=== PATIENT | male | born 1960 | race Caucasian/White ===

== ENCOUNTER 2017-09-26 02:20 | Emergency (ER) | payer OTHER ==
[~2017-09-26] VITALS: Ht 180.3 cm; Wt 117.5 kg
[~2017-09-26 02:20] MED LIST: ADVIN50/60 INH; ASPI81TA28 PO; IPRA1AER2 INH; NIAC500T11 PO; OMEG10007 PO
[2017-09-26 02:25] VITALS: Ht 180.3 cm; Wt 117.5 kg
[2017-09-26 02:40] VITALS: O2SAT 94
[2017-09-26] MEDS ORDERED: FEXO5TAB2 PO (02:52)
[2017-09-26] MEDS ORDERED: SULF800T23 PO (02:52)
[2017-09-26] MEDS ORDERED: ALBUT/IPRATROP 3MG/0.5MG NEB 3 ML VIAL INH STA (03:05)
[2017-09-26] MEDS ORDERED: METHYLPREDNISOLONE 125 MG VIAL IV STA (03:07)
[2017-09-26 03:42] LABS: BASO % 0.3 %; BASO ABS # 0.02 K/uL (0-0.2); EOS % 2.1 %; EOS ABS # 0.17 K/uL (0-0.5); HEMATOCRIT 46.9 % (42-52); HEMOGLOBIN 16.5 g/dL (14.0-18.0); IG# 0.02 K/uL (0.00-0.02); LYMPH % 20.6 %; LYMPH ABS # 1.64 K/uL (1.2-3.4); MEAN CELL VOLUME 97.5 fL (80-100); MEAN CORPUSCULAR HEMOGLOBIN 34.3 pg (25-34); MEAN CORPUSCULAR HGB CONC 35.2 g/dl (32-36); MEAN PLATELET VOLUME 10.6 fL (7.4-10.4); MONO % 7.9 %; MONO ABS # 0.63 K/uL (0.11-0.59); NEUT % 68.8 %; NEUT ABS # 5.47 K/uL (1.4-6.5); PLATELET COUNT 129 K/uL (130-400); RED CELL DISTRIBUTION WIDTH CV 13.1 % (11.5-14.5); RED CELL DISTRIBUTION WIDTH SD 46.9 fL (36.4-46.3); WHITE BLOOD COUNT 7.95 K/uL (4.8-10.8)
[2017-09-26 03:58] LABS: BLOOD UREA NITROGEN 8 mg/dl (7-18); CREATININE 1.15 mg/dl (0.60-1.40); GLUCOSE 119 mg/dl (70-99); INFLUENZA B ANTIGEN Neg for Influ B (NEG)
[2017-09-26 03:59] LABS: ALBUMIN 3.5 gm/dl (3.4-5.0); ALT/SGPT 29 U/L (12-78); AST/SGOT 20 U/L (15-37); CALCIUM 8.2 mg/dl (8.5-10.1); CARBON DIOXIDE 25 mmol/L (21-32); POTASSIUM 4.2 mmol/L (3.5-5.1); SODIUM 132 mmol/L (136-145)
[2017-09-26 04:04] LABS: ALKALINE PHOSPHATASE 91 U/L (45-117); TOTAL PROTEIN 7.3 gm/dl (6.4-8.2)
[2017-09-26] MEDS ORDERED: AZITHROMYCIN 250 MG TAB PO STA (04:23)
[2017-09-26] MEDS ORDERED: AZIT500T26 PO (05:03)
[2017-09-26] MEDS ORDERED: PRED20TA2 PO (05:03)
[2017-09-26 05:22] VITALS: BP 148/75; PULSE 100; TEMP 36.7; O2SAT 90
--- NOTE | 2017-09-26 07:11 | DIAGNOSTIC IMAGING REPORT ---
TWO VIEW CHEST CLINICAL HISTORY: Dyspnea. FINDINGS: PA and lateral chest radiographs are compared to study dated 03/23/2016. The cardiomediastinal silhouette is unremarkable. The lungs appear hyperinflated and hyperlucent with flattening of the diaphragm suggesting obstructive physiology. Interstitial thickening is nonspecific. No focal airspace consolidation or pleural effusion is identified. There is no pneumothorax. The skeletal structures are osteopenic. Degenerative change is seen throughout the thoracic spine. IMPRESSION: 1. Suspect emphysema. 2. No airspace consolidation or pleural effusion is identified. Electronically signed by: Reinaldo Kebede M.D. 09/26/2017 7:10 AM Dictated Date/Time: 09/26/2017 7:09 AM
--- NOTE | 2017-09-26 07:44 | EMERGENCY ROOM VISIT NOTE ---
History Report prepared by Amelia: Carolynn Casas Under the Supervision of: Dr. Lillian Hernandez D.O. First contact with patient: 02:38 Chief Complaint: RESPIRATORY PROBLEMS Stated Complaint: BREATHING ISSUES History of Present Illness The patient is a 57 year old male who presents to the Emergency Room with complaints of worsening shortness of breath that began Last , 4 days ago. The patient states that he thought he had influenza when the symptoms initially onset, but the shortness of breath has persisted. He notes that he tried to walk up his basement steps this evening and became "extremely" short of breath. He dropped to his hands and knees at the top of the steps and needed to call his for help. He also complains of a cough that is producing a "thick mucous." He denies any chest pain. The patient added that he stopped taking his water pill last week because, "they dry me out too bad." He has a known history of COPD. Source of History: patient Onset: Last 4 days Position: chest Quality: other (SOB) Timing: worsening Modifying Factors (Worsening): exertion (walking up steps) Associated Symptoms: + cough, No chest pain Review of Systems See HPI for pertinent positives & negatives. A total of 10 systems reviewed and were otherwise negative. Past Medical & Surgical Medical Problems: (1) COPD (chronic obstructive pulmonary disease) Family History Diabetes mellitus Social History Smoking Status: Current Every Day Smoker Marital Status: single Occupation Status: retired Current/Historical Medications Scheduled Aspirin (Aspirin Ec), 81 MG PO DAILY Azithromycin (Zithromax), 500 MG PO DAILY Fish Oil (Wheeling-3), 1 CAP PO DAILY Niacin (Niacin), 1,000 MG PO DAILY Prednisone (Prednisone Tab), 3 TABS PO DAILY Sulfa/Trimethoprim (Bactrim Ds 800MG/160MG), 1 TAB PO BID Scheduled PRN Fexofenadine-Pseudoephedrine (Janice-D 12 Hour Allergy), 1 TAB PO BID PRN for CONGESTION Fluticasone Prop/Salmeterol (Advair Diskus 500/50 60 Dose), Unknown Dose INH BID PRN for SOB/Wheezing Ipratropium-Albuterol (Combivent Respimat), 1 PUFFS INH QID PRN for SOB/Wheezing Allergies Coded Allergies: No Known Allergies (Unverified , 09/26/17) Physical Exam Vital Signs Date Time Temp Pulse Resp B/P (MAP) Pulse Ox O2 Delivery O2 Flow Rate FiO2 09/26/17 05:22 36.7 100 30 148/75 90 09/26/17 04:52 90 Room Air 09/26/17 04:19 100 148/75 89 Room Air 09/26/17 04:19 93 Nasal Cannula 2.0 09/26/17 02:40 94 Nasal Cannula 4.0 09/26/17 02:36 92 Nasal Cannula 3.0 09/26/17 02:25 36.7 103 30 139/84 90 Room Air Physical Exam HEENT: Head - normocephalic and atraumatic Pupils are equal, round, and reactive to light. Extraocular eye muscles are intact, and sclera are anicteric. Nose - moist nasal mucosa without discharge. Mouth - moist buccal mucosa. Oropharynx is nonerythematous and there is no tonsillar exudate or edema noted. Neck: Supple; no JVD, nuchal rigidity, cervical lymphadenopathy. Heart: Regular rate and rhythm. There is a normal S1 and S2 with no murmurs, clicks, or gallops appreciated. Lungs: Expiratory wheezing in bilateral lung bases, with rales at the bases. Abdomen: Soft, completely nontender, nondistended, with good bowel sounds. There are no palpable pulsatile masses or hepatosplenomegaly. There is no guarding, rigidity, or rebound noted. Extremities: No evidence of cyanosis, clubbing. Trace pedal edema bilaterally. There are easily palpable peripheral pulses. Skin: warm and dry with good turgor and no rashes. Medical Decision & Procedures ER Provider Diagnostic Interpretation: Radiology results as stated below per my review: CHEST X-RAY: There is a right lower lobe pneumonia. Borderline cardiomegaly. Emphysematous changes Laboratory Results 09/26/17 03:25 Red Blood Count 4.81, Mean Corpuscular Volume 97.5, Mean Corpuscular Hemoglobin 34.3, Mean Corpuscular Hemoglobin Concent 35.2, Mean Platelet Volume 10.6, Neutrophils (%) (Auto) 68.8, Lymphocytes (%) (Auto) 20.6, Monocytes (%) (Auto) 7.9, Eosinophils (%) (Auto) 2.1, Basophils (%) (Auto) 0.3, Neutrophils # (Auto) 5.47, Lymphocytes # (Auto) 1.64, Monocytes # (Auto) 0.63, Eosinophils # (Auto) 0.17, Basophils # (Auto) 0.02 09/26/17 03:25 Test 09/26/17 03:25 White Blood Count 7.95 K/uL (4.8-10.8) Red Blood Count 4.81 M/uL (4.7-6.1) Hemoglobin 16.5 g/dL (14.0-18.0) Hematocrit 46.9 % (42-52) Mean Corpuscular Volume 97.5 fL (80-100) Mean Corpuscular Hemoglobin 34.3 pg (25-34) Mean Corpuscular Hemoglobin Concent 35.2 g/dl (32-36) Platelet Count 129 K/uL (130-400) Mean Platelet Volume 10.6 fL (7.4-10.4) Neutrophils (%) (Auto) 68.8 % Lymphocytes (%) (Auto) 20.6 % Monocytes (%) (Auto) 7.9 % Eosinophils (%) (Auto) 2.1 % Basophils (%) (Auto) 0.3 % Neutrophils # (Auto) 5.47 K/uL (1.4-6.5) Lymphocytes # (Auto) 1.64 K/uL (1.2-3.4) Monocytes # (Auto) 0.63 K/uL (0.11-0.59) Eosinophils # (Auto) 0.17 K/uL (0-0.5) Basophils # (Auto) 0.02 K/uL (0-0.2) RDW Standard Deviation 46.9 fL (36.4-46.3) RDW Coefficient of Variation 13.1 % (11.5-14.5) Immature Granulocyte % (Auto) 0.3 % Immature Granulocyte # (Auto) 0.02 K/uL (0.00-0.02) Anion Gap 4.0 mmol/L (3-11) Est Creatinine Clear Calc Drug Dose 90.2 ml/min Estimated GFR () 80.3 Estimated GFR (Non- 69.3 BUN/Creatinine Ratio 6.9 (10-20) Calcium Level 8.2 mg/dl (8.5-10.1) Total Bilirubin 0.6 mg/dl (0.2-1) Direct Bilirubin 0.2 mg/dl (0-0.2) Aspartate Amino Transf (AST/SGOT) 20 U/L (15-37) Alanine Aminotransferase (ALT/SGPT) 29 U/L (12-78) Alkaline Phosphatase 91 U/L (45-117) Troponin I < 0.015 ng/ml (0-0.045) Pro-B-Type Natriuretic Peptide 36 pg/ml (0-900) Total Protein 7.3 gm/dl (6.4-8.2) Albumin 3.5 gm/dl (3.4-5.0) Influenza Type A Antigen Neg for Influ A (NEG) Influenza Type B Antigen Neg for Influ B (NEG) Laboratory results per my review. Medications Administered Medications (Trade) Dose Ordered Sig/Bina Route Start Time Stop Time Status Last Admin Dose Admin Albuterol/ Ipratropium (Duoneb) 3 ml NOW STAT INH 09/26/17 03:05 09/26/17 03:07 DC 09/26/17 03:35 3 ML Methylprednisolone Sodium Succinate (Solu-Medrol IV) 125 mg NOW STAT IV 09/26/17 03:07 09/26/17 03:08 DC 09/26/17 03:35 125 MG Azithromycin (Zithromax Tab) 500 mg NOW STAT PO 09/26/17 04:23 09/26/17 04:24 DC 09/26/17 04:28 500 MG Procedure Medications Ordered: Duoneb, Solu-Medrol, Zithromax ECG Per My Interpretation Indication: SOB/dyspnea Rate (beats per minute): 97 Rhythm: normal sinus Findings: no acute ischemic change, no ectopy, other (No ST-segment changes) ED Course 0302: Past medical records reviewed. The patient was evaluated in room B3. A complete history and physical exam was performed. Laboratory studies were drawn as above. A 12-lead EKG was obtained. 0305: Ordered Albuterol 3 mL INH. 0307: Ordered Solu-Medrol 125 mg IV. The patient went for chest x-ray as described above. 0418:I checked on the patient at this time. He got better after breathing treatments, but got out of breath walking to the restroom. 0423: Ordered 500 mg Azithromycin PO. 0456: The patient's oxygen saturation levels remained at 90% without oxygen. 0523: Upon reevaluation, the patient is resting. I discussed findings and results with him. He verbalized agreement of the treatment plan. The patient was discharged home. Medical Decision The patient is a 57 year old male who presents to the emergency department for shortness of breath upon exertion. Differential Diagnosis includes; bronchitis, pneumonia, COPD exacerbation, CHF, and URI. Laboratory results were reviewed and show: No leukocytosis, stable hemoglobin and hematocrit, negative influenza swab, glucose of 119, BNP of 36, normal troponin, normal renal function, normal LFTs. This is a 57-year-old male patient with a history of COPD who presents to the emergency department with increasing exertional shortness of breath and productive cough. On physical exam, the patient had expiratory wheezing. He received nebulizer treatment with improvement in his symptoms. Chest x-ray was concerning for right lower lower lobe infiltrate. His symptoms seem consistent with exacerbation of COPD, bronchitis or pneumonia. He will be treated with oral antibiotics. Patient was encouraged to rest over the next couple days. He was told to follow-up with his PCP within the next 48 hours if symptoms persist. He will be placed on a 7 day course of Zithromax as well as a 4 day course of prednisone. Medication Reconcilliation Current Medication List: was personally reviewed by me Blood Pressure Screening Patient's blood pressure: Elevated blood pressure Impression Primary Impression: RLL pneumonia Additional Impression: COPD with exacerbation Scribe Attestation The scribe's documentation has been prepared under my direction and personally reviewed by me in its entirety. I confirm that the note above accurately reflects all work, treatment, procedures, and medical decision making performed by me. Departure Information Dispostion Home / Self-Care Prescriptions Prednisone (Prednisone Tab) 20 Mg Tab 3 TABS PO DAILY, #12 TAB FOR 4 DAYS Prov: Lillian Hernandez D.OAime 09/26/17 Azithromycin (Zithromax) 500 Mg Tab 500 MG PO DAILY, #6 TAB Prov: Lillian Hernandez D.O. 09/26/17 Referrals Clayton Richardson M.D. (PCP) Forms HOME CARE DOCUMENTATION FORM, IMPORTANT VISIT INFORMATION, WORK / SCHOOL INSTRUCTIONS Patient Instructions My [facility] Additional Instructions Rest. STOP SMOKING USe advair twice daily. Use combivent - 2 puffs every 4-6 hours over next 3 days Zithromax - daily for next 6 days Prednisone - 3 tabs. every morning for next 4 days Return to the ER if symptoms worsen. Follow up with PCP for a recheck by monday if symptoms persist Problem Qualifiers Primary Impression: RLL pneumonia Pneumonia type: due to unspecified organism Qualified Codes: J18.1 - Lobar pneumonia, unspecified organism
== END 2017-09-26 05:23 | disposition home or self-care (01) ==
LOC: C.EDB 02:21
DX: J18.1 Lobar pneumonia, unspecified organism (principal); J44.1 Chronic obstructive pulmonary disease with (acute) exacerbation; F17.200 Nicotine dependence, unspecified, uncomplicated; Z79.82 Long term (current) use of aspirin; Z79.899 Other long term (current) drug therapy

== ENCOUNTER 2020-02-12 16:34 | Inpatient (IN) ==
--- NOTE | 2020-02-12 17:23 | Emergency Department Note ---
Impression & Plan Pulmonary embolism, Superficial thrombophlebitis ED Provider Note NAME: DILMA MALHOTRA AGE: 59 SEX: M : 1960 ARRIVES VIA: Walk-In INFORMANT: Patient, ED PROVIDER(S): Jone Martinez DO CHIEF COMPLAINT: Shortness of breath HPI: The patient is a 59-year-old male who was recently diagnosed with very extensive superficial thrombophlebitis of the left greater saphenous vein. He was started on low-dose Lovenox. He went for a recheck with his primary care physician today in [place] and was experiencing significant shortness of breath. The patient has a history of COPD but he states that this shortness of breath feels different than his previous shortness of breath. For this reason and given that the patient had extensive superficial thrombophlebitis he was sent for CT of the chest. The CT of the chest was read in our facility as "several right-sided acute pulmonary emboli. No right heart strain. No pulmonary infarct." The patient was also experiencing hemoptysis today when he went to follow-up with his primary care physician. The patient was sent to the emergency department for further evaluation and likely admission. ROS: See above HPI for pertinent positives & negatives. A total of 10 systems reviewed and were otherwise negative. PAST MEDICAL HISTORY: See Below PAST SURGICAL HISTORY: See Below FAMILY HISTORY: See Below SOCIAL HISTORY: See Below HOME MEDICATIONS: See Below ALLERGIES: See Below VITALS: See Below PHYSICAL EXAMINATION: GENERAL: Patient is awake alert in no acute distress patient is resting comfortably and showing no signs of anxiety EYES: The conjunctivae are clear. The pupils are round and reactive. EARS, NOSE, MOUTH AND THROAT: The nose is without any evidence of any deformity. Mucous membranes are moist. Tongue is midline. NECK: The neck is nontender and supple. RESPIRATORY: Diminished breath sounds are noted throughout. There is coarse wheezing in both upper lung oliveira. There is mild conversational dyspnea. CARDIOVASCULAR: Tachycardic rate with regular rhythm was noted. There is no definite murmur. GASTROINTESTINAL: The abdomen is soft. Abdomen is nontender. MUSCULOSKELETAL/EXTREMITIES: There is no evidence of gross deformity full range of motion is noted in the hips and shoulders. SKIN: There is no obvious evidence of any rash. Trace pedal edema was noted bilaterally. There is significant induration and erythema noted on the medial left thigh. This is presumably the area of the superficial thrombophlebitis of the greater saphenous vein that was diagnosed 5 days ago. NEUROLOGIC: Patient is awake alert and oriented x 3. MEDICAL DECISION MAKING: The patient is a 59-year-old male who presented to the emergency department for an evaluation of difficulty breathing and hemoptysis. The patient was diagnosed with superficial thrombophlebitis of the greater saphenous vein 5 days ago. He was started on low-dose Lovenox at that time. He went to follow-up with his primary care physician today and was complaining of difficulty breathing and hemoptysis. For this reason he was sent to our facility for a CT of the chest. At that time the CT the chest was read as acute right-sided pulmonary embolism. He was sent to the emergency department for further evaluation. The patient was started on heparin in the emergency department. He was reevaluated multiple times. I discussed the patient's laboratory results with him. [facility] have agreed to evaluate the patient in the emergency department for further management and disposition. Triage Nursing notes reviewed. Prior medical records reviewed Vital Signs: reviewed and remarkable for elevated blood pressure. Differential diagnosis: Reactive airway disease, pneumonia, pneumothorax, COPD, CHF, infections, cardiac ischemia, pulmonary embolism, musculoskeletal, gastrointestinal, as well as other pathologies. ER treatment provided: See below Diagnostics interpreted by me: ECG: EKG was obtained in the emergency department. My interpretation is normal sinus rhythm at 60 bpm. There is no ectopy. Poor R wave progression was noted. Diffuse T wave flattening was noted. This was compared to a tracing from September 262017. The ventricular rate has slowed and the T wave flattening does appear new compared to the earlier tracing. Cardiac Monitoring: An order was placed for continuous cardiac monitoring. The monitor shows a rate of 80 bpm with sinus rhythm. Laboratory studies: As stated above and show below. Imaging studies: See below Consultation(s): I discussed this case with Jitendra Rios who [facility]. [facility] COURSE: Procedures: none PDMP:reviewed and no issues Critical Care: I have personally spent greater than 45 minutes of critical care time in the direct management of this patient. This includes bedside care, interpretation of diagnostic studies, and testing, discussion with consultants, patient, and family members, and other required patient management activities. This 45 minutes is in excess of all separately billable procedures. Past Med/Surg History Medical History COPD (chronic obstructive pulmonary disease) DVT (deep venous thrombosis) Hypertriglyceridemia Peripheral vascular disease Pulmonary embolism Spinal stenosis of lumbar region without neurogenic claudication Superficial thrombophlebitis Tobacco use Surgical History S/P cholecystectomy Family History Other Stroke Social History Smoking Status: Current every day smoker Hx Alcohol Use: No Hx Substance Use: No Beliefs That Will Affect Care: None Current Living Situation: Family Other Information That Helps Us Care for You: No Feels Safe at Home: Yes Safety Concerns: Feels Safe At This Time Allergies Allergies Allergy/AdvReac Type Severity Reaction Status Date / Time No Known Allergies Allergy Verified 02/12/20 17:53 Home Meds Home Medications Medication Instructions Recorded Confirmed albuterol sulfate 2 puff INHALATION DIRECTED PRN 02/12/20 02/12/20 albuterol sulfate 2.5 mg INHALATION DIRECTED PRN 02/12/20 02/12/20 amoxicillin-pot clavulanate 1 tab PO BID 02/12/20 02/12/20 aspirin 81 mg PO DAILY 02/12/20 02/12/20 azelastine 1 spray INTRANASAL BID PRN 02/12/20 02/12/20 enoxaparin 40 mg SUBCUT DAILY 02/12/20 02/12/20 fluticasone propion-salmeterol 1 inh INHALATION BID 02/12/20 02/12/20 [Advair Diskus] mometasone 2 spray INTRANASAL DAILY PRN 02/12/20 02/12/20 montelukast [Singulair] 10 mg PO DAILY 02/12/20 02/12/20 niacin 1,000 mg PO DAILY 02/12/20 02/12/20 omega-3 fatty acids [Fish Oil 1,000 mg PO DAILY 02/12/20 02/12/20 Concentrate] tiotropium bromide [Spiriva with 1 cap INHALATION DAILY 02/12/20 02/12/20 HandiHaler] Results & Data (ED) Vital Signs Vital Signs - 24 hr 02/12/20 17:00 02/12/20 17:08 02/12/20 17:10 Temperature 36.5 C Temperature Source Oral Pulse Rate 74 71 Pulse Rate from SpO2 Sensor 61 Respiratory Rate 20 24 Respiratory Effort / Characteristics Non-Labored Respiratory Depth Normal Blood Pressure 142/75 H 153/87 H Blood Pressure Mean 97 95 Pulse Oximetry 93 95 94 Oxygen Delivery Method Room Air Room Air Sepsis Recent Fever Within 48 Hours No Sepsis New/Unexplained Change in Mental Status No Sepsis Action Taken by Nursing No Action Required 02/12/20 17:30 02/12/20 17:40 02/12/20 17:50 Temperature Temperature Source Pulse Rate 56 L 64 60 Pulse Rate from SpO2 Sensor 57 L 64 60 Respiratory Rate 19 24 15 Respiratory Effort / Characteristics Respiratory Depth Blood Pressure Blood Pressure Mean Pulse Oximetry 95 94 93 Oxygen Delivery Method Sepsis Recent Fever Within 48 Hours Sepsis New/Unexplained Change in Mental Status Sepsis Action Taken by Long Term Medications Current Medication List: was personally reviewed by me Laboratory Data Attestation: I reviewed the patient's lab results. Result diagrams: 02/12/20 17:28 02/12/20 17:28 Lab Results 02/12/20 02/12/20 02/12/20 Range/Units 17:28 17:28 17:28 WBC 9.54 (4.8-10.8) K/uL RBC 4.95 (4.7-6.1) M/uL Hgb 16.9 (14.0-18.0) g/dL Hct 49.8 (42-52) % MCV 100.6 H (80-100) fL MCH 34.1 H (25-34) pg MCHC 33.9 (32-36) g/dL RDW Std Deviation 52.2 H (36.4-46.3) fL RDW Coeff of Lizandro 14.1 (11.5-14.5) % Plt Count 167 (130-400) K/uL MPV 10.7 H (7.4-10.4) fL Immature Gran % (Auto) 0.2 % Neut % (Auto) 57.1 % Lymph % (Auto) 32.0 % Mellette % (Auto) 5.9 % Eos % (Auto) 4.6 % Baso % (Auto) 0.2 % Neut # (Auto) 5.45 (1.4-6.5) K/uL Lymph # (Auto) 3.05 (1.2-3.4) K/uL Mellette # (Auto) 0.56 (0.11-0.59) K/uL Eos # (Auto) 0.44 (0-0.5) K/uL Baso # (Auto) 0.02 (0-0.2) K/uL Immature Gran # (Auto) 0.02 (0.00-0.02) K/uL PT 11.3 (9.0-12.0) Seconds INR 1.1 (0.9-1.1) APTT 26.2 (21.0-31.0) Seconds PTT Ratio 0.9 Sodium 139 (136-145) mmol/L Potassium 3.9 (3.5-5.1) mmol/L Chloride 107 (98-107) mmol/L Carbon Dioxide 27 (21-32) mmol/L Anion Gap 5.0 (3-11) BUN 8 (7-18) mg/dl Creatinine 1.01 (0.6-1.4) mg/dl Est Cr Clr Drug Dosing 93.4 ml/min Est GFR ( Amer) 92.6 Est GFR (Non-Af Amer) 79.9 BUN/Creatinine Ratio 7.6 L (10-20) Glucose 91 (70-99) mg/dl Calcium 8.5 (8.5-10.1) mg/dl Total Bilirubin 0.6 (0.2-1) mg/dl AST 29 (15-37) U/L ALT 31 (12-78) U/L Alkaline Phosphatase 77 (45-117) U/L Total Protein 7.6 (6.4-8.2) gm/dl Albumin 3.7 (3.4-5.0) gm/dl Globulin 3.9 (2.5-4.0) gm/dl Albumin/Globulin Ratio 0.9 (0.9-2) Specimen Hemolysis Administered Medications Amoxicillin/Clavulanate Potassium (Amoxicillin/Clavulanate 875 Mg Tab) 1 tab PO BIDM [facility] Stop: 02/19/20 20:59 Last Admin: 02/12/20 22:20 Dose: 1 tab Documented by: [id number] Heparin Sodium/Dextrose (Heparin Sodium/Dextrose) 25,000 units in 500 mls @ 31 mls/hr IV .[id number] SHARON; Protocol Stop: 03/13/20 17:29 Last Admin: 02/12/20 18:50 Dose: 1,550 units/hr, 31 mls/hr Documented by: [id number] Cosigned by: [id number] Nicotine (Nicotine 21 Mg/24 Hr Tdsy) 21 mg TD QAM [facility] Stop: 03/13/20 21:09 Last Admin: 02/12/20 22:20 Dose: 21 mg Documented by: [id number] Discontinued Medications Heparin Sodium (Porcine) (Heparin Sod (Porcine) 1000 Unit/Ml 10 Ml Vial) Confirm Administered Dose 10,000 units .ROUTE .STK-MED ONE Stop: 02/12/20 18:48 Last Admin: 02/12/20 18:49 Dose: 7,000 units Documented by: [id number] Cosigned by: [id number] Heparin Sodium/Dextrose (Heparin Iv Standard With Bolus) 1 ea IV NOW STA; Protocol Stop: 02/12/20 17:28 Last Admin: 02/12/20 18:50 Dose: Not Given Documented by: [id number] Blood Pressure Blood Pressure Findings: Elevated blood pressure Blood Pressure Disposition: further management by hospitalist Discharge Plan Visit Data Chief Complaint: Respiratory Problems Stated Complaint: pulmonary embolism ED Provider: Jone Martinez Discharge Problem: Pulmonary embolism, Superficial thrombophlebitis Patient Disposition: Admitted As Inpatient Condition: Good Discharge Instructions Interventions: ED Discharge Assessment Last Done: 02/12/20 20:16
[2020-02-12 17:48] LABS: Basophils # (auto) 0.02 K/uL (0-0.2); Basophils % (auto) 0.2 %; Eosinophils # (auto) 0.44 K/uL (0-0.5); Eosinophils % (auto) 4.6 %; Hematocrit (blood only) 49.8 % (42-52); Hemoglobin 16.9 g/dL (14.0-18.0); Immature Granulocytes # (auto) 0.02 K/uL (0.00-0.02); Immature Granulocytes % (auto) 0.2 %; Lymphocytes # (auto) 3.05 K/uL (1.2-3.4); Mean Corpuscular Hemoglobin 34.1 pg (25-34); Mean Corpuscular Hgb Conc 33.9 g/dL (32-36); Mean Corpuscular Volume 100.6 fL (80-100); Mean Platelet Volume 10.7 fL (7.4-10.4); Monocytes # (auto) 0.56 K/uL (0.11-0.59); Monocytes % (auto) 5.9 %; Neutrophils # (auto) 5.45 K/uL (1.4-6.5); Neutrophils % (auto) 57.1 %; Platelet Count 167 K/uL (130-400); RDW Coefficient of Variation 14.1 % (11.5-14.5); RDW Standard Deviation 52.2 fL (36.4-46.3); Red Blood Count 4.95 M/uL (4.7-6.1); White Blood Count 9.54 K/uL (4.8-10.8)
--- NOTE | 2020-02-12 17:55 | History & Physical Report ---
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 -Recently diagnosed with superficial thrombophlebitis, developed SOB and chest pain 5 days ago along with hemoptysis -CTA chest from today reveals several right-sided acute pulmonary emboli. No right heart strain. No pulmonary infarct -Undergoing OP hypercoag workup. No personal h/o DVT/PE and no family history of known clotting disorders -Concern for COVID with recent hypercoagulability but COVID PCR negative -Started on IV heparin due to recent hemoptysis. Monitor CBC -Routine echo to further evaluate for heart strain (2) Hemoptysis: Endorsing 5 episodes of a small amount of bright red blood in sputum this past week in setting of several PEs, retirement smoking history -Routine pulm consult for further evaluation (3) Superficial thrombophlebitis: Diagnosed on 02/06/20 and is improving. Continue course of Augmentin. Currently on IV heparin (4) COPD (chronic obstructive pulmonary disease): At baseline. Continue Spiriva, Advair, Albuterol PRN DVT Ppx: IV heparin Code status: FULL PCP: Donya Dispo: Admitted to PCU. Plan to return home once medically stable. Patient seen in collaboration with Dr. Munson. Please see addendum. 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 Was recently found to have superficial thrombophlebitis of the left greater saphenous, not involving the deep veins, on 02/07/2020. Started on Lovenox low dose 40mg/day for superficial thrombosis. Was seen again in clinic today due to development of sputum production with a pencil eraser-sized amount of bright red blood x multiple episodes, as well as dyspnea on exertion and eventual development of upper chest pain. Was sent to [facility] for CTA chest and found to have several right-sided acute pulmonary emboli without right heart strain or pulmonary infarct. OP provider also discussed with MTM, who recommended more intensive anticoagulation due to size of clot and possibly worsening clinical course. Recommend therapeutic Lovenox and transition to Coumadin. In ED, patient is afebrile and hemodynamically stable. Denies chest discomfort or SOB at rest. LLE still with erythema but much improved over the past few days, per patient. Denies chills, headache, lightheadedness, visual changes, sore throat, palpitations, abdominal pain, nausea, vomiting, dysuria, constipation or diarrhea. No sick contacts, travel or recent known COVID exposures. Allergies Allergy/AdvReac Type Severity Reaction Status Date / Time No Known Allergies Allergy Verified 02/12/20 17:53 Home Medications Home Medications Medication Instructions Recorded Confirmed Type albuterol sulfate 2 puff INHALATION DIRECTED PRN 02/12/20 02/12/20 History albuterol sulfate 2.5 mg INHALATION DIRECTED PRN 02/12/20 02/12/20 History amoxicillin-pot clavulanate 1 tab PO BID 02/12/20 02/12/20 History aspirin 81 mg PO DAILY 02/12/20 02/12/20 History azelastine 1 spray INTRANASAL BID PRN 02/12/20 02/12/20 History enoxaparin 40 mg SUBCUT DAILY 02/12/20 02/12/20 History fluticasone propion-salmeterol 1 inh INHALATION BID 02/12/20 02/12/20 History [Advair Diskus] mometasone 2 spray INTRANASAL DAILY PRN 02/12/20 02/12/20 History montelukast [Singulair] 10 mg PO DAILY 02/12/20 02/12/20 History niacin 1,000 mg PO DAILY 02/12/20 02/12/20 History omega-3 fatty acids [Fish Oil 1,000 mg PO DAILY 02/12/20 02/12/20 History Concentrate] tiotropium bromide [Spiriva with 1 cap INHALATION DAILY 02/12/20 02/12/20 History HandiHaler] Past Med/Surg History Medical History COPD (chronic obstructive pulmonary disease) DVT (deep venous thrombosis) Elevated serum homocysteine level Hypertriglyceridemia Oral candidiasis Peripheral vascular disease Pulmonary embolism Spinal stenosis of lumbar region without neurogenic claudication Superficial thrombophlebitis Tobacco use Surgical History S/P cholecystectomy Family History Other Stroke Social History Smoking Status: Current every day smoker Hx Alcohol Use: No Hx Substance Use: No Beliefs That Will Affect Care: None Current Living Situation: Family Other Information That Helps Us Care for You: No Feels Safe at Home: Yes Safety Concerns: Feels Safe At This Time Review of Systems Review of Systems: At least ten systems reviewed and negative except as noted in the HPI. Physical Exam Physical Exam: General Appearance: WD/WN, vitals as above, NAD, sitting up in bed, obese, conversing easily Head: normocephalic, atraumatic Eyes: normal inspection, PERRL, conjunctivae normal, anicteric sclerae ENT: external ear and nose normal, oropharynx normal Neck: normal visual inspection, trachea midline, no thyromegaly Respiratory: diminished lung sounds throughout with scattered wheezing. No rales or rhonchi. No accessory muscle use Cardiovascular: tachycardic rate, regular rhythm, no murmur appreciated, normal peripheral pulses, no BLE edema Chest: normal inspection of chest Abdomen/GI: normal bowel sounds, soft, nontender, no hepatosplenomegaly Extremities/Musculoskeletal: no cyanosis or clubbing, extremities motor strength 5/5 Neurologic: PERRL, EOMI, accommodation nl, no face palsy, no dysarthria, CN's II-XI intact bilaterally and moves all extremities Psychiatric: A+Ox3, + anxious affect Skin: no rashes, warm/dry. + L medial thigh with erythema and induration with some warmth to touch Results & Data Results & Data ([facility]) Vital Signs (Past 12 Hours) Vital Signs Temp Pulse Resp BP Pulse Ox 02/12/20 17:10 94 02/12/20 17:00 36.5 C 74 20 142/75 H 93 Laboratory Results Short CBC 02/12/20 02/12/20 02/12/20 Range/Units 17:28 17:28 17:28 WBC 9.54 (4.8-10.8) K/uL RBC 4.95 (4.7-6.1) M/uL Hgb 16.9 (14.0-18.0) g/dL Hct 49.8 (42-52) % MCV 100.6 H (80-100) fL MCH 34.1 H (25-34) pg MCHC 33.9 (32-36) g/dL RDW Std Deviation 52.2 H (36.4-46.3) fL RDW Coeff of Lizandro 14.1 (11.5-14.5) % Plt Count 167 (130-400) K/uL MPV 10.7 H (7.4-10.4) fL Immature Gran % (Auto) 0.2 % Neut % (Auto) 57.1 % Lymph % (Auto) 32.0 % [place] % (Auto) 5.9 % Eos % (Auto) 4.6 % Baso % (Auto) 0.2 % Neut # (Auto) 5.45 (1.4-6.5) K/uL Lymph # (Auto) 3.05 (1.2-3.4) K/uL [place] # (Auto) 0.56 (0.11-0.59) K/uL Eos # (Auto) 0.44 (0-0.5) K/uL Baso # (Auto) 0.02 (0-0.2) K/uL Immature Gran # (Auto) 0.02 (0.00-0.02) K/uL PT 11.3 (9.0-12.0) Seconds INR 1.1 (0.9-1.1) APTT 26.2 (21.0-31.0) Seconds PTT Ratio 0.9 Sodium 139 (136-145) mmol/L Potassium 3.9 (3.5-5.1) mmol/L Chloride 107 (98-107) mmol/L Carbon Dioxide 27 (21-32) mmol/L Anion Gap 5.0 (3-11) BUN 8 (7-18) mg/dl Creatinine 1.01 (0.6-1.4) mg/dl Est Cr Clr Drug Dosing 93.4 ml/min Est GFR ( Amer) 92.6 Est GFR (Non-Af Amer) 79.9 BUN/Creatinine Ratio 7.6 L (10-20) Glucose 91 (70-99) mg/dl Calcium 8.5 (8.5-10.1) mg/dl Total Bilirubin 0.6 (0.2-1) mg/dl AST 29 (15-37) U/L ALT 31 (12-78) U/L Alkaline Phosphatase 77 (45-117) U/L Total Protein 7.6 (6.4-8.2) gm/dl Albumin 3.7 (3.4-5.0) gm/dl Globulin 3.9 (2.5-4.0) gm/dl Albumin/Globulin Ratio 0.9 (0.9-2) Specimen Hemolysis COVID-19 Eval Order COVID-19 PCR (Negative) 02/12/20 02/12/20 Range/Units 18:56 18:56 WBC (4.8-10.8) K/uL RBC (4.7-6.1) M/uL Hgb (14.0-18.0) g/dL Hct (42-52) % MCV (80-100) fL MCH (25-34) pg MCHC (32-36) g/dL RDW Std Deviation (36.4-46.3) fL RDW Coeff of Lizandro (11.5-14.5) % Plt Count (130-400) K/uL MPV (7.4-10.4) fL Immature Gran % (Auto) % Neut % (Auto) % Lymph % (Auto) % [place] % (Auto) % Eos % (Auto) % Baso % (Auto) % Neut # (Auto) (1.4-6.5) K/uL Lymph # (Auto) (1.2-3.4) K/uL [place] # (Auto) (0.11-0.59) K/uL Eos # (Auto) (0-0.5) K/uL Baso # (Auto) (0-0.2) K/uL Immature Gran # (Auto) (0.00-0.02) K/uL PT (9.0-12.0) Seconds INR (0.9-1.1) APTT (21.0-31.0) Seconds PTT Ratio Sodium (136-145) mmol/L Potassium (3.5-5.1) mmol/L Chloride (98-107) mmol/L Carbon Dioxide (21-32) mmol/L Anion Gap (3-11) BUN (7-18) mg/dl Creatinine (0.6-1.4) mg/dl Est Cr Clr Drug Dosing ml/min Est GFR ( Amer) Est GFR (Non-Af Amer) BUN/Creatinine Ratio (10-20) Glucose (70-99) mg/dl Calcium (8.5-10.1) mg/dl Total Bilirubin (0.2-1) mg/dl AST (15-37) U/L ALT (12-78) U/L Alkaline Phosphatase (45-117) U/L Total Protein (6.4-8.2) gm/dl Albumin (3.4-5.0) gm/dl Globulin (2.5-4.0) gm/dl Albumin/Globulin Ratio (0.9-2) Specimen Hemolysis COVID-19 Eval Order Covid19 Done at [facility] COVID-19 PCR NEGATIVE (Negative) BMP 02/12/20 17:28 Sodium 139 Potassium 3.9 Chloride 107 Carbon Dioxide 27 BUN 8 Creatinine 1.01 Glucose 91 Calcium 8.5 Liver Function 02/12/20 Range/Units 17:28 Total Bilirubin 0.6 (0.2-1) mg/dl AST 29 (15-37) U/L ALT 31 (12-78) U/L Alkaline Phosphatase 77 (45-117) U/L Albumin 3.7 (3.4-5.0) gm/dl Diagnostic Findings CTA chest: IMPRESSION: 1. Several right-sided acute pulmonary emboli. No right heart strain. No pulmonary infarct. These findings will be called/faxed to the ordering provider at time of dictation. 2. Emphysema. Code Status & VTE Plan VTE Prophylaxis Plan VTE Prophylaxis will be ordered: Yes Supervising Physician Co-Signing Physician Notes 59yo M with a PMH of COPD, tobacco presents to the ER with dyspnea on exertion and hemoptysis. Pt was treating outpatient for a superficial thrombophlebitis of the left greater saphenous with lovenox 40mg daily. She was seen in the clinic today for worsening SOB and the hemoptysis; then he was sent to [facility] for CTA chest and found to have several right-sided acute pulmonary emboli without right heart strain or pulmonary infarct. COVID-19 test was negative. Starting on heparin drip in the ER. will consult pulmonology for eval. Will get an echo in am to assess for RV strain. Discussed with patient about Warfarin and the DOACs briefly since the hospitalist team will discuss that with him in detail once check coverage with insurance for the DOACs in am. Will monitor closely for active bleeding since pt was having hemoptysis. Will monitor closely in tele. MD Arpit (1) Superficial thrombophlebitis Laterality: left Superficial thrombophlebitis-Involved body area: lower extremity Qualified Code(s): I80.02 - Phlebitis and thrombophlebitis of superficial vessels of left lower extremity (2) Pulmonary embolism Acute cor pulmonale presence: without acute cor pulmonale Chronicity: acute Pulmonary embolism type: other Qualified Code(s): I26.99 - Other pulmonary embolism without acute cor pulmonale
[2020-02-12 18:06] LABS: Albumin Level 3.7 gm/dl (3.4-5.0); BUN Creatinine Ratio 7.6 (10-20); Calcium 8.5 mg/dl (8.5-10.1); Creatinine Clr Calc Pharmacy 93.4 ml/min; Est GFR (African American) 92.6; Est GFR (Non-African American) 79.9; Potassium 3.9 mmol/L (3.5-5.1)
[2020-02-12 18:09] LABS: INR 1.1 (0.9-1.1); Partial Thromboplastin Ratio 0.9; Partial Thromboplastin Time 26.2 Seconds (21.0-31.0); Prothrombin Time 11.3 Seconds (9.0-12.0)
[2020-02-12 18:10] LABS: Albumin Globulin Ratio 0.9 (0.9-2); Bilirubin,Total 0.6 mg/dl (0.2-1); Globulin 3.9 gm/dl (2.5-4.0); Total Protein 7.6 gm/dl (6.4-8.2)
[2020-02-12] MEDS ORDERED: ALBUTEROL 0.083% NEBU SOLN 3 ML VIAL INH PRN (18:33)
[2020-02-12] MEDS ORDERED: ALBUTEROL HFA 8 GM INHALER INH PRN (18:33)
[2020-02-12] MEDS ORDERED: HEPARIN SOD (PORCINE) 1000 UNIT/ML 10 ML VIAL ONE (18:47)
[2020-02-12] MEDS: HEPARIN SODIUM/DEXTROSE 25,000 UNITS/500 ML BAG IV SCH (18:50)
[2020-02-12] MEDS: NICOTINE 21 MG/24 HR TDSY TD SCH (22:20)
[2020-02-12] MEDS: AMOXICILLIN/CLAVULANATE 875 MG TAB PO SCH (22:20)
[2020-02-13 01:59] LABS: Partial Thromboplastin Ratio 1.8
[2020-02-13 02:07] LABS: Partial Thromboplastin Time 50.1 Seconds (21.0-31.0)
[2020-02-13 06:57] LABS: Hematocrit (blood only) 48.8 % (42-52); Hemoglobin 16.8 g/dL (14.0-18.0); Mean Corpuscular Hemoglobin 34.4 pg (25-34); Mean Corpuscular Hgb Conc 34.4 g/dL (32-36); Mean Platelet Volume 11.2 fL (7.4-10.4); Platelet Count 168 K/uL (130-400); RDW Standard Deviation 50.9 fL (36.4-46.3); Red Blood Count 4.88 M/uL (4.7-6.1); White Blood Count 8.64 K/uL (4.8-10.8)
[2020-02-13 07:45] LABS: BUN Creatinine Ratio 9.4 (10-20); Blood Urea Nitrogen 9 mg/dl (7-18); Calcium 8.4 mg/dl (8.5-10.1); Carbon Dioxide 23 mmol/L (21-32); Chloride 109 mmol/L (98-107); Creatinine Clr Calc Pharmacy 102.3 ml/min; Est GFR (African American) 105.1; Est GFR (Non-African American) 90.6; Glucose 101 mg/dl (70-99); Sodium 139 mmol/L (136-145); Troponin I < 0.015 ng/ml (0-0.045)
[2020-02-13] MEDS ORDERED: AZELASTINE~ORDER AWAITING ACTION SCH (08:00)
[2020-02-13] MEDS: AMOXICILLIN/CLAVULANATE 875 MG TAB PO SCH (08:39)
[2020-02-13] MEDS: NICOTINE 21 MG/24 HR TDSY TD SCH (08:55)
[2020-02-13] MEDS ORDERED: ASPIRIN 81 MG ECTAB PO SCH (09:00)
[2020-02-13] MEDS ORDERED: NIACIN 500 MG TAB PO SCH (09:00)
[2020-02-13] MEDS ORDERED: MONTELUKAST SODIUM 10 MG TABLET PO SCH (09:00)
[2020-02-13] MEDS ORDERED: FLUTICASONE PROPIONATE NA SPR 16 GM BTL SCH (09:00)
[2020-02-13] MEDS ORDERED: NICOTINE 21 MG/24 HR TDSY TD SCH (09:00)
[2020-02-13] MEDS ORDERED: FLUTICASONE/VILANTEROL 200/25MCG 14 PUFFS/INHALER INH SCH (09:00)
[2020-02-13] MEDS ORDERED: UMECLIDINIUM BROMIDE 62.5MCG/BLISTER 7 PUFFS/INHALER INH SCH (09:00)
[2020-02-13] MEDS ORDERED: FOLIC ACID 1 MG TAB PO SCH (09:10)
--- NOTE | 2020-02-13 09:50 | Pulmonary Consultation ---
Date of Consultation February 13, 2020 Assessment & Plan (1) Pulmonary embolism: This is a 59-year-old male with a past medical history of COPD, tobacco abuse, morbid obesity with a BMI of 39 kg/m, thrombophlebitis of superficial veins of left lower extremity, peripheral vascular disease, spinal stenosis of lumbar region, chronic sinusitis, triglyceridemia, thyromegaly. The patient was referred to the emergency department after right-sided pulmonary emboli were discovered with CTA secondary to some chest discomfort and shortness of breath. Patient was never hypoxic or febrile He did develop some hemoptysis as an outpatient with. This seems to be resolving. Patient was started on a heparin drip and is being evaluated for insurance coverage for both Lovenox as well as Xarelto. Patient had outpatient hypercoagulability work-up which was positive for lupus antibody as well as an elevated homocystine level. In patients with known hypercoagulability, DOACs have not been studied and it is advisable to be on lifelong Coumadin therapy If coverage is approved by insurance, patient can be bridged with Lovenox (enoxaparin) at 1 mg/kg twice daily until therapeutic INR is attained A lower extremity duplex scan was also ordered and is pending Patient encouraged to quit smoking Acute cor pulmonale presence: without acute cor pulmonale Chronicity: acute Pulmonary embolism type: other Qualified Code(s): I26.99 - Other pulmonary embolism without acute cor pulmonale (2) Hemoptysis: Secondary to pulmonary emboli Complete cough suppression as needed in the setting of pulmonary emboli with anticoagulation Guaifenesin with codeine has been ordered every 6 hours Tessalon Perles (benzonatate) 100 mg HS has also been ordered This should be continued on discharge (3) Elevated serum homocysteine level: This was elevated on outpatient labs In and of itself, this is probably not significant However, homocystine levels elevated in the scenario of MTHFR can suggest hypercoagulability MTHFR does not appear to be included in the hypercoagulable work-up as an outpatient We will start folic acid 1 mg p.o. daily Recommend outpatient follow-up with hematology for recommendations on continuation of treatment (4) Superficial thrombophlebitis: This was identified as an outpatient and Mr. Powell was started on enoxaparin 40 mg subcu daily Lower extremity duplex is currently pending to rule out deep vein thrombosis in lower extremities Laterality: left Superficial thrombophlebitis-Involved body area: lower extremity Qualified Code(s): I80.02 - Phlebitis and thrombophlebitis of superficial vessels of left lower extremity (5) COPD (chronic obstructive pulmonary disease): Patient was seen by [facility] pulmonology most recently on 03/12/[address] Ross Lynne at [facility] Pulmonary function testing was most recently completed 10/19/2017 and revealed obstructive ventilatory defect with no bronchodilator response. RV/TLC ratio was greater than 125% indicating air trapping. Uncorrected diffusion capacity was moderately reduced. FVC 75% of predicted FEV1 58% of predicted FEV1/FVC 59% of predicted TLC 104% of predicted RV/TLC 53% of predicted RV 175% of predicted DLCOunc 46% of predicted Alpha 1 antitrypsin level was negative Continue Spiriva, Advair, Singulair, albuterol MDI or nebs as needed. Can also continue on Mucinex if is felt to be helpful. We also recommend incentive spirometry Avoid flutter valve Recommend follow-up with [facility] pulmonology within 14 days of discharge COPD type: chronic bronchitis Chronic bronchitis type: simple Qualified Code(s): J41.0 - Simple chronic bronchitis (6) Oral candidiasis: Most likely secondary to inhaled corticosteroids with Advair Patient knows to rinse mouth after each use We will start patient on nystatin swish and swallow 4 times daily Continue support and monitor (7) Tobacco use: Patient expresses no desire for smoking cessation Continue NicoDerm patch while inpatient Encourage smoking cessation Thank you for including us in the care of this patient. Please refer to Dr. Fernando's addendum for further recommendations and corrections. Supervising Physician Co-Signing Physician Notes I looked at the images, discussed the plan with Reinaldo Townsend, and agree with findings and plan as documented in the note. I personally did not see the patient as he was off the floor initially for his Doppler. I went again later on but he was discharged by that time 59-year-old male with past medical history of COPD was admitted to the hospital because of shortness of breath and hemoptysis found to have PE as well as clot in the superior facial saphenous vein going into the common femoral. Patient is also morbidly obese with BMI of 39. He is hemodynamically stable saturating well on room air. Patient also had outpatient hypercoagulable work-up which is positive for lupus antibody as well as elevated homocystine level which puts him at hypercoagulable state. In a patient who is morbidly obese which is BMI greater than 35 as well as positive hypercoagulable work-up DOACs are not well studied. And one will have to monitor factor Xa level if those are used. I would recommend lifelong anticoagulation for the patient with warfarin and Lovenox bridging. Would like to get input from hematology to see if they have a different input when it comes to use of DOACs in such cases. Hemoptysis has resolved. Patient should take voak-ajb-tufixau antitussive medication. For COPD patient is already on Lama/LABA/ICS inhaler on a daily basis would continue with the same. History of Present Illness Attending Physician: James Leonardo MD History of Present Illness Attending: Dr. Fernando This is a 59-year-old male with a past medical history of COPD group D by Gold 2017 classification, chronic bronchitis, emphysema, ongoing tobacco abuse, left lower extremity superficial thrombophlebitis, hypertriglyceridemia, chronic sinusitis, spinal stenosis of lumbar region, peripheral vascular disease, thyromegaly, and obesity with a BMI of 39 kg/m. He presents to the emergency room for findings of positive pulmonary emboli on the right with an outpatient CTA. Chief complaint was some shortness of breath and hemoptysis. He is recently been started on Lovenox 40 mg subcutaneously daily for a superficial left thigh thrombophlebitis. Patient was afebrile and hemodynamically stable in the emergency room. He had no significant asymmetrical edema of lower extremities. He denied any nausea or vomiting. He has no sick contacts or travel or recent known COVID exposure. Patient is retired. 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 He has no other vocational exposure. He has no history of farming or exotic animals. He has no mold or water problems in the house and no standing water. Patient has a negative antitrypsin level previously performed at [facility]. Pulmonary function testing was most recently performed 10/19/2017 and is reported below in the assessment and plan. Patient is anxious for discharge as his daughter is getting this Saturday. Allergies Allergy/AdvReac Type Severity Reaction Status Date / Time No Known Allergies Allergy Verified 02/12/20 17:53 Home Medications Home Medications Medication Instructions Recorded Confirmed Type Spiriva with HandiHaler 1 cap INHALATION DAILY 02/12/20 02/12/20 History albuterol sulfate 2 puff INHALATION DIRECTED PRN 02/12/20 02/12/20 History albuterol sulfate 2.5 mg INHALATION DIRECTED PRN 02/12/20 02/12/20 History amoxicillin-pot clavulanate 1 tab PO BID 02/12/20 02/12/20 History aspirin 81 mg PO DAILY 02/12/20 02/12/20 History azelastine 1 spray INTRANASAL BID PRN 02/12/20 02/12/20 History fluticasone propion-salmeterol 1 inh INHALATION BID 02/12/20 02/12/20 History [Advair Diskus] mometasone 2 spray INTRANASAL DAILY PRN 02/12/20 02/12/20 History montelukast [Singulair] 10 mg PO DAILY 02/12/20 02/12/20 History niacin 1,000 mg PO DAILY 02/12/20 02/12/20 History omega-3 fatty acids [Fish Oil 1,000 mg PO DAILY 02/12/20 02/12/20 History Concentrate] apixaban [Eliquis] 5 mg PO UD #60 tab 02/13/20 Rx benzonatate [Tessalon Perles] 100 mg PO HS #30 cap 02/13/20 Rx codeine-guaifenesin [Guaiatussin 5 ml PO Q6H 5 Days #100 ml 02/13/20 Rx AC] folic acid 1 mg PO QAM #30 tab 02/13/20 Rx nystatin 5 ml PO QID 10 Days #200 ml 02/13/20 Rx Patient History Medical History COPD (chronic obstructive pulmonary disease) DVT (deep venous thrombosis) Elevated serum homocysteine level Hypertriglyceridemia Oral candidiasis Peripheral vascular disease Pulmonary embolism Spinal stenosis of lumbar region without neurogenic claudication Superficial thrombophlebitis Tobacco use Surgical History S/P cholecystectomy Family History Other Stroke Social History Smoking Status: Current every day smoker Hx Alcohol Use: No Hx Substance Use: No Preferred Language: Telugu Beliefs That Will Affect Care: None Current Living Situation: Family Other Information That Helps Us Care for You: No Feels Safe at Home: Yes Safety Concerns: Feels Safe At This Time Review of Systems Review of Systems: All systems reviewed & are unremarkable except as noted in HPI & below Physical Exam Physical Exam: GENERAL : No acute distress EYES: No icterus, gaze conjugate NOSE: No evidence of epistaxis MOUTH: No lesions. Positive for oral candidiasis NECK: Supple LUNGS: CTA B/L, no wheezes, rales or rhonchi HEART: Regular, rate controlled ABDOMEN: Soft, NT, ND, BS Present EXTREMITIES: No LE edema, pedal pulses intact NEURO: A&OX3 Results & Data Results & Data ([facility]) Vital Signs (Past 12 Hours) Vital Signs Temp Pulse Resp BP Pulse Ox 02/13/20 07:45 36.6 C 81 18 124/76 95 02/13/20 06:03 135/81 02/13/20 04:06 36.7 C 73 18 175/90 H 90 02/12/20 23:28 36.6 C 65 16 153/78 H 91 Laboratory Results 02/13/20 06:07 02/13/20 08:15 02/13/20 06:07 Troponin I < 0.015 INR 1.1 (0.9-1.1) 02/12/20 17:[address] ANGIOGRAPHY OF THE CHEST, PULMONARY EMBOLUS PROTOCOL CLINICAL HISTORY: Shortness of breath. Hemoptysis. Evaluate for pulmonary embolus. COMPARISON STUDY: Chest radiograph September 26, 2017. TECHNIQUE: Following IV administration of 116 mL of Optiray-320, helical axial images of the chest were obtained utilizing the pulmonary embolus protocol. Maximal intensity projections and sagittal and coronal reformats were viewed on an independent 3D workstation. IV contrast was administered without compl ication. Automated exposure control was utilized for the study. A dose lowering technique was utilized adhering to the principles of ALARA. CT DOSE: 794.28 mGy.cm FINDINGS: Note is made of several segmental right-sided pulmonary emboli located within segmental branches to the right upper, right middle and right lower lobes. Embolus within the distal right tibial artery is noted. There is no CT evidence for right heart strain. Mild cardiomegaly is noted. No pericardial effusion. Moderate emphysema is noted. No pulmonary infarct. Subpleural opacities reflect atelectasis. Central airways are patent. Bony thorax is unremarkable. Visualized portions of the upper abdomen demonstrate mild no dularity of the liver surface. IMPRESSION: 1. Several right-sided acute pulmonary emboli. No right heart strain. No pulmonary infarct. These findings will be called/faxed to the ordering provider at time of dictation. 2. Emphysema. Electronically signed by: Acosta Tineo M.D. 02/12/2020 4:15 PM Echocardiogram is Pending LE B/L Duplex is pending PG Care Time/CCT Total # of Minutes Spent Total Time Spent with Patient: Total time spent is greater than 50% in coordination of care (as documented) at patient's floor/unit and/or counseling patient: 60 minutes including outside chart review, coordination with other providers, coordination with diagnostics, patient education regarding his current disease state. Coding Level of Care Code 14194 Inpt Consult Level 5 Diagnoses Pulmonary embolism I26.99 Acute cor pulmonale presence: without acute cor pulmonale Chronicity: acute Pulmonary embolism type: other Hemoptysis R04.2 Elevated serum homocysteine level R79.89 Superficial thrombophlebitis I80.02 Laterality: left Superficial thrombophlebitis-Involved body area: lower extremity COPD (chronic obstructive pulmonary disease) J41.0 COPD type: chronic bronchitis Chronic bronchitis type: simple Oral candidiasis B37.0 Tobacco use Z72.0
[2020-02-13] MEDS ORDERED: GUAIFENESIN/CODEINE 100MG/10MG 5ML UDC PO SCH (10:00)
--- NOTE | 2020-02-13 11:00 | Ultrasound Report ---
BILATERAL LOWER EXTREMITY VENOUS DOPPLER CLINICAL HISTORY: R/O LE DVT in presence of Acute PEs COMPARISON STUDY: No previous studies for comparison. TECHNIQUE: Sonography of the deep venous system of the bilateral lower extremities was performed. Co mpression and augmentation were evaluated. FINDINGS: There is no deep venous thrombus within the right lower extremity. There is no deep venous thrombus within the left lower extremity. However, note is made of occlusive superficial thrombus wit hin the left greater saphenous vein that extends from the distal calf to nearly the junction with the common femoral vein. IMPRESSION: 1. Extensive occlusive superficial thrombus within the left greater saphenous vein that extends from the level of the distal calf to nearly the junction with the common femoral vein. 2. No evidence of deep venous thrombus within the bilateral lower extremities. ACT 112: Negative or not required by law. Electronically signed by: Acosta Tineo M.D. 02/13/2020 10:59 AM
[2020-02-13] MEDS: HEPARIN SODIUM/DEXTROSE 25,000 UNITS/500 ML BAG IV SCH (11:55)
[2020-02-13] MEDS ORDERED: APIXABAN 2.5 MG TAB PO SCH (12:00)
[2020-02-13] MEDS ORDERED: NYSTATIN SUSP 500,000 U/5 ML UDC PO SCH (13:00)
--- NOTE | 2020-02-13 13:17 | Hospitalist Progress Note ---
Date of Service February 13, 2020 Assessment & Plan (1) Pulmonary embolism: Patient is a 59 yr male with H/O COPD, penitentiary tobacco use currently smoking 1 ppd who presents with dyspnea on exertion, hemoptysis and upper chest discomfort x 4-5 days and was found to have several right-sided acute pulmonary emboli. Acute pulmonary embolism H/O Hypercoagulability--work up done as outpatient Recently diagnosed to have superficial thrombophlebitis --Chest CTA:Several right-sided acute pulmonary emboli. No right heart strain. No pulmonary infarct. These findings will be called/faxed to the ordering provider at time of dictation. Emphysema. --Venous Doppler: Extensive occlusive superficial thrombus within the left greater saphenous vein that extends from the level of the distal calf to nearly the junction with the common femoral vein. No evidence of deep venous thrombus within the bilateral lower extremities. --Counselled to quit smoking --Appreciate Pulmonology Input --Discussed with Oncology Dr. Morrissey on 02/13/20 regarding anticoagulation (Ok to be started on Apixaban) --Discussed with patient regarding therapeutic Lovenox Vs Apixaban for anticoagulation--explained the risks/benefits in detail --Patient proffered to be started on Apixaban --IV heparin transition to apixaban Advised patient to follow-up with hematology as outpatient --Saturating well on room air --No recurrence of hemoptysis (2) Hemoptysis: Resolved Appreciate Pulm Input Continue antitussives (3) Superficial thrombophlebitis: Diagnosed on 02/06/20 and is improving. Continue course of Augmentin, Apixaban (4) COPD (chronic obstructive pulmonary disease): Chronic cough--Unchanged Ongoing tobacco use disorder Advised to quit smoking Continue Spiriva, Advair, Albuterol PRN DVT Px: Apixaban Code status: FULL PCP: Donya Dispo: Plan to discharge home today Admission and Anticipated Discharge Date Admission Date: February 12, 2020 Subjective Patient is seen and examined at bedside No recurrence of hemoptysis States feeling much better today Denies chest pain, shortness of breath, cough Discussed with oncology and pulmonary today Explained patient and his daughter in detail at bedside Offers no other complaints Review of Systems Review of Systems: All systems reviewed & are unremarkable except as noted in HPI & below Physical Exam Physical Exam: Physical Exam: Vitals signs as noted above General Appearance:Moderately built and nourished, no apparent distress Head: normocephalic, Atraumatic Eyes: normal inspection, EOMI Neck: supple, Trachea midline Respiratory/Chest: Decreased breath sounds, CTA, No accessory muscle use Cardiovascular: S1, S2, No murmur Abdomen/GI:Soft, Non tender, Bowel sounds present Extremities/Musculoskelatal:normal inspection, LLE erythema, swelling Neurologic/Psych:AAOX3, grossly no focal neurological deficits Skin: normal color, warm Results & Data Results & Data ([facility]) Vital Signs (Past 12 Hours) Vital Signs Temp Pulse Resp BP Pulse Ox 02/13/20 11:40 36.3 C L 60 20 151/93 H 99 02/13/20 07:45 36.6 C 81 18 124/76 95 02/13/20 06:03 135/81 02/13/20 04:06 36.7 C 73 18 175/90 H 90 Laboratory Results Short CBC 02/12/20 02/13/20 Range/Units 17:28 06:07 WBC 9.54 8.64 (4.8-10.8) K/uL Hgb 16.9 16.8 (14.0-18.0) g/dL Hct 49.8 48.8 (42-52) % Plt Count 167 168 (130-400) K/uL BMP 02/12/20 02/13/20 02/13/20 17:28 06:07 08:15 Sodium 139 139 Potassium 3.9 4.1 Chloride 107 109 H Carbon Dioxide 27 23 BUN 8 9 Creatinine 1.01 0.91 Glucose 91 101 H Calcium 8.5 8.4 L Cardiac Enzymes 02/13/20 Range/Units 06:07 Troponin I < 0.015 (0-0.045) ng/ml Liver Function 02/12/20 Range/Units 17:28 Total Bilirubin 0.6 (0.2-1) mg/dl AST 29 (15-37) U/L ALT 31 (12-78) U/L Alkaline Phosphatase 77 (45-117) U/L Albumin 3.7 (3.4-5.0) gm/dl (1) Pulmonary embolism Acute cor pulmonale presence: without acute cor pulmonale Chronicity: acute Pulmonary embolism type: other Qualified Code(s): I26.99 - Other pulmonary embolism without acute cor pulmonale (2) Superficial thrombophlebitis Laterality: left Superficial thrombophlebitis-Involved body area: lower extremity Qualified Code(s): I80.02 - Phlebitis and thrombophlebitis of superficial vessels of left lower extremity (3) COPD (chronic obstructive pulmonary disease) COPD type: chronic bronchitis Chronic bronchitis type: simple Qualified Code(s): J41.0 - Simple chronic bronchitis
--- NOTE | 2020-02-13 13:43 | Discharge Summary ---
Date of Service February 13, 2020 Admission HPI Per Admitting Provider This is a 59yo M with a PMH of COPD, assisted tobacco use currently smoking 1 ppd who presents with dyspnea on exertion, hemoptysis and upper chest discomfort x 4-5 days. Was recently found to have superficial thrombophlebitis of the left greater saphenous, not involving the deep veins, on 02/07/2020. Started on Lovenox low dose 40mg/day for superficial thrombosis. Was seen again in clinic today due to development of sputum production with a pencil eraser-sized amount of bright red blood x multiple episodes, as well as dyspnea on exertion and eventual development of upper chest pain. Was sent to [facility] for CTA chest and found to have several right-sided acute pulmonary emboli without right heart strain or pulmonary infarct. OP provider also discussed with MTM, who recommended more intensive anticoagulation due to size of clot and possibly worsening clinical course. Recommend therapeutic Lovenox and transition to Coumadin. In ED, patient is afebrile and hemodynamically stable. Denies chest discomfort o r SOB at rest. LLE still with erythema but much improved over the past few days, per patient. Denies chills, headache, lightheadedness, visual changes, sore throat, palpitations, abdominal pain, nausea, vomiting, dysuria, constipation or diarrhea. No sick contacts, travel or recent known COVID exposures. Admission Exam Per Admitting Provider Physical Exam Physical Exam: General Appearance: WD/WN, vitals as above, NAD, sitting up in bed, obese, conversing easily Head: normocephalic, atraumatic Eyes: normal inspection, PERRL, conjunctivae normal, anicteric sclerae ENT: external ear and nose normal, oropharynx normal Neck: normal visual inspection, trachea midline, no thyromegaly Respiratory: diminished lung sounds throughout with scattered wheezing. No rales or rhonchi. No accessory muscle use Cardiovascular: tachycardic rate, regular rhythm, no murmur appreciated, normal peripheral pulses, no BLE edema Chest: normal inspection of chest Abdomen/GI: normal bowel sounds, soft, nontender, no hepatosplenomegaly Extremities/Musculoskeletal: no cyanosis or clubbing, extremities motor strength 5/5 Neurologic: PERRL, EOMI, accommodation nl, no face palsy, no dysarthria, CN's II-XI intact bilaterally and moves all extremities Psychiatric: A+Ox3, + anxious affect Skin: no rashes, warm/dry. + L medial thigh with erythema and induration with some warmth to touch Principal Diagnosis Acute pulmonary embolism Hemoptysis Discharge Data Allergies Allergy/AdvReac Type Severity Reaction Status Date / Time No Known Allergies Allergy Verified 02/12/20 17:53 Consultations 02/12/20 17:27 ED Decision to Admit Stat 02/13/20 08:00 Consult Pulmonology Routine Procedures Performed --Chest CTA:Several right-sided acute pulmonary emboli. No right heart strain. No pulmonary infarct. These findings will be called/faxed to the ordering provider at time of dictation. Emphysema. --Venous Doppler: Extensive occlusive superficial thrombus within the left greater saphenous vein that extends from the level of the distal calf to nearly the junction with the common femoral vein. No evidence of deep venous thrombus within the bilateral lower extremities. Ordered Studies 02/13/20 10:00 US venous doppler [facility] Urgent Hospital Course (1) Pulmonary embolism: Patient is a 59 yr male with H/O COPD, assisted tobacco use currently smoking 1 ppd who presents with dyspnea on exertion, hemoptysis and upper chest discomfort x 4-5 days and was found to have several right-sided acute pulmonary emboli. Acute pulmonary embolism H/O Hypercoagulability--work up done as outpatient Recently diagnosed to have superficial thrombophlebitis --Chest CTA:Several right-sided acute pulmonary emboli. No right heart strain. No pulmonary infarct. These findings will be called/faxed to the ordering provider at time of dictation. Emphysema. --Venous Doppler: Extensive occlusive superficial thrombus within the left greater saphenous vein that extends from the level of the distal calf to nearly the junction with the common femoral vein. No evidence of deep venous thrombus within the bilateral lower extremities. --Counselled to quit smoking --Appreciate Pulmonology Input --Discussed with Oncology Dr. Morrissey on 02/13/20 regarding anticoagulation (Ok to be started on Apixaban) --Discussed with patient regarding therapeutic Lovenox Vs Apixaban for anticoagulation--explained the risks/benefits in detail --Patient proffered to be started on Apixaban --IV heparin transition to apixaban Advised patient to follow-up with hematology as outpatient --Saturating well on room air --No recurrence of hemoptysis (2) Hemoptysis: Resolved Appreciate Pulm Input Continue antitussives (3) Superficial thrombophlebitis: Diagnosed on 02/06/20 and is improving. Continue course of Augmentin, Apixaban (4) COPD (chronic obstructive pulmonary disease): Chronic cough--Unchanged Ongoing tobacco use disorder Advised to quit smoking Continue Spiriva, Advair, Albuterol PRN DVT Px: Apixaban Code status: FULL PCP: Donya Dispo: Plan to discharge home today Total Time Total Time Spent Total Time Spent (In Minutes): 40 minutes Total Time Includes: Examination of the Patient, Discharge Planning, Medication Reconciliation, Communication With Other Providers and Other Discharge Plan Discharge Items Patient Disposition: Home - Self-Care Reason For Visit: PE Discharge Diagnosis: Acute pulmonary embolism Hemoptysis Condition on Discharge: Good Activity: Per Instructions section Exercise/Sports: Wait until after follow-up appointment Non-emergency contact: Primary Care Provider and Oncologist Call non-emergency contact if: you have any medication questions, your symptoms worsen, your pain is not controlled, your pain is worsening, your pain is unusual for you, your pain is concerning for you and you have a fever Follow-up/Referrals: Ernestina Baker MD [Primary Care Provider] - 02/18/20 3:05 pm Diet: Heart Healthy Addtl Attending Provider Instructions: Follow-up with your primary care physician Dr. Devaughn Mayorga on February 18, 2020 at 3:05 PM Follow-up with your oncologist Dr. Morrissey in 1-2 weeks as advised Stop smoking tobacco as advised Seek immediate medical attention if your symptoms reoccur or worsen Apixaban Dosing: Start taking apixaban 10 mg twice a day for 7 days and then take 5 mg twice a day. Discussed with your manager brand for further recommendation on anticoagulation as advised. Pending Studies at Discharge: No Stand-Alone Forms: My [employer], Smoking Cessation Medications and DC Order Prescriptions: New nystatin 100,000 unit/mL Suspension 5 ml PO QID 10 Days Qty: 200 RF: 0 Eliquis 5 mg Tablet 5 mg PO UD Qty: 60 RF: 0 benzonatate [Tessalon Perles] 100 mg Capsule 100 mg PO HS Qty: 30 RF: 0 folic acid 1 mg Tablet 1 mg PO QAM Qty: 30 RF: 1 codeine-guaifenesin [Guaiatussin AC] 10-100 mg/5 mL Liquid 5 ml PO Q6H 5 Days Qty: 100 RF: 0 Continued albuterol sulfate 2.5 mg /3 mL (0.083 %) Solution For Nebulization 2.5 mg INHALATION DIRECTED PRN (Reason: Shortness Of Breath Or Wheezing) RF: 0 omega-3 fatty acids [Fish Oil Concentrate] 1,000 mg Capsule 1,000 mg PO DAILY RF: 0 fluticasone propion-salmeterol [Advair Diskus] 500-50 mcg/dose Blister With Device 1 inh INHALATION BID RF: 0 aspirin 81 mg Tablet,Chewable 81 mg PO DAILY RF: 0 montelukast [Singulair] 10 mg Tablet 10 mg PO DAILY RF: 0 azelastine 137 mcg (0.1 %) Aerosol,[place] 1 spray INTRANASAL BID PRN (Reason: Nasal Congestion) RF: 0 albuterol sulfate 90 mcg/actuation Hfa Aerosol Inhaler 2 puff INHALATION DIRECTED PRN (Reason: Shortness Of Breath Or Wheezing) RF: 0 amoxicillin-pot clavulanate 875-125 mg tablet 1 tab PO BID RF: 0 Spiriva with HandiHaler 18 mcg Capsule, W/Inhalation Device 1 cap INHALATION DAILY RF: 0 niacin 1,000 mg Tablet Extended Release 1,000 mg PO DAILY RF: 0 mometasone 50 mcg/actuation [place],Non-Aerosol 2 spray INTRANASAL DAILY PRN (Reason: Nasal Congestion) RF: 0 Discontinued enoxaparin 40 mg/0.4 mL syringe 40 mg subcut DAILY RF: 0 Discharge Orders: Discharge Order (Routine); Ordered 02/13/20 Ordered By: James Mendoza/Other Patient Handouts: Pulmonary Embolism, Quitting Smoking During , Folic Acid (Folate) Supplements, Planning to Quit Smoking, Coping with Smoking Withdrawal, Staying Smoke-Free, Embolism Pulmonary Dc, ED Thr ombophlebitis, Superficial, Apixaban oral tablets, Homocysteine Admission Data Admit Date/Time: 02/12/20 17:53 Attending Provider: James Leonardo Admit Provider: Refugio Munson Primary Care Provider: Ernestina Baker Other Providers: Refugio Munson ; Jone Moctezuma ; Naresh Blanton ; Debbie Payne ; Reinaldo Townsend ; Ezequiel Mcdowell ; Jose Guadalupe Laws ; Estrada Nelson ; Alfonso Fernando Other Interventions: Discharge Summary Assessment (RN) Last Done: 02/13/20 13:51
--- NOTE | 2020-02-13 18:55 | Electrocardiogram Report ---
Test Reason : Blood Pressure : / mmHG Vent. Rate : 060 BPM Atrial Rate : 060 BPM P-R Int : 184 ms QRS Dur : 108 ms QT Int : 412 ms P-R-T Axes : 071 -89 058 degrees QTc Int : 412 ms Normal sinus rhythm Left anterior fascicular block Nonspecific T wave abnormality Poor R wave progression, consider anterior [place] vs. lead placement vs. LVH Abnormal ECG When compared with ECG of 26-SEP-2017 02:33, Vent. rate has decreased BY 37 BPM Nonspecific T wave abnormality now evident in Anterolateral leads Confirmed by Henry Pacheco ([id number]) on 02/13/2020 6:55:16 PM Referred By: Ernestina Mayorga Confirmed By:Linus Pacheco
--- NOTE | 2020-02-13 18:58 | Electrocardiogram Report ---
Test Reason : Blood Pressure : / mmHG Vent. Rate : 058 BPM Atrial Rate : 058 BPM P-R Int : 168 ms QRS Dur : 110 ms QT Int : 426 ms P-R-T Axes : 069 -86 051 degrees QTc Int : 418 ms Sinus bradycardia Left axis deviation Nonspecific T wave abnormality Poor R wave progression, consider anterior [place] vs. lead placement vs. LVH Abnormal ECG When compared with ECG of 12-FEB-2020 17:28, (unconfirmed) No significant change was found Confirmed by Henry Pacheco ([id number]) on 02/13/2020 6:58:24 PM Referred By: Ernestina Mayorga Confirmed By:Linus Pacheco
[2020-02-13] MEDS ORDERED: BENZONATATE 100 MG CAPSULE PO SCH (21:00)
[2020-02-20] MEDS ORDERED: APIXABAN 5 MG TABLET PO SCH (09:00)
== END 2020-02-13 14:38 | disposition home or self-care (01) | DRG 176 ==
LOC: ED 16:34 → SUATTDRO 17:53 → 2S 17:53

== ENCOUNTER 2023-05-08 12:20 | Inpatient (IN) ==
[2023-05-08 14:12] LABS: Alanine Aminotransferase 100 U/L (7-52); Albumin Globulin Ratio 0.5 (0.9-2); Albumin Level 2.5 gm/dl (3.4-5.0); Alkaline Phosphatase 392 U/L (34-104); Anion Gap 2 (3-11); Aspartate Aminotransferase 117 U/L (13-39); Basophils # (auto) 0.02 K/uL (0.00-0.20); Basophils % (auto) 0.2 %; Bilirubin,Total 4.8 mg/dl (0.2-1.0); Blood Urea Nitrogen 10 mg/dl (6-23); Calcium 8.3 mg/dl (8.6-10.3); Carbon Dioxide 28 mmol/L (21-32); Chloride 97 mmol/L (98-107); Eosinophils # (auto) 0.02 K/uL (0.00-0.50); Eosinophils % (auto) 0.2 %; Est GFR (African American) 107.8 ml/min; Globulin 5.3 gm/dl (2.5-4.0); Glucose 100 mg/dl (70-99(Fasting)); Hemoglobin 9.4 g/dl (14.0-18.0); Immature Granulocytes # (auto) 0.05 K/uL (0.01-0.20); Immature Granulocytes % (auto) 0.6 %; Lymphocytes # (auto) 0.33 K/uL (1.20-3.40); Lymphocytes % (auto) 4.1 %; Magnesium 1.4 mg/dl (1.7-2.4); Mean Corpuscular Hemoglobin 33.2 pg (25.0-34.0); Mean Corpuscular Hgb Conc 36.2 g/dL (32.0-36.0); Mean Corpuscular Volume 91.9 fL (80.0-100.0); Mean Platelet Volume 10.4 fL (9.4-12.4); Monocytes # (auto) 0.76 K/uL (0.11-0.59); Monocytes % (auto) 9.3 %; Neutrophils # (auto) 6.96 K/uL (1.40-6.50); Neutrophils % (auto) 85.6 %; Platelet Count 176 K/uL (130-400); RDW Coefficient of Variation 16.5 % (11.5-14.5); RDW Standard Deviation 50.6 fL (36.4-46.3); Red Blood Count 2.83 M/uL (4.70-6.10); Sodium 127 mmol/L (136-145); Total Protein 7.8 gm/dl (6.0-8.3); White Blood Count 8.14 K/ul (4.8-10.8)
[2023-05-08 14:15] LABS: Troponin I High Sensitivity 16.1 pg/ml (0-20)
[2023-05-08 14:29] LABS: INR 1.4 (0.9-1.1); Partial Thromboplastin Ratio 1.3; Partial Thromboplastin Time 35.5 Seconds (21.0-31.0); Prothrombin Time 14.6 Seconds (9.0-12.0)
--- NOTE | 2023-05-08 14:39 | XRay Report ---
XR chest 1V not portable HISTORY: Shortness of breath. Sepsis COMPARISON: Chest 05/02/2023. FINDINGS: No pneumothorax. No pleural effusions. The cardiac silhouette is normal in size. Left subcl rufino Port-A-Cath terminates at the distal SVC. No new focal lung consolidations to suggest a pneumon ia. No evidence for pulmonary edema. No acute fractures identified. Mild interstitial thickening whic h is likely chronic. Small left upper lobe nodules are again noted. IMPRESSION: 1. No significant change compared to the prior study. No acute process within the chest. 2. Small left upper lobe pulmonary nodules again noted. ACT 112: Negative or not required by law. Electronically signed by: Conrad Schofield M.D. 05/08/2023 2:36 PM
[2023-05-08] MEDS ORDERED: OPTIRAY 320 500ml IV ONE (14:47)
--- NOTE | 2023-05-08 15:15 | CT Scan Report ---
CT abd pelvis IV con only CLINICAL HISTORY: RUQ pain, elevated bilirubin TECHNIQUE: Helical axial images of the abdomen and pelvis were obtained and displayed. Automated dose lowering techniques and/or adjustment according to patient size were utilized for this exam. This e xam was performed with intravenous contrast. CT DOSE: 1202.03 mGy.cm COMPARISON: Comparison is made to CT abdomen pelvis 01/18/2023 FINDINGS: Lower chest: Bronchial wall thickening and emphysema are seen. Periesophageal lymph nodes measure up to 14 mm in diameter. Liver: Nodular contour of the liver is seen compatible with cirrhosis. Gallbladder and biliary tree: Patient is status post cholecystectomy. Physiologic prominence of the b iliary ducts is noted. Pancreas: Unremarkable, no focal lesions. Spleen: Unremarkable. Adrenals: Unremarkable. Kidneys and ureters: Subcentimeter hypodensities are too small to characterize. Bladder: Unremarkable. Reproductive organs: Unremarkable. Bowel: A hiatal hernia is seen. The appendix is normal. Lymph nodes Retroperitoneal: Numerous retroperitoneal and perihilar lymph nodes measure up to 34 mm in diameter. These are significantly enlarged from prior exam. Pelvic: Subcentimeter lymph nodes are noted. Mesenteric: Unremarkable. Peritoneum: Normal. Vessels: Unremarkable. Abdominal wall: A fat-containing umbilical hernia is seen. Bones: Degenerative changes in the visualized spine. IMPRESSION: 1. Bulky lymphadenopathy in the perihilar, retroperitoneal, and paraesophageal stations, is signific antly increased from prior exam. Findings are concerning for malignancy, less likely reactive. 2. Cirrhosis. ACT 112: Negative or not required by law. Electronically signed by: Nazario Hodges M.D. 05/08/2023 3:14 PM
--- NOTE | 2023-05-08 15:41 | Electrocardiogram Report ---
Test Reason : Blood Pressure : / mmHG Vent. Rate : 109 BPM Atrial Rate : 109 BPM P-R Int : 146 ms QRS Dur : 102 ms QT Int : 348 ms P-R-T Axes : 059 -48 080 degrees QTc Int : 468 ms Sinus tachycardia Left anterior fascicular block Abnormal ECG When compared with ECG of 19-MAR-2023 01:57, Vent. rate has increased BY 37 BPM Confirmed by Jone Meng ([id number]) on 05/08/2023 3:40:52 PM Referred By: Confirmed By:Jone Meng
[2023-05-08 17:28] LABS: Lipase 35 U/L (11-82)
--- NOTE | 2023-05-08 18:21 | Emergency Department Note ---
Impression & Plan Biliary stricture, Tobacco use, Metastatic lung cancer (metastasis from lung to other site), Elevated bilirubin ED Provider Note NAME: DILMA MALHOTRA AGE: 62 SEX: M : 1960 ARRIVES VIA: Walk-In INFORMANT: Patient, ED PROVIDER(S): Thaddeus Wasserman MD CHIEF COMPLAINT: Hyperbilirubinemia, outpatient referral MEDICAL DECISION MAKING: Patient presents via cancer center due to concern for abnormal blood work which showed the patient's bilirubin was elevated. The patient does have a known history of prior primary lung cancer for which she is receiving chemotherapy and is followed with Dr. Mayo. Patient's blood work does show normal white count with anemia hemoglobin 9.4 with a normal platelet count. The patient's kidney function is unremarkable. Patient does have an elevated bilirubin 4.8 AST and ALT 117 and 100 respectively. Troponin is not elevated. Procalcitonin 0.6. Patient does have chronic cough but this is relatively unchanged. No abdominal pain on exam. CT abdomen pelvis does show lymphadenopathy. Chest x-ray shows no significant changes. Given the patient's transaminitis elevated bilirubin I did speak with on-call GI Dr. Churchill who stated that if the patient did require an ERCP that Dr. Amna Garza would be available for EUS and possible ERCP tomorrow. Given these concerns I did convey the recommendations to the patient who is comfortable plan of care. Patient was admitted to the [facility] medicine service. Discussion w/ other healthcare providers: Dr. Churchill gastroenterology Prior /Outside records reviewed: I reviewed a palliative care note from Eliza Reed the patient was seen for nausea and given recommendations. Differential diagnosis: Biliary obstruction, biliary stricture, abdominal mass, cancer, cholangitis among others were considered Diagnostics, as interpreted by me: ECG: Sinus tachycardia, rate of 109, normal intervals, normal axis no ST elevations. Cardiac monitoring: An order was placed for continuous cardiac monitoring. The monitor shows a rate of 95 with sinus rhythm. Patient was placed on pulse oximetry Medical decision rules: None Imaging studies: I informally interpreted the patient's CT abdomen pelvis which does not show obvious pneumoperitoneum with formal report to follow. HPI: Patient presents due to concern for abnormal bilirubin. Patient states that he was seen at the cancer center had blood work completed which showed that he had elevated bilirubin and was referred here for further evaluation treatment. The patient does receive chemotherapy and does follow with Dr. Mayo for known history of primary lung cancer. Patient denies any chest pains does have some chronic shortness of breath. The patient still smokes. Patient denies any falls or trauma. The patient denies any prior history of significant alcohol use or Tylenol use. Patient denies any prior history of cirrhosis. Patient states he has not noticed any specific jaundice or icterus. PAST MEDICAL HISTORY: See Below PAST SURGICAL HISTORY: See Below SOCIAL HISTORY: See Below HOME MEDICATIONS: See Below ALLERGIES: See Below VITALS: See Below PHYSICAL EXAMINATION: GENERAL: NAD, non-toxic. EYE EXAM: Scleral icterus noted. PERRL, no anisocoria and EOM's grossly intact w/o pain. OROPHARYNX: Moist mucus membranes, grossly normal dentition. NECK: Supple, no nuchal rigidity, no adenopathy, non-tender. No signs of meningismus. FROM of the neck with good chin to chest and neck extension. No stridor. LUNGS: Clear to auscultation. Normal chest wall mechanics. HEART: NSR, no MRG. ABDOMEN: Abdomen soft, non-tender, no masses, no rebound or guarding. BACK: No CVA TTP. SKIN: No rashes and no bruising. Mild jaundice noted. UPPER EXTREMITIES: Upper extremities are grossly normal. LOWER EXTREMITIES: Grossly normal, no edema. NEURO EXAM: A&O x3, cranial nerves II-XII grossly intact, normal speech, moves all 4 extremities. Past Med/Surg History Medical History Encounter for pre-operative examination Tobacco use disorder Chronic respiratory failure Hyponatremia Chronic diastolic heart failure History of pulmonary embolism Macular degeneration Metastatic lung cancer (metastasis from lung to other site) Biopsy on 02/09/23 Thyromegaly Deviated nasal septum Chronic rhinitis Depression Elevated serum homocysteine level Peripheral vascular disease Spinal stenosis of lumbar region without neurogenic claudication Hypertriglyceridemia hx Pulmonary embolism Right lung x3, currently on eliquis DVT (deep venous thrombosis) LLE x1 (entire length of leg), no known etiology COPD (chronic obstructive pulmonary disease) Surgical History Port-A-Cath in place (03/16/23) Left Subclavian Access Port Placement, Biopsy of Left Supraclavicular Node(Left) - Sanjay May MD, FACS Adverse reaction to anesthetic agent "Hard time to get air in or out" History of tonsillectomy and adenoidectomy Hx laparoscopic cholecystectomy Family History Mother , 74yo Stroke Heart disease "Had a bad heart" Father , 89yo Cancer "Bone cancer" COPD (chronic obstructive pulmonary disease) Stroke Hypertension Brother Brain tumor Pt uncertain if it was cancer; Diabetes Brother Cancer Son Medical history unknown Son Medical history unknown Daughter No problems noted. 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 How many Children do You have: 4 Feels Safe at Home: Yes Safety Concerns: Feels Safe At This Time Diet: regular caffeine: No during the past year weight has: decreased > 10 lbs Assistive Devices: Oxygen - at Night Allergies Allergies Allergy/AdvReac Type Severity Reaction Status Date / Time levofloxacin Allergy Intermediate Nausea Verified 05/01/23 10:16 Home Meds Home Medications Medication Instructions Recorded Confirmed azelastine 137 mcg (0.1 %) nasal 1 spray intranasal BID PRN Nasal 02/12/20 05/08/23 spray aerosol Congestion fluticasone 500 mcg-salmeterol 50 1 inh inhalation BID 02/12/20 05/08/23 mcg/dose blistr powdr for inhalation (Advair Diskus) montelukast 10 mg tablet 10 mg PO QAM 02/12/20 05/08/23 (Singulair) omega-3 fatty acids 1,000 mg 1,000 mg PO DAILY 02/12/20 05/08/23 capsule (Fish Oil Concentrate) tiotropium bromide 18 mcg capsule 1 cap inhalation QAM 02/12/20 05/08/23 with inhalation device (Spiriva with HandiHaler) acetaminophen 325 mg capsule 650 mg PO Q4H PRN Pain 03/10/23 05/08/23 (Tylenol) albuterol sulfate 2.5 mg/3 mL 2.5 mg inhalation Q4H PRN 03/10/23 05/08/23 (0.083 %) solution for nebulization Shortness Of Breath Or Wheezing albuterol sulfate 90 mcg/actuation 2 puff inhalation Q4H PRN 03/10/23 05/08/23 aerosol inhaler Shortness Of Breath Or Wheezing cholecalciferol (vitamin D3) 25 50 mcg PO DAILY 03/10/23 05/08/23 mcg (1,000 unit) capsule furosemide 40 mg tablet (Lasix) 40 mg PO DAILY PRN swelling 03/10/23 05/08/23 mecobalamin (vitamin B12) 500 mcg 500 mcg PO DAILY 03/10/23 05/08/23 chewable tablet mometasone 50 mcg/actuation nasal 2 spray intranasal BID PRN Nasal 03/10/23 05/08/23 spray Congestion omeprazole 40 mg capsule,delayed 40 mg PO DAILY PRN gerd 03/10/23 05/08/23 release vitamins A,C,F-titu-fdznzc 4,296 1 cap PO DAILY 03/10/23 05/08/23 mcg-226 mg-90 mg capsule (PreserVision AREDS) apixaban 5 mg tablet (Eliquis) 5 mg PO BID 03/15/23 05/08/23 ondansetron HCl 4 mg tablet 8 mg PO Q8H PRN Nausea 04/13/23 05/08/23 cephalexin 500 mg capsule 500 mg PO QID 05/08/23 05/08/23 Previous Rx's Medication Instructions Recorded folic acid 1 mg tablet 1 mg PO QAM #30 tabs 02/13/20 Results & Data (ED) Vital Signs Vital Signs - 24 hr 05/08/23 12:40 Temperature 36.7 C Temperature Source Temporal Artery Scan Pulse Rate 111 H Respiratory Rate 18 Respiratory Effort / Characteristics Non-Labored Spontaneous Respiratory Depth Normal Blood Pressure 97/65 L Blood Pressure Mean 75 Blood Pressure Position Sitting Pulse Oximetry 95 Oxygen Delivery Method Room Air Sepsis Recent Fever Within 48 Hours No Sepsis New/Unexplained Change in Mental Status No Sepsis Action Taken by Nursing No Action Required Home Medications Current Medication List: was personally reviewed by me Laboratory Data Attestation: I reviewed the patient's lab results. 05/10/23 03:44 05/10/23 03:44 Lab Results 05/08/23 Range/Units 13:31 WBC 8.14 (4.8-10.8) K/ul RBC 2.83 L (4.70-6.10) M/uL Hgb 9.4 L (14.0-18.0) g/dl Hct 26.0 L (42.0-52.0) % MCV 91.9 (80.0-100.0) fL MCH 33.2 (25.0-34.0) pg MCHC 36.2 H (32.0-36.0) g/dL RDW Std Deviation 50.6 H (36.4-46.3) fL RDW Coeff of Lizandro 16.5 H (11.5-14.5) % Plt Count 176 (130-400) K/uL MPV 10.4 (9.4-12.4) fL Immature Gran % (Auto) 0.6 % Neut % (Auto) 85.6 % Lymph % (Auto) 4.1 % [place]air % (Auto) 9.3 % Eos % (Auto) 0.2 % Baso % (Auto) 0.2 % Neut # (Auto) 6.96 H (1.40-6.50) K/uL Lymph # (Auto) 0.33 L (1.20-3.40) K/uL [place]air # (Auto) 0.76 H (0.11-0.59) K/uL Eos # (Auto) 0.02 (0.00-0.50) K/uL Baso # (Auto) 0.02 (0.00-0.20) K/uL Immature Gran # (Auto) 0.05 (0.01-0.20) K/uL PT 14.6 H (9.0-12.0) Seconds INR 1.4 H (0.9-1.1) APTT 35.5 H (21.0-31.0) Seconds PTT Ratio 1.3 Sodium 127 L (136-145) mmol/L Potassium 4.0 (3.5-5.1) mmol/L Chloride 97 L (98-107) mmol/L Carbon Dioxide 28 (21-32) mmol/L Anion Gap 2 L (3-11) BUN 10 (6-23) mg/dl Creatinine 0.83 (0.6-1.4) mg/dl Est Cr Clr Drug Dosing Not Reportable Est GFR ( Amer) 107.8 ml/min Est GFR (Non-Af Amer) 93.0 ml/min BUN/Creatinine Ratio 12.0 (10-20) Glucose 100 H (70-99(Fasting)) mg/dl Lactate 1.4 (0.4-2.0) mmol/L Calcium 8.3 L (8.6-10.3) mg/dl Magnesium 1.4 L (1.7-2.4) mg/dl Total Bilirubin 4.8 H (0.2-1.0) mg/dl AST 117 H (13-39) U/L ALT 100 H (7-52) U/L Alkaline Phosphatase 392 H (34-104) U/L Troponin I High Sens 16.1 (0-20) pg/ml Total Protein 7.8 (6.0-8.3) gm/dl Albumin 2.5 L (3.4-5.0) gm/dl Globulin 5.3 H (2.5-4.0) gm/dl Albumin/Globulin Ratio 0.5 L (0.9-2) Lipase 35 (11-82) U/L Procalcitonin 0.66 H (0-0.5) ng/ml Administered Medications Acetaminophen (Acetaminophen 500 Mg Tab) 500 mg PO Q6H PRN PRN Reason: fever/pain Stop: 06/08/23 22:19 Last Admin: 05/09/23 22:40 Dose: 500 mg Documented By: LA Cyanocobalamin (Cyanocobalamin (B-12) 500 Mcg Tablet) 500 mcg PO DAILY SHARON Stop: 06/09/23 08:59 Last Admin: 05/10/23 08:14 Dose: 500 mcg Documented By: CHARU Fluticasone/Vilanterol (Fluticasone/Vilanterol 100/25mcg 14 Puffs/Inhaler) 1 puffs INH DAILY SHARON Stop: 06/08/23 08:59 Last Admin: 05/10/23 08:15 Dose: 1 puffs Documented By: Admin: 05/09/23 09:20 Dose: 1 puffs Documented By: ALIYAH Folic Acid (Folic Acid 1 Mg Tab) [facility] Stop: 06/09/23 08:59 Last Admin: 05/10/23 08:14 Dose: 1 mg Documented By: CHARU Ampicillin Sodium/Sulbactam Sodium 3,000 mg/ Sodium Chloride 100 mls @ 100 mls/hr IV Q6H [facility] Stop: 05/19/23 10:59 Last Infusion: 05/11/23 00:45 Dose: Infused Documented By: Admin: 05/10/23 23:44 Dose: 100 mls/hr Documented By: Infusion: 05/10/23 18:15 Dose: Infused Documented By: Admin: 05/10/23 17:12 Dose: 100 mls/hr Documented By: Infusion: 05/10/23 13:11 Dose: Infused Documented By: Admin: 05/10/23 12:11 Dose: 100 mls/hr Documented By: Infusion: 05/10/23 04:26 Dose: Infused Documented By: Admin: 05/10/23 03:19 Dose: 100 mls/hr Documented By: Infusion: 05/09/23 23:40 Dose: Infused Documented By: Admin: 05/09/23 22:42 Dose: 100 mls/hr Documented By: Infusion: 05/09/23 21:16 Dose: Infused Documented By: Admin: 05/09/23 20:05 Dose: 100 mls/hr Documented By: Infusion: 05/09/23 13:26 Dose: Infused Documented By: Admin: 05/09/23 12:17 Dose: 100 mls/hr Documented By: JAIME Lactobacillus Acidophilus (Advanced Probiotic 1250 Mg Capsule) 2 cap PO DAILY [facility] Stop: 06/09/23 08:59 Last Admin: 05/10/23 08:14 Dose: 2 cap Documented By: CHARU Miscellaneous (Remove Nicoderm Patch) 1 each N/A DAILY@0859 [facility] Stop: 06/08/23 08:58 Last Admin: 05/10/23 08:14 Dose: 1 each Documented By: Admin: 05/09/23 12:50 Dose: Not Given Documented By: KTS Montelukast Sodium (Montelukast Sodium 10 Mg Tablet) 10 mg PO [facility] Stop: 06/09/23 08:59 Last Admin: 05/10/23 08:14 Dose: 10 mg Documented By: CHARU Multivitamins/Minerals (Cerovite Adv Formula Tab) 1 tab PO DAILY [facility] Stop: 06/08/23 08:59 Last Admin: 05/10/23 08:14 Dose: 1 tab Documented By: Admin: 05/09/23 09:20 Dose: 1 tab Documented By: AM Nicotine (Nicotine 14 Mg/24 Hr Patch) 14 mg TD HS [facility] Stop: 06/08/23 20:59 Last Admin: 05/10/23 20:23 Dose: 14 mg Documented By: Admin: 05/09/23 20:07 Dose: 14 mg Documented By: LA Ondansetron HCl (Ondansetron Inj 2 Mg/Ml 2 Ml Vial) 4 mg IV Q6H PRN PRN Reason: Nausea Stop: 06/07/23 20:00 Last Admin: 05/08/23 20:59 Dose: 4 mg Documented By: Umeclidinium Cope (Umeclidinium Cope 62.5mcg/Blister 7 Puffs/Inhaler) 1 puffs INH [facility] Stop: 06/08/23 08:59 Last Admin: 05/10/23 08:14 Dose: 1 puffs Documented By: Admin: 05/09/23 09:20 Dose: 1 puffs Documented By: AM Vitamin D (Cholecalciferol 1,000 Units 25 Mcg Tab) 2,000 units PO DAILY [facility] Stop: 06/09/23 08:59 Last Admin: 05/10/23 08:14 Dose: 2,000 units Documented By: CHARU Discontinued Medications Albuterol (Albut/Ipratrop 3mg/0.5mg Neb 3 Ml Vial) Confirm Administered Dose 3 ml .ROUTE .STK-MED ONE Stop: 05/09/23 16:57 Last Admin: 05/09/23 17:00 Dose: Not Given Documented By: YESIKA Albuterol (Albut/Ipratrop 3mg/0.5mg Neb 3 Ml Vial) 3 ml NEB NOW STA; Protocol Stop: 05/09/23 17:00 Last Admin: 05/09/23 17:00 Dose: 3 ml Documented By: YESIKA Cephalexin HCl (Cephalexin 500 Mg Cap) 500 mg PO QID [facility]; Protocol Stop: 05/11/23 20:59 Last Admin: 05/09/23 09:19 Dose: 500 mg Documented By: Admin: 05/08/23 20:46 Dose: 500 mg Documented By: Heparin Sodium/Dextrose (Heparin Iv Adult Wt-Based Standard *No* Initial Bolus Protocol) 1 each IV ONE STA; Protocol Stop: 05/08/23 19:52 Last Admin: 05/08/23 20:56 Dose: Not Given Documented By: AB Magnesium Sulfate/Dextrose (Magnesium Sulfate / D5w) 1 gm in 100 mls @ 50 mls/hr IV Q2H [facility] Stop: 05/08/23 23:29 Last Infusion: 05/09/23 00:15 Dose: Infused Documented By: Admin: 05/08/23 22:08 Dose: 50 mls/hr Documented By: Infusion: 05/08/23 22:08 Dose: Infused Documented By: Admin: 05/08/23 20:16 Dose: 50 mls/hr Documented By: Heparin Sodium/Dextrose (Heparin Sodium/Dextrose) 25,000 units in 500 mls @ 27 mls/hr IV .[id number] SHARON; Protocol Stop: 06/07/23 19:44 Last Titration: 05/09/23 18:51 Dose: Infused Documented By: CHARU Co-signed By: LA Titration: 05/09/23 06:14 Dose: 1,350 units/hr, 27 mls/hr Documented By: GRACE Co-signed By: SYLVIA Admin: 05/08/23 20:49 Dose: 1,450 units/hr, 29 mls/hr Documented By: Co-signed By: KERA Sodium Chloride (Nss) 500 mls @ 50 mls/hr IV .Q10H STA Stop: 05/09/23 05:49 Last Infusion: 05/09/23 09:31 Dose: Infused Documented By: Admin: 05/08/23 21:00 Dose: 50 mls/hr Documented By: Albumin Human (Albumin 25%) 25 gm in 100 mls @ 50 mls/hr IV ONE STA Stop: 05/08/23 21:49 Last Infusion: 05/08/23 22:17 Dose: Infused Documented By: Admin: 05/08/23 20:10 Dose: 50 mls/hr Documented By: Lactated Ringer's (Lr) 1,000 mls @ 15 mls/hr IV .Q24H SHARON Stop: 06/08/23 15:29 Last Infusion: 05/09/23 16:02 Dose: Infused Documented By: SYLVIA(2) Admin: 05/09/23 15:21 Dose: 15 mls/hr Documented By: MARIO Magnesium Sulfate/Dextrose (Magnesium Sulfate / D5w) 1 gm in 100 mls @ 50 mls/hr IV Q2H SH[facility]ON Stop: 05/10/23 12:29 Last Infusion: 05/10/23 12:47 Dose: Infused Documented By: Admin: 05/10/23 10:21 Dose: 50 mls/hr Documented By: Infusion: 05/10/23 10:21 Dose: Infused Documented By: Admin: 05/10/23 08:34 Dose: 50 mls/hr Documented By: CHARU Ioversol (Optiray 320 500ml) 90 ml IV ONCE ONE Stop: 05/08/23 14:48 Last Admin: 05/08/23 14:48 Dose: 90 ml Documented By: FABIENNE Ioversol (Optiray 320 500ml) 83 ml IV ONCE ONE Stop: 05/10/23 21:17 Last Admin: 05/10/23 21:16 Dose: 83 ml Documented By: SAÚL Nicotine (Nicotine 14 Mg/24 Hr Patch) 14 mg TD QAM [facility] Stop: 06/08/23 08:59 Last Admin: 05/09/23 10:13 Dose: Not Given Documented By: AM Nicotine (Nicotine 14 Mg/24 Hr Patch) 14 mg TD ONE STA Stop: 05/08/23 19:41 Last Admin: 05/08/23 20:09 Dose: 14 mg Documented By: AB Imaging Data Radiologist's Impression: Chest X-Ray 05/08/23 12:44 XR chest 1V not portable HISTORY: Shortness of breath. Sepsis COMPARISON: Chest 05/02/2023. FINDINGS: No pneumothorax. No pleural effusions. The cardiac silhouette is normal in size. Left subclavian Port-A-Cath terminates at the distal SVC. No new focal lung consolidations to suggest a pneumonia. No evidence for pulmonary edema. No acute fractures identified. Mild interstitial thickening which is likely chronic. Small left upper lobe nodules are again noted. IMPRESSION: 1. No significant change compared to the prior study. No acute process within the chest. 2. Small left upper lobe pulmonary nodules again noted. ACT 112: Negative or not required by law. Electronically signed by: Conrad Schofield M.D. 05/08/2023 2:36 PM Abdomen/Pelvis CT 05/08/23 13:21 CT abd pelvis IV con only CLINICAL HISTORY: RUQ pain, elevated bilirubin TECHNIQUE: Helical axial images of the abdomen and pelvis were obtained and displayed. Automated dose lowering techniques and/or adjustment according to patient size were utilized for this exam. This exam was performed with intravenous contrast. CT DOSE: 1202.03 mGy.cm COMPARISON: Comparison is made to CT abdomen pelvis 01/18/2023 FINDINGS: Lower chest: Bronchial wall thickening and emphysema are seen. Periesophageal lymph nodes measure up to 14 mm in diameter. Liver: Nodular contour of the liver is seen compatible with cirrhosis. Gallbladder and biliary tree: Patient is status post cholecystectomy. Physiologic prominence of the biliary ducts is noted. Pancreas: Unremarkable, no focal lesions. Spleen: Unremarkable. Adrenals: Unremarkable. Kidneys and ureters: Subcentimeter hypodensities are too small to characterize. Bladder: Unremarkable. Reproductive organs: Unremarkable. Bowel: A hiatal hernia is seen. The appendix is normal. Lymph nodes Retroperitoneal: Numerous retroperitoneal and perihilar lymph nodes measure up to 34 mm in diameter. These are significantly enlarged from prior exam. Pelvic: Subcentimeter lymph nodes are noted. Mesenteric: Unremarkable. Peritoneum: Normal. Vessels: Unremarkable. Abdominal wall: A fat-containing umbilical hernia is seen. Bones: Degenerative changes in the visualized spine. IMPRESSION: 1. Bulky lymphadenopathy in the perihilar, retroperitoneal, and paraesophageal stations, is significantly increased from prior exam. Findings are concerning for malignancy, less likely reactive. 2. Cirrhosis. ACT 112: Negative or not required by law. Electronically signed by: Nazario Hodges M.D. 05/08/2023 3:14 PM Discharge Plan Visit Data Chief Complaint: Abnormal Labs/Diagnostic Testing Stated Complaint: ABNORMAL LABS ED Provider: Thaddeus Wasserman Discharge Problem: Biliary stricture, Tobacco use, Metastatic lung cancer (metastasis from lung to other site), Elevated bilirubin Patient Disposition: Admitted As Inpatient Discharge Instructions Interventions: ED Discharge Assessment Last Done: 05/08/23 20:02 Discharge Problem: Metastatic lung cancer (metastasis from lung to other site) Qualifiers: Laterality: unspecified laterality Qualified Code(s): C34.90 - Malignant neoplasm of unspecified part of unspecified bronchus or lung
--- NOTE | 2023-05-08 18:48 | History & Physical Report ---
Date of Service May 08, 2023 Assessment & Plan (1) Transaminitis: Plan: This is a 62-year-old with PMH of small cell lung cancer diagnosed in Feb of this year with ongoing chemo and radiation therapy, COPD, chronic respiratory failure on 2L NC HS, chronic diastolic heart failure, peripheral vascular disease, hepatic steatosis, tobacco use disorder and other medical problems listed below who presents with abnormal lab work from [facility]. On chemo regimen with concurrent radiation since Mar, last received 04/13 Pre chemo labwork today showing transaminitis and sent to ED for further evaluation Tbili 4.8, AST 117, ALT 100, alk phos 392, INR 1.4 CT abd/pelvis showing bulky lymphadenopathy in the perihilar, retroperitoneal, and paraesophageal stations, is significantly increased from prior exam. Findings are concerning for malignancy, less likely reactive. 2. Cirrhosis ED physician discussed with Dr. De Guzman, who will perform EUS and ERCP as needed, will evaluate tomorrow Clears for now, NPO at midnight in anticipation of procedure tomorrow, repeat CMP in AM, antiemetics as needed, avoid Tylenol as he has been taking 4-6 tabs daily for pain in RLE (2) Metastatic lung cancer (metastasis from lung to other site): Plan: Feb 2023 lymph node biopsy revealing metastatic carcinoma most consistent with metastatic small cell carcinoma Last had chemo on 04/13 (presumed to be etoposide cisplatin atezolizumab based on Mar heme/onc note) Following with Dr. Arzate for med onc, Dr. Britt for rad onc (3) COPD (chronic obstructive pulmonary disease): (4) Chronic respiratory failure: Plan: At respiratory baseline, requires 2L NC O2 HS Continue home duonebs PRN, Spiriva, Singulair (5) Hyponatremia: Plan: Na today 127 (baseline ~131). 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 Gentle fluids given in ED due to poor PO intake. Fluid restriction at 1.5 L Monitor Na with daily BMP (6) History of pulmonary embolism: Plan: On mcc anticoagulation, took Eliquis in AM today - will hold Bridging with IV heparin given clot history, will need to be held prior to any GI procedure (7) Chronic diastolic heart failure: Plan: Holding lasix in AM given clinically dry appearance, monitor volume status closely (8) Tobacco use disorder: Plan: Reduced use but still smoking 1 pack every 3 days. Ordered nicotine patch (9) Hypomagnesemia: Plan: Initial Mg 1.4. Replaced, monitor on AM labs (10) Cellulitis of right leg: Plan: RLE cellulitis dx at [facility] last week and was started on Augmentin but did not tolerate (GI sx) so transitioned to Keflex on 05/05 Due to complete abx course on 05/11, continue DVT Ppx: IV heparin Code status: FULL PCP: Constanza Dispo: Admitted to PCU Patient seen in collaboration with Dr. Leonardo. Please see addendum. 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 Last had chemo on 04/13 (presumed to be etoposide cisplatin atezolizumab based on Mar heme/onc note) and was due for another treatment today but labs showed high liver enzymes and was directed to ED for further evaluation. Endorsing a slight pain on R side near ribs that he has had intermittently for years; no worsening or change. Still smoking but decreased to 1 pack every 3 days. Last took Eliquis this AM. Had some SOB earlier today but has it No F/C, lightheadedness, CP, SOB, abdominal pain, dysuria, diarrhea or constipation. Chronic intermittent cough with productive phlegm but this is not new. Having nausea and some dry heaving since starting chemo in March. Has been taking Tylenol for leg pain - extra strength 500mg tabs, up to 6 per day. Was started on antibiotics for cellulitis of RLE last week and had 3 doses of Augmentin last week and it caused significant stomach upset. Was transitioned to Keflex by oncologist and has been on that since Monday. Allergies Allergy/AdvReac Type Severity Reaction Status Date / Time levofloxacin Allergy Intermediate Nausea Verified 05/01/23 10:16 Home Medications Medication Instructions Recorded Confirmed Type azelastine 137 mcg (0.1 %) nasal 1 spray intranasal BID PRN Nasal 02/12/20 05/08/23 History spray aerosol Congestion fluticasone 500 mcg-salmeterol 50 1 inh inhalation BID 02/12/20 05/08/23 History mcg/dose blistr powdr for inhalation (Advair Diskus) montelukast 10 mg tablet 10 mg PO QAM 02/12/20 05/08/23 History (Singulair) omega-3 fatty acids 1,000 mg 1,000 mg PO DAILY 02/12/20 05/08/23 History capsule (Fish Oil Concentrate) tiotropium bromide 18 mcg capsule 1 cap inhalation QAM 02/12/20 05/08/23 History with inhalation device (Spiriva with HandiHaler) folic acid 1 mg tablet 1 mg PO QAM #30 tabs 02/13/20 05/08/23 Rx acetaminophen 325 mg capsule 650 mg PO Q4H PRN Pain 03/10/23 05/08/23 History (Tylenol) albuterol sulfate 2.5 mg/3 mL 2.5 mg inhalation Q4H PRN 03/10/23 05/08/23 History (0.083 %) solution for nebulization Shortness Of Breath Or Wheezing albuterol sulfate 90 mcg/actuation 2 puff inhalation Q4H PRN 03/10/23 05/08/23 History aerosol inhaler Shortness Of Breath Or Wheezing cholecalciferol (vitamin D3) 25 50 mcg PO DAILY 03/10/23 05/08/23 History mcg (1,000 unit) capsule furosemide 40 mg tablet (Lasix) 40 mg PO DAILY PRN swelling 03/10/23 05/08/23 History mecobalamin (vitamin B12) 500 mcg 500 mcg PO DAILY 03/10/23 05/08/23 History chewable tablet mometasone 50 mcg/actuation nasal 2 spray intranasal BID PRN Nasal 03/10/23 05/08/23 History spray Congestion omeprazole 40 mg capsule,delayed 40 mg PO DAILY PRN gerd 03/10/23 05/08/23 Hist ory release vitamins A,C,W-wjyc-yqjxwi 4,296 1 cap PO DAILY 03/10/23 05/08/23 History mcg-226 mg-90 mg capsule (PreserVision AREDS) apixaban 5 mg tablet (Eliquis) 5 mg PO BID 03/15/23 05/08/23 History ondansetron HCl 4 mg tablet 8 mg PO Q8H PRN Nausea 04/13/23 05/08/23 History cephalexin 500 mg capsule 500 mg PO QID 05/08/23 05/08/23 History Past Med/Surg History Medical History Tobacco use disorder Chronic respiratory failure Hyponatremia Chronic diastolic heart failure History of pulmonary embolism Macular degeneration Metastatic lung cancer (metastasis from lung to other site) Biopsy on 02/09/23 Thyromegaly Deviated nasal septum Chronic rhinitis Depression Elevated serum homocysteine level Peripheral vascular disease Spinal stenosis of lumbar region without neurogenic claudication Hypertriglyceridemia hx Pulmonary embolism Right lung x3, currently on eliquis DVT (deep venous thrombosis) LLE x1 (entire length of leg), no known etiology COPD (chronic obstructive pulmonary disease) Surgical History Port-A-Cath in place (03/16/23) Left Subclavian Access Port Placement, Biopsy of Left Supraclavicular Node(Left) - Sanjay May MD, FACS Adverse reaction to anesthetic agent "Hard time to get air in or out" History of tonsillectomy and adenoidectomy Hx laparoscopic cholecystectomy Family History Mother , 74yo Stroke Heart disease "Had a bad heart" Father , 89yo Cancer "Bone cancer" COPD (chronic obstructive pulmonary disease) Stroke Hypertension Brother Brain tumor Pt uncertain if it was cancer; Diabetes Brother Cancer Son Medical history unknown Son Medical history unknown Daughter No problems noted. 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 Physical Exam Physical Exam: Please see Dr. Leonardo's addendum for physical exam. Results & Data Results & Data Vital Signs (Past 12 Hours) Vital Signs Temp Pulse Resp BP Pulse Ox O2 Del Method 05/08/23 12:40 36.7 C 111 H 18 97/65 L 95 Room Air Laboratory Results Short CBC 05/08/23 Range/Units 13:31 WBC 8.14 (4.8-10.8) K/ul Hgb 9.4 L (14.0-18.0) g/dl Hct 26.0 L (42.0-52.0) % Plt Count 176 (130-400) K/uL BMP 05/08/23 13:31 Sodium 127 L Potassium 4.0 Chloride 97 L Carbon Dioxide 28 BUN 10 Creatinine 0.83 Glucose 100 H Calcium 8.3 L Liver Function 05/08/23 Range/Units 13:31 Total Bilirubin 4.8 H (0.2-1.0) mg/dl AST 117 H (13-39) U/L ALT 100 H (7-52) U/L Alkaline Phosphatase 392 H (34-104) U/L Albumin 2.5 L (3.4-5.0) gm/dl Diagnostic Findings Chest X-Ray 05/08/23 12:44 XR chest 1V not portable HISTORY: Shortness of breath. Sepsis COMPARISON: Chest 05/02/2023. FINDINGS: No pneumothorax. No pleural effusions. The cardiac silhouette is nor mal in size. Left subclavian Port-A-Cath terminates at the distal SVC. No new focal lung consolidations to suggest a pneumonia. No evidence for pulmonary edema. No acute fractures identified. Mild interstitial thickening which is likely chronic. Small left upper lobe nodules are again noted. IMPRESSION: 1. No significant change compared to the prior study. No acute process within the chest. 2. Small left upper lobe pulmonary nodules again noted. ACT 112: Negative or not required by law. Electronically signed by: Conrad Schofield M.D. 05/08/2023 2:36 PM Abdomen/Pelvis CT 05/08/23 13:21 CT abd pelvis IV con only CLINICAL HISTORY: RUQ pain, elevated bilirubin TECHNIQUE: Helical axial images of the abdomen and pelvis were obtained and displayed. Automated dose lowering techniques and/or adjustment according to patient size were utilized for this exam. This exam was performed with intravenous contrast. CT DOSE: 1202.03 mGy.cm COMPARISON: Comparison is made to CT abdomen pelvis 01/18/2023 FINDINGS: Lower chest: Bronchial wall thickening and emphysema are seen. Periesophageal lymph nodes measure up to 14 mm in diameter. Liver: Nodular contour of the liver is seen compatible with cirrhosis. Gallbladder and biliary tree: Patient is status post cholecystectomy. Physiologic prominence of the biliary ducts is noted. Pancreas: Unremarkable, no focal lesions. Spleen: Unremarkable. Adrenals: Unremarkable. Kidneys and ureters: Subcentimeter hypodensities are too small to characterize. Bladder: Unremarkable. Reproductive organs: Unremarkable. Bowel: A hiatal hernia is seen. The appendix is normal. Lymph nodes Retroperitoneal: Numerous retroperitoneal and perihilar lymph nodes measure up to 34 mm in diameter. These are significantly enlarged from prior exam. Pelvic: Subcentimeter lymph nodes are noted. Mesenteric: Unremarkable. Peritoneum: Normal. Vessels: Unremarkable. Abdominal wall: A fat-containing umbilical hernia is seen. Bones: Degenerative changes in the visualized spine. IMPRESSION: 1. Bulky lymphadenopathy in the perihilar, retroperitoneal, and paraesophageal stations, is significantly increased from prior exam. Findings are concerning for malignancy, less likely reactive. 2. Cirrhosis. ACT 112: Negative or not required by law. Electronically signed by: Nazario Hodges M.D. 05/08/2023 3:14 PM ECG Additional Comments: EKG reviewed: Sinus tachycardia, Left anterior fascicular block Supervising Physician Co-Signing Physician Notes Patient is a 62-year-old male with history of metastatic small cell lung cancer currently undergoing chemo and radiation therapy, COPD, ongoing tobacco use disorder, peripheral vascular disease, history of PE on chronic anticoagulation with Eliquis and other medical problems presents for evaluation of elevated liver enzymes. Patient is scheduled for chemotherapy today and blood work prior to chemotherapy showed elevated liver enzymes and so was sent to ED for further evaluation. Patient admits to have chronic intermittent cough, ongoing right- sided abdominal discomfort for many days, nausea associated with dry heaves. Denies any chest pain, dyspnea at rest. Reports chronic dyspnea on exertion. He was recently started on Keflex for right lower extremity cellulitis. He admits to use Tylenol to control his pain on most days. Please review HPI for complete details of presentation. Blood work suggestive of anemia of chronic disease hemoglobin 9.4, elevated INR 1.4, chronic hyponatremia sodium 127, chloride 97, magnesium 1.4, total bilirubin 4.8, AST 117, ALT 100, alkaline phosphatase 392, albumin 2.5, procalcitonin 0.66. Chest x-ray showed no acute findings from prior study. Showed small left upper lobe pulmonary nodules. CT abdomen suggestive of bulky lymphadenopathy in the perihilar, retroperitoneal and paraesophageal regions. Findings concerning for malignancy, reactive cirrhosis. EKG showed sinus tachycardia, left anterior fascicular block, QTc 468. Physical Exam: Vitals signs as noted above General Appearance: Moderate built, chronic ill appearing, no apparent distress Head: normocephalic, Atraumatic Eyes: normal inspection, EOMI, +Icteric Neck: supple, Trachea midline Respiratory/Chest: Decreased breath sounds, CTA, No accessory muscle use, +Port Cardiovascular: S1, S2, No murmur Abdomen/GI:Soft, Non tender, mild distended, Bowel sounds present Extremities/Musculoskelatal:normal inspection, RLE mild erythema, B/L LE Edema 2+ erythema, swelling Neurologic/Psych:AAOX3, grossly no focal neurological deficits, +Decreased hearing Skin: normal color, warm, + Jaundice Obstructive jaundice Transaminitis Likely secondary to malignancy/lymphadenopathy Avoid hepatotoxic agents N.p.o. after midnight for endoscopic ultrasound and possible ERCP/stent placement GI consulted Monitor LFTs Hyponatremia Likely SIADH secondary to small cell lung cancer and poor oral intake Diuretics contributing as well Fluid restriction Monitor sodium levels Hypomagnesemia Replete electrolytes as needed Metastatic lung cancer Ongoing chemo, radiation therapy I personally reviewed the record. Patient is interviewed and examined at bedside. Patient's care is coordinated with Cassi Rios PA-C. Please refer to the documentation above for details of patient's presentation and for discussion of other issues. (3) COPD (chronic obstructive pulmonary disease) COPD type: chronic bronchitis Chronic bronchitis type: simple Qualified Code(s): J41.0 - Simple chronic bronchitis
[2023-05-08] MEDS ORDERED: NICOTINE 14 MG/24 HR PATCH TD SCH (19:30)
[2023-05-08] MEDS ORDERED: Heparin IV Adult Wt-Based Standard *NO* INITIAL Bolus Protocol IV SCH (19:30)
[2023-05-08] MEDS ORDERED: NICOTINE 14 MG/24 HR PATCH TD STA (19:40)
[2023-05-08] MEDS ORDERED: Patient's HEIGHT &/or WEIGHT Needed SCH (19:45)
[2023-05-08] MEDS ORDERED: HEPARIN SODIUM/DEXTROSE 25,000 UNITS/500 ML BAG IV SCH (19:45)
[2023-05-08] MEDS ORDERED: SODIUM CHLORIDE 0.9% 250 ML IV PRN (19:46)
[2023-05-08] MEDS ORDERED: SODIUM CHLORIDE 0.9% 500 ML IV STA (19:50)
[2023-05-08] MEDS ORDERED: ALBUMIN 25% 25 GM/100 ML VIAL IV STA (19:50)
[2023-05-08] MEDS ORDERED: Heparin IV Adult Wt-Based Standard *NO* INITIAL Bolus Protocol IV STA (19:51)
[2023-05-08] MEDS ORDERED: Patient's HEIGHT &/or WEIGHT Needed STA (19:51)
[2023-05-08] MEDS ORDERED: ALBUTEROL HFA 8 GM INHALER INH PRN (20:01)
[2023-05-08] MEDS ORDERED: ONDANSETRON INJ 2 MG/ML 2 ML VIAL IV PRN (20:01)
[2023-05-08] MEDS ORDERED: POLYETHYLENE (MIRALAX) 17 GM PACK PO PRN (20:01)
[2023-05-08] MEDS ORDERED: ALBUTEROL 0.083% NEBU SOLN 3 ML VIAL INH PRN (20:01)
[2023-05-08] MEDS: MAGNESIUM SULFATE / D5W 1 GM/100 ML BAG IV SCH ×2 (20:16→22:08)
[2023-05-08] MEDS ORDERED: PANTOprazole 40 MG TAB PO PRN (20:38)
[2023-05-08] MEDS ORDERED: FLUTICASONE PROPIONATE NA SPR 16 GM BTL PRN (20:40)
[2023-05-08] MEDS: cephALEXin 500 MG CAP PO SCH (20:46)
[2023-05-08] MEDS ORDERED: cephALEXin 500 MG CAP PO SCH (21:00)
[2023-05-08] MEDS ORDERED: HEPARIN 100 UNIT/ML 5ML FLUSH FLUSH PRN (23:53)
[2023-05-09 04:38] LABS: Hematocrit (blood only) 23.1 % (42.0-52.0); Hemoglobin 8.3 g/dl (14.0-18.0); Mean Corpuscular Hemoglobin 32.7 pg (25.0-34.0); Mean Corpuscular Hgb Conc 35.9 g/dL (32.0-36.0); Mean Corpuscular Volume 90.9 fL (80.0-100.0); Mean Platelet Volume 10.7 fL (9.4-12.4); Platelet Count 147 K/uL (130-400); RDW Coefficient of Variation 17.1 % (11.5-14.5); RDW Standard Deviation 52.8 fL (36.4-46.3); Red Blood Count 2.54 M/uL (4.70-6.10); White Blood Count 6.54 K/ul (4.8-10.8)
[2023-05-09 05:00] LABS: Albumin Globulin Ratio 0.5 (0.9-2); Albumin Level 2.6 gm/dl (3.4-5.0); Bilirubin,Total 5.4 mg/dl (0.2-1.0); Calcium 8.1 mg/dl (8.6-10.3); Creatinine Clr Calc Pharmacy 108.9 ml/min; Est GFR (African American) 113.6 ml/min; Globulin 4.8 gm/dl (2.5-4.0); Potassium 3.8 mmol/L (3.5-5.1); Total Protein 7.4 gm/dl (6.0-8.3)
[2023-05-09 05:27] LABS: Partial Thromboplastin Ratio 2.7
[2023-05-09 05:39] LABS: Partial Thromboplastin Time 77.5 Seconds (21.0-31.0)
[2023-05-09] MEDS ORDERED: NICOTINE 14 MG/24 HR PATCH TD SCH (09:00)
[2023-05-09] MEDS: cephALEXin 500 MG CAP PO SCH (09:19)
[2023-05-09] MEDS: UMECLIDINIUM BROMIDE 62.5MCG/BLISTER 7 PUFFS/INHALER INH SCH (09:20)
[2023-05-09] MEDS: FLUTICASONE/VILANTEROL 100/25MCG 14 PUFFS/INHALER INH SCH (09:20)
[2023-05-09] MEDS: CEROVITE ADV FORMULA TAB PO SCH (09:20)
--- NOTE | 2023-05-09 10:31 | Gastrointestinal Consultation ---
Date of Consultation May 09, 2023 Assessment & Plan (1) Transaminitis: (2) Elevated bilirubin: (3) Metastatic lung cancer (metastasis from lung to other site): Plan 62 y/o male with h/o metastatic lung CA, admitted w/ elevated LFTs in an obstructive pattern, with jaundice, and CT showing increased bulky abd lymphadenopathy. As he is showing signs of biliary obstruction he should undergo ERCP for decompression. Abd soft, mild diffuse tenderness. He's afebrile. Discussed with GI attending and advanced endoscopist as well as hospital attending. - Keep NPO - Hold AC - Can start Cipro IV - Analgesia PRN - Antiemetics PRN - IVF - ERCP today for biliary decompression Prior to endoscopic evaluation, we appreciate assistance in the management and correction of greco laboratory elements including the following: Please optimize pt's hemoglobin >7, INR <2, platelets >50,000, potassium levels >3.5 but <5.3. Thank you for allowing us to participate in the care of this patient. Please call with any acute changes, questions or concerns. Please see addendum below with additional recommendation from my supervising physician. Supervising Physician Co-Signing Physician Notes Benign abdominal exam though jaundiced, agree with further pe as documented GI consulted for cholestatic lft's and concern for bile duct compression from lymph nodes related to metastatic lung cancer diagnosis. Main complaint from patient and his significant other in the er was about his appetite or lack there of - if no improvement in that regards post biliary stenting, consider oncology input about marinol though we did discuss appetite changes do occur as a results of his underlying cancer diagnosis and also chemotherapy. Agree with further plan of care as documented. History of Present Illness Reason for Consultation: transaminitis, small cell lung ca Requesting Physician: Cassi Rios PA-C Attending Physician: Padmaja Esteban MD History of Present Illness This is a 62-year-old male with PMHX of metastatic small cell lung cancer currently undergoing chemo and radiation therapy, COPD, ongoing tobacco use disorder, peripheral vascular disease, history of PE on chronic anticoagulation with Eliquis and other medical problems presents for evaluation of elevated liver enzymes. He was found to have elevated LFTs on recent lab work. Tbili 4.8->5.4 currently, AST 117, ALT 100, ALP 392, procal 0.66. INR 1.4, chronic hypoNA 176, HGB 9.4, WBC 6.43, PL 147. He has been having ongoing issues w/ n/v, poor appetite, and abd discomfort. CTAP suggestive of bulky lymphadenopathy in the perihilar, retroperitoneal and paraesophageal regions. Findings concerning for malignancy, reactive cirrhosis. CXR nonacute. He has chronic OSBORN. Denies CP, hematemesis, melena, hematochezia, fever, chills. He has noted to be jaundiced recently. No NSAIDs. Allergies Allergy/AdvReac Type Severity Reaction Status Date / Time levofloxacin Allergy Intermediate Nausea Verified 05/01/23 10:16 Home Medications Medication Instructions Recorded Confirmed Type azelastine 137 mcg (0.1 %) nasal 1 spray intranasal BID PRN Nasal 02/12/20 05/08/23 History spray aerosol Congestion fluticasone 500 mcg-salmeterol 50 1 inh inhalation BID 02/12/20 05/08/23 History mcg/dose blistr powdr for inhalation (Advair Diskus) montelukast 10 mg tablet 10 mg PO QAM 02/12/20 05/08/23 History (Singulair) omega-3 fatty acids 1,000 mg 1,000 mg PO DAILY 02/12/20 05/08/23 History capsule (Fish Oil Concentrate) tiotropium bromide 18 mcg capsule 1 cap inhalation QAM 02/12/20 05/08/23 History with inhalation device (Spiriva with HandiHaler) folic acid 1 mg tablet 1 mg PO QAM #30 tabs 02/13/20 05/08/23 Rx acetaminophen 325 mg capsule 650 mg PO Q4H PRN Pain 03/10/23 05/08/23 History (Tylenol) albuterol sulfate 2.5 mg/3 mL 2.5 mg inhalation Q4H PRN 03/10/23 05/08/23 History (0.083 %) solution for nebulization Shortness Of Breath Or Wheezing albuterol sulfate 90 mcg/actuation 2 puff inhalation Q4H PRN 03/10/23 05/08/23 History aerosol inhaler Shortness Of Breath Or Wheezing cholecalciferol (vitamin D3) 25 50 mcg PO DAILY 03/10/23 05/08/23 History mcg (1,000 unit) capsule furosemide 40 mg tablet (Lasix) 40 mg PO DAILY PRN swelling 03/10/23 05/08/23 History mecobalamin (vitamin B12) 500 mcg 500 mcg PO DAILY 03/10/23 05/08/23 History chewable tablet mometasone 50 mcg/actuation nasal 2 spray intranasal BID PRN Nasal 03/10/23 05/08/23 History spray Congestion omeprazole 40 mg capsule,delayed 40 mg PO DAILY PRN gerd 03/10/23 05/08/23 History release vitamins A,C,V-kauk-uhplmd 4,296 1 cap PO DAILY 03/10/23 05/08/23 History mcg-226 mg-90 mg capsule (PreserVision AREDS) apixaban 5 mg tablet (Eliquis) 5 mg PO BID 03/15/23 05/08/23 History ondansetron HCl 4 mg tablet 8 mg PO Q8H PRN Nausea 04/13/23 05/08/23 History cephalexin 500 mg capsule 500 mg PO QID 05/08/23 05/08/23 History Patient History Medical History (Updated 05/09/23 @ 10:53 by Gabino Crawford MD) Encounter for pre-operative examination Tobacco use disorder Chronic respiratory failure Hyponatremia Chronic diastolic heart failure History of pulmonary embolism Macular degeneration Metastatic lung cancer (metastasis from lung to other site) Biopsy on 02/09/23 Thyromegaly Deviated nasal septum Chronic rhinitis Depression Elevated serum homocysteine level Peripheral vascular disease Spinal stenosis of lumbar region without neurogenic claudication Hypertriglyceridemia hx Pulmonary embolism Right lung x3, currently on eliquis DVT (deep venous thrombosis) LLE x1 (entire length of leg), no known etiology COPD (chronic obstructive pulmonary disease) Surgical History Port-A-Cath in place (03/16/23) Left Subclavian Access Port Placement, Biopsy of Left Supraclavicular Node(Left) - Sanjay May MD, FACS Adverse reaction to anesthetic agent "Hard time to get air in or out" History of tonsillectomy and adenoidectomy Hx laparoscopic cholecystectomy Family History Mother , 74yo Stroke Heart disease "Had a bad heart" Father , 89yo Cancer "Bone cancer" COPD (chronic obstructive pulmonary disease) Stroke Hypertension Brother Brain tumor Pt uncertain if it was cancer; Diabetes Brother Cancer Son Medical history unknown Son Medical history unknown Daughter No problems noted. 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 [employer] How many Children do You have: 4 Feels Safe at Home: Yes Diet: regular caffeine: No during the past year weight has: decreased > 10 lbs Assistive Devices: Glasses and Nebulizer Review of Systems Review of Systems: All systems reviewed & are unremarkable except as noted in HPI & below Physical Exam Constitutional: well developed, well nourished and comfortable; no acute distress Eyes: Scleral icterus, no conjunctival injection ENMT: moist mucous membranes, no pallor Neck: trachea midline supple Respiratory: normal resp effort on RA Cardiovascular: RRR, 2+ bilateral edema in the legs Gastrointestinal (Abdomen): Inspection/Auscultation: abdomen normal to inspection; abdomen not distended mild generalized tenderness, no rebound, guarding, normal bowel sounds Skin: no rashes, warm and dry (+ jaundice ) Neurologic: alert and oriented x 3, no obvious focal neuro deficit Psychiatric: normal mood and affect Results & Data Vital Signs (Past 12 Hours) Vital Signs Pulse Pulse Resp BP BP Pulse Ox Pulse Ox 05/09/23 09:10 71 29 H 118/72 96 05/09/23 09:00 82 30 H 96 05/09/23 08:50 68 26 H 95 05/09/23 08:40 70 23 93 05/09/23 08:30 78 22 87 L 05/09/23 08:23 80 31 H 93 05/09/23 07:30 91 H 27 H 97 05/09/23 07:20 95 H 38 H 97 05/09/23 07:19 83 05/09/23 07:10 90 26 H 97 05/09/23 07:00 115/73 05/09/23 07:00 90 26 H 95 05/09/23 05:30 98 H 16 96 05/09/23 05:20 96 H 23 97 05/09/23 05:15 90 18 108/69 95 05/09/23 05:14 108/69 05/09/23 05:14 91 H 20 98 05/09/23 05:10 74 21 97 05/09/23 05:00 99 H 20 98 05/09/23 04:50 71 18 99 05/09/23 04:40 89 22 100 05/09/23 04:30 81 20 99 05/09/23 04:20 84 18 99 05/09/23 04:10 84 23 100 05/09/23 04:00 76 24 100 05/09/23 03:50 80 21 100 05/09/23 03:40 77 21 99 05/09/23 03:30 90 24 98 05/09/23 03:20 92 H 21 98 05/09/23 03:14 17 05/09/23 03:00 102/65 05/09/23 03:00 19 91 05/09/23 02:50 38 H 91 05/09/23 02:40 96 H 28 H 91 05/09/23 02:30 15 91 05/09/23 02:20 97 H 28 H 94 05/09/23 02:10 96 H 34 H 93 05/09/23 02:00 101 H 27 H 92 05/09/23 02:00 111/71 05/09/23 01:50 96 H 26 H 95 05/09/23 01:40 104 H 26 H 95 05/09/23 01:30 94 H 26 H 93 05/09/23 01:20 93 H 19 94 05/09/23 01:10 97 H 29 H 91 05/09/23 01:00 112/73 05/09/23 01:00 95 H 25 H 93 05/09/23 00:50 93 H 23 92 05/09/23 00:40 90 26 H 91 05/09/23 00:32 94 05/09/23 00:30 96 H 25 H 93 05/09/23 00:24 105 H 31 H 94 05/09/23 00:23 129/87 05/09/23 00:23 95 H 18 129/87 94 05/09/23 00:23 94 05/09/23 00:19 98 H 26 H 05/09/23 00:10 89 24 92 05/09/23 00:00 95 H 22 88 L 05/08/23 23:50 103 H 23 94 05/08/23 23:40 99 H 24 92 05/08/23 23:30 97 H 25 H 94 05/08/23 23:24 102 H 25 H 94 05/08/23 23:23 106/67 05/08/23 23:00 99 H 18 106/67 94 O2 Del Method O2 Del Method O2 Flow Rate 05/09/23 09:10 05/09/23 09:00 05/09/23 08:50 05/09/23 08:40 05/09/23 08:30 05/09/23 08:23 05/09/23 07:30 05/09/23 07:20 05/09/23 07:19 05/09/23 07:10 05/09/23 07:00 05/09/23 07:00 05/09/23 05:30 05/09/23 05:20 05/09/23 05:15 Room Air 05/09/23 05:14 05/09/23 05:14 05/09/23 05:10 05/09/23 05:00 05/09/23 04:50 05/09/23 04:40 05/09/23 04:30 05/09/23 04:20 05/09/23 04:10 05/09/23 04:00 05/09/23 03:50 05/09/23 03:40 05/09/23 03:30 05/09/23 03:20 05/09/23 03:14 05/09/23 03:00 05/09/23 03:00 05/09/23 02:50 05/09/23 02:40 05/09/23 02:30 05/09/23 02:20 05/09/23 02:10 05/09/23 02:00 05/09/23 02:00 05/09/23 01:50 05/09/23 01:40 05/09/23 01:30 05/09/23 01:20 05/09/23 01:10 05/09/23 01:00 05/09/23 01:00 05/09/23 00:50 05/09/23 00:40 05/09/23 00:32 Room Air 0 05/09/23 00:30 05/09/23 00:24 05/09/23 00:23 05/09/23 00:23 Room Air 05/09/23 00:23 Room Air 0 05/09/23 00:19 05/09/23 00:10 05/09/23 00:00 05/08/23 23:50 05/08/23 23:40 05/08/23 23:30 05/08/23 23:24 05/08/23 23:23 05/08/23 23:00 Room Air Laboratory Results 05/09/23 05/09/23 05/08/23 Range/Units 05: 03:26 13:31 WBC 6.54 8.14 (4.8-10.8) K/ul RBC 2.54 L 2.83 L (4.70-6.10) M/uL Hgb 8.3 L 9.4 L (14.0-18.0) g/dl Hct 23.1 L 26.0 L (42.0-52.0) % MCV 90.9 91.9 (80.0-100.0) fL MCH 32.7 33.2 (25.0-34.0) pg MCHC 35.9 36.2 H (32.0-36.0) g/dL RDW Std Deviation 52.8 H 50.6 H (36.4-46.3) fL RDW Coeff of Lizandro 17.1 H 16.5 H (11.5-14.5) % Plt Count 147 176 (130-400) K/uL MPV 10.7 10.4 (9.4-12.4) fL Immature Gran % (Auto) 0.6 % Neut % (Auto) 85.6 % Lymph % (Auto) 4.1 % Day % (Auto) 9.3 % Eos % (Auto) 0.2 % Baso % (Auto) 0.2 % Neut # (Auto) 6.96 H (1.40-6.50) K/uL Lymph # (Auto) 0.33 L (1.20-3.40) K/uL Day # (Auto) 0.76 H (0.11-0.59) K/uL Eos # (Auto) 0.02 (0.00-0.50) K/uL Baso # (Auto) 0.02 (0.00-0.20) K/uL Immature Gran # (Auto) 0.05 (0.01-0.20) K/uL PT 14.6 H (9.0-12.0) Seconds INR 1.4 H (0.9-1.1) APTT 77.5 H* 35.5 H (21.0-31.0) Seconds PTT Ratio 2.7 1.3 Sodium 126 L 127 L (136-145) mmol/L Potassium 3.8 4.0 (3.5-5.1) mmol/L Chloride 97 L 97 L (98-107) mmol/L Carbon Dioxide 26 28 (21-32) mmol/L Anion Gap 3 2 L (3-11) BUN 8 10 (6-23) mg/dl Creatinine 0.73 0.83 (0.6-1.4) mg/dl Est Cr Clr Drug Dosing 108.9 Not Reportable Est GFR ( Amer) 113.6 107.8 ml/min Est GFR (Non-Af Amer) 98.0 93.0 ml/min BUN/Creatinine Ratio 11.0 12.0 (10-20) Glucose 93 100 H (70-99(Fasting)) mg/dl Lactate 1.4 (0.4-2.0) mmol/L Calcium 8.1 L 8.3 L (8.6-10.3) mg/dl Magnesium 1.4 L (1.7-2.4) mg/dl Total Bilirubin 5.4 H 4.8 H (0.2-1.0) mg/dl AST 107 H 117 H (13-39) U/L ALT 89 H 100 H (7-52) U/L Alkaline Phosphatase 374 H 392 H (34-104) U/L Troponin I High Sens 16.1 (0-20) pg/ml Total Protein 7.4 7.8 (6.0-8.3) gm/dl Albumin 2.6 L 2.5 L (3.4-5.0) gm/dl Globulin 4.8 H 5.3 H (2.5-4.0) gm/dl Albumin/Globulin Ratio 0.5 L 0.5 L (0.9-2) Lipase 35 (11-82) U/L Procalcitonin 0.66 H (0-0.5) ng/ml Blood Type A Positive Blood Type Recheck A Positive Antibody Screen NEGATIVE Crossmatch See Detail Diagnostic Findings CTAP INDINGS: Lower chest: Bronchial wall thickening and emphysema are seen. Periesophageal lymph nodes measure up to 14 mm in diameter. Liver: Nodular contour of the liver is seen compatible with cirrhosis. Gallbladder and biliary tree: Patient is status post cholecystectomy. Physiologic prominence of the biliary ducts is noted. Pancreas: Unremarkable, no focal lesions. Spleen: Unremarkable. Adrenals: Unremarkable. Kidneys and ureters: Subcentimeter hypodensities are too small to characterize. Bladder: Unremarkable. Reproductive organs: Unremarkable. Bowel: A hiatal hernia is seen. The appendix is normal. Lymph nodes Retroperitoneal: Numerous retroperitoneal and perihilar lymph nodes measure up to 34 mm in diameter. These are significantly enlarged from prior exam. Pelvic: Subcentimeter lymph nodes are noted. Mesenteric: Unremarkable. Peritoneum: Normal. Vessels: Unremarkable. Abdominal wall: A fat-containing umbilical hernia is seen. Bones: Degenerative changes in the visualized spine. IMPRESSION: 1. Bulky lymphadenopathy in the perihilar, retroperitoneal, and paraesophageal stations, is significantly increased from prior exam. Findings are concerning for malignancy, less likely reactive. 2. Cirrhosis.
--- NOTE | 2023-05-09 10:53 | Anesthesiology Consultation ---
Date of Service May 09, 2023 Assessment & Plan (1) Encounter for pre-operative examination: Chart Review Chart Review: Acceptable Risk for Surgery and Patient NOT seen in Pre Admission Testing Consults Requested none History Surgery Operation Date: 05/09/23 09:10 Proposed Procedures p Endoscopic Retrograde Cholangiopancreato - Dayne De Guzman MD Height/Weight Height: 5 ft 11 in Weight: 87.7 kg Allergies Allergy/AdvReac Type Severity Reaction Status Date / Time levofloxacin Allergy Intermediate Nausea Verified 05/01/23 10:16 Medications Home Medications Medication Instructions Recorded Confirmed Last Taken azelastine 137 mcg (0.1 %) nasal 1 spray intranasal BID PRN Nasal 02/12/20 05/08/23 Unknown spray aerosol Congestion fluticasone 500 mcg-salmeterol 50 1 inh inhalation BID 02/12/20 05/08/23 03/16/23 07:30 mcg/dose blistr powdr for inhalation (Advair Diskus) montelukast 10 mg tablet 10 mg PO QAM 02/12/20 05/08/23 03/15/23 08:00 (Singulair) omega-3 fatty acids 1,000 mg 1,000 mg PO DAILY 02/12/20 05/08/23 03/13/23 capsule (Fish Oil Concentrate) tiotropium bromide 18 mcg capsule 1 cap inhalation QAM 02/12/20 05/08/23 03/16/23 07:30 with inhalation device (Spiriva with HandiHaler) folic acid 1 mg tablet 1 mg PO QAM #30 tabs 02/13/20 05/08/23 03/15/23 08:00 acetaminophen 325 mg capsule 650 mg PO Q4H PRN Pain 03/10/23 05/08/23 03/15/23 21:00 (Tylenol) albuterol sulfate 2.5 mg/3 mL 2.5 mg inhalation Q4H PRN 03/10/23 05/08/23 03/15/23 23:55 (0.083 %) solution for nebulization Shortness Of Breath Or Wheezing albuterol sulfate 90 mcg/actuation 2 puff inhalation Q4H PRN 03/10/23 05/08/23 03/15/23 21:00 aerosol inhaler Shortness Of Breath Or Wheezing cholecalciferol (vitamin D3) 25 50 mcg PO DAILY 03/10/23 05/08/23 03/15/23 08:00 mcg (1,000 unit) capsule furosemide 40 mg tablet (Lasix) 40 mg PO DAILY PRN swelling 03/10/23 05/08/23 Unknown mecobalamin (vitamin B12) 500 mcg 500 mcg PO DAILY 03/10/23 05/08/23 03/15/23 08:00 chewable tablet mometasone 50 mcg/actuation nasal 2 spray intranasal BID PRN Nasal 03/10/23 05/08/23 Unknown spray Congestion omeprazole 40 mg capsule,delayed 40 mg PO DAILY PRN gerd 03/10/23 05/08/23 Unknown release vitamins A,C,E-imrq-julfyh 4,296 1 cap PO DAILY 03/10/23 05/08/23 03/15/23 08:00 mcg-226 mg-90 mg capsule (PreserVision AREDS) apixaban 5 mg tablet (Eliquis) 5 mg PO BID 03/15/23 05/08/23 03/14/23 08:00 ondansetron HCl 4 mg tablet 8 mg PO Q8H PRN Nausea 04/13/23 05/08/23 Unknown cephalexin 500 mg capsule 500 mg PO QID 05/08/23 05/08/23 Unknown Active Medications Generic Name Dose Route Start Last Admin Trade Name Freq PRN Reason Stop Dose Admin Fluticasone/Vilanterol 1 puffs 05/09/23 09:00 05/09/23 09:20 Fluticasone/Vilanterol 100/25mcg 14 Puffs/Inhaler INH 06/08/23 08:59 1 puffs DAILY SHARON Administration Heparin Sodium/Dextrose 25,000 units in 500 mls @ 27 mls/hr 05/08/23 19:45 05/09/23 06:14 Heparin Sodium/Dextrose IV 06/07/23 19:44 1,350 units/hr .[id number] SHARON 27 mls/hr Titration Protocol 1,350 UNITS/HR Multivitamins/Minerals 1 tab 05/09/23 09:00 05/09/23 09:20 Cerovite Adv Formula Tab PO 06/08/23 08:59 1 tab DAILY SHARON Administration Ondansetron HCl 4 mg 05/08/23 20:01 05/08/23 20:59 Ondansetron Inj 2 Mg/Ml 2 Ml Vial IV 06/07/23 20:00 4 mg Q6H PRN Administration Nausea Umeclidinium [place] 1 puffs 05/09/23 09:00 05/09/23 09:20 Umeclidinium [place] 62.5mcg/Blister 7 Puffs/Inhaler INH 06/08/23 08:59 1 puffs QAM SHARON Administration Past Medical History Medical History (Updated 05/09/23 @ 10:53 by Gabino Crawford MD) Encounter for pre-operative examination Tobacco use disorder Chronic respiratory failure Hyponatremia Chronic diastolic heart failure History of pulmonary embolism Macular degeneration Metastatic lung cancer (metastasis from lung to other site) Biopsy on 02/09/23 Thyromegaly Deviated nasal septum Chronic rhinitis Depression Elevated serum homocysteine level Peripheral vascular disease Spinal stenosis of lumbar region without neurogenic claudication Hypertriglyceridemia hx Pulmonary embolism Right lung x3, currently on eliquis DVT (deep venous thrombosis) LLE x1 (entire length of leg), no known etiology COPD (chronic obstructive pulmonary disease) CT abd/pelvis showing bulky lymphadenopathy in the perihilar, retroperitoneal, and paraesophageal stations, is significantly increased from prior exam. Findings are concerning for malignancy, less likely reactive. 2. Cirrhosis ED physician discussed with Dr. De Guzman, who will perform EUS and ERCP as needed, will evaluate tomorrow Clears for now, NPO at midnight in anticipation of procedure tomorrow, repeat CMP in AM, antiemetics as needed, avoid Tylenol as he has been taking 4-6 tabs daily for pain in RLE (2) Metastatic lung cancer (metastasis from lung to other site): Plan: Feb 2023 lymph node biopsy revealing metastatic carcinoma most consistent with metastatic small cell carcinoma Last had chemo on 04/13 (presumed to be etoposide cisplatin atezolizumab based on Oct heme/onc note) Following with Dr. Arzate for med onc, Dr. Britt for rad onc (5) Hyponatremia: Plan: Na today 127 (baseline ~131). 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 Gentle fluids given in ED due to poor PO intake. Fluid restriction at 1.5 L Monitor Na with daily BMP (6) History of pulmonary embolism: Plan: On jail anticoagulation, took Eliquis in AM today - will hold Bridging with IV heparin given clot history, will need to be held prior to any GI procedure Past Family History Family History Mother , 74yo Stroke Heart disease "Had a bad heart" Father , 89yo Cancer "Bone cancer" COPD (chronic obstructive pulmonary disease) Stroke Hypertension Brother Brain tumor Pt uncertain if it was cancer; Diabetes Brother Cancer Son Medical history unknown Son Medical history unknown Daughter No problems noted. Daughter Medical history unknown Past Surgical History Surgical History Port-A-Cath in place (03/16/23) Left Subclavian Access Port Placement, Biopsy of Left Supraclavicular Node(Left) - Sanjay May MD, FACS Adverse reaction to anesthetic agent "Hard time to get air in or out" History of tonsillectomy and adenoidectomy Hx laparoscopic cholecystectomy 03/16/23: Port placement. MAC. No reported issues. Social History Smoking Status: Current every day smoker Smoking cigarettes per day: 10 every 2 days Do You Dip or Chew Tobacco: No Hx Alcohol Use: No Hx Substance Use: No substance use type: does not use Physical Exam Vital Signs Last Vital Signs Temp 36.7 C 05/08/23 12:40 Pulse 71 05/09/23 09:10 Resp 29 H 05/09/23 09:10 BP 118/72 05/09/23 09:10 Pulse Ox 96 05/09/23 09:10 O2 Del Method Room Air 05/09/23 05:15 O2 Flow Rate 0 05/09/23 00:32 Testing Laboratory Results 05/09/23 03:26 05/09/23 03:26 PT 14.6 Seconds (9.0-12.0) H 05/08/23 13:31 INR 1.4 (0.9-1.1) H 05/08/23 13:31 APTT 77.5 Seconds (21.0-31.0) H* 05/09/23 03:26 Blood Type A Positive 05/09/23 03:26 Antibody Screen NEGATIVE 05/09/23 03:26 Electrocardiogram Date: 05/08/23 DICTATED BY: Jone Meng MD Test Reason : Blood Pressure : / mmHG Vent. Rate : 109 BPM Atrial Rate : 109 BPM P-R Int : 146 ms QRS Dur : 102 ms QT Int : 348 ms P-R-T Axes : 059 -48 080 degrees QTc Int : 468 ms Sinus tachycardia Left anterior fascicular block Abnormal ECG When compared with ECG of 19-MAR-2023 01:57, Vent. rate has increased BY 37 BPM Confirmed by Jone Meng ([id number]) on 05/08/2023 3:40:52 PM Chest X-Ray Date: 05/08/23 XR chest 1V not portable HISTORY: Shortness of breath. Sepsis COMPARISON: Chest 05/02/2023. FINDINGS: No pneumothorax. No pleural effusions. The cardiac silhouette is normal in size. Left subclavian Port-A-Cath terminates at the distal SVC. No new focal lung consolidations to suggest a pneumonia. No evidence for pulmonary edema. No acute fractures identified. Mild interstitial thickening which is likely chronic. Small left upper lobe nodules are again noted. IMPRESSION: 1. No significant change compared to the prior study. No acute process within the chest. 2. Small left upper lobe pulmonary nodules again noted. Echocardiogram Dobutamine stress echo 01/13/23: Stress echo is negative for inducible ischemia No significant valvular disease is present EF 55-59% Other Testing Chest CT 03/27: IMPRESSION: 1. No pulmonary embolus or aortic dissection. 2. Extensive mediastinal and hilar lymphadenopathy, left more than right. Left supraclavicular and left lower leg lymphadenopathy. Likely lymphadenopathy in the upper abdomen. These findings suggest metastatic disease or lymphoma, clinical correlation recommended. 3. Multiple left upper lung nodules concerning for metastatic disease, clinical correlation recommended. 4. Underlying emphysema with left lower lobe atelectasis and possible superimposed pneumonitis.
[2023-05-09 11:52] LABS: Appearance Urine Clear (Clear); Blood Urine Negative (Negative); Color Urine Dark Yellow; Glucose Urine UA Negative (Negative); Ketones Urine Negative (Negative); Leukocyte Esterase Urine Negative (Negative); Nitrite Urine Negative (Negative); Protein Urine Negative (Negative); Specific Gravity Urine 1.015 (1.000-1.030); Urobilinogen Urine Negative (Negative)
[2023-05-09 12:10] LABS: Bilirubin Urine 2+ (Negative)
[2023-05-09] MEDS: AMPICILLIN/SULBACTAM SOD 3,000 MG in SODIUM CHLOR 0.9% MINI-B 100 ML IV SCH ×3 (12:17→22:42)
--- NOTE | 2023-05-09 13:57 | Hospitalist Progress Note ---
Date of Service May 09, 2023 Assessment & Plan (1) Transaminitis: Plan: 62-year-old with PMH of small cell lung cancer diagnosed in Feb of this year with ongoing chemo (s/p 2 cycles per pt) and radiation therapy, COPD, chronic respiratory failure on 2L NC HS, chronic diastolic heart failure, peripheral vascular disease, hepatic steatosis, tobacco use disorder and other medical problems listed below who presents [facility] He is being managed for the following: On chemo regimen with concurrent radiation since Mar, last chemo cycle received 04/11-04/13 Pre chemo labwork on the day of arrival - showing transaminitis and sent to ED for further evaluation At presentation - Tbili 4.8, AST 117, ALT 100, alk phos 392, INR 1.[address] abd/pelvis showing bulky lymphadenopathy in the perihilar, retroperitoneal, and paraesophageal stations, is significantly increased from prior exam. Findings are concerning for malignancy, less likely reactive. 2. Cirrhosis GI on board, plan for ERCP and decompression today. Started unasyn 05/09. Repeat CMP in AM, antiemetics as needed, avoid Tylenol as he has been taking 4-6 tabs daily for pain in RLE Diet after ERCP w/ clearance from GI Anticoagulation (hep drip) resume w/ clearance from GI after ERCP. Current NPO and anticoag on hold for ERCP later in the day. Will follow recs. (2) Metastatic lung cancer (metastasis from lung to other site): Plan: Feb 2023 lymph node biopsy revealing metastatic carcinoma most consistent with metastatic small cell carcinoma Last had chemo on 04/13 (presumed to be etoposide cisplatin atezolizumab based on Mar heme/onc note) Following with Dr. Arzate for med onc, Dr. Britt for rad onc (3) COPD (chronic obstructive pulmonary disease): (4) Chronic respiratory failure: Plan: At respiratory baseline, requires 2L NC O2 HS Continue home duonebs PRN, Spiriva, Singulair (5) Hyponatremia: Plan: Na today 126 (baseline ~131). 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 Gentle fluids given in ED due to poor PO intake. Fluid restriction at 1.5 L Monitor Na with daily BMP. Increase protein intake in diet when diet resumed. follow labs in AM. (6) History of pulmonary embolism: Plan: On jail anticoagulation, took Eliquis in AM of 05/08/23- currently on hold Was on hep drip, currently on hold due ERCP today; resume w/ clearance from GI after the procedure when bleeding risk deemed minimal. (7) Chronic diastolic heart failure: Plan: Holding lasix given clinically dry appearance, monitor volume status closely (8) Tobacco use disorder: Plan: Reduced use but still smoking 1 pack every 3 days. c/w nicotine patch (9) Hypomagnesemia: Plan: Monitor and replete. (10) Cellulitis of right leg: Plan: RLE cellulitis dx at [facility] last week and was started on Augmentin but did not tolerate (GI sx) so transitioned to Keflex on 05/05 Due to complete abx course on 05/11, on iv unasyn for biliary coverage. iv will have less gi effect. Will change to cipro and flagyl on DC for biliary coverage. c/w probiotic. DVT Ppx: IV heparin Code status: FULL PCP: Constanza Dispo: Admitted to PCU Admission and Anticipated Discharge Date Admission Date: May 08, 2023 Subjective Patient was seen and examined at bedside. Patient was lying in bed, on room air, NAD, patient's at bedside. Patient denies any headache or dizziness or chest pain or abdominal pain, reports cough at his baseline. Patient is n.p.o. for ERCP later today. Patient denies any new acute event overnight. Physical Exam Physical Exam: General Appearance: Moderate built, chronic ill appearing, no apparent distress Head: normocephalic, Atraumatic Eyes: normal inspection, EOMI, +Icteric Neck: supple, Trachea midline Respiratory/Chest: Decreased breath sounds, CTA, No accessory muscle use, +Port/no signs of infection Cardiovascular: S1, S2, No murmur Abdomen/GI:Soft, Non tender, mild distended, Bowel sounds present Extremities/Musculoskelatal:normal inspection, RLE mild erythema, B/L LE Edema 1+ edema, swelling Neurologic/Psych:AAOX3, grossly no focal neurological deficits, +Decreased hearing Skin: normal color, warm, + Jaundice Results & Data Results & Data Vital Signs (Past 12 Hours) Vital Signs Pulse Pulse Resp BP BP Pulse Ox O2 Del Method 05/09/23 10:00 119/75 05/09/23 10:00 90 27 H 93 05/09/23 09:10 71 29 H 118/72 96 05/09/23 09:00 82 30 H 96 05/09/23 08:50 68 26 H 95 05/09/23 08:40 70 23 93 05/09/23 08:30 78 22 87 L 05/09/23 08:23 80 31 H 93 05/09/23 07:30 91 H 27 H 97 05/09/23 07:20 95 H 38 H 97 05/09/23 07:19 83 05/09/23 07:10 90 26 H 97 05/09/23 07:00 115/73 05/09/23 07:00 90 26 H 95 05/09/23 05:30 98 H 16 96 05/09/23 05:20 96 H 23 97 05/09/23 05:15 90 18 108/69 95 Room Air 05/09/23 05:14 108/69 05/09/23 05:14 91 H 20 98 05/09/23 05:10 74 21 97 05/09/23 05:00 99 H 20 98 05/09/23 04:50 71 18 99 05/09/23 04:40 89 22 100 05/09/23 04:30 81 20 99 05/09/23 04:20 84 18 99 05/09/23 04:10 84 23 100 05/09/23 04:00 76 24 100 05/09/23 03:50 80 21 100 05/09/23 03:40 77 21 99 05/09/23 03:30 90 24 98 05/09/23 03:20 92 H 21 98 05/09/23 03:14 17 05/09/23 03:00 102/65 05/09/23 03:00 19 91 05/09/23 02:50 38 H 91 05/09/23 02:40 96 H 28 H 91 05/09/23 02:30 15 91 05/09/23 02:20 97 H 28 H 94 05/09/23 02:10 96 H 34 H 93 05/09/23 02:00 101 H 27 H 92 05/09/23 02:00 111/71 05/09/23 01:50 96 H 26 H 95 (3) COPD (chronic obstructive pulmonary disease) COPD type: chronic bronchitis Chronic bronchitis type: simple Qualified Code(s): J41.0 - Simple chronic bronchitis
[2023-05-09] MEDS ORDERED: fentaNYL citrate PF 100 MCG/2 ML VIAL ONE (14:42)
[2023-05-09] MEDS ORDERED: DEXAMETHASONE SOD INJ 4 MG/ML VIAL ONE (14:42)
[2023-05-09] MEDS ORDERED: LIDOCAINE 2% 2 ML VIAL/AMP(20MG/ML) INFIL ONE (14:42)
[2023-05-09] MEDS ORDERED: ONDANSETRON INJ 2 MG/ML 2 ML VIAL ONE (14:42)
[2023-05-09] MEDS ORDERED: MIDAZOLAM HCL 1 MG/ML 2ML VIAL ONE (14:42)
[2023-05-09] MEDS ORDERED: PROPOFOL IV EMULSION 10 MG/ML 20 ML VIAL IV ONE (14:42)
[2023-05-09] MEDS ORDERED: LACTATED RINGER'S 1,000 ML IV SCH (15:30)
--- NOTE | 2023-05-09 15:30 | History & Physical Bridge Note ---
Date of Service May 09, 2023 History & Physical Bridge Note I have examined the patient, reviewed the History & Physical and in the interval since the performance of the History & Physical I have noted the following changes of clinical significance: no changes noted ERCP Patient was explained in detail regarding risks, benefits, limitations and alternatives of the above endoscopic procedure. Risks of intravenous sedation used for procedure were also explained. Risks include, but not limited to perforation, bleeding, infection, respiratory distress, cardiac arrest and . Patient is also aware about the possibility of missed lesion. Patient's questions were answered. The patient verbalized understanding the information and agreed to undergo the procedure.
[2023-05-09] MEDS ORDERED: fentaNYL citrate PF 100 MCG/2 ML VIAL IV PRN (15:40)
[2023-05-09] MEDS ORDERED: ATROPINE SULFATE 0.1 MG/ML 10ML SYR IV PRN (15:40)
[2023-05-09] MEDS ORDERED: PROMETHAZINE HCL 12.5 MG in SODIUM CHLORIDE 0.9% 50 ML IV PRN (15:40)
[2023-05-09] MEDS ORDERED: ePHEDrine sulfate 50 MG/ML AMP IV PRN (15:40)
[2023-05-09] MEDS ORDERED: HYDROmorphone INJ 2 MG/ML SYR/VIAL IV PRN (15:40)
[2023-05-09] MEDS ORDERED: ONDANSETRON INJ 2 MG/ML 2 ML VIAL IV PRN (15:40)
--- NOTE | 2023-05-09 15:40 | Anesthesiology Consultation ---
Date of Service May 09, 2023 Assessment & Plan Chart Review Chart Review: Acceptable Risk for Surgery Consults Requested none History Surgery Operation Date: 05/09/23 09:10 Proposed Procedures p Endoscopic Retrograde Cholangiopancreato - Dayne De Guzman MD Height/Weight Height: 5 ft 11 in Weight: 87.7 kg Allergies Allergy/AdvReac Type Severity Reaction Status Date / Time levofloxacin Allergy Intermediate Nausea Verified 05/01/23 10:16 Medications Home Medications Medication Instructions Recorded Confirmed Last Taken azelastine 137 mcg (0.1 %) nasal 1 spray intranasal BID PRN Nasal 02/12/20 05/08/23 Unknown spray aerosol Congestion fluticasone 500 mcg-salmeterol 50 1 inh inhalation BID 02/12/20 05/08/23 03/16/23 07:30 mcg/dose blistr powdr for inhalation (Advair Diskus) montelukast 10 mg tablet 10 mg PO QAM 02/12/20 05/08/23 03/15/23 08:00 (Singulair) omega-3 fatty acids 1,000 mg 1,000 mg PO DAILY 02/12/20 05/08/23 03/13/23 capsule (Fish Oil Concentrate) tiotropium bromide 18 mcg capsule 1 cap inhalation QAM 02/12/20 05/08/23 03/16/23 07:30 with inhalation device (Spiriva with HandiHaler) folic acid 1 mg tablet 1 mg PO QAM #30 tabs 02/13/20 05/08/23 03/15/23 08:00 acetaminophen 325 mg capsule 650 mg PO Q4H PRN Pain 03/10/23 05/08/23 03/15/23 21:00 (Tylenol) albuterol sulfate 2.5 mg/3 mL 2.5 mg inhalation Q4H PRN 03/10/23 05/08/23 03/15/23 23:55 (0.083 %) solution for nebulization Shortness Of Breath Or Wheezing albuterol sulfate 90 mcg/actuation 2 puff inhalation Q4H PRN 03/10/23 05/08/23 03/15/23 21:00 aerosol inhaler Shortness Of Breath Or Wheezing cholecalciferol (vitamin D3) 25 50 mcg PO DAILY 03/10/23 05/08/23 03/15/23 08:00 mcg (1,000 unit) capsule furosemide 40 mg tablet (Lasix) 40 mg PO DAILY PRN swelling 03/10/23 05/08/23 Unknown mecobalamin (vitamin B12) 500 mcg 500 mcg PO DAILY 03/10/23 05/08/23 03/15/23 08:00 chewable tablet mometasone 50 mcg/actuation nasal 2 spray intranasal BID PRN Nasal 03/10/23 05/08/23 Unknown spray Congestion omeprazole 40 mg capsule,delayed 40 mg PO DAILY PRN gerd 03/10/23 05/08/23 Unknown release vitamins A,C,U-nptz-xngafv 4,296 1 cap PO DAILY 03/10/23 05/08/23 03/15/23 08:00 mcg-226 mg-90 mg capsule (PreserVision AREDS) apixaban 5 mg tablet (Eliquis) 5 mg PO BID 03/15/23 05/08/23 03/14/23 08:00 ondansetron HCl 4 mg tablet 8 mg PO Q8H PRN Nausea 04/13/23 05/08/23 Unknown cephalexin 500 mg capsule 500 mg PO QID 05/08/23 05/08/23 Unknown Active Medications Generic Name Dose Route Start Last Admin Trade Name Freq PRN Reason Stop Dose Admin Fluticasone/Vilanterol 1 puffs 05/09/23 09:00 05/09/23 09:20 Fluticasone/Vilanterol 100/25mcg 14 Puffs/Inhaler INH 06/08/23 08:59 1 puffs DAILY SHARON Administration Ampicillin Sodium/Sulbactam 100 mls @ 100 mls/hr 05/09/23 11:00 05/09/23 13:26 Sodium 3,000 mg/ Sodium IV 05/19/23 10:59 Infused Chloride Q6H SHARON Infusion Lactated Ringer's 1,000 mls @ 15 mls/hr 05/09/23 15:30 05/09/23 15:21 Lr IV 06/08/23 15:29 15 mls/hr .Q24H SHARON Administration Miscellaneous 1 each 05/09/23 08:59 05/09/23 12:50 Remove Nicoderm Patch N/A 06/08/23 08:58 Not Given DAILY@0859 [facility] Multivitamins/Minerals 1 tab 05/09/23 09:00 05/09/23 09:20 Cerovite Adv Formula Tab PO 06/08/23 08:59 1 tab DAILY SHARON Administration Ondansetron HCl 4 mg 05/08/23 20:01 05/08/23 20:59 Ondansetron Inj 2 Mg/Ml 2 Ml Vial IV 06/07/23 20:00 4 mg Q6H PRN Administration Nausea Umeclidinium [facility] 1 puffs 05/09/23 09:00 05/09/23 09:20 Umeclidinium [facility] 62.5mcg/Blister 7 Puffs/Inhaler INH 06/08/23 08:59 1 puffs QAM SHARON Administration NPO Date Last Intake of Fluids: 05/08/23 Time Last Intake of Fluids: 23:30 Last Intake of Fluids Comment: sip w/meds Date Last Intake of Solids: 05/08/23 Time Last Intake of Solids: 20:30 Past Medical History Medical History (Updated 05/09/23 @ 10:53 by Gabino Crawford MD) Encounter for pre-operative examination Tobacco use disorder Chronic respiratory failure Hyponatremia Chronic diastolic heart failure History of pulmonary embolism Macular degeneration Metastatic lung cancer (metastasis from lung to other site) Biopsy on 02/09/23 Thyromegaly Deviated nasal septum Chronic rhinitis Depression Elevated serum homocysteine level Peripheral vascular disease Spinal stenosis of lumbar region without neurogenic claudication Hypertriglyceridemia hx Pulmonary embolism Right lung x3, currently on eliquis DVT (deep venous thrombosis) LLE x1 (entire length of leg), no known etiology COPD (chronic obstructive pulmonary disease) Past Family History Family History Mother , 74yo Stroke Heart disease "Had a bad heart" Father , 89yo Cancer "Bone cancer" COPD (chronic obstructive pulmonary disease) Stroke Hypertension Brother Brain tumor Pt uncertain if it was cancer; Diabetes Brother Cancer Son Medical history unknown Son Medical history unknown Daughter No problems noted. Daughter Medical history unknown Past Surgical History Surgical History Port-A-Cath in place (03/16/23) Left Subclavian Access Port Placement, Biopsy of Left Supraclavicular Node(Left) - Sanjay May MD, FACS Adverse reaction to anesthetic agent "Hard time to get air in or out" History of tonsillectomy and adenoidectomy Hx laparoscopic cholecystectomy Social History Smoking Status: Current every day smoker Smoking cigarettes per day: 10 every 2 days Do You Dip or Chew Tobacco: No Hx Alcohol Use: No Hx Substance Use: No substance use type: does not use Physical Exam Vital Signs Last Vital Signs Temp 37.5 C 05/09/23 15:08 Pulse 102 H 05/09/23 15:08 Resp 26 H 05/09/23 15:08 BP 123/76 05/09/23 15:08 Pulse Ox 91 05/09/23 15:08 O2 Del Method Room Air 05/09/23 15:08 O2 Flow Rate 0 05/09/23 00:32 Testing Laboratory Results 05/09/23 03:26 05/09/23 03:26 PT 14.6 Seconds (9.0-12.0) H 05/08/23 13:31 INR 1.4 (0.9-1.1) H 05/08/23 13:31 APTT 77.5 Seconds (21.0-31.0) H* 05/09/23 03:26 Urine Color Dark Yellow 05/09/23 Unknown Urine Appearance Clear (Clear) 05/09/23 Unknown Urine pH 7.0 (4.5-7.5) 05/09/23 Unknown Ur Specific Upper Tract 1.015 (1.000-1.030) 05/09/23 Unknown Urine Protein Negative (Negative) 05/09/23 Unknown Urine Glucose (UA) Negative (Negative) 05/09/23 Unknown Urine Ketones Negative (Negative) 05/09/23 Unknown Urine Nitrite Negative (Negative) 05/09/23 Unknown Ur Leukocyte Esterase Negative (Negative) 05/09/23 Unknown Blood Type A Positive 05/09/23 03:26 Antibody Screen NEGATIVE 05/09/23 03:26 05/08/23 13:31 Aerobic Blood Culture - Preliminary Blood No growth in Aerobic bottle after 24 hours. Anaerobic Blood Culture - Preliminary No growth in Anaerobic bottle after 24 hours. 05/08/23 13:31 Aerobic Blood Culture - Preliminary Blood No growth in Aerobic bottle after 24 hours. Anaerobic Blood Culture - Preliminary No growth in Anaerobic bottle after 24 hours.
[2023-05-09] MEDS ORDERED: SUCCINYLCHOLINE CHLORIDE 20 MG/ML 10 ML VIAL IV ONE (16:31)
--- NOTE | 2023-05-09 16:31 | Operative Report ---
Post Operative Report Pre & Post Diagnosis Operation Date: 05/09/23 09:10 Pre-Op Diagnosis: TRANSAMINITIS, SMALL CELL LUNG CA Post-Op Diagnosis: TRANSAMINITIS, SMALL CELL LUNG CA I identified the patient and participated in the time-out.: Yes Procedure Operation Date: 05/09/23 09:10 <No data on this case meets the specified criteria> Surgeon Dayne De Guzman MD After [employer] Tutor None Estimated Blood Loss 0 Findings See Below (Distal biliary stricture, stent placed) Specimens None Description of Procedure ERCP I attest to the content of the Intraoperative Record and any orders documented therein. Any exceptions are noted below.
--- NOTE | 2023-05-09 16:42 | GI REPORT ---
Patient Name: Benjie Powell Procedure Date: 05/09/2023 3:57 PM Date of : 1960 Admit Type: Inpatient Age: 62 Gender: Male Attending MD: Dayne De Guzman MD, Procedure: ERCP Providers: Dayne De Guzman MD Referring MD: Padmaja Esteban Md Indications: Biliary dilation on Computed Tomogram Scan, Jaundice, Elevated liver enzymes Medicines: General Anesthesia Complications: No immediate complications. Estimated Blood Loss: Estimated blood loss: none. Procedure: Pre-Anesthesia Assessment: - Prior to the procedure, a History and Physical was performed, and patient medications, allergies and sensitivities were reviewed. The patient's tolerance of previous anesthesia was reviewed. - The risks and benefits of the procedure and the sedation options and risks were discussed with the patient. All questions were answered and informed consent was obtained. - Patient identification and proposed procedure were verified prior to the procedure by the physician and the nurse. The procedure was verified in the procedure room. - Pre-procedure physical examination revealed no contraindications to sedation. After obtaining informed consent, the scope was passed under direct vision. Throughout the procedure, the patient's blood pressure, pulse, and oxygen saturations were monitored continuously. The Duodenoscope was introduced through the mouth, and advanced to the duodenum and used to inject contrast into the bile duct. The ERCP was accomplished without difficulty. The patient tolerated the procedure well. Findings: A customs import specialist film of the abdomen was obtained. Surgical clips, consistent with a previous cholecystectomy, were seen in the area of the right upper quadrant of the abdomen. The esophagus was successfully intubated under direct vision. The scope was advanced to a normal major papilla in the descending duodenum without detailed examination of the pharynx, larynx and associated structures, and upper GI tract. The upper GI tract was grossly normal. A 0.025 inch x 270 cm angled Visiglide wire was passed into the biliary tree. The short-nosed traction sphincterotome was passed over the guidewire and the bile duct was then deeply cannulated. Contrast was injected. I personally interpreted the bile duct images. Ductal flow of contrast was adequate. Image quality was adequate. Contrast extended to the main bile duct. Opacification of the entire biliary tree except for the gallbladder was successful. The maximum diameter of the ducts was 16 mm. The lower third of the main bile duct contained a single severe stenosis. Biliary sphincterotomy was made with a monofilament traction (standard) sphincterotome using ERBE electrocautery. There was no post-sphincterotomy bleeding. One 10 mm by 8 cm covered metal biliary stent was placed into the common bile duct. Bile flowed through the stent. The stent was in good position. Impression: - A single severe biliary stricture was found in the lower third of the main bile duct likely due to external compression by the large periportal Lymph nodes. - A biliary sphincterotomy was performed. - One covered metal biliary stent was placed into the common bile duct. Recommendation: - [facility]. - Repeat ERCP in one year to exchange the stent or earlier if any signs of stent occlusion. Dayne De Guzman MD 05/09/2023 4:41:59 PM This report has been signed electronically. Note Initiated On: 05/09/2023 3:57 PM Number of Addenda: 0 I attest to the content of the Intraoperative Record and orders documented therein, exceptions below {[id number]}
[2023-05-09] MEDS ORDERED: ALBUT/IPRATROP 3MG/0.5MG NEB 3 ML VIAL ONE (16:56)
[2023-05-09] MEDS ORDERED: ALBUT/IPRATROP 3MG/0.5MG NEB 3 ML VIAL NEB STA (16:59)
--- NOTE | 2023-05-09 18:24 | Anesthesiology Progress Note ---
Date of Service May 09, 2023 Anesthesia Post Procedure Vital Signs Vital Signs: Temp Pulse Pulse Resp BP BP Pulse Ox 05/09/23 18:20 105 H 31 H 118/78 96 05/09/23 18:05 106 H 24 108/69 96 05/09/23 17:50 107 H 21 104/73 96 05/09/23 17:35 36.5 C 109 H 29 H 114/78 94 05/09/23 17:25 114 H 27 H 114/67 94 05/09/23 17:15 120 H 28 H 118/77 94 05/09/23 17:05 120 H 28 H 133/74 98 05/09/23 16:55 124 H 26 H 124/71 95 05/09/23 16:45 36.6 C 112 H 22 136/72 96 05/09/23 15:08 37.5 C 102 H 26 H 123/76 91 05/09/23 14:26 37.2 C 101 H 26 H 128/78 89 L 05/09/23 10:00 119/75 05/09/23 10:00 90 27 H 93 05/09/23 09:10 71 29 H 118/72 96 05/09/23 09:00 82 30 H 96 05/09/23 08:50 68 26 H 95 05/09/23 08:40 70 23 93 05/09/23 08:30 78 22 87 L 05/09/23 08:23 80 31 H 93 05/09/23 07:30 91 H 27 H 97 05/09/23 07:20 95 H 38 H 97 05/09/23 07:19 83 05/09/23 07:10 90 26 H 97 05/09/23 07:00 115/73 05/09/23 07:00 90 26 H 95 05/09/23 05:30 98 H 16 96 05/09/23 05:20 96 H 23 97 05/09/23 05:15 90 18 108/69 95 05/09/23 05:14 108/69 05/09/23 05:14 91 H 20 98 05/09/23 05:10 74 21 97 05/09/23 05:00 99 H 20 98 05/09/23 04:50 71 18 99 05/09/23 04:40 89 22 100 05/09/23 04:30 81 20 99 05/09/23 04:20 84 18 99 05/09/23 04:10 84 23 100 05/09/23 04:00 76 24 100 05/09/23 03:50 80 21 100 05/09/23 03:40 77 21 99 05/09/23 03:30 90 24 98 05/09/23 03:20 92 H 21 98 05/09/23 03:14 17 05/09/23 03:00 102/65 05/09/23 03:00 19 91 05/09/23 02:50 38 H 91 05/09/23 02:40 96 H 28 H 91 05/09/23 02:30 15 91 05/09/23 02:20 97 H 28 H 94 05/09/23 02:10 96 H 34 H 93 05/09/23 02:00 101 H 27 H 92 05/09/23 02:00 111/71 05/09/23 01:50 96 H 26 H 95 05/09/23 01:40 104 H 26 H 95 05/09/23 01:30 94 H 26 H 93 05/09/23 01:20 93 H 19 94 05/09/23 01:10 97 H 29 H 91 05/09/23 01:00 112/73 05/09/23 01:00 95 H 25 H 93 05/09/23 00:50 93 H 23 92 05/09/23 00:40 90 26 H 91 05/09/23 00:32 05/09/23 00:30 96 H 25 H 93 05/09/23 00:24 105 H 31 H 94 05/09/23 00:23 129/87 05/09/23 00:23 95 H 18 129/87 94 05/09/23 00:23 05/09/23 00:19 98 H 26 H 05/09/23 00:10 89 24 92 05/09/23 00:00 95 H 22 88 L 05/08/23 23:50 103 H 23 94 05/08/23 23:40 99 H 24 92 05/08/23 23:30 97 H 25 H 94 05/08/23 23:24 102 H 25 H 94 05/08/23 23:23 106/67 05/08/23 23:00 99 H 18 106/67 94 05/08/23 19:49 101 H 23 05/08/23 19:40 103 H 21 93 05/08/23 19:30 102 H 23 92 05/08/23 19:20 102 H 21 93 05/08/23 19:17 97 H 05/08/23 19:10 90 29 H 94 05/08/23 19:00 99 H 20 94 05/08/23 18:50 99 H 34 H 94 05/08/23 18:49 96 H 26 H 93 05/08/23 18:48 100 H 18 109/71 93 Pulse Ox O2 Del Method O2 Del Method O2 Flow Rate O2 Flow Rate 05/09/23 18:20 Nasal Cannula 5 05/09/23 18:05 Nasal Cannula 5 05/09/23 17:50 Nasal Cannula 3 05/09/23 17:35 Nasal Cannula 3 05/09/23 17:25 Nasal Cannula 3 05/09/23 17:15 Nasal Cannula 3 05/09/23 17:05 Nebulizer 05/09/23 16:55 Oxymask 4 05/09/23 16:45 Oxymask 6 05/09/23 15:08 Room Air 05/09/23 14:26 Room Air 05/09/23 10:00 05/09/23 10:00 05/09/23 09:10 05/09/23 09:00 05/09/23 08:50 05/09/23 08:40 05/09/23 08:30 05/09/23 08:23 05/09/23 07:30 05/09/23 07:20 05/09/23 07:19 05/09/23 07:10 05/09/23 07:00 05/09/23 07:00 05/09/23 05:30 05/09/23 05:20 05/09/23 05:15 Room Air 05/09/23 05:14 05/09/23 05:14 05/09/23 05:10 05/09/23 05:00 05/09/23 04:50 05/09/23 04:40 05/09/23 04:30 05/09/23 04:20 05/09/23 04:10 05/09/23 04:00 05/09/23 03:50 05/09/23 03:40 05/09/23 03:30 05/09/23 03:20 05/09/23 03:14 05/09/23 03:00 05/09/23 03:00 05/09/23 02:50 05/09/23 02:40 05/09/23 02:30 05/09/23 02:20 05/09/23 02:10 05/09/23 02:00 05/09/23 02:00 05/09/23 01:50 05/09/23 01:40 05/09/23 01:30 05/09/23 01:20 05/09/23 01:10 05/09/23 01:00 05/09/23 01:00 05/09/23 00:50 05/09/23 00:40 05/09/23 00:32 94 Room Air 0 05/09/23 00:30 05/09/23 00:24 05/09/23 00:23 05/09/23 00:23 Room Air 05/09/23 00:23 94 Room Air 0 05/09/23 00:19 05/09/23 00:10 05/09/23 00:00 05/08/23 23:50 05/08/23 23:40 05/08/23 23:30 05/08/23 23:24 05/08/23 23:23 05/08/23 23:00 Room Air 05/08/23 19:49 05/08/23 19:40 05/08/23 19:30 05/08/23 19:20 05/08/23 19:17 05/08/23 19:10 05/08/23 19:00 05/08/23 18:50 05/08/23 18:49 05/08/23 18:48 Room Air Transfer of Care Handoff Completed per policy Notes Mental Status: alert / awake / arousable and participated in evaluation Patient Amnestic to Procedure: Yes Nausea / Vomiting: adequately controlled Pain: adequately controlled Airway Patency, RR, SpO2: stable & adequate BP & HR: stable & adequate Hydration State: stable & adequate Anesthetic Complications: no major complications apparent
--- NOTE | 2023-05-09 18:36 | Fluoroscopy Report ---
[place] ERCP biliary ductal CLINICAL HISTORY: ERCP IN OR TECHNIQUE: 10 views were obtained with the C-arm in the OR with the above procedure. Total fluoroscop y time was 1 minute 47 seconds. Radiation dose was 9.7 mGy. Comparison: Comparison is made to CT abdomen pelvis 05/08/2023 FINDINGS/IMPRESSION: Intraoperative images were obtained of ERCP. Dilation of the common bile duct an d cystic duct remnant noted. Please correlate with intraoperative fluoroscopy and operative report. ACT 112: Negative or not required by law. Electronically signed by: Nazario Hodges M.D. 05/09/2023 6:35 PM
[2023-05-09] MEDS: NICOTINE 14 MG/24 HR PATCH TD SCH (20:07)
[2023-05-09] MEDS ORDERED: oxyCODONE HCL IR 5 MG TAB (IMMEDIATE RELEASE) PO PRN (22:20)
[2023-05-09] MEDS ORDERED: ACETAMINOPHEN 500 MG TAB PO PRN (22:20)
[2023-05-10] MEDS: AMPICILLIN/SULBACTAM SOD 3,000 MG in SODIUM CHLOR 0.9% MINI-B 100 ML IV SCH ×4 (03:19→23:44)
[2023-05-10 04:45] LABS: Hematocrit (blood only) 23.6 % (42.0-52.0); Hemoglobin 8.6 g/dl (14.0-18.0); Mean Corpuscular Hemoglobin 33.1 pg (25.0-34.0); Mean Corpuscular Hgb Conc 36.4 g/dL (32.0-36.0); Mean Corpuscular Volume 90.8 fL (80.0-100.0); Platelet Count 145 K/uL (130-400); RDW Coefficient of Variation 17.8 % (11.5-14.5); RDW Standard Deviation 55.8 fL (36.4-46.3); White Blood Count 6.83 K/ul (4.8-10.8)
[2023-05-10 05:05] LABS: Albumin Globulin Ratio 0.5 (0.9-2); Albumin Level 2.4 gm/dl (3.4-5.0); BUN Creatinine Ratio 14.3 (10-20); Bilirubin Direct 1.8 mg/dl (0-0.2); Bilirubin,Total 2.9 mg/dl (0.2-1.0); Creatinine Clr Calc Pharmacy 113.5 ml/min; Est GFR (African American) 115.6 ml/min; Est GFR (Non-African American) 99.7 ml/min; Globulin 5.1 gm/dl (2.5-4.0); Magnesium 1.5 mg/dl (1.7-2.4); Potassium 4.4 mmol/L (3.5-5.1); Total Protein 7.5 gm/dl (6.0-8.3)
[2023-05-10] MEDS: CYANOCOBALAMIN (B-12) 500 MCG TABLET PO SCH (08:14)
[2023-05-10] MEDS: CHOLECALCIFEROL 1,000 UNITS 25 MCG TAB PO SCH (08:14)
[2023-05-10] MEDS: FOLIC ACID 1 MG TAB PO SCH (08:14)
[2023-05-10] MEDS: CEROVITE ADV FORMULA TAB PO SCH (08:14)
[2023-05-10] MEDS: ADVANCED PROBIOTIC 1250 MG CAPSULE PO SCH (08:14)
[2023-05-10] MEDS: MONTELUKAST SODIUM 10 MG TABLET PO SCH (08:14)
[2023-05-10] MEDS: UMECLIDINIUM BROMIDE 62.5MCG/BLISTER 7 PUFFS/INHALER INH SCH (08:14)
[2023-05-10] MEDS: FLUTICASONE/VILANTEROL 100/25MCG 14 PUFFS/INHALER INH SCH (08:15)
[2023-05-10] MEDS: MAGNESIUM SULFATE / D5W 1 GM/100 ML BAG IV SCH ×2 (08:34→10:21)
--- NOTE | 2023-05-10 11:16 | Gastroenterology Progress Note ---
Date of Service May 10, 2023 Assessment & Plan (1) Transaminitis: (2) Elevated bilirubin: (3) Metastatic lung cancer (metastasis from lung to other site): (4) Biliary stricture: (5) History of biliary stent insertion: Plan 62 y/o male with h/o metastatic lung CA, admitted w/ elevated LFTs in an obstructive pattern, with jaundice, and CT showing increased bulky abd lymphadenopathy. ERCP yesterday showed a single severe biliary stricture was found in the lower third of the main bile duct likely due to external compression by the large periportal lymph nodes. Biliary sphincterotomy was performed. 1 covered balloon metal biliary stent was placed in the common bile duct Pt improved today. LFTs trending down. WBC WNL. Afebrile. Abd soft, mildly distended and tender diffusely, unchanged. - Diet as tolerated - Will d/w attending about AC resumption - Continue ABX - Supportive care with IVF - F/u with heme/onc for his cancer treatment - Repeat ERCP 1 year to exchange the stent or earlier if signs of stent occlusion Thank you for allowing us to participate in the care of this patient. Please call with any acute changes, questions or concerns. Please see addendum below with additional recommendation from my supervising physician. Admission and Anticipated Discharge Date Admission Date: May 08, 2023 Supervising Physician Co-Signing Physician Notes Agree with pe as documented Bili downtrending. Agree with further plan of care as documented. Subjective Patient seen and examined, chart reviewed. No acute events overnight. Pt had liquids last night. Hungry for some more foods today. Feels improved since admission. No nausea, vomiting, gagging. Having similar vague abd discomfort. Passed BMs; no melena, hematochezia. + flatus. No fever, chills. Review of Systems Review of Systems: All systems reviewed & are unremarkable except as noted in HPI & below Physical Exam Constitutional: well developed, well nourished and comfortable; no acute distress Neck: trachea midline Respiratory: normal respiratory effort Cardiovascular: Slightly tachycardic Gastrointestinal (Abdomen): Inspection/Auscultation: abdomen normal to inspection soft, mild distention and generalized TTP, no rebound, guarding, BS x 4 quads Skin: no rashes, warm and dry (+ jaundice ) Psychiatric: A+Ox3, euthymic affect Results & Data Vital Signs (Past 12 Hours) Vital Signs Temp Pulse Pulse Resp BP BP Pulse Ox 05/10/23 08:16 36.8 C 77 18 119/70 92 05/10/23 07:20 05/10/23 07:18 78 05/10/23 04:40 94 H 22 05/10/23 04:30 69 24 05/10/23 04:20 94 H 23 05/10/23 04:10 71 25 H 05/10/23 04:00 69 29 H 05/10/23 02:49 128/67 05/10/23 02:49 103 H 29 H 97 05/10/23 02:00 84 28 H 96 05/10/23 00:28 36.8 C 05/10/23 00:00 101/60 05/10/23 00:00 92 H 28 H 96 O2 Del Method O2 Flow Rate 05/10/23 08:16 Room Air 05/10/23 07:20 Nasal Cannula 3 05/10/23 07:18 05/10/23 04:40 05/10/23 04:30 05/10/23 04:20 05/10/23 04:10 05/10/23 04:00 05/10/23 02:49 05/10/23 02:49 05/10/23 02:00 05/10/23 00:28 05/10/23 00:00 05/10/23 00:00 Laboratory Results 05/10/23 05/09/23 Range/Units 03:44 Unknown WBC 6.83 (4.8-10.8) K/ul RBC 2.60 L (4.70-6.10) M/uL Hgb 8.6 L (14.0-18.0) g/dl Hct 23.6 L (42.0-52.0) % MCV 90.8 (80.0-100.0) fL MCH 33.1 (25.0-34.0) pg MCHC 36.4 H (32.0-36.0) g/dL RDW Std Deviation 55.8 H (36.4-46.3) fL RDW Coeff of Lizandro 17.8 H (11.5-14.5) % Plt Count 145 (130-400) K/uL MPV 11.0 (9.4-12.4) fL Sodium 127 L (136-145) mmol/L Potassium 4.4 (3.5-5.1) mmol/L Chloride 97 L (98-107) mmol/L Carbon Dioxide 27 (21-32) mmol/L Anion Gap 3 (3-11) BUN 10 (6-23) mg/dl Creatinine 0.70 (0.6-1.4) mg/dl Est Cr Clr Drug Dosing 113.5 ml/min Est GFR ( Amer) 115.6 ml/min Est GFR (Non-Af Amer) 99.7 ml/min BUN/Creatinine Ratio 14.3 (10-20) Glucose 105 H (70-99(Fasting)) mg/dl Calcium 8.0 L (8.6-10.3) mg/dl Phosphorus 4.0 (2.5-4.9) mg/dl Magnesium 1.5 L (1.7-2.4) mg/dl Total Bilirubin 2.9 H (0.2-1.0) mg/dl Direct Bilirubin 1.8 H (0-0.2) mg/dl AST 80 H (13-39) U/L ALT 73 H (7-52) U/L Alkaline Phosphatase 370 H (34-104) U/L Total Protein 7.5 (6.0-8.3) gm/dl Albumin 2.4 L (3.4-5.0) gm/dl Globulin 5.1 H (2.5-4.0) gm/dl Albumin/Globulin Ratio 0.5 L (0.9-2) Urine Color Dark Yellow Urine Appearance Clear (Clear) Urine pH 7.0 (4.5-7.5) Ur Specific [place] 1.015 (1.000-1.030) Urine Protein Negative (Negative) Urine Glucose (UA) Negative (Negative) Urine Ketones Negative (Negative) Urine Blood Negative (Negative) Urine Nitrite Negative (Negative) Urine Bilirubin 2+ H (Negative) Urine Urobilinogen Negative (Negative) Ur Leukocyte Esterase Negative (Negative) Diagnostic Findings ERCP 05/09/23: - A single severe biliary stricture was found in the lower third of the main bile duct likely due to external compression by the large periportal lymph nodes. Biliary sphincterotomy was performed. 1 covered balloon metal biliary stent was placed in the common bile duct - Repeat ERCP 1 year to exchange the stent or earlier if signs of stent occlusion
--- NOTE | 2023-05-10 13:45 | Hospitalist Progress Note ---
Date of Service May 10, 2023 Assessment & Plan (1) Transaminitis: Plan: Patient is a 62 yr male with H/O Small cell lung cancer diagnosed in Feb of this year with ongoing chemo (s/p 2 cycles per pt) and radiation therapy, COPD, chronic respiratory failure on 2L NC HS, chronic diastolic heart failure, peripheral vascular disease, hepatic steatosis, tobacco use disorder and other medical problems listed below who presents with abnormal lab work from [facility]. He is being managed for the following: On chemo regimen with concurrent radiation since Mar, last chemo cycle received 04/11-04/13 Pre chemo labwork on the day of arrival - showing transaminitis and sent to ED for further evaluation At presentation - Tbili 4.8, AST 117, ALT 100, alk phos 392, INR 1.4 Obstructive jaundice Transaminitis Secondary to severe biliary stricture and compression from periportal Lymph nodes --CT ABD:Bulky lymphadenopathy in the perihilar, retroperitoneal, and paraesophageal stations, is significantly increased from prior exam. Findings are concerning for malignancy, less likely reactive. Cirrhosis. --S/P ERCP:A single severe biliary stricture was found in the lower third of the main bile duct likely due to external compression by the large periportal Lymph nodes. A biliary sphincterotomy was performed. One covered metal biliary stent was placed into the common bile duct. --Avoid hepatotoxic agents -- Appreciate GI input Advance diet as tolerated Empirically on Unasyn--transition to p.o. antibiotics upon discharge Discussed with GI Dr. De Guzman on 05/10/2023: Okay to advance diet, advised to avoid anticoagulation for 3 days. Will need repeat ERCP in 1 year for stent exchange or earlier if stent occlusion Needs follow-up with GI upon discharge (2) Metastatic lung cancer (metastasis from lung to other site): Plan: Feb 2023 lymph node biopsy revealing metastatic carcinoma most consistent with metastatic small cell carcinoma Last had chemo on 04/13 (presumed to be etoposide cisplatin atezolizumab based on Mar heme/onc note) Following with Dr. Arzate for med onc, Dr. Britt for rad onc Will obtain CT chest, neck as recommended by oncology on 05/10/2023 (Dr. Clayton Arzate) Needs follow-up with oncology upon discharge (3) COPD (chronic obstructive pulmonary disease): (4) Chronic respiratory failure: Plan: At respiratory baseline, requires 2L NC O2 HS Continue home duonebs PRN, Spiriva, Singulair No signs of exacerbation currently (5) Hyponatremia: Plan: Na today 126 (baseline ~131). 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 c/w nicotine patch Counseled to quit (9) Hypomagnesemia: Plan: Monitor and replete. (10) Cellulitis of right leg: Plan: RLE cellulitis Dx at [facility] last week and was started on Augmentin but did not tolerate (GI sx) so transitioned to Keflex on 05/05 Due to complete abx course on 05/11, on iv unasyn for biliary coverage. iv will have less gi effect. Will change to cipro and flagyl on DC for biliary coverage. c/w probiotic. Clinically improved DVT Px: IV heparin--held SCDs for now Encouraged to ambulate Code status: FULL CODE Admission and Anticipated Discharge Date Admission Date: May 08, 2023 Subjective Patient is seen and examined at bedside States feeling a lot better today Eager to get discharged States having minimal abdominal discomfort Tolerating current diet Denies any nausea, vomiting, chest pain, dyspnea, dizziness Discussed with patient's family at bedside Also discussed with GI using Yancey text Review of Systems Review of Systems: All systems reviewed & are unremarkable except as noted in Subjective Physical Exam Physical Exam: Physical Exam: Vitals signs as noted above General Appearance: Moderate built, chronic ill appearing, no apparent distress Head: normocephalic, Atraumatic Eyes: normal inspection, EOMI, +Mildly Icteric Neck: supple, Trachea midline Respiratory/Chest: Decreased breath sounds, CTA, No accessory muscle use, +Port Cardiovascular: S1, S2, No murmur Abdomen/GI:Soft, Non tender, mild distended, Bowel sounds present Extremities/Musculoskeletal:normal inspection, RLE mild erythema, B/L LE Edema 2+ erythema, swelling Neurologic/Psych:AAOX3, grossly no focal neurological deficits, +Decreased hearing Skin: normal color, warm, + Jaundice Results & Data Results & Data Vital Signs (Past 12 Hours) Vital Signs Temp Pulse Pulse Resp BP BP Pulse Ox 05/10/23 12:00 36.5 C 90 20 127/73 94 05/10/23 08:16 36.8 C 77 18 119/70 92 05/10/23 07:20 05/10/23 07:18 78 05/10/23 04:40 94 H 22 05/10/23 04:30 69 24 05/10/23 04:20 94 H 23 05/10/23 04:10 71 25 H 05/10/23 04:00 69 29 H 05/10/23 02:49 128/67 05/10/23 02:49 103 H 29 H 97 05/10/23 02:00 84 28 H 96 O2 Del Method O2 Flow Rate 05/10/23 12:00 Room Air 05/10/23 08:16 Room Air 05/10/23 07:20 Nasal Cannula 3 05/10/23 07:18 05/10/23 04:40 05/10/23 04:30 05/10/23 04:20 05/10/23 04:10 05/10/23 04:00 05/10/23 02:49 05/10/23 02:49 05/10/23 02:00 Laboratory Results Short CBC 05/10/23 Range/Units 03:44 WBC 6.83 (4.8-10.8) K/ul Hgb 8.6 L (14.0-18.0) g/dl Hct 23.6 L (42.0-52.0) % Plt Count 145 (130-400) K/uL BMP 05/10/23 03:44 Sodium 127 L Potassium 4.4 Chloride 97 L Carbon Dioxide 27 BUN 10 Creatinine 0.70 Glucose 105 H Calcium 8.0 L Liver Function 05/10/23 Range/Units 03:44 Total Bilirubin 2.9 H (0.2-1.0) mg/dl Direct Bilirubin 1.8 H (0-0.2) mg/dl AST 80 H (13-39) U/L ALT 73 H (7-52) U/L Alkaline Phosphatase 370 H (34-104) U/L Albumin 2.4 L (3.4-5.0) gm/dl (3) COPD (chronic obstructive pulmonary disease) COPD type: chronic bronchitis Chronic bronchitis type: simple Qualified Code(s): J41.0 - Simple chronic bronchitis
[2023-05-10] MEDS: NICOTINE 14 MG/24 HR PATCH TD SCH (20:23)
[2023-05-10] MEDS ORDERED: OPTIRAY 320 500ml IV ONE (21:16)
--- NOTE | 2023-05-10 23:09 | CT Scan Report ---
Exam(s): CT NECK With Contrast IV Amt: 83ML OPTIRAY 320 EXAM: CT Neck With Intravenous Contrast CLINICAL HISTORY: Reason for exam: Lung Cancer. TECHNIQUE: Axial computed tomography images of the neck with intravenous contrast. CTDI is 31 mGy and DLP is 1140.69 mGy-cm. Automated exposure control was utilized for the study. A dose lowering technique was utilized adhering to the principles of ALARA. CONTRAST: Patient received 83ML OPTIRAY 320 of IV contrast COMPARISON: No relevant prior studies available. FINDINGS: Oropharynx: Unremarkable. No significant tonsillar enlargement. No peritonsillar abscess. Hypopharynx: Unremarkable. Larynx: Unremarkable. Normal epiglottis. Trachea: Unremarkable. Retropharyngeal space: Unremarkable. Submandibular/parotid glands: Unremarkable. Glands are normal in size. Thyroid: Unremarkable. No enlarged or calcified nodules. Bones/joints: Moderate disc degeneration at C4-5, C5-6, C6-7, C7-T1 and T1-T2. Severe spinal canal stenosis at C5-6. No acute fracture. Soft tissues: There is thickening and edema of the esophageal wall. Vasculature: No acute findings. Lymph nodes: Prominent mediastinal lymph nodes. Prominent cervical lymph nodes. No lymphadenopathy. Lung apices: Moderate centrilobular emphysematous changes with bronchitis, which may be of infectious or inflammatory etiologies. IMPRESSION: No evidence of acute cervical soft tissue pathology. Moderate centrilobular emphysematous changes with bronchitis, which revealed infectious or inflammatory etiologies.. Mediastinal lymphadenopathy. Prominent cervical lymph nodes. Findings concerning for esophagitis. Electronically signed by: Reina Larios MD 05/10/23 23:07 PM
--- NOTE | 2023-05-10 23:49 | CT Scan Report ---
Exam(s): CT CHEST With Contrast IV Amt: 83ML OPTIRAY 320 EXAM: CT Chest With Intravenous Contrast CLINICAL HISTORY: Reason for exam: Lung Cancer. TECHNIQUE: Axial computed tomography images of the chest with intravenous contrast. CTDI is 31 mGy and DLP is 1140.69 mGy-cm. Automated exposure control was utilized for the study. A dose lowering technique was utilized adhering to the principles of ALARA. CONTRAST: Patient received 83ML OPTIRAY 320 of IV contrast COMPARISON: 03/19/2023. FINDINGS: Lungs: There is fluid/mucus along the proximal left bronchus and within the distal right bronchus extending into the right lower lobe bronchus. Due to apparent narrowing of the right lower lobe bronchus which may be due to mucus versus mural lesion, cannot exclude an endobronchial lesion. There is mucus along the mid distal branches of the right posterior mid distal bronchi. Mild diffuse emphysematous changes, more severe through the lung bases. There is a very small intraparenchymal lung nodule within the left upper lobe, image 80, series 7 measuring 7.5 mm, markedly improved from previous dye dimension of 18 mm. Additional tiny left upper lobe pulmonary nodules, markedly decreased in size in the interval with largest residual nodule averaging approximately 4 mm and 6 mm. Bilateral lower lobe atelectasis, remainder of the lung parenchyma is clear. Pleural space: Unremarkable. No pneumothorax. No significant effusion. Heart: Unremarkable. No cardiomegaly. No significant pericardial effusion. Normal cardiac size with coronary artery calcifications. Bones/joints: Unremarkable. No acute fracture. No dislocation. Soft tissues: Nodule within the right vaginal gland measuring 2.0 x 1. 5 cm. Vasculature: See above. Lymph nodes: Multiple lymph nodes within the mediastinum and scattered within the peritracheal region and aortopulmonary space, largest seen below the le measuring 2.6 x 1.7 cm. Multiple confluent rounded masses within the hepatic hilum and above the celiac axis, largest measuring 5.4 x 3.1 cm most compatible with lymphadenopathy and with no significant change in the interval. Small lymph nodes along the left hilum, nonspecific. Gallbladder and bile ducts: Abdominal structures revealed status post cholecystectomy with pneumobilia. Pancreas: The pancreas is not included in the [id number] with evidence of atrophy in the visualized portion. Kidneys and ureters: Bilateral perinephric stranding. Small hypoattenuated structure within the right kidney measuring 6 mm, too small to characterize and incompletely included in the [id number]. Tubes, lines and devices: There is a left-sided chest port in place. IMPRESSION: 1. Mediastinal lymphadenopathy with largest lymph nodes in the subcarinal and peritracheal region. Small lymph nodes along the left hilum, nonspecific. Overall these findings are markedly improved in the interval of therapeutic response. 2. Marked interval improvement of previously seen pulmonary nodules as described above. 3. Endobronchial lesion versus mucus along the right lower lobe bronchus, clinical correlation recommended. 4. Bilateral lower lobe atelectasis with mild right lower lobe bronchiectasis. Difficult to exclude a right lower lobe endobronchial lesion. 5. Upper abdominal lymphadenopathy with no significant change in the interval although comparison difficult due to incomplete inclusion of this area in the [id number] on both examinations. Electronically signed by: Karolina Vieyra MD 05/10/23 23:47 PM
[2023-05-11] MEDS: AMPICILLIN/SULBACTAM SOD 3,000 MG in SODIUM CHLOR 0.9% MINI-B 100 ML IV SCH ×2 (05:05→12:37)
[2023-05-11] MEDS: UMECLIDINIUM BROMIDE 62.5MCG/BLISTER 7 PUFFS/INHALER INH SCH (07:29)
[2023-05-11] MEDS: FLUTICASONE/VILANTEROL 100/25MCG 14 PUFFS/INHALER INH SCH (07:29)
[2023-05-11] MEDS: CYANOCOBALAMIN (B-12) 500 MCG TABLET PO SCH (07:29)
[2023-05-11] MEDS: CHOLECALCIFEROL 1,000 UNITS 25 MCG TAB PO SCH (07:30)
[2023-05-11] MEDS: MONTELUKAST SODIUM 10 MG TABLET PO SCH (07:30)
[2023-05-11] MEDS: FOLIC ACID 1 MG TAB PO SCH (07:30)
[2023-05-11] MEDS: CEROVITE ADV FORMULA TAB PO SCH (07:30)
[2023-05-11] MEDS: ADVANCED PROBIOTIC 1250 MG CAPSULE PO SCH (07:30)
[2023-05-11 08:19] LABS: Albumin Globulin Ratio 0.5 (0.9-2); Albumin Level 2.5 gm/dl (3.4-5.0); BUN Creatinine Ratio 16.9 (10-20); Bilirubin,Total 2.4 mg/dl (0.2-1.0); Calcium 8.1 mg/dl (8.6-10.3); Creatinine Clr Calc Pharmacy 134.7 ml/min; Globulin 5.4 gm/dl (2.5-4.0); Magnesium 1.6 mg/dl (1.7-2.4); Potassium 3.8 mmol/L (3.5-5.1); Total Protein 7.9 gm/dl (6.0-8.3)
[2023-05-11 08:21] LABS: Hematocrit (blood only) 24.9 % (42.0-52.0); Hemoglobin 8.9 g/dl (14.0-18.0); Mean Corpuscular Hemoglobin 32.6 pg (25.0-34.0); Mean Corpuscular Hgb Conc 35.7 g/dL (32.0-36.0); Mean Corpuscular Volume 91.2 fL (80.0-100.0); Mean Platelet Volume 10.9 fL (9.4-12.4); Platelet Count 153 K/uL (130-400); RDW Coefficient of Variation 18.6 % (11.5-14.5); RDW Standard Deviation 58.7 fL (36.4-46.3); Red Blood Count 2.73 M/uL (4.70-6.10); White Blood Count 8.33 K/ul (4.8-10.8)
[2023-05-11] MEDS ORDERED: MAGNESIUM OXIDE 400 MG TAB PO SCH (09:00)
[2023-05-11] MEDS: MAGNESIUM SULFATE / D5W 1 GM/100 ML BAG IV SCH ×2 (09:02→10:37)
[2023-05-11] MEDS ORDERED: DOCUSATE SODIUM 100 MG CAP PO SCH (10:00)
--- NOTE | 2023-05-11 11:08 | Nephrology Consultation ---
Date of Consultation May 11, 2023 Assessment & Plan (1) Hyponatremia: Given the presence of advanced metastatic lung cancer we will have to assume he has underlying SIADH as the cause of hyponatremia. Sodium did not improve with the use of normal saline and holding the diuretic. Check urine osmolarity and urine sodium for further categorization and management If the urine osmolarity is inappropriately extremely high then we do have to use Lasix to lower the urine osmolarity and concomitantly give some normal saline for solute/volume load. Will decide about this after the results come back. However it is very unlikely to really make meaningful difference with the serum sodium. As long as sodium is more than 125 we may have to accept this as excepted. Patient wants to go home today. I dont have objection from nephro standpoint. For discharge keep him 1200 ml FFR and Encourage High protein intake. Urea tastes too bad and hard to use it outpt. Also given ongoing chemo/Poor appetite recommend to hold Diuretics for now. (2) Metastatic lung cancer (metastasis from lung to other site): (3) Biliary stricture: Reviewed advanced metastatic lung cancer now admitting with obstructive jaundice status post biliary stent for biliary stricture. Plan Case complexity high. Discussed with . time spent 55 mins History of Present Illness Reason for Consultation: Hyponatremia in a patient with metastatic small cell cancer of the lung Attending Physician: James Leonardo MD History of Present Illness 62-year-old male with advanced metastatic small cell lung cancer to lung with widespread metastasis. He has been having hyponatremia for a while with the sodium mostly in the low 130s. On admission 3 days ago sodium was 127 and it has remained pretty much at the same level. His diuretics has been on hold and he briefly did get some IV fluid but sodium has not changed. Was told to go to the hospital 3 days ago because of outpatient abnormal LFTs noted on the pre-chemo lab by the cancer center. Since being admitted he has had ERCP obstructive jaundice and it showed biliary stricture and he had biliary stent placed. Patient is very weak and poor appetite Vital signs appears stable. ROS---+ve for Nausea, Jaundice. weakness. Otherwise 12 systems reviewed and negative Allergies Allergy/AdvReac Type Severity Reaction Status Date / Time levofloxacin Allergy Intermediate Nausea Verified 05/01/23 10:16 Home Medications Medication Instructions Recorded Confirmed Type azelastine 137 mcg (0.1 %) nasal 1 spray intranasal BID PRN Nasal 02/12/20 05/08/23 History spray aerosol Congestion fluticasone 500 mcg-salmeterol 50 1 inh inhalation BID 02/12/20 05/08/23 History mcg/dose blistr powdr for inhalation (Advair Diskus) montelukast 10 mg tablet 10 mg PO QAM 02/12/20 05/08/23 History (Singulair) omega-3 fatty acids 1,000 mg 1,000 mg PO DAILY 02/12/20 05/08/23 History capsule (Fish Oil Concentrate) tiotropium bromide 18 mcg capsule 1 cap inhalation QAM 02/12/20 05/08/23 History with inhalation device (Spiriva with HandiHaler) folic acid 1 mg tablet 1 mg PO QAM #30 tabs 02/13/20 05/08/23 Rx acetaminophen 325 mg capsule 650 mg PO Q4H PRN Pain 03/10/23 05/08/23 History (Tylenol) albuterol sulfate 2.5 mg/3 mL 2.5 mg inhalation Q4H PRN 03/10/23 05/08/23 History (0.083 %) solution for nebulization Shortness Of Breath Or Wheezing albuterol sulfate 90 mcg/actuation 2 puff inhalation Q4H PRN 03/10/23 05/08/23 History aerosol inhaler Shortness Of Breath Or Wheezing cholecalciferol (vitamin D3) 25 50 mcg PO DAILY 03/10/23 05/08/23 History mcg (1,000 unit) capsule furosemide 40 mg tablet (Lasix) 40 mg PO DAILY PRN swelling 03/10/23 05/08/23 History mecobalamin (vitamin B12) 500 mcg 500 mcg PO DAILY 03/10/23 05/08/23 History chewable tablet mometasone 50 mcg/actuation nasal 2 spray intranasal BID PRN Nasal 03/10/23 05/08/23 History spray Congestion omeprazole 40 mg capsule,delayed 40 mg PO DAILY PRN gerd 03/10/23 05/08/23 History release vitamins A,C,E-sjvr-eothcd 4,296 1 cap PO DAILY 03/10/23 05/08/23 History mcg-226 mg-90 mg capsule (PreserVision AREDS) apixaban 5 mg tablet (Eliquis) 5 mg PO BID 03/15/23 05/08/23 History ondansetron HCl 4 mg tablet 8 mg PO Q8H PRN Nausea 04/13/23 05/08/23 History cephalexin 500 mg capsule 500 mg PO QID 05/08/23 05/08/23 History Patient History Medical History Encounter for pre-operative examination Tobacco use disorder Chronic respiratory failure Hyponatremia Chronic diastolic heart failure History of pulmonary embolism Macular degeneration Metastatic lung cancer (metastasis from lung to other site) Biopsy on 02/09/23 Thyromegaly Deviated nasal septum Chronic rhinitis Depression Elevated serum homocysteine level Peripheral vascular disease Spinal stenosis of lumbar region without neurogenic claudication Hypertriglyceridemia hx Pulmonary embolism Right lung x3, currently on eliquis DVT (deep venous thrombosis) LLE x1 (entire length of leg), no known etiology COPD (chronic obstructive pulmonary disease) Surgical History Port-A-Cath in place (03/16/23) Left Subclavian Access Port Placement, Biopsy of Left Supraclavicular Node(Left) - Sanjay May MD, FACS Adverse reaction to anesthetic agent "Hard time to get air in or out" History of tonsillectomy and adenoidectomy Hx laparoscopic cholecystectomy Family History Mother , 74yo Stroke Heart disease "Had a bad heart" Father , 89yo Cancer "Bone cancer" COPD (chronic obstructive pulmonary disease) Stroke Hypertension Brother Brain tumor Pt uncertain if it was cancer; Diabetes Brother Cancer Son Medical history unknown Son Medical history unknown Daughter No problems noted. 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 no resp Distress. Normal slow Speech. MM moist. No JVD Respiratory: b/l wheezing and crackles Cardiovascular: S1 and s2 regular. Gastrointestinal (Abdomen): Soft diffuse tenderness Skin: Skin changes of PVD Results & Data Vital Signs (Past 12 Hours) Vital Signs Temp Pulse Pulse Resp BP Pulse Ox O2 Del Method 05/11/23 08:00 Room Air 05/11/23 07:17 36.6 C 85 18 127/76 93 Room Air 05/11/23 06:59 94 H 05/11/23 03:42 36.7 C 92 H 16 132/79 97 Nasal Cannula O2 Flow Rate 05/11/23 08:00 05/11/23 07:17 05/11/23 06:59 05/11/23 03:42 2 Laboratory Results Reviewed and dated (2) Metastatic lung cancer (metastasis from lung to other site) Laterality: unspecified laterality Qualified Code(s): C34.90 - Malignant neoplasm of unspecified part of unspecified bronchus or lung
[2023-05-11] MEDS ORDERED: DICLOFENAC SOD 1% GEL 100 GM TUBE EXT SCH (11:45)
--- NOTE | 2023-05-11 12:30 | Hospitalist Progress Note ---
Date of Service May 11, 2023 Assessment & Plan (1) Transaminitis: Plan: Patient is a 62 yr male with H/O Small cell lung cancer diagnosed in Feb of this year with ongoing chemo (s/p 2 cycles per pt) and radiation therapy, COPD, chronic respiratory failure on 2L NC HS, chronic diastolic heart failure, peripheral vascular disease, hepatic steatosis, tobacco use disorder and other medical problems listed below who presents with abnormal lab work from [facility]. He is being managed for the following: On chemo regimen with concurrent radiation since Mar, last chemo cycle received 04/11-04/13 Pre chemo labwork on the day of arrival - showing transaminitis and sent to ED for further evaluation At presentation - Tbili 4.8, AST 117, ALT 100, alk phos 392, INR 1.4 Obstructive jaundice Transaminitis Secondary to severe biliary stricture and compression from periportal Lymph nodes --CT ABD:Bulky lymphadenopathy in the perihilar, retroperitoneal, and paraesophageal stations, is significantly increased from prior exam. Findings are concerning for malignancy, less likely reactive. Cirrhosis. --S/P ERCP:A single severe biliary stricture was found in the lower third of the main bile duct likely due to external compression by the large periportal Lymph nodes. A biliary sphincterotomy was performed. One covered metal biliary stent was placed into the common bile duct. --Avoid hepatotoxic agents -- Appreciate GI input Tolerated regular diet Empirically on Unasyn--transition to Augmentin upon discharge Discussed with GI Dr. De Guzman on 05/10/2023: Okay to advance diet, advised to avoid anticoagulation for 3 days. Will need repeat ERCP in 1 year for stent exchange or earlier if stent occlusion Had minimal rectal bleed when wiped post stent. Hb stable. Discussed with GI:Expected, no further recs unless no resolution of bleed Needs follow-up with GI upon discharge (2) Metastatic lung cancer (metastasis from lung to other site): Plan: Feb 2023 lymph node biopsy revealing metastatic carcinoma most consistent with metastatic small cell carcinoma Last had chemo on 04/13 (presumed to be etoposide cisplatin atezolizumab based on Mar heme/onc note) Following with Dr. Arzate for med onc, Dr. Britt for rad onc Will obtain CT chest, neck as recommended by oncology on 05/10/2023 (Dr. Clayton Arzate) Needs follow-up with oncology upon discharge (3) COPD (chronic obstructive pulmonary disease): (4) Chronic respiratory failure: Plan: At respiratory baseline, requires 2L NC O2 HS Continue home duonebs PRN, Spiriva, Singulair No signs of exacerbation currently (5) Hyponatremia: Plan: Na today 126 (baseline ~131). 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 Nephrology okay for discharge Needs follow up with Nephrology upon discharge (6) History of pulmonary embolism: Plan: On halfway anticoagulation, took Eliquis in AM of 05/08/23- currently on hold IV heparin held for ERCP Plan to resume Eliquis on 05/13/2023 as recommended by GI (7) Chronic diastolic heart failure: Plan: Holding Lasix given clinically dry appearance, monitor volume status closely Resume Lasix as able (8) Tobacco use disorder: Plan: Reduced use but still smoking 1 pack every 3 days. c/w nicotine patch Counseled to quit (9) Hypomagnesemia: Plan: Monitor and replete. (10) Cellulitis of right leg: Plan: RLE cellulitis Dx at heme onc clinic last week and was started on Augmentin but did not tolerate (GI sx) so transitioned to Keflex on 05/05 Due to complete abx course on 05/11, on iv unasyn for biliary coverage. iv will have less gi effect. Will change to cipro and flagyl on DC for biliary coverage. c/w probiotic. Clinically improved DVT Px: IV heparin--held SCDs for now Encouraged to ambulate Code status: FULL CODE Disposition Home Admission and Anticipated Discharge Date Admission Date: May 08, 2023 Subjective Patient is seen and examined at bedside Patient reports noticing some blood after he wiped today Admits to have some hard stools Discussed with GI today Also discussed with patient's family at bedside Reports some back pain but other eager to get discharged Denies any nausea, vomiting, chest pain, dyspnea, dizziness Review of Systems Review of Systems: All systems reviewed & are unremarkable except as noted in Subjective Physical Exam Physical Exam: Physical Exam: Vitals signs as noted above General Appearance: Moderate built, chronic ill appearing, no apparent distress Head: normocephalic, Atraumatic Eyes: normal inspection, EOMI, +Mildly Icteric Neck: supple, Trachea midline Respiratory/Chest: Decreased breath sounds, CTA, No accessory muscle use, +Port Cardiovascular: S1, S2, No murmur Abdomen/GI:Soft, Non tender, mild distended, Bowel sounds present Extremities/Musculoskeletal:normal inspection, RLE mild erythema, B/L LE Edema 2+ erythema, swelling Neurologic/Psych:AAOX3, grossly no focal neurological deficits, +Decreased hearing Skin: normal color, warm, + Jaundice Results & Data Results & Data Vital Signs (Past 12 Hours) Vital Signs Temp Pulse Pulse Resp BP Pulse Ox O2 Del Method 05/11/23 11:13 36.8 C 75 18 115/74 94 Room Air 05/11/23 08:00 Room Air 05/11/23 07:17 36.6 C 85 18 127/76 93 Room Air 05/11/23 06:59 94 H 05/11/23 03:42 36.7 C 92 H 16 132/79 97 Nasal Cannula O2 Flow Rate 05/11/23 11:13 05/11/23 08:00 05/11/23 07:17 05/11/23 06:59 05/11/23 03:42 2 Laboratory Results Short CBC 05/11/23 Range/Units 07:43 WBC 8.33 (4.8-10.8) K/ul Hgb 8.9 L (14.0-18.0) g/dl Hct 24.9 L (42.0-52.0) % Plt Count 153 (130-400) K/uL BMP 05/11/23 07:43 Sodium 126 L Potassium 3.8 Chloride 95 L Carbon Dioxide 29 BUN 10 Creatinine 0.59 L Glucose 109 H Calcium 8.1 L Liver Function 05/11/23 Range/Units 07:43 Total Bilirubin 2.4 H (0.2-1.0) mg/dl AST 57 H (13-39) U/L ALT 57 H (7-52) U/L Alkaline Phosphatase 283 H (34-104) U/L Albumin 2.5 L (3.4-5.0) gm/dl (2) Metastatic lung cancer (metastasis from lung to other site) Laterality: unspecified laterality Qualified Code(s): C34.90 - Malignant neoplasm of unspecified part of unspecified bronchus or lung (3) COPD (chronic obstructive pulmonary disease) COPD type: chronic bronchitis Chronic bronchitis type: simple Qualified Code(s): J41.0 - Simple chronic bronchitis
--- NOTE | 2023-05-11 13:30 | Discharge Summary ---
Date of Service May 11, 2023 Admission HPI Per Admitting Provider This is a 62-year-old with PMH of small cell lung cancer diagnosed in Feb of this year with ongoing chemo and radiation therapy, COPD, chronic respiratory failure on 2L NC HS, chronic diastolic heart failure, peripheral vascular disease, hepatic steatosis, tobacco use disorder and other medical problems listed below who presents with abnormal lab work from [facility]. Last had chemo on 04/13 (presumed to be etoposide cisplatin atezolizumab based on Oct heme/onc note) and was due for another treatment today but labs showed high liver enzymes and was directed to ED for further evaluation. Endorsing a slight pain on R side near ribs that he has had intermittently for years; no worsening or change. Still smoking but decreased to 1 pack every 3 days. Last took Eliquis this AM. Had some SOB earlier today but has it No F/C, lightheadedness, CP, SOB, abdominal pain, dysuria, diarrhea or constipation. Chronic intermittent cough with productive phlegm but this is not new. Having nausea and some dry heaving since starting chemo in March. Has been taking Tylenol for leg pain - extra strength 500mg tabs, up to 6 per day. Was started on antibiotics for cellulitis of RLE last week and had 3 doses of Augmentin last week and it caused significant stomach upset. Was transitioned to Keflex by oncologist and has been on that since Monday. Admission Exam Per Admitting Provider Physical Exam: Vitals signs as noted above General Appearance: Moderate built, chronic ill appearing, no apparent distress Head: normocephalic, Atraumatic Eyes: normal inspection, EOMI, +Icteric Neck: supple, Trachea midline Respiratory/Chest: Decreased breath sounds, CTA, No accessory muscle use, +Port Cardiovascular: S1, S2, No murmur Abdomen/GI:Soft, Non tender, mild distended, Bowel sounds present Extremities/Musculoskelatal:normal inspection, RLE mild erythema, B/L LE Edema 2+ erythema, swelling Neurologic/Psych:AAOX3, grossly no focal neurological deficits, +Decreased hearing Skin: normal color, warm, + Jaundice Principal Diagnosis Obstructive jaundice Transaminitis Hyponatremia Likely SIADH Hypomagnesemia Discharge Data Allergies Allergy/AdvReac Type Severity Reaction Status Date / Time levofloxacin Allergy Intermediate Nausea Verified 05/01/23 10:16 Consultations 05/08/23 18:36 ED Decision to Admit Stat 05/08/23 20:01 Consult Gastroenterology Routine 05/11/23 08:37 Consult Nephrology Routine Procedures Performed Operation Date: 05/09/23 09:10 Actual Procedures p Endoscopic Retrograde Cholangiopancreato(Not Applicable) - Dayne De Guzman MD Laboratory Results WBC 8.33 K/ul (4.8-10.8) 05/11/23 07:43 RBC 2.73 M/uL (4.70-6.10) L 05/11/23 07:43 Hgb 8.9 g/dl (14.0-18.0) L 05/11/23 07:43 Hct 24.9 % (42.0-52.0) L 05/11/23 07:43 MCV 91.2 fL (80.0-100.0) 05/11/23 07:43 MCH 32.6 pg (25.0-34.0) 05/11/23 07:43 MCHC 35.7 g/dL (32.0-36.0) 05/11/23 07:43 RDW Std Deviation 58.7 fL (36.4-46.3) H 05/11/23 07:43 RDW Coeff of Lizandro 18.6 % (11.5-14.5) H 05/11/23 07:43 Plt Count 153 K/uL (130-400) 05/11/23 07:43 MPV 10.9 fL (9.4-12.4) 05/11/23 07:43 Immature Gran % (Auto) 0.6 % 05/08/23 13:31 Neut % (Auto) 85.6 % 05/08/23 13:31 Lymph % (Auto) 4.1 % 05/08/23 13:31 Starke % (Auto) 9.3 % 05/08/23 13:31 Eos % (Auto) 0.2 % 05/08/23 13:31 Baso % (Auto) 0.2 % 05/08/23 13:31 Neut # (Auto) 6.96 K/uL (1.40-6.50) H 05/08/23 13:31 Lymph # (Auto) 0.33 K/uL (1.20-3.40) L 05/08/23 13:31 Starke # (Auto) 0.76 K/uL (0.11-0.59) H 05/08/23 13:31 Eos # (Auto) 0.02 K/uL (0.00-0.50) 05/08/23 13:31 Baso # (Auto) 0.02 K/uL (0.00-0.20) 05/08/23 13:31 Immature Gran # (Auto) 0.05 K/uL (0.01-0.20) 05/08/23 13:31 PT 14.6 Seconds (9.0-12.0) H 05/08/23 13:31 INR 1.4 (0.9-1.1) H 05/08/23 13:31 APTT 77.5 Seconds (21.0-31.0) H* 05/09/23 03:26 PTT Ratio 2.7 05/09/23 03:26 Sodium 126 mmol/L (136-145) L 05/11/23 07:43 Potassium 3.8 mmol/L (3.5-5.1) 05/11/23 07:43 Chloride 95 mmol/L (98-107) L 05/11/23 07:43 Carbon Dioxide 29 mmol/L (21-32) 05/11/23 07:43 Anion Gap 2 (3-11) L 05/11/23 07:43 BUN 10 mg/dl (6-23) 05/11/23 07:43 Creatinine 0.59 mg/dl (0.6-1.4) L 05/11/23 07:43 Est Cr Clr Drug Dosing 134.7 ml/min 05/11/23 07:43 Est GFR ( Amer) 124.0 ml/min 05/11/23 07:43 Est GFR (Non-Af Amer) 107.0 ml/min 05/11/23 07:43 BUN/Creatinine Ratio 16.9 (10-20) 05/11/23 07:43 Glucose 109 mg/dl (70-99(Fasting)) H 05/11/23 07:43 Lactate 1.4 mmol/L (0.4-2.0) 05/08/23 13:31 Calcium 8.1 mg/dl (8.6-10.3) L 05/11/23 07:43 Phosphorus 4.0 mg/dl (2.5-4.9) 05/10/23 03:44 Magnesium 1.6 mg/dl (1.7-2.4) L 05/11/23 07:43 Total Bilirubin 2.4 mg/dl (0.2-1.0) H 05/11/23 07:43 Direct Bilirubin 1.8 mg/dl (0-0.2) H 05/10/23 03:44 AST 57 U/L (13-39) H 05/11/23 07:43 ALT 57 U/L (7-52) H 05/11/23 07:43 Alkaline Phosphatase 283 U/L (34-104) H 05/11/23 07:43 Troponin I High Sens 16.1 pg/ml (0-20) 05/08/23 13:31 Total Protein 7.9 gm/dl (6.0-8.3) 05/11/23 07:43 Albumin 2.5 gm/dl (3.4-5.0) L 05/11/23 07:43 Globulin 5.4 gm/dl (2.5-4.0) H 05/11/23 07:43 Albumin/Globulin Ratio 0.5 (0.9-2) L 05/11/23 07:43 Lipase 35 U/L (11-82) 05/08/23 13:31 Procalcitonin 0.66 ng/ml (0-0.5) H 05/08/23 13:31 Urine Color Dark Yellow 05/09/23 Unknown Urine Appearance Clear (Clear) 05/09/23 Unknown Urine pH 7.0 (4.5-7.5) 05/09/23 Unknown Ur Specific [place] 1.015 (1.000-1.030) 05/09/23 Unknown Urine Protein Negative (Negative) 05/09/23 Unknown Urine Glucose (UA) Negative (Negative) 05/09/23 Unknown Urine Ketones Negative (Negative) 05/09/23 Unknown Urine Blood Negative (Negative) 05/09/23 Unknown Urine Nitrite Negative (Negative) 05/09/23 Unknown Urine Bilirubin 2+ (Negative) H 05/09/23 Unknown Urine Urobilinogen Negative (Negative) 05/09/23 Unknown Ur Leukocyte Esterase Negative (Negative) 05/09/23 Unknown Urine Osmolality 494 mOsm/kg (500-800) L 05/11/23 11:30 Ur Random Sodium 137 mmol/L 05/11/23 11:30 Blood Type A Positive 05/09/23 03:26 Blood Type Recheck A Positive 05/09/23 05:23 Antibody Screen NEGATIVE 05/09/23 03:26 Crossmatch See Detail 05/09/23 03:26 Impressions Chest X-Ray 05/08/23 12:44 XR chest 1V not portable HISTORY: Shortness of breath. Sepsis COMPARISON: Chest 05/02/2023. FINDINGS: No pneumothorax. No pleural effusions. The cardiac silhouette is normal in size. Left subclavian Port-A-Cath terminates at the distal SVC. No new focal lung consolidations to suggest a pneumonia. No evidence for pulmonary edema. No acute fractures identified. Mild interstitial thickening which is likely chronic. Small left upper lobe nodules are again noted. IMPRESSION: 1. No significant change compared to the prior study. No acute process within the chest. 2. Small left upper lobe pulmonary nodules again noted. ACT 112: Negative or not required by law. Electronically signed by: Conrad Schofield M.D. 05/08/2023 2:36 PM Abdomen/Pelvis CT 05/08/23 13:21 CT abd pelvis IV con only CLINICAL HISTORY: RUQ pain, elevated bilirubin TECHNIQUE: Helical axial images of the abdomen and pelvis were obtained and displayed. Automated dose lowering techniques and/or adjustment according to patient size were utilized for this exam. This exam was performed with intravenous contrast. CT DOSE: 1202.03 mGy.cm COMPARISON: Comparison is made to CT abdomen pelvis 01/18/2023 FINDINGS: Lower chest: Bronchial wall thickening and emphysema are seen. Periesophageal lymph nodes measure up to 14 mm in diameter. Liver: Nodular contour of the liver is seen compatible with cirrhosis. Gallbladder and biliary tree: Patient is status post cholecystectomy. Physiologic prominence of the biliary ducts is noted. Pancreas: Unremarkable, no focal lesions. Spleen: Unremarkable. Adrenals: Unremarkable. Kidneys and ureters: Subcentimeter hypodensities are too small to characterize. Bladder: Unremarkable. Reproductive organs: Unremarkable. Bowel: A hiatal hernia is seen. The appendix is normal. Lymph nodes Retroperitoneal: Numerous retroperitoneal and perihilar lymph nodes measure up to 34 mm in diameter. These are significantly enlarged from prior exam. Pelvic: Subcentimeter lymph nodes are noted. Mesenteric: Unremarkable. Peritoneum: Normal. Vessels: Unremarkable. Abdominal wall: A fat-containing umbilical hernia is seen. Bones: Degenerative changes in the visualized spine. IMPRESSION: 1. Bulky lymphadenopathy in the perihilar, retroperitoneal, and paraesophageal stations, is significantly increased from prior exam. Findings are concerning for malignancy, less likely reactive. 2. Cirrhosis. ACT 112: Negative or not required by law. Electronically signed by: Nazario Hodges M.D. 05/08/2023 3:[address] 05/10/23 14:00 Exam(s): CT CHEST With Contrast IV Amt: 83ML OPTIRAY 320 EXAM: CT Chest With Intravenous Contrast CLINICAL HISTORY: Reason for exam: Lung Cancer. TECHNIQUE: Axial computed tomography images of the chest with intravenous contrast. CTDI is 31 mGy and DLP is 1140.69 mGy-cm. Automated exposure control was utilized for the study. A dose lowering technique was utilized adhering to the principles of ALARA. CONTRAST: Patient received 83ML OPTIRAY 320 of IV contrast COMPARISON: 03/19/2023. FINDINGS: Lungs: There is fluid/mucus along the proximal left bronchus and within the distal right bronchus extending into the right lower lobe bronchus. Due to apparent narrowing of the right lower lobe bronchus which may be due to mucus versus mural lesion, cannot exclude an endobronchial lesion. There is mucus along the mid distal branches of the right posterior mid distal bronchi. Mild diffuse emphysematous changes, more severe through the lung bases. There is a very small intraparenchymal lung nodule within the left upper lobe, image 80, series 7 measuring 7.5 mm, markedly improved from previous dye dimension of 18 mm. Additional tiny left upper lobe pulmonary nodules, markedly decreased in size in the interval with largest residual nodule averaging approximately 4 mm and 6 mm. Bilateral lower lobe atelectasis, remainder of the lung parenchyma is clear. Pleural space: Unremarkable. No pneumothorax. No significant effusion. Heart: Unremarkable. No cardiomegaly. No significant pericardial effusion. Normal cardiac size with coronary artery calcifications. Bones/joints: Unremarkable. No acute fracture. No dislocation. Soft tissues: Nodule within the right vaginal gland measuring 2.0 x 1. 5 cm. Vasculature: See above. Lymph nodes: Multiple lymph nodes within the mediastinum and scattered within the peritracheal region and aortopulmonary space, largest seen below the le measuring 2.6 x 1.7 cm. Multiple confluent rounded masses within the hepatic hilum and above the celiac axis, largest measuring 5.4 x 3.1 cm most compatible with lymphadenopathy and with no significant change in the interval. Small lymph nodes along the left hilum, nonspecific. Gallbladder and bile ducts: Abdominal structures revealed status post cholecystectomy with pneumobilia. Pancreas: The pancreas is not included in the [id number]-he-[id number] with evidence of atrophy in the visualized portion. Kidneys and ureters: Bilateral perinephric stranding. Small hypoattenuated structure within the right kidney measuring 6 mm, too small to characterize and incompletely included in the [id number]. Tubes, lines and devices: There is a left-sided chest port in place. IMPRESSION: 1. Mediastinal lymphadenopathy with largest lymph nodes in the subcarinal and peritracheal region. Small lymph nodes along the left hilum, nonspecific. Overall these findings are markedly improved in the interval of therapeutic response. 2. Marked interval improvement of previously seen pulmonary nodules as described above. 3. Endobronchial lesion versus mucus along the right lower lobe bronchus, clinical correlation recommended. 4. Bilateral lower lobe atelectasis with mild right lower lobe bronchiectasis. Difficult to exclude a right lower lobe endobronchial lesion. 5. Upper abdominal lymphadenopathy with no significant change in the interval although comparison difficult due to incomplete inclusion of this area in the [id number] on both examinations. Electronically signed by: Karolina Vieyra MD 05/10/23 23:[address] 05/10/23 14:00 Exam(s): CT NECK With Contrast IV Amt: 83ML OPTIRAY 320 EXAM: CT Neck With Intravenous Contrast CLINICAL HISTORY: Reason for exam: Lung Cancer. TECHNIQUE: Axial computed tomography images of the neck with intravenous contrast. CTDI is 31 mGy and DLP is 1140.69 mGy-cm. Automated exposure control was utilized for the study. A dose lowering technique was utilized adhering to the principles of ALARA. CONTRAST: Patient received 83ML OPTIRAY 320 of IV contrast COMPARISON: No relevant prior studies available. FINDINGS: Oropharynx: Unremarkable. No significant tonsillar enlargement. No peritonsillar abscess. Hypopharynx: Unremarkable. Larynx: Unremarkable. Normal epiglottis. Trachea: Unremarkable. Retropharyngeal space: Unremarkable. Submandibular/parotid glands: Unremarkable. Glands are normal in size. Thyroid: Unremarkable. No enlarged or calcified nodules. Bones/joints: Moderate disc degeneration at C4-5, C5-6, C6-7, C7-T1 and T1-T2. Severe spinal canal stenosis at C5-6. No acute fracture. Soft tissues: There is thickening and edema of the esophageal wall. Vasculature: No acute findings. Lymph nodes: Prominent mediastinal lymph nodes. Prominent cervical lymph nodes. No lymphadenopathy. Lung apices: Moderate centrilobular emphysematous changes with bronchitis, which may be of infectious or inflammatory etiologies. IMPRESSION: No evidence of acute cervical soft tissue pathology. Moderate centrilobular emphysematous changes with bronchitis, which revealed infectious or inflammatory etiologies.. Mediastinal lymphadenopathy. Prominent cervical lymph nodes. Findings concerning for esophagitis. Electronically signed by: Reina Larios MD 05/10/23 23:07 PM Ordered Studies 05/08/23 13:21 CT abd pelvis IV con only Stat 05/09/23 [place] ERCP biliary ductal Routine 05/10/23 14:00 CT chest diagnostic w con Routine CT soft tissue neck w con Routine Hospital Course (1) Transaminitis: Patient is a 62 yr male with H/O Small cell lung cancer diagnosed in Feb of s year with ongoing chemo (s/p 2 cycles per pt) and radiation therapy, COPD, chronic respiratory failure on 2L NC HS, chronic diastolic heart failure, peripheral vascular disease, hepatic steatosis, tobacco use disorder and other medical problems listed below who presents with abnormal lab work from [facility]. He is being managed for the following: On chemo regimen with concurrent radiation since Mar, last chemo cycle received 04/11-04/13 Pre chemo labwork on the day of arrival - showing transaminitis and sent to ED for further evaluation At presentation - Tbili 4.8, AST 117, ALT 100, alk phos 392, INR 1.4 Obstructive jaundice Transaminitis Secondary to severe biliary stricture and compression from periportal Lymph nodes --CT ABD:Bulky lymphadenopathy in the perihilar, retroperitoneal, and paraesophageal stations, is significantly increased from prior exam. Findings are concerning for malignancy, less likely reactive. Cirrhosis. --S/P ERCP:A single severe biliary stricture was found in the lower third of the main bile duct likely due to external compression by the large periportal Lymph nodes. A biliary sphincterotomy was performed. One covered metal biliary stent was placed into the common bile duct. --Avoid hepatotoxic agents -- Appreciate GI input Tolerated regular diet Empirically on Unasyn--transition to Augmentin upon discharge Discussed with GI Dr. De Guzman on 05/10/2023: Okay to advance diet, advised to avoid anticoagulation for 3 days. Will need repeat ERCP in 1 year for stent exchange or earlier if stent occlusion Had minimal rectal bleed when wiped post stent. Hb stable. Discussed with GI:Expected, no further recs unless no resolution of bleed Needs follow-up with GI upon discharge (2) Metastatic lung cancer (metastasis from lung to other site): Feb 2023 lymph node biopsy revealing metastatic carcinoma most consistent with metastatic small cell carcinoma Last had chemo on 04/13 (presumed to be etoposide cisplatin atezolizumab based on Mar heme/onc note) Following with Dr. Arzate for med onc, Dr. Britt for rad onc Will obtain CT chest, neck as recommended by oncology on 05/10/2023 (Dr. Clayton Arzate) Needs follow-up with oncology upon discharge (3) COPD (chronic obstructive pulmonary disease): (4) Chronic respiratory failure: At respiratory baseline, requires 2L NC O2 HS Continue home duonebs PRN, Spiriva, Singulair No signs of exacerbation currently (5) Hyponatremia: Na today 126 (baseline ~131). 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 Nephrology okay for discharge Needs follow up with Nephrology upon discharge (6) History of pulmonary embolism: On senior living anticoagulation, took Eliquis in AM of 05/08/23- currently on hold IV heparin held for ERCP Plan to resume Eliquis on 05/13/2023 as recommended by GI (7) Chronic diastolic heart failure: Holding Lasix given clinically dry appearance, monitor volume status closely Resume Lasix as able (8) Tobacco use disorder: Reduced use but still smoking 1 pack every 3 days. c/w nicotine patch Counseled to quit (9) Hypomagnesemia: Monitor and replete. (10) Cellulitis of right leg: RLE cellulitis Dx at heme onc clinic last week and was started on Augmentin but did not tolerate (GI sx) so transitioned to Keflex on 05/05 Due to complete abx course on 05/11, on iv unasyn for biliary coverage. iv will have less gi effect. Will change to cipro and flagyl on DC for biliary coverage. c/w probiotic. Clinically improved DVT Px: IV heparin--held SCDs for now Encouraged to ambulate Code status: FULL CODE Disposition Home Total Time Total Time Spent Total Time Spent (In Minutes): 65 minutes Discharge Plan Discharge Items Patient Disposition: Home - Self-Care Reason For Visit: TRANSAMINITIS, SMALL CELL LUNG CA Discharge Diagnosis: Obstructive jaundice Transaminitis Hyponatremia Likely SIADH Hypomagnesemia Activity: Per Instructions section Exercise/Sports: Wait until after follow-up appointment Non-emergency contact: Primary Care Provider, Knockout Worker and Finished Metal Repairer Call non-emergency contact if: you have any medication questions, your symptoms worsen, your pain is concerning for you and you have a fever Follow-up/Referrals: Hali Apodaca DO [Primary Care Provider] - (Date & Time 05/19/2023 11:50 AM Provider Hali Apodaca DO Department Family Medicine [facility] ) Lynn Pizarro MD [Hospitalist] - (The GI office will contact you for an appointment.) Diet: Heart Healthy Fluids: 1200ml (5 cups) Addtl Attending Provider Instructions: Follow-up with your primary care physician Panda on 05/19/2023 11:50 AM Follow-up with your montessori preschool teacher Dr. Hunt in 1-2 weeks with repeat blood work Follow-up with your senior architectural designer / as advised Follow-up with her oncologist Dr. Arzate as scheduled -- Continue fluid restriction 1200 mL/day as advised by montessori preschool teacher --Your senior architectural designer recommends repeat ERCP in 1 year for stent exchange or earlier if stent occlusion -- Get blood test (basic metabolic panel) in 1 week and follow-up with your primary care physician and montessori preschool teacher for further recommendations. -- Complete antibiotic course Augmentin as prescribed -- Quit smoking tobacco as advised. Seek immediate medical attention if your symptoms reoccur or worsen Please take all medications as instructed on discharge list below. Please call if you have any questions or problems. You can reach a [facility] hospitalist on duty at [facility] 24 hours a day by calling [phone] Pending Studies at Discharge: No Stand-Alone Forms: My [facility], Smoking Cessation Medications and DC Order Prescriptions: New docusate sodium 100 mg Capsule 100 mg PO BID PRN (Reason: Constipation ) Qty: 60 0RF Advanced Probiotic 625 mg (10 billion cell) Capsule 2 cap PO DAILY Qty: 30 0RF magnesium oxide 400 mg (241.3 mg magnesium) Tablet 400 mg PO QAM Qty: 30 0RF amoxicillin-pot clavulanate 875-125 mg tablet 1 tab PO BID Qty: 9 0RF Continued acetaminophen [Tylenol] 325 mg capsule 650 mg PO Q4H PRN (Reason: Pain) mecobalamin (vitamin B12) 500 mcg tablet,chewable 500 mcg PO DAILY furosemide [Lasix] 40 mg tablet 40 mg PO DAILY PRN (Reason: swelling) omeprazole 40 mg capsule,delayed release(DR/EC) 40 mg PO DAILY PRN (Reason: gerd) cholecalciferol (vitamin D3) 25 mcg (1,000 unit) capsule 50 mcg PO DAILY PreserVision AREDS 4,296 mcg-226 mg-90 mg capsule 1 cap PO DAILY ondansetron HCl 4 mg tablet 8 mg PO Q8H PRN (Reason: Nausea) omega-3 fatty acids [Fish Oil Concentrate] 1,000 mg Capsule 1,000 mg PO DAILY fluticasone propion-salmeterol [Advair Diskus] 500-50 mcg/dose Blister With Device 1 inh INHALATION BID montelukast [Singulair] 10 mg Tablet 10 mg PO QAM azelastine 137 mcg (0.1 %) Aerosol,[place] 1 spray INTRANASAL BID PRN (Reason: Nasal Congestion) tiotropium bromide [Spiriva with HandiHaler] 18 mcg Capsule, W/Inhalation Device 1 cap INHALATION QAM folic acid 1 mg Tablet 1 mg PO QAM Qty: 30 1RF albuterol sulfate 2.5 mg /3 mL (0.083 %) solution for nebulization 2.5 mg INHALATION Q4H PRN (Reason: Shortness Of Breath Or Wheezing) albuterol sulfate 90 mcg/actuation HFA aerosol inhaler 2 puff INHALATION Q4H PRN (Reason: Shortness Of Breath Or Wheezing) mometasone 50 mcg/actuation spray,non-aerosol 2 spray INTRANASAL BID PRN (Reason: Nasal Congestion) Held Eliquis 5 mg tablet 5 mg PO BID Hold Instructions: Resume on 03/18/23. Rx Instructions: Start taking 10 mg twice a day for 7 days and then 5 mg twice a day. Discontinued cephalexin 500 mg capsule 500 mg PO QID Discharge Orders: Discharge Order (Routine); Ordered 05/11/23 Ordered By: James Leonardo Admission Data Admit Date/Time: 05/08/23 19:12 Attending Provider: James Leonardo Admit Provider: James Leonardo Primary Care Provider: Hali Apodaca Other Providers: James Leonardo; Dayne De Guzman; Johnson Hunt
--- NOTE | 2023-05-11 18:00 | Communication Note ---
Date of Service: May 11, 2023 Called Patient/family after the discharge and informed to hold taking lasix until further instructions from PCP/Nephrology as recommended by Nephrology. Understands and agrees to follow.
== END 2023-05-11 15:12 | disposition home or self-care (01) | DRG 445 ==
LOC: ED 12:20 → SUATTDRO 19:12 → EDINP 19:12 → 1E 05-09 18:35 → 2S 05-10 15:21

== ENCOUNTER 2023-07-08 20:02 | Inpatient (IN) ==
--- OUTSIDE RECORDS SUMMARY | 2023-07-08 20:07 | External Medical Summary | Summary of Care ---
Author Name Unknown Organization [facility] Address [address] [place] [address] Phone [phone] Care Team Providers Care Relief Master Name Role Phone Hali Apodaca DO Primary Care Provider + [phone] Reason for Visit * Reason Comments Re-Check Pt c/o nausea, loss of appetite, weight is down 13 lb since last appt about 6 weeks ago. Encounter Details Date Type Department Care Team (Late st Contact Info) Description 07/05/2023 9:30 AM EST Office Visit Family Medicine [address] [phone] Hali Apodaca [address] [place] [id number] Small cell lung cancer (HCC)*; Malignant neoplasm metastatic to lung, unspecified laterality (HCC); Coronary artery calcification; High triglycerides; Chronic obstructive pulmonary disease, unspecified COPD type (HCC); Gastroesophageal reflux disease without esophagitis; Weight loss; Nausea and vomiting, unspecified vomiting type Allergies Active Allergy Reactions Criticality Noted Date Comments Diclofenac 08/08/2002 upset stomach Levofloxacin 04/14/2017 Diarrhea, bleeding documented as of this encounter (statuses as of 07/05/2023) Medications Medication Sig Dispensed Refills Start Date End Date Status OMEGA-3 FISH OIL 1000 MG PO CAPS Take one capsule by mouth once a day 0 0 9 Active Acetaminophen 325 MG Oral Tablet Take 2 Tablets by mouth every 4 hours as needed for Pain, Moderate. 0 Active Folic Acid 1 MG Oral TabletIndications: Elevated homocysteine Take 1 Tab by mouth daily. 90 Tab 1 0 Active B-12 500 MCG Oral Tablet Take by mouth . 0 2 Active oxygen IN GASIndications:Noc turnal hypoxemia due to emphysema ([facility]),Abnormal CBC,Chronic obstructive pulmonary disease, unspecified COPD type ([facility]),Palpitations ,History of pulmonary embolism,Lung nodule Administer 2 L/min(Oxygen) into nostril at bedtime. 1 Each 0 3 Active Fluticasone-Salmet jasen 500-50 MCG/ACT Inhalation Aerosol Powder Breath Activated (Advair Diskus)Indications :COPD, severity to be determined ([facility]) INHALE ONE PUFF BY MOUTH TWICE A DAY 180 Each 3 3 024 Active Apixaban 5 MG Oral Tablet (Eliquis)Indicatio ns:Pulmonary embolism and infarction ([facility]) TAKE ONE TABLET BY MOUTH TWICE A DAY 200 Tablet 3 3 024 Active Albuterol Sulfate (2.5 MG/3ML) 0.083% Inhalation Nebulization Solution (Proventil)Indicat ions:COPD, group C, by GOLD 2017 classification ([facility]) Use 1 vial every 4-6 hours as needed for shortness of breath or wheezing. 1080 mL 1 3 Active Ondansetron HCl 4 MG Oral Tablet (Zofran)Indication s:Nausea without vomiting Take 1 Tablet by mouth every 8 hours as needed for Nausea. 60 Tablet 0 3 Active Montelukast Sodium 10 MG Oral Tablet (Singulair)Indicat ions:COPD, moderate ([facility]),Chronic sinusitis, unspecified location,Chronic rhinitis TAKE ONE TABLET BY MOUTH EVERY MORNING 90 Tablet 2 3 024 Active Additional Information Patient taking differently: 10 mg Oral DAILY PRN, Informant: Spouse, Reported on 05/15/2023 Albuterol Sulfate HFA 108 (90 Base) MCG/ACT Inhalation Aerosol Solution INHALE TWO PUFFS BY MOUTH EVERY 4 HOURS NEEDED FOR SHORTNESS OF BREATH FOR WHEEZING OR COUGH 54 g 3 3 024 Active Docusate Sodium 100 MG Oral Capsule (Colace) Take 1 Capsule by mouth 2 times a day as needed for Constipation. 0 3 Active Advanced Probiotic Oral Capsule Take 1 Capsule by mouth in the morning and 1 Capsule in the evening. 625 mg (10 billion cell). 0 3 Active Magnesium Oxide 400 MG Oral Tablet Take 1 Tablet by mouth in the morning. 0 3 Active Vitamin D (Cholecalciferol) 25 MCG (1000 UT) Oral Capsule Take 2 Capsules by mouth in the morning. 0 Active PreserVision AREDS 2+Multi Vit Oral Capsule Take by mouth. 0 Active Prochlorperazine Maleate 10 MG Oral Tablet (Compazine) Take 1 Tablet by mouth every 6 hours as needed for Nausea. 0 Active Sodium Chloride 1 GM Oral Tablet Take 1 Tablet by mouth in the morning and 1 Tablet at noon and 1 Tablet in the evening. 0 3 Active Tiotropium [place] Monohydrate 18 MCG Inhalation Capsule (Spiriva HandiHaler)Indicat ions:COPD, group C, by GOLD 2017 classification ([facility]),SOB (shortness of breath),OSBORN (dyspnea on exertion) INHALE THE CONTENTS OF ONE CAPSULE VIA - HANDIHALER ONCE A DAY . DO NOT SWaLLOW CAPSULE 90 Capsule 1 4 025 Active Omeprazole 40 MG Oral Capsule Delayed Release (PriLOSEC)Indicati ons:Gastroesophage al reflux disease without esophagitis Take 1 Capsule by mouth in the morning. 1 hour before the first meal of the day. 90 Capsule 1 4 Active Furosemide 40 MG Oral Tablet (Lasix)Indications :Generalized edema Take 1 Tablet by mouth in the morning. 90 Tablet 1 2 024 Discontinued Omeprazole 40 MG Oral Capsule Delayed Release (PriLOSEC)Indicati ons:Gastroesophage al reflux disease without esophagitis Take 1 Capsule by mouth in the morning. 1 hour before the first meal of the day. 90 Capsule 1 3 024 Discontinued(Re fill) Hospital, Clinic, or Other Facility Administered Medication Ordered Dose Route Frequency Start Date End Date Status albuterol sulfate (PROVENTIL) (2.5 MG/3ML) 0.083% inhalation solution 2.5 mgIndications:COPD, group D, by GOLD 2017 classification ([facility]),SOB (shortness of breath),OSBORN (dyspnea on exertion) 2.5 mg NEBULIZER Q4H PRN 05/20/2019 Act joel documented as of this encounter (statuses as of 07/05/2023) Active Problems Problem Noted Date Diagnosed Date Malignant neoplasm metastatic to lung 07/05/2023 Chronic obstructive pulmonary disease 07/05/2023 Small cell lung cancer 03/15/2023 Gastroesophageal reflux disease without esophagi tis 11/17/2022 Coronary artery calcification 04/18/2022 Overview: CT Chest Abdominal wall pain 04/18/2022 Hepatic steatosis 02/17/2022 Class 2 obesity with body ma ss index (BMI) of 35 to 39.9 without comorbidity 12/07/2021 Mediastinal adenopathy 10/02/2020 Homocystinuria 09/16/2020 History of pulmonary embolism 09/03/2020 Elevated homocysteine 02/19/2020 Thrombophlebitis of superfic ial veins of left lower extremity 02/06/2020 COPD, group D, by GOLD 2017 classification 03/18 Overview: Per COPD GOLD Classification Hypertrophy of both inferior nasal turbinates Peripheral vascular disease 01/30/2017 Overview: ICD-10 update of inactive term Spinal stenosis of lumbar re gion without neurogenic claudication 06/03/2012 Deviated nasal septum 07/22/2008 Chronic sinusitis 07/21/2008 Tobacco use disorder 06/24/2008 NONALLERGIC RHINITIS 06/24/2008 High triglycerides 08/30/2007 documented as of this encounter (statuses as of 07/05/2023) Resolved Problems Problem Noted Date Diagnosed Date Resolved Date Chronic diastolic congestive heart failure 12/07/2021 07/05/2023 Mass of upper lobe of left lung 10/02/2020 05/19/2023 Thyromegaly 02/19/2020 02/19/2020 Elevated hemoglobin 02/19/2020 09/17/19 Pulmonary embolism and infarction 02/13/2020 09/03/2020 COPD, group C, by GOLD 2017 classification 11/12/2018 03/20/2019 Overview: Per COPD GOLD Classification Sensation of fullness in left ear 01/23/2018 10/02/2018 Throat discomfort 01/23/2018 10/02/2018 BMI 36.0-36.9,adult 03/31/2016 10/03/19 19 Overview: 256 Adjustment disorder with depressed mood 06/03/2012 10/02/2018 COPD, moderate 01/03/2012 11/14/2018 Overview: Per COPD GOLD Classification NONALLERGIC RHINITIS 09/30/2010 016 Metabolic syndrome 11/05/2009 9 Overview: insulin 20.9 Edema 02/28/2008 03/31/2016 ADVANCE DIRECTIVE INFORMATION 12/07/2005 06/24/2008 Overview: No, Advance Directive brochure given to patient. Obesity, BMI not known 03/31 documented as of this encounter (statuses as of 07/05/2023) Immunizations Name Administration Dates Next Due Pneumococcal Polysaccharide PPV23 (Pneumovax) 03/27/2009 Seasonal Influenza, PF, 6 M & above, IM , (FluLaval or Fluzone) 03/06/2020,03/19/2019 Seasonal Influenza, Quadriva lent, No Preserve, IM 04/24/2015 Seasonal Influenza, Split, I IV3, With Preserve, Inj 03/20/2014,02/15/2013,03/24/2012,02/28,04/08/2010 TDAP (age 11 and older)(Adacel) 02/28/2008 documented as of this encounter Social History Tobacco Use Types Packs/Day Years Used Date Smoking Tobacco: Every Day Cigarettes 1 36 Cigars Smokeless Tobacco: Never Comments:between 1/2 to 1 pa ck of little cigars as of 09/15/21 Alcohol Use Standard Drinks/Week Comments No 0 (1 standard drink = 0.6 oz pur e alcohol) PHQ-2 Answer Date Recorded PHQ Adult Total Score 2 05/15/2023 Hunger Vital Sign Answer Date Recorded Within the past 12 months, y ou worried that your food would run out before you got the money to buy more. Never true 05/15/20 23 Within the past 12 months, t he food you bought just didn't last and you didn't have money to get more. Never true 05/15/2023 Sex and Gender Information Value Date Recorded Sex Assigned at Not on file Gender Identity Not on file Sexual Orientation Not on file Job Start Date Occupation Industry Not on file Not on file Not on file documented as of this encounter Last Filed Vital Signs Vital Sign Reading Time Taken Comments Blood Pressure 106/58 07/05/2023 9:32 AM EST Pulse 110 07/05/2023 9:32 AM EST Temperature 36.8 C (98.3 F) 07/05/2023 9:32 AM ES T Respiratory Rate - - Oxygen Saturation 94% 07/05/2023 9:32 AM EST Inhaled Oxygen Concentration - - Weight 81.6 kg (180 lb) 07/05/2023 9:32 AM EST Height - - Body Mass Index 25.83 02/13/2023 1:11 PM EDT documented in this encounter Progress Notes * Hali Apodaca, DO - 07/05/2023 9:43 AM EST Subjective: Benjie Powell is a 63 year old male. Chief Complaint Patient presents with Re-Check Pt c/o nausea, loss of appetite, weight is down 13 lb since last appt about 6 weeks ago. HPI: Benjie Powell presents today for routine follow up. He continues to have problems with eating. Does not tolerate any meats. He was advised to not use milk/Boost due having a lot of phlegm. He is using carnation instant breakfast with [place] milk. He has completed 4 cycles of chemotherapy and is now on immunotherapy. His oncologist is measuring his sodium level. He was unable to make his appointment with nephrologyas it had to be in person for the initial visit and he did not want to go due to profound neutropenia WBC 0.9. I reviewed his labs from [facility] on 06/26/23 and his WBC is now 3.7. He was given blood for a hemoglobin of 7.3. He has a lot of dry heaves and often vomits if he tries to eat. He does have Zofran and compazine but his symptoms persist despite his use of these medicine. He was taking omeprazole for heartburn over the summer but stopped it after his symptoms resolved. He is starting to develop decubitus ulcers on his buttocks from sitting. Skin breakdown on the leftbuttock. PMH: Patient Active Problem List Diagnosis Code High triglycerides E78.1 Tobacco use disorder F17.200 NONALLERGIC RHINITIS J31.0 Chronic sinusitis J32.9 Deviated nasal septum J34.2 Spinal stenosis of lumbar region without neurogenic claudication M48.061 Peripheral vascular disease (HCC) I73.9 Hypertrophy of both inferior nasal turbinates J34.3 COPD, group D, by GOLD 2017 classification ([facility]) J44.9 Thrombophlebitis of superficial veins of left lower extremity I80.02 Elevated homocysteine R79.89 History of pulmonary embolism Z86.711 Homocystinuria ([facility]) E72.11 Mediastinal adenopathy R59.0 Class 2 obesity with body mass index (BMI) of 35 to 39.9 without comorbidity E66.9 Chronic diastolic congestive heart failure ([facility]) I50.32 Hepatic steatosis K76.0 Coronary artery calcification I25.10, I25.84 Abdominal wall pain R10.9 Gastroesophageal reflux disease without esophagitis K21.9 Small cell lung cancer ([facility]) C34.90 Current Outpatient Medications Medication Sig Dispense Refill OMEGA-3 FISH OIL 1000 MG PO CAPS Take one capsule by mouth once a day 0 0 Acetaminophen 325 MG Oral Tablet Take 2 Tablets by mouth every 4 hours as needed for Pain, Moderate. Folic Acid 1 MG Oral Tablet Take 1 Tab by mouth daily. 90 Tab 1 B-12 500 MCG Oral Tablet Take by mouth . oxygen IN GAS Administer 2 L/min(Oxygen) into nostril at bedtime. 1 Each 0 Fluticasone-Salmeterol 500-50 MCG/ACT Inhalation Aerosol Powder Breath Activated (Advair Diskus) INHALE ONE PUFF BY MOUTH TWICE A DAY 180 Each 3 Apixaban 5 MG Oral Tablet (Eliquis) TAKE ONE TABLET BY MOUTH TWICE A DAY 200 Tablet 3 Albuterol Sulfate (2.5 MG/3ML) 0.083% Inhalation Nebulization Solution (Proventil) Use 1 vial every4-6 hours as needed for shortness of breath or wheezing. 1080 mL 1 Ondansetron HCl 4 MG Oral Tablet (Zofran) Take 1 Tablet by mouth every 8 hours as needed for Nausea. 60 Tablet 0 Montelukast Sodium 10 MG Oral Tablet (Singulair) TAKE ONE TABLET BY MOUTH EVERY MORNING (Patient taking differently: Take 1 Tablet by mouth daily as needed.) 90 Tablet 2 Albuterol Sulfate HFA 108 (90 Base) MCG/ACT Inhalation Aerosol Solution INHALE TWO PUFFS BY MOUTH EVERY 4 HOURS NEEDED FOR SHORTNESS OF BREATH FOR WHEEZING OR COUGH 54 g 3 Docusate Sodium 100 MG Oral Capsule (Colace) Take 1 Capsule by mouth 2 times a day as needed for Constipation. Advanced Probiotic Oral Capsule Take 1 Capsule by mouth in the morning and 1 Capsule in the evening. 625 mg (10 billion cell). Magnesium Oxide 400 MG Oral Tablet Take 1 Tablet by mouth in the morning. Vitamin D (Cholecalciferol) 25 MCG (1000 UT) Oral Capsule Take 2 Capsules by mouth in the morning. PreserVision AREDS 2+Multi Vit Oral Capsule Take by mouth. Prochlorperazine Maleate 10 MG Oral Tablet (Compazine) Take 1 Tablet by mouth every 6 hours as needed for Nausea. Sodium Chloride 1 GM Oral Tablet Take 1 Tablet by mouth in the morning and 1 Tablet at noon and 1 Tablet in the evening. Tiotropium [place] Monohydrate 18 MCG Inhalation Capsule (Spiriva HandiHaler) INHALE THE CONTENTS OF ONE CAPSULE VIA - HANDIHALER ONCE A DAY . DO NOT SWaLLOW CAPSULE 90 Capsule 1 Furosemide 40 MG Oral Tablet (Lasix) Take 1 Tablet by mouth in the morning. (Patient not taking: Reported on 07/05/2023) 90 Tablet 1 Omeprazole 40 MG Oral Capsule Delayed Release (PriLOSEC) Take 1 Capsule by mouth in the morning. 1 hour before the first meal of the day. (Patient not taking: Reported on 07/05/2023) 90 Capsule 1 Current Facility-Administered Medications Medication Dose Route Frequency Provider Last Rate Last Admin albuterol sulfate (PROVENTIL) (2.5 MG/3ML) 0.083% inhalation solution 2.5 mg 2.5 mg Nebulizer Q4H PRN Ross Lynne, DO Review of patient's allergies indicates: Allergen Reactions Diclofenac upset stomach Levofloxacin Diarrhea, bleeding Objective: BP 106/58 | Pulse 110 | Temp 36.8 C (98.3 F) | Wt 81.6 kg (180 lb) | SpO2 94% | BMI 25.83 kg/m | BSA 2.01 m General: alert, healthy, no distress, well nourished, and well developed Neck: supple, no adenopathy, thyroid normal size, non-tender, without nodularity Heart: regular rate & rhythm and no murmur Lungs: chest symmetric with normal AP diameter, no chest deformities noted, normal respiratory rateand rhythm, lungs clear to auscultation Abdomen: abdomen soft and non-tender Extremities: no joint deformities, effusion, or inflammation, (+) edema Neuro Exam: alert & oriented x 3 with fluent speech, no focal motor/sensory deficits, gait normal Skin: skin color, texture, turgor are normal, no rashes or significant lesions ASSESSMENT/PLAN: Small cell lung cancer (HCC) (Primary) - follows with [facility] oncology. Currently on immunotherapy. His oncologist is currently managing his sodium tablets, but will get him in to see nephrology. Malignant neoplasm metastatic to lung, unspecified laterality (HCC) Coronary artery calcification High triglycerides Chronic obstructive pulmonary disease, unspecified COPD type (HCC) Gastroesophageal reflux disease without esophagitis - Omeprazole 40 MG Oral Capsule Delayed Release (PriLOSEC); Take 1 Capsule by mouth in the morning.1 hour before the first meal of the day. Weight loss - advised to consider marinol or remeron (if okay with his oncologist) Nausea and vomiting, unspecified vomiting type - restart omeprazole. Follow-up: Return in about 3 months (around 10/03/2023). | Check-out note: Needs rescheduled with nephrology [facility] for his hyponatremia. Missed previous appt due to illness. Follow up with me in 3 months or first available after 3 months. Hali Apodaca DO I spent a total of 40-54 minutes (exact time 41 mins) on the date of service in preparation, delivery, and documentation of the care provided to Benjie Powell excluding any time spent in the performance of separately billed services. documented in this encounter Plan of Treatment Upcoming Encounters Date Type Department Care Team (Late st Contact Info) Description 02/07/2024 9:30 AM EDT Office Visit Family Medicine [address] [place] [phone] Hali Apodaca DO [address] [place] [address] [place] [phone] Scheduled Procedures Name Priority Associated Diagnoses Date/Ti me ENDOSCOPIC RETROGRADE CHOLANGIOPANCREATOGRAPHY (ERCP) W/STENT REMOVAL AND EXCHANGE; INC DILATION, GUIDE WIRE AND SPHINCTEROTOMY Recall Biliary stricture BRONCHOSCOPY, RIGID/FLEXIBLE , INCLUDE FLUORO GUIDANCE, WHEN PERFORMED; W/ EBUS GUIDED TRANSTRACH AND/OR TRANSBRONCH SAMPLING, 1 OR 2 MEDIASTINAL AND/OR HILAR LYMPH NODE STATIONS/STRUCTURES Lung nodule Health Maintenance Due Date Last Done Comments COVID-19 Vaccine (#1) 1958 Cologuard 2003 Colonoscopy 2003 Colorectal Cancer Screening 2003 Fecal Occult Blood Test 2003 Sigmoidoscopy 2003 Zoster Vaccines (1 of 2) 2008 Pneumococcal Vaccine: 65+ Years (2 - PCV) 03/27/2010 03/27/2009 DTaP,Tdap,and Td Vaccines (2 - Td or Tdap) 02/27/2018 02/28/2008 *ADVANCE DIRECTIVE NOT ON FILE 11/17/2018 DISCUSS TOBACCO CESSATION (REFER TO SMARTSET #[id number]) 10/02/2021 10/02/2020 Influenza Vaccine (FLU shot) (#1) 2023 03/06/2020, 03/19/2019, 04/24/2015, Additional history exists AAA Screening 2023 Depression Screening 05/15/2024 05/15/2023 O2 ASSESSMENT COMPLETED IN PAST YEAR FOR COPD 05/19/2024 05/19/2023 Diabetes Screening 04/10/2026 04/10/2023, 1 , 03/29/2023, Additional history exists Alpha-1 Antitrypsin Completed 03/19/2019 GARDASIL-HPV IMMUNIZATION SERIES Aged Out No longer eligible based on patient's age to complete this topic Hepatitis B Aged Out No longer eligi ble based on patient's age to complete this topic MENINGOCOCCAL (MENACTRA/MENVEO) Aged Out No longer eligible based on patient's age to complete this topic documented as of this encounter Medical Devices Not on filedocumented as of this encounter Visit Diagnoses Diagnosis Small cell lung cancer (HCC)- Primary Malignant neoplasm of bronchus and lung, unspecified site Malignant neoplasm metastatic to lung, unspecified laterality (HCC) Coronary artery calcification Coronary atherosclerosis of unspecified type of vessel, galena or graft High triglycerides Pure hyperglyceridemia Chronic obstructive pulmonary disease, unspecified COPD type (HCC) Gastroesophageal reflux disease without esophagitis Esophageal reflux Weight loss Loss of weight Nausea and vomiting, unspecified vomiting type documented in this encounter Advance Directives Healthcare Agents on File Name Relationship Healthcare Agent Relationship Communication Adeola Morataya Other - (no specific identity) Health Care Certified Optician (appointed verbally by patient or by statute hierarchy) Care Teams Relief Master Relationship Specialty Start Date End Date Hali Apodaca DO [address] [place] [address] [place] [id number] PCP - General Internal Medicine 05/15/23 documented as of this encounter"
--- NOTE | 2023-07-08 20:28 | Emergency Department Note ---
Impression & Plan Multifocal pneumonia, Acute hypotension ED Provider Note Name: DILMA MALHOTRA Age: 63 Sex: Male Arrives Via: Walk-In Informant: Patient, family ED Provider: Alex Urbano MD Chief Complaint: Shortness of breath Impression: As per impressions above Medical Decision Makin-year-old gentleman arrives for evaluation of worsening shortness of breath. Patient with a history of lung cancer amongst other medical issues including previous history of PE and CHF and COPD. Patient is anticoagulated. He arrives with significant hypotension tachycardia and moderate dyspnea tachypnea wheezing and diffuse crackles. Septic workup initiated he was given initial liter 1 L normal saline bolus with vast improvement of his blood pressure. He was not given 30/kg IV fluid given his history of CHF and the fact that he responded to the initial 1 L and my concerns that we would put him into fluid overload. Following chest x-ray revealing bilateral airspace opacities patient was ordered Zosyn and vancomycin. His procalcitonin is mildly elevated consistent with infectious process. His viral respiratory panel is negative for viral process. He does not have a significantly elevated BNP at this point. I think it is unlikely that his chest x-ray is pulmonary edema but more likely multifocal pneumonia. With his history and findings clearly hospitalization is indicated and hospitalist consulted for further management. As he is already anticoagulated would hold off on CT angiography of the chest. There are several electrolyte imbalances however these are relatively stable from previous Repeat sepsis volume status examination. Completed at 11:00 PM on 07/08/2023. Patient is breathing comfortably his heart rate is trended to the low 100s blood pressure is 109/67 and he is in no distress. Will hold off on further fluid hydration at this time and patient does not require pressors. Triage/Nursing Notes reviewed by Me Differential:Reactive airway disease, pneumonia, pneumothorax, COPD, CHF, infections, cardiac ischemia, pulmonary embolism, musculoskeletal, gastrointestinal, as well as other pathologies. Vital Signs: reviewed and remarkable for hypotension, tachy Interventions: Normal Saline bolus 1 L IV, Decadron 10 mg IV, Zosyn 4.5 g IV, vancomycin IV, DuoNeb Labs:ED labs Reviewed by me and remarkable for elevated procalcitonin, low magnesium, low sodium Imagin view chest x-ray as per my interpretation reveals bilateral infiltrates concerning for multifocal pneumonia versus pulmonary edema EKG:As per my interpretation. Indication shortness of breath. Sinus tachycardia 109 bpm with a QTc of 468. There is no ectopy nor ischemia. When compared to EKG of March 19, 2023 there is no significant change other than heart rate is increased Cardiac/Tele Monitoring: Cardiac Monitoring: An Order was placed for continuous cardiac monitoring. The monitor shows a rate of 110 with a sinus tach rhythm. Consults:Dr Eva Ho hospitalist Plan: Disposition:Hospitalization. Condition: Fair History of Present Illness: 63-year-old gentleman with known lung cancer arrives for evaluation of worsening shortness of breath. Patient states shortness of breath rapidly worsening for the last 2 days. He is unable to ambulate due to difficulty breathing. Associated with wheezing and fatigue. Denies any fevers, chills, syncope, palpitations, back pain abdominal pain, urinary/bowel symptoms, leg swelling or other concerning signs or symptoms. He does note that he has been eating or drinking anything for the last few days due to feeling fatigued. No known sick contacts. Patient received chemo a little over a month ago and radiation at that time. Plan is to switch to immunotherapy in the near future. No recent antibiotics or steroids. Patient admits he continues to smoke periodically. Past Medical History:Lung cancer, pulmonary embolism, COPD, diastolic heart failure, hyponatremia amongst others Home Medications:See Below Allergies:Levaquin Vitals:Blood Pressure: 69/45, Pulse 125, RR 24, T 37.2C, O2 99% on RA Physical Exam: GENERAL: Patient is unwell & ill appearing and in mild distress. Dry mucous membranes. RESPIRATORY: Mild dyspnea/tachypnea with some expiratory wheezing noted and crackles throughout the left lung oliveira. CARDIOVASCULAR: Tachycardic.No murmur appreciated. GASTROINTESTINAL: Abdomen soft, non-tender, no peritonitis. EXTREMITIES: Normal motion all extremities, no cyanosis, no edema. NEUROLOGIC: Alert and oriented. No focal neurologic deficits appreciated SKIN: No rash, no jaundice, no diaphoresis. PSYCH: Appropriate GCS: 15 ED Course: Times/Reassessments: Heart rate has come down nicely and he is no longer hypotensive. He is breathing comfortably and is well-hydrated Critical Care: I have personally spent 40 minutes of critical care time in the direct management of this patient. Multifocal Pneumonia with severe sepsis and hypotension. This was a life/limb threatening event. This 40 minutes is in excess of all separately billable procedures. Alex Urbano MD Past Med/Surg History Medical History (Updated 07/09/23 @ 00:25 by Alex Urbano MD) Encounter for pre-operative examination Tobacco use disorder Chronic respiratory failure Hyponatremia Chronic diastolic heart failure History of pulmonary embolism Palliative care by specialist Macular degeneration Metastatic lung cancer (metastasis from lung to other site) Biopsy on 02/09/23 Deviated nasal septum Chronic rhinitis Depression Elevated serum homocysteine level Peripheral vascular disease Spinal stenosis of lumbar region without neurogenic claudication Hypertriglyceridemia hx Pulmonary embolism Right lung x3, currently on eliquis DVT (deep venous thrombosis) LLE x1 (entire length of leg), no known etiology COPD (chronic obstructive pulmonary disease) Surgical History Port-A-Cath in place (03/16/23) Left Subclavian Access Port Placement, Biopsy of Left Supraclavicular Node(Left) - Sanjay May MD, FACS Adverse reaction to anesthetic agent "Hard time to get air in or out" History of tonsillectomy and adenoidectomy Hx laparoscopic cholecystectomy Family History Mother , 74yo Stroke Heart disease "Had a bad heart" Father , 89yo Cancer "Bone cancer" COPD (chronic obstructive pulmonary disease) Stroke Hypertension Brother Brain tumor Pt uncertain if it was cancer; Diabetes Brother Cancer Son Medical history unknown Son Medical history unknown Daughter No problems noted. 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 How many Children do You have: 4 Feels Safe at Home: Yes Diet: regular caffeine: No during the past year weight has: decreased > 10 lbs Assistive Devices: Oxygen - at Night Allergies Allergies Allergy/AdvReac Type Severity Reaction Status Date / Time levofloxacin Allergy Intermediate Nausea Verified 07/08/23 22:10 Home Meds Home Medications Medication Instructions Recorded Confirmed azelastine 137 mcg (0.1 %) nasal 1 spray intranasal BID PRN Nasal 02/12/20 07/08/23 spray aerosol Congestion fluticasone 500 mcg-salmeterol 50 1 inh inhalation BID 02/12/20 07/08/23 mcg/dose blistr powdr for inhalation (Advair Diskus) montelukast 10 mg tablet 10 mg PO QAM PRN Allergy Symptoms 02/12/20 07/08/23 (Singulair) tiotropium bromide 18 mcg capsule 1 cap inhalation QAM 02/12/20 07/08/23 with inhalation device (Spiriva with HandiHaler) acetaminophen 325 mg capsule 650 mg PO Q4H PRN Pain 03/10/23 07/08/23 (Tylenol) albuterol sulfate 2.5 mg/3 mL 2.5 mg inhalation Q4H PRN 03/10/23 07/08/23 (0.083 %) solution for nebulization Shortness Of Breath Or Wheezing albuterol sulfate 90 mcg/actuation 2 puff inhalation Q4H PRN 03/10/23 07/08/23 aerosol inhaler Shortness Of Breath Or Wheezing cholecalciferol (vitamin D3) 25 50 mcg PO DAILY 03/10/23 07/08/23 mcg (1,000 unit) capsule furosemide 40 mg tablet (Lasix) 40 mg PO DAILY PRN swelling 03/10/23 07/08/23 mecobalamin (vitamin B12) 500 mcg 500 mcg PO DAILY 03/10/23 07/08/23 chewable tablet mometasone 50 mcg/actuation nasal 2 spray intranasal BID PRN Nasal 03/10/23 07/08/23 spray (Nasonex 24hr Allergy) Congestion omeprazole 40 mg capsule,delayed 40 mg PO DAILY PRN gerd 03/10/23 07/08/23 release vitamins A,C,Z-axvh-njhejc 4,296 1 cap PO DAILY 03/10/23 07/08/23 mcg-226 mg-90 mg capsule (PreserVision AREDS) apixaban 5 mg tablet (Eliquis) 5 mg PO BID 03/15/23 07/08/23 omega-3s 350 fe-ech-kmx-other 1 cap PO DAILY 07/08/23 07/08/23 dozhu6v-edel oil 600 mg capsule (Fish Oil) sodium chloride 1,000 mg soluble 1,000 mg PO QID 07/08/23 07/08/23 tablet Previous Rx's Medication Instructions Recorded folic acid 1 mg tablet 1 mg PO QAM #30 tabs 02/13/20 L.acidop,casei,lactis,rham-B.lact,marielle 2 cap PO DAILY #30 caps 05/11/23 625 mg (10 billion cell) capsule (Advanced Probiotic) docusate sodium 100 mg capsule 100 mg PO BID PRN Constipation 05/11/23 #60 caps magnesium oxide 400 mg (241.3 mg 400 mg PO QAM #30 tabs 05/11/23 magnesium) tablet ondansetron HCl 4 mg tablet 8 mg (2 x 4 mg) PO Q8H PRN Nausea 06/30/23 1 month #90 tabs prochlorperazine maleate 10 mg 10 mg PO Q8H PRN nausea and 06/30/23 tablet (Compazine) vomiting 1 month #90 tabs Results & Data (ED) Vital Signs Vital Signs - 24 hr 07/08/23 20:08 07/08/23 20:25 07/08/23 20:51 Temperature 37.2 C Temperature Source Temporal Artery Scan Pulse Rate 91 H 126 H Pulse Rate [Apical] Pulse Rhythm Pulse Strength [Apical] Respiratory Rate 24 Respiratory Effort / Characteristics SOB on Exertion Respiratory Depth Respiratory Pattern Blood Pressure 69/45 L Blood Pressure [Right Arm] Blood Pressure Mean 53 Blood Pressure Mean [Right Arm] Blood Pressure Position Sitting Pulse Oximetry 99 Oxygen Delivery Method Room Air Nasal Cannula Oxygen Flow Rate 2 Fraction of Inspired Oxygen Sepsis Recent Fever Within 48 Hours No Sepsis New/Unexplained Change in Mental Status No Sepsis Action Taken by Nursing No Action Required Oxygen Flow Rate - Titration Pulse Oximetry Post Tiitration 07/08/23 20:51 07/08/23 20:54 07/08/23 21:46 Temperature Temperature Source Pulse Rate 123 H Pulse Rate [Apical] 115 H Pulse Rhythm Irregular Pulse Strength [Apical] Normal Respiratory Rate 25 H 25 H Respiratory Effort / Characteristics SOB on Exertion Respiratory Depth Respiratory Pattern Regular Blood Pressure Blood Pressure [Right Arm] 123/91 Blood Pressure Mean Blood Pressure Mean [Right Arm] 101 Blood Pressure Position Pulse Oximetry 96 95 Oxygen Delivery Method Room Air Nasal Cannula Nasal Cannula Oxygen Flow Rate 2 Fraction of Inspired Oxygen 85 Sepsis Recent Fever Within 48 Hours Sepsis New/Unexplained Change in Mental Status Sepsis Action Taken by Nursing Oxygen Flow Rate - Titration 2 Pulse Oximetry Post Tiitration 96 07/08/23 23:00 07/09/23 00:08 Temperature Temperature Source Pulse Rate 110 H Pulse Rate [Apical] 114 H Pulse Rhythm Pulse Strength [Apical] Respiratory Rate 20 Respiratory Effort / Characteristics Non-Labored Spontaneous Respiratory Depth Normal Respiratory Pattern Regular Blood Pressure Blood Pressure [Right Arm] 109/67 Blood Pressure Mean Blood Pressure Mean [Right Arm] 81 Blood Pressure Position Pulse Oximetry 93 Oxygen Delivery Method Nasal Cannula Oxygen Flow Rate 2 Fraction of Inspired Oxygen Sepsis Recent Fever Within 48 Hours Sepsis New/Unexplained Change in Mental Status Sepsis Action Taken by Nursing Oxygen Flow Rate - Titration Pulse Oximetry Post Tiitration Laboratory Data 07/08/23 20:45 07/08/23 20:45 Lab Results 07/08/23 07/08/23 Range/Units 20:45 20:53 WBC 12.61 H (4.8-10.8) K/ul RBC 2.87 L (4.70-6.10) M/uL Hgb 9.5 L (14.0-18.0) g/dl Hct 28.7 L (42.0-52.0) % MCV 100.0 (80.0-100.0) fL MCH 33.1 (25.0-34.0) pg MCHC 33.1 (32.0-36.0) g/dL RDW Std Deviation 71.9 H (36.4-46.3) fL RDW Coeff of Lizandro 19.9 H (11.5-14.5) % Plt Count 206 (130-400) K/uL MPV 10.3 (9.4-12.4) fL Immature Gran % (Auto) 0.9 % Neut % (Auto) 84.6 % Lymph % (Auto) 4.0 % Person % (Auto) 10.2 % Eos % (Auto) 0.1 % Baso % (Auto) 0.2 % Neut # (Auto) 10.69 H (1.40-6.50) K/uL Lymph # (Auto) 0.50 L (1.20-3.40) K/uL Person # (Auto) 1.28 H (0.11-0.59) K/uL Eos # (Auto) 0.01 (0.00-0.50) K/uL Baso # (Auto) 0.02 (0.00-0.20) K/uL Immature Gran # (Auto) 0.11 (0.01-0.20) K/uL Sodium 126 L (136-145) mmol/L Potassium 3.6 (3.5-5.1) mmol/L Chloride 97 L (98-107) mmol/L Carbon Dioxide 25 (21-32) mmol/L Anion Gap 4 (3-11) BUN 15 (6-23) mg/dl Creatinine 0.80 (0.6-1.4) mg/dl Est Cr Clr Drug Dosing 98.0 ml/min Est GFR ( Amer) 108.7 ml/min Est GFR (Non-Af Amer) 93.7 ml/min BUN/Creatinine Ratio 18.8 (10-20) Glucose 102 H (70-99(Fasting)) mg/dl Lactate 1.1 (0.4-2.0) mmol/L Calcium 8.2 L (8.6-10.3) mg/dl Magnesium 1.4 L (1.7-2.4) mg/dl Total Bilirubin 0.5 (0.2-1.0) mg/dl Direct Bilirubin 0.2 (0-0.2) mg/dl AST 51 H (13-39) U/L ALT 12 (7-52) U/L Alkaline Phosphatase 95 (34-104) U/L Troponin I High Sens 13.5 (0-20) pg/ml B-Natriuretic Peptide 49 (0-100) pg/ml Total Protein 6.0 (6.0-8.3) gm/dl Albumin 2.5 L (3.4-5.0) gm/dl Procalcitonin 0.55 H (0-0.5) ng/ml Adenovirus (PCR) Not Detected (NotDetected) B. pertussis DNA (PCR) Not Detected (NotDetected) B.parapertussis DNA PCR Not Detected (NotDetected) C. pneumoniae DNA (PCR) Not Detected (NotDetected) Coronavirus OC43 (PCR) Not Detected (NotDetected) Coronavirus HKU1 (PCR) Not Detected (NotDetected) Coronavirus 229E (PCR) Not Detected (NotDetected) SARS-CoV-2 (PCR) Not Detected (NotDetected) Coronavirus NL63 (PCR) Not Detected (NotDetected) Human Metapneumovir PCR Not Detected (NotDetected) Influenza Type A (PCR) Not Detected (NotDetected) Influenza Type B (PCR) Not Detected (NotDetected) M. pneumoniae (PCR) Not Detected (NotDetected) Parainfluenza 1 (PCR) Not Detected (NotDetected) Parainfluenza 2 (PCR) Not Detected (NotDetected) Parainfluenza 3 (PCR) Not Detected (NotDetected) Parainfluenza 4 (PCR) Not Detected (NotDetected) RSV (PCR) Not Detected (NotDetected) Entero/Rhino (PCR) Not Detected (NotDetected) Administered Medications Vancomycin HCl 1,750 mg/ (Sodium Chloride) 535 mls @ 200 mls/hr IV NOW ONE Stop: 07/09/23 00:27 Last Admin: 07/08/23 22:56 Dose: 200 mls/hr Documented By: YENNI Magnesium Sulfate/Dextrose (Magnesium Sulfate / D5w) 1 gm in 100 mls @ 50 mls/hr IV Q2H SHARON Stop: 07/09/23 02:14 Last Admin: 07/08/23 22:21 Dose: 50 mls/hr Documented By: YENNI Discontinued Medications Albuterol (Albut/Ipratrop 3mg/0.5mg Neb 3 Ml Vial) 3 ml NEB NOW STA; Protocol Stop: 07/08/23 20:26 Last Admin: 07/08/23 20:35 Dose: 3 ml Documented By: MARQUES Apixaban (Apixaban 5 Mg Tablet) 5 mg PO NOW STA Stop: 07/08/23 22:43 Last Admin: 07/08/23 23:25 Dose: 5 mg Documented By: YENNI Dexamethasone Sodium Phosphate (DexamethasonePf 10 Mg/Ml Vial) 10 mg IV NOW ONE Stop: 07/08/23 20:26 Last Admin: 07/08/23 20:36 Dose: 10 mg Documented By: MARQUES Sodium Chloride (Nss) 1,000 mls @ 999 mls/hr IV .Q1H1M SHARON Stop: 07/08/23 21:30 Last Infusion: 07/08/23 21:44 Dose: Infused Documented By: Admin: 07/08/23 20:36 Dose: 999 mls/hr Documented By: MARQUES Piperacillin Sod/Tazobactam Sod (Zosyn) 4.5 gm in 100 mls @ 200 mls/hr IV NOW ONE Stop: 07/08/23 22:16 Last Infusion: 07/08/23 22:57 Dose: Infused Documented By: Admin: 07/08/23 22:21 Dose: 200 mls/hr Documented By: YENNI Discharge Plan Visit Data Chief Complaint: Shortness of Breath/Dyspnea Stated Complaint: SOB ED Provider: Alex Urbano Discharge Problem: Multifocal pneumonia, Acute hypotension Forms Stand Alone Forms: [facility] Prescriptions Prescriptions: No Action acetaminophen [Tylenol] 325 mg capsule 650 mg PO Q4H PRN (Reason: Pain) mecobalamin (vitamin B12) 500 mcg tablet,chewable 500 mcg PO DAILY furosemide [Lasix] 40 mg tablet 40 mg PO DAILY PRN (Reason: swelling) omeprazole 40 mg capsule,delayed release(DR/EC) 40 mg PO DAILY PRN (Reason: gerd) cholecalciferol (vitamin D3) 25 mcg (1,000 unit) capsule 50 mcg PO DAILY PreserVision AREDS 4,296 mcg-226 mg-90 mg capsule 1 cap PO DAILY prochlorperazine maleate [Compazine] 10 mg tablet 10 mg PO Q8H PRN (Reason: nausea and vomiting) 30 Days Qty: 90 3RF ondansetron HCl 4 mg tablet 8 mg PO Q8H PRN (Reason: Nausea) 30 Days Qty: 90 3RF fluticasone propion-salmeterol [Advair Diskus] 500-50 mcg/dose Blister With Device 1 inh INHALATION BID montelukast [Singulair] 10 mg Tablet 10 mg PO QAM PRN (Reason: Allergy Symptoms) azelastine 137 mcg (0.1 %) Aerosol,[place] 1 spray INTRANASAL BID PRN (Reason: Nasal Congestion) tiotropium bromide [Spiriva with HandiHaler] 18 mcg Capsule, W/Inhalation Device 1 cap INHALATION QAM folic acid 1 mg Tablet 1 mg PO QAM Qty: 30 1RF albuterol sulfate 2.5 mg /3 mL (0.083 %) solution for nebulization 2.5 mg INHALATION Q4H PRN (Reason: Shortness Of Breath Or Wheezing) albuterol sulfate 90 mcg/actuation HFA aerosol inhaler 2 puff INHALATION Q4H PRN (Reason: Shortness Of Breath Or Wheezing) mometasone [Nasonex 24hr Allergy] 50 mcg/actuation spray,non-aerosol 2 spray INTRANASAL BID PRN (Reason: Nasal Congestion) Eliquis 5 mg tablet 5 mg PO BID Hold Instructions: Resume on 05/13/23. docusate sodium 100 mg Capsule 100 mg PO BID PRN (Reason: Constipation ) Qty: 60 0RF Advanced Probiotic 625 mg (10 billion cell) Capsule 2 cap PO DAILY Qty: 30 0RF magnesium oxide 400 mg (241.3 mg magnesium) Tablet 400 mg PO QAM Qty: 30 0RF sodium chloride 1,000 mg Tablet,Soluble 1,000 mg PO QID Fish Oil 350-600 mg Capsule 1 cap PO DAILY Referrals Referrals: Hali Apodaca DO [Primary Care Provider] -
[2023-07-08] MEDS: ALBUT/IPRATROP 3MG/0.5MG NEB 3 ML VIAL NEB STA (20:35)
[2023-07-08] MEDS: dexAMETHasone**PF** 10 MG/ML VIAL IV ONE (20:36)
[2023-07-08] MEDS: SODIUM CHLORIDE 0.9% 1,000 ML IV SCH (20:36)
[2023-07-08 21:05] LABS: Basophils # (auto) 0.02 K/uL (0.00-0.20); Basophils % (auto) 0.2 %; Eosinophils # (auto) 0.01 K/uL (0.00-0.50); Eosinophils % (auto) 0.1 %; Hematocrit (blood only) 28.7 % (42.0-52.0); Hemoglobin 9.5 g/dl (14.0-18.0); Immature Granulocytes # (auto) 0.11 K/uL (0.01-0.20); Immature Granulocytes % (auto) 0.9 %; Mean Corpuscular Hemoglobin 33.1 pg (25.0-34.0); Mean Corpuscular Hgb Conc 33.1 g/dL (32.0-36.0); Mean Platelet Volume 10.3 fL (9.4-12.4); Monocytes # (auto) 1.28 K/uL (0.11-0.59); Monocytes % (auto) 10.2 %; Neutrophils # (auto) 10.69 K/uL (1.40-6.50); Neutrophils % (auto) 84.6 %; Platelet Count 206 K/uL (130-400); RDW Coefficient of Variation 19.9 % (11.5-14.5); RDW Standard Deviation 71.9 fL (36.4-46.3); Red Blood Count 2.87 M/uL (4.70-6.10); White Blood Count 12.61 K/ul (4.8-10.8)
[2023-07-08 21:22] LABS: Albumin Level 2.5 gm/dl (3.4-5.0); BUN Creatinine Ratio 18.8 (10-20); Bilirubin Direct 0.2 mg/dl (0-0.2); Bilirubin,Total 0.5 mg/dl (0.2-1.0); Calcium 8.2 mg/dl (8.6-10.3); Est GFR (African American) 108.7 ml/min; Est GFR (Non-African American) 93.7 ml/min; Magnesium 1.4 mg/dl (1.7-2.4); Potassium 3.6 mmol/L (3.5-5.1)
[2023-07-08 21:28] LABS: Troponin I High Sensitivity 13.5 pg/ml (0-20)
[2023-07-08] MEDS ORDERED: VANCOMYCIN CONSULT ACTIVE PRN (21:47)
[2023-07-08 21:51] LABS: Adenovirus PCR Not Detected (NotDetected); Bordetella parapertussis PCR Not Detected (NotDetected); Bordetella pertussis PCR Not Detected (NotDetected); Chlamydia pneumoniae PCR Not Detected (NotDetected); Coronavirus 229E PCR Not Detected (NotDetected); Coronavirus CoV-2 (COVID19)PCR Not Detected (NotDetected); Coronavirus HKU1 PCR Not Detected (NotDetected); Coronavirus NL63 PCR Not Detected (NotDetected); Coronavirus OC43PCR Not Detected (NotDetected); Human Metapneumovirus PCR Not Detected (NotDetected); Influenza A PCR Not Detected (NotDetected); Influenza B PCR Not Detected (NotDetected); Mycoplasma pneumoniae PCR Not Detected (NotDetected); Parainfluenza Virus 1 PCR Not Detected (NotDetected); Parainfluenza Virus 2 PCR Not Detected (NotDetected); Parainfluenza Virus 3 PCR Not Detected (NotDetected); Parainfluenza Virus 4 PCR Not Detected (NotDetected); Respiratory Syncytial VirusPCR Not Detected (NotDetected); Rhinovirus/Enterovirus PCR Not Detected (NotDetected)
[2023-07-08] MEDS: MAGNESIUM SULFATE / D5W 1 GM/100 ML BAG IV SCH (22:21)
[2023-07-08] MEDS: PIPERACILLIN/TAZOBACTAM 4.5 GM/100 ML BAG IV ONE (22:21)
[2023-07-08] MEDS: VANCOMYCIN HCL 1,750 MG in SODIUM CHLORIDE 0.9% 500 ML IV ONE (22:56)
[2023-07-08] MEDS: APIXABAN 5 MG TABLET PO STA (23:25)
--- NOTE | 2023-07-08 23:29 | History & Physical Report ---
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 Patient has chronic cough no change in this. Still smoking 1 pack of cigarettes every 3 days. Denies any fevers. No headache. No neck pain. Vision is okay. No runny nose or sore throat. No earaches. No chest pain. Feeling nauseous. No vomiting. Poor oral intake. No abdominal pain. No diarrhea or constipation. Micturating okay. Ambulating okay. No rash. When he came to the ER he was tachycardic and hypotensive. After 1 L fluid bolus blood pressure and tachycardia improved. Currently resting comfortably. Multifocal pneumonia Shortness of breath Tachycardia and hypotension presentation improved with 1 L of fluids Sepsis Lactic acid is okay Patient has crackles on exam though no lower extremity edema and history of diastolic CHF so we will hold for any further fluids for now and close monitor ER gave IV Vanco and Zosyn which we will be continued. Will also add p.o. doxycycline. If MRSA screen negative will stop vancomycin Close monitor History of COPD Chronic respiratory failure with 2 L oxygen in the nighttime No obvious wheezing We will continue home inhalers Will place on nebs Close monitor Hyponatremia Seems chronic Possible SIADH Sodium 126 On salt tablets 1 g 4 times daily but sometimes he takes only 3 times. Follows with oncology. Will hold salt tablets for now and consult nephrology for further recommendations Close monitor of labs. 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 Can try to do while patient in the hospital when he is more stable. DVT prophylaxis Eliquis Disposition Telemetry. 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 Patient has chronic cough no change in this. Still smoking 1 pack of cigarettes every 3 days. Denies any fevers. No headache. No neck pain. Vision is okay. No runny nose or sore throat. No earaches. No chest pain. Feeling nauseous. No vomiting. Poor oral intake. No abdominal pain. No diarrhea or constipation. Micturating okay. Ambulating okay. No rash. When he came to the ER he was tachycardic and hypotensive. After 1 L fluid bolus blood pressure and tachycardia improved. Currently resting comfortably. Past medical history. As mentioned above Past surgical history. Status post ERCP. Laparoscopic cholecystectomy. Tonsillectomy adenoidectomy. Excision of cyst on left scalp. Social history. Smoked 1 pack a day for 36 years. Currently smoking 1 pack every 3 days. No alcohol use. No drug use. Family history. Father had allergies. Bone cancer. Gallstones. Stroke. Mother had a heart disorder. Stroke. Daughter has allergies. Allergies Allergy/AdvReac Type Severity Reaction Status Date / Time levofloxacin Allergy Intermediate Nausea Verified 07/08/23 22:10 Home Medications Medication Instructions Recorded Confirmed Type azelastine 137 mcg (0.1 %) nasal 1 spray intranasal BID PRN Nasal 02/12/20 07/08/23 History spray aerosol Congestion fluticasone 500 mcg-salmeterol 50 1 inh inhalation BID 02/12/20 07/08/23 History mcg/dose blistr powdr for inhalation (Advair Diskus) montelukast 10 mg tablet 10 mg PO QAM PRN Allergy Symptoms 02/12/20 07/08/23 History (Singulair) tiotropium bromide 18 mcg capsule 1 cap inhalation QAM 02/12/20 07/08/23 History with inhalation device (Spiriva with HandiHaler) folic acid 1 mg tablet 1 mg PO QAM #30 tabs 02/13/20 07/08/23 Rx acetaminophen 325 mg capsule 650 mg PO Q4H PRN Pain 03/10/23 07/08/23 History (Tylenol) albuterol sulfate 2.5 mg/3 mL 2.5 mg inhalation Q4H PRN 03/10/23 07/08/23 History (0.083 %) solution for nebulization Shortness Of Breath Or Wheezing albuterol sulfate 90 mcg/actuation 2 puff inhalation Q4H PRN 03/10/23 07/08/23 History aerosol inhaler Shortness Of Breath Or Wheezing cholecalciferol (vitamin D3) 25 50 mcg PO DAILY 03/10/23 07/08/23 History mcg (1,000 unit) capsule furosemide 40 mg tablet (Lasix) 40 mg PO DAILY PRN swelling 03/10/23 07/08/23 History mecobalamin (vitamin B12) 500 mcg 500 mcg PO DAILY 03/10/23 07/08/23 History chewable tablet mometasone 50 mcg/actuation nasal 2 spray intranasal BID PRN Nasal 03/10/23 07/08/23 History spray (Nasonex 24hr Allergy) Congestion omeprazole 40 mg capsule,delayed 40 mg PO DAILY PRN gerd 03/10/23 07/08/23 History release vitamins A,C,Q-ruqu-omhejk 4,296 1 cap PO DAILY 03/10/23 07/08/23 History mcg-226 mg-90 mg capsule (PreserVision AREDS) apixaban 5 mg tablet (Eliquis) 5 mg PO BID 03/15/23 07/09/23 History L.acidop,casei,lactis,rham-B.lact,marielle 2 cap PO DAILY #30 caps 05/11/23 07/08/23 Rx 625 mg (10 billion cell) capsule (Advanced Probiotic) docusate sodium 100 mg capsule 100 mg PO BID PRN Constipation 05/11/23 07/08/23 Rx #60 caps magnesium oxide 400 mg (241.3 mg 400 mg PO QAM #30 tabs 05/11/23 07/08/23 Rx magnesium) tablet ondansetron HCl 4 mg tablet 8 mg (2 x 4 mg) PO Q8H PRN Nausea 06/30/23 07/08/23 Rx 1 month #90 tabs prochlorperazine maleate 10 mg 10 mg PO Q8H PRN nausea and 06/30/23 07/08/23 Rx tablet (Compazine) vomiting 1 month #90 tabs omega-3s 350 ox-igh-ypg-other 1 cap PO DAILY 07/08/23 07/08/23 History lhabe4k-zrlg oil 600 mg capsule (Fish Oil) sodium chloride 1,000 mg soluble 1,000 mg PO QID 07/08/23 07/08/23 History tablet Past Med/Surg History Medical History (Updated 07/09/23 @ 00:25 by Alex Urbano MD) Encounter for pre-operative examination Tobacco use disorder Chronic respiratory failure Hyponatremia Chronic diastolic heart failure History of pulmonary embolism Palliative care by specialist Macular degeneration Metastatic lung cancer (metastasis from lung to other site) Biopsy on 02/09/23 Deviated nasal septum Chronic rhinitis Depression Elevated serum homocysteine level Peripheral vascular disease Spinal stenosis of lumbar region without neurogenic claudication Hypertriglyceridemia hx Pulmonary embolism Right lung x3, currently on eliquis DVT (deep venous thrombosis) LLE x1 (entire length of leg), no known etiology COPD (chronic obstructive pulmonary disease) Surgical History Port-A-Cath in place (03/16/23) Left Subclavian Access Port Placement, Biopsy of Left Supraclavicular Node(Left) - Sanjay May MD, FACS Adverse reaction to anesthetic agent "Hard time to get air in or out" History of tonsillectomy and adenoidectomy Hx laparoscopic cholecystectomy Family History Mother , 74yo Stroke Heart disease "Had a bad heart" Father , 89yo Cancer "Bone cancer" COPD (chronic obstructive pulmonary disease) Stroke Hypertension Brother Brain tumor Pt uncertain if it was cancer; Diabetes Brother Cancer Son Medical history unknown Son Medical history unknown Daughter No problems noted. Daughter Medical history unknown Social History Smoking Status: Current every day smoker Tobacco Type: Cigarettes Cigarettes Per Day: 7; Second Hand Exposure: Yes (hx growing up); Do You Dip or Chew Tobacco: No; Tobacco Cessation Education Requested by Patient: No (wants nicotine patch) Hx Alcohol Use: No Hx Substance Use: No Preferred Language: Greenlandic Communication Ability: Effective Visual Impairment: No Limitations Hearing Ability: Normal Sustainability Officer Required: No Beliefs That Will Affect Care: None marital status: Current Living Situation: Spouse Current Living Situation Comment: with , Adeola current occupational status: retired 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 ENT- oropharynx clear Neck- supple, no JVD. Lungs- clear to auscultation mild b/l crackles and rhonchi, no wheezing Heart- regular rhythm; no murmur, no gallop. Abdomen- normal bowel sounds, soft, nontender, no distension. Extremities- no pretibial edema, no erythema seen Neuro- alert, oriented x 3; PERRL, no facial palsy; no dysarthria; moves extremities. Skin- warm & dry Results & Data Results & Data Vital Signs (Past 12 Hours) Vital Signs Temp Pulse Pulse Resp BP BP Pulse Ox 07/08/23 21:46 115 H 25 H 123/91 95 07/08/23 20:54 123 H 25 H 96 07/08/23 20:51 07/08/23 20:51 07/08/23 20:25 126 H 07/08/23 20:08 37.2 C 91 H 24 69/45 L 99 O2 Del Method O2 Flow Rate FiO2 07/08/23 21:46 Nasal Cannula 07/08/23 20:54 Nasal Cannula 2 07/08/23 20:51 Room Air 85 07/08/23 20:51 Nasal Cannula 2 07/08/23 20:25 07/08/23 20:08 Room Air Diagnostic Findings Laboratory Results WBC 12.61 K/ul (4.8-10.8) H 07/08/23 20:45 RBC 2.87 M/uL (4.70-6.10) L 07/08/23 20:45 Hgb 9.5 g/dl (14.0-18.0) L 07/08/23 20:45 Hct 28.7 % (42.0-52.0) L 07/08/23 20:45 MCV 100.0 fL (80.0-100.0) 07/08/23 20:45 MCH 33.1 pg (25.0-34.0) 07/08/23 20:45 MCHC 33.1 g/dL (32.0-36.0) 07/08/23 20:45 RDW Std Deviation 71.9 fL (36.4-46.3) H 07/08/23 20:45 RDW Coeff of Lizandro 19.9 % (11.5-14.5) H 07/08/23 20:45 Plt Count 206 K/uL (130-400) 07/08/23 20:45 MPV 10.3 fL (9.4-12.4) 07/08/23 20:45 Immature Gran % (Auto) 0.9 % 07/08/23 20:45 Neut % (Auto) 84.6 % 07/08/23 20:45 Lymph % (Auto) 4.0 % 07/08/23 20:45 [place] % (Auto) 10.2 % 07/08/23 20:45 Eos % (Auto) 0.1 % 07/08/23 20:45 Baso % (Auto) 0.2 % 07/08/23 20:45 Neut # (Auto) 10.69 K/uL (1.40-6.50) H 07/08/23 20:45 Lymph # (Auto) 0.50 K/uL (1.20-3.40) L 07/08/23 20:45 [place] # (Auto) 1.28 K/uL (0.11-0.59) H 07/08/23 20:45 Eos # (Auto) 0.01 K/uL (0.00-0.50) 07/08/23 20:45 Baso # (Auto) 0.02 K/uL (0.00-0.20) 07/08/23 20:45 Immature Gran # (Auto) 0.11 K/uL (0.01-0.20) 07/08/23 20:45 Sodium 126 mmol/L (136-145) L 07/08/23 20:45 Potassium 3.6 mmol/L (3.5-5.1) 07/08/23 20:45 Chloride 97 mmol/L (98-107) L 07/08/23 20:45 Carbon Dioxide 25 mmol/L (21-32) 07/08/23 20:45 Anion Gap 4 (3-11) 07/08/23 20:45 BUN 15 mg/dl (6-23) 07/08/23 20:45 Creatinine 0.80 mg/dl (0.6-1.4) 07/08/23 20:45 Est Cr Clr Drug Dosing 98.0 ml/min 07/08/23 20:45 Est GFR ( Amer) 108.7 ml/min 07/08/23 20:45 Est GFR (Non-Af Amer) 93.7 ml/min 07/08/23 20:45 BUN/Creatinine Ratio 18.8 (10-20) 07/08/23 20:45 Glucose 102 mg/dl (70-99(Fasting)) H 07/08/23 20:45 Lactate 1.1 mmol/L (0.4-2.0) 07/08/23 20:45 Calcium 8.2 mg/dl (8.6-10.3) L 07/08/23 20:45 Magnesium 1.4 mg/dl (1.7-2.4) L 07/08/23 20:45 Total Bilirubin 0.5 mg/dl (0.2-1.0) 07/08/23 20:45 Direct Bilirubin 0.2 mg/dl (0-0.2) 07/08/23 20:45 AST 51 U/L (13-39) H 07/08/23 20:45 ALT 12 U/L (7-52) 07/08/23 20:45 Alkaline Phosphatase 95 U/L (34-104) 07/08/23 20:45 Troponin I High Sens 13.5 pg/ml (0-20) 07/08/23 20:45 B-Natriuretic Peptide 49 pg/ml (0-100) 07/08/23 20:45 Total Protein 6.0 gm/dl (6.0-8.3) 07/08/23 20:45 Albumin 2.5 gm/dl (3.4-5.0) L 07/08/23 20:45 Procalcitonin 0.55 ng/ml (0-0.5) H 07/08/23 20:45 Adenovirus (PCR) Not Detected (NotDetected) 07/08/23 20:53 B. pertussis DNA (PCR) Not Detected (NotDetected) 07/08/23 20:53 B.parapertussis DNA PCR Not Detected (NotDetected) 07/08/23 20:53 C. pneumoniae DNA (PCR) Not Detected (NotDetected) 07/08/23 20:53 Coronavirus OC43 (PCR) Not Detected (NotDetected) 07/08/23 20:53 Coronavirus HKU1 (PCR) Not Detected (NotDetected) 07/08/23 20:53 Coronavirus 229E (PCR) Not Detected (NotDetected) 07/08/23 20:53 SARS-CoV-2 (PCR) Not Detected (NotDetected) 07/08/23 20:53 Coronavirus NL63 (PCR) Not Detected (NotDetected) 07/08/23 20:53 Human Metapneumovir PCR Not Detected (NotDetected) 07/08/23 20:53 Influenza Type A (PCR) Not Detected (NotDetected) 07/08/23 20:53 Influenza Type B (PCR) Not Detected (NotDetected) 07/08/23 20:53 M. pneumoniae (PCR) Not Detected (NotDetected) 07/08/23 20:53 Parainfluenza 1 (PCR) Not Detected (NotDetected) 07/08/23 20:53 Parainfluenza 2 (PCR) Not Detected (NotDetected) 07/08/23 20:53 Parainfluenza 3 (PCR) Not Detected (NotDetected) 07/08/23 20:53 Parainfluenza 4 (PCR) Not Detected (NotDetected) 07/08/23 20:53 RSV (PCR) Not Detected (NotDetected) 07/08/23 20:53 Entero/Rhino (PCR) Not Detected (NotDetected) 07/08/23 20:53 Code Status & VTE Plan VTE Prophylaxis Plan VTE Prophylaxis will be ordered: Yes
[2023-07-09] MEDS ORDERED: NITROGLYCERIN SL 0.4 MG/TAB TAB SL PRN (00:48)
[2023-07-09] MEDS ORDERED: ALBUTEROL HFA 8 GM INHALER INH PRN (00:48)
[2023-07-09] MEDS ORDERED: POLYETHYLENE (MIRALAX) 17 GM PACK PO PRN (00:48)
[2023-07-09] MEDS ORDERED: ALBUTEROL 0.083% NEBU SOLN 3 ML VIAL INH PRN (00:48)
[2023-07-09] MEDS ORDERED: AZELASTINE HCL 0.1% NASAL 200 SPRAYS/27,400 MCG BTL PRN (00:48)
[2023-07-09] MEDS ORDERED: DOCUSATE SODIUM 100 MG CAP PO PRN (00:48)
[2023-07-09] MEDS ORDERED: FLUTICASONE PROPIONATE NA SPR 16 GM BTL PRN (01:06)
[2023-07-09] MEDS: DOXYCYCLINE HYCLATE 100 MG CAP PO SCH (01:20)
[2023-07-09 04:00] LABS: Appearance Urine Clear (Clear); Bilirubin Urine Negative (Negative); Blood Urine Negative (Negative); Color Urine Yellow; Glucose Urine UA Negative (Negative); Ketones Urine Negative (Negative); Leukocyte Esterase Urine Negative (Negative); Nitrite Urine Negative (Negative); Protein Urine Negative (Negative); Specific Gravity Urine 1.015 (1.000-1.030); Urobilinogen Urine Negative (Negative); pH Urine 6.5 (4.5-7.5)
[2023-07-09] MEDS: PIPERACILLIN/TAZOBACTAM 4.5 GM in DEXTROSE 5% MINI-B 100 ML IV SCH (04:19)
[2023-07-09 05:35] LABS: Hematocrit (blood only) 27.3 % (42.0-52.0); Hemoglobin 9.1 g/dl (14.0-18.0); Mean Corpuscular Hemoglobin 33.5 pg (25.0-34.0); Mean Corpuscular Hgb Conc 33.3 g/dL (32.0-36.0); Mean Corpuscular Volume 100.4 fL (80.0-100.0); Mean Platelet Volume 10.3 fL (9.4-12.4); Platelet Count 170 K/uL (130-400); RDW Coefficient of Variation 19.7 % (11.5-14.5); RDW Standard Deviation 71.5 fL (36.4-46.3); Red Blood Count 2.72 M/uL (4.70-6.10); White Blood Count 13.36 K/ul (4.8-10.8)
[2023-07-09 05:48] LABS: BUN Creatinine Ratio 17.7 (10-20); Calcium 7.8 mg/dl (8.6-10.3); Creatinine Clr Calc Pharmacy 99.3 ml/min; Est GFR (African American) 109.2 ml/min; Est GFR (Non-African American) 94.2 ml/min; Magnesium 1.8 mg/dl (1.7-2.4)
[2023-07-09 06:13] LABS: Basophils # (auto) 0.02 K/uL (0.00-0.20); Basophils % (auto) 0.1 %; Immature Granulocytes # (auto) 0.07 K/uL (0.01-0.20); Immature Granulocytes % (auto) 0.5 %; Lymphocytes # (auto) 0.25 K/uL (1.20-3.40); Lymphocytes % (auto) 1.9 %; Monocytes # (auto) 0.32 K/uL (0.11-0.59); Monocytes % (auto) 2.4 %; Neutrophils % (auto) 95.1 %; Polychromasia 1+
[2023-07-09] MEDS: ALBUT/IPRATROP 3MG/0.5MG NEB 3 ML VIAL NEB SCH (07:06)
--- NOTE | 2023-07-09 07:25 | XRay Report ---
XR chest 1V portable HISTORY: 63 years-old Male Sepsis acute sepsis COMPARISON: Chest CT 05/10/2023 TECHNIQUE: AP view of the chest FINDINGS: Cardiac silhouette is enlarged. Emphysema with chronic interstitial coarsening. Small pleural effusio ns with bilateral airspace opacities, most pronounced in the lung bases and left upper lung. Degenera tive changes of the shoulders and spine. Left subclavian Eqnrbm-m-Idry catheter. IMPRESSION: 1. Small pleural effusions with bilateral airspace opacities, most pronounced within the lung bases a nd left upper lung suspicious for multifocal pneumonia. 2. Emphysema. ACT 112: Negative or not required by law. The above report was generated using voice recognition software. It may contain grammatical, syntax o r spelling errors. Electronically signed by: Napoleon Garcia M.D. 07/09/2023 7:23 AM
[2023-07-09] MEDS: UMECLIDINIUM BROMIDE 62.5MCG/BLISTER 7 PUFFS/INHALER INH SCH (08:02)
[2023-07-09] MEDS: APIXABAN 5 MG TABLET PO SCH (08:02)
[2023-07-09] MEDS: CHOLECALCIFEROL 25 MCG (1000 UNITS) TAB PO SCH (08:02)
[2023-07-09] MEDS: MONTELUKAST SODIUM 10 MG TABLET PO PRN (08:02)
[2023-07-09] MEDS: MAGNESIUM OXIDE 400 MG TAB PO SCH (08:02)
[2023-07-09] MEDS: FOLIC ACID 1 MG TAB PO SCH (08:02)
[2023-07-09] MEDS: PANTOprazole 40 MG TAB PO PRN (08:02)
[2023-07-09] MEDS: FLUTICASONE/VILANTEROL 200/25MCG 14 PUFFS/INHALER INH SCH (08:02)
[2023-07-09] MEDS: CYANOCOBALAMIN (B-12) 500 MCG TABLET PO SCH (08:02)
[2023-07-09] MEDS: ADVANCED PROBIOTIC 1250 MG CAPSULE PO SCH (08:02)
[2023-07-09] MEDS: CEROVITE ADV FORMULA TAB PO SCH (08:02)
[2023-07-09] MEDS: VANCOMYCIN HCL 1,250 MG in SODIUM CHLORIDE 0.9% 250 ML IV SCH (08:06)
--- NOTE | 2023-07-09 08:41 | Electrocardiogram Report ---
Test Reason : Blood Pressure : / mmHG Vent. Rate : 125 BPM Atrial Rate : 125 BPM P-R Int : 168 ms QRS Dur : 088 ms QT Int : 292 ms P-R-T Axes : 065 -20 085 degrees QTc Int : 421 ms Poor data quality, interpretation may be adversely affected Sinus tachycardia Left anterior fascicular block Low voltage QRS Abnormal ECG When compared with ECG of 08-MAY-2023 13:35, No significant change was found Confirmed by Roddy Ayala ([id number]) on 07/09/2023 8:41:24 AM Referred By: REFERRED SELF Confirmed By:Roddy Ayala
[2023-07-09 09:25] LABS: BUN Creatinine Ratio 19.5 (10-20); Calcium 7.8 mg/dl (8.6-10.3); Creatinine Clr Calc Pharmacy 101.9 ml/min; Est GFR (African American) 110.4 ml/min; Est GFR (Non-African American) 95.2 ml/min
--- NOTE | 2023-07-09 10:33 | Pharmacy Report ---
Pharmacy PK ABX Note - Date of Service July 09, 2023 - Assessment and Plan Assessment * 63 year old M receiving Zosyn, doxycycline, and vancomycin for treatment of HAP. * PMH: COPD on home O2, SCC stage IIIb vs. IV currently receiving immunotherapy * Pertinent microbiologic data includes: negative MRSA Nasal Swab * Note - SCC increases risk of false negative MRSA nasal swab. Discussed with Dr. Hawley - patient doesn't look bad clinically. Plans to continue vancomycin for now, but likely to consider stopping at 48 hours if patient continues to look good * SCr stable Plan Vancomycin * Loading dose: 1750 mg IV x 1 * Maintenance dose: 1250 mg IV every 12 hours * Regimen is predicted to achieve target AUC/JOSE of 400-600 mg/L.hr * Random level ordered for 2/5 w AM labs Pharmacy will continue to follow and will adjust dose/frequency as necessary. Thank you. Pharmacy has transitioned to AUC monitoring for vancomycin. AUC/JOSE is the preferred PK/PD target and is associated with decreased risk of nephrotoxicity compared to traditional trough targets.
[2023-07-09] MEDS: NICOTINE 14 MG/24 HR PATCH TD SCH (11:57)
--- NOTE | 2023-07-09 12:39 | Hospitalist Progress Note ---
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 Patient has chronic cough no change in this. Still smoking 1 pack of cigarettes every 3 days. Denies any fevers. No headache. No neck pain. Vision is okay. No runny nose or sore throat. No earaches. No chest pain. Feeling nauseous. No vomiting. Poor oral intake. No abdominal pain. No diarrhea or constipation. Micturating okay. Ambulating okay. No rash. When he came to the ER he was tachycardic and hypotensive. After 1 L fluid bolus blood pressure and tachycardia improved. Currently resting comfortably. Multifocal pneumonia Presenting with shortness of breath on minimal exertion and cough Tachycardia and hypotension presentation improved with 1 L of fluids Likely sepsis POA secondary to pneumonia Lactic acid is okay Chest x-ray showed small pleural effusion with bibasilar airspace opacities most pronounced within the lung bases and left upper lung suspicious for multifocal pneumonia CT of the chest on 05/08/2023 showed bilateral lower lobe atelectasis with mild right lower lobe bronchiectasis ER gave IV Vanco and Zosyn which we will be continued. Will also add p.o. doxycycline. MRSA is negative but will continue IV vancomycin for 48 hours given immunocompromise moist condition Await blood cultures and sputum cultures Clinically better today History of COPD Chronic respiratory failure with 2 L oxygen in the nighttime No obvious wheezing We will continue home inhalers Will place on nebs Hyponatremia Seems chronic Possible SIADH Sodium 126 On salt tablets 1 g 4 times daily but sometimes he takes only 3 times. Follows with oncology. Will hold salt tablets for now and consult nephrology for further re commendations Close monitor of labs. 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 Can try to do while patient in the hospital when he is more stable. Continues to smoke Will get nicotine patch DVT prophylaxis Eliquis Disposition Telemetry. Full code if chance of recovery as per my discussion with the patient Discussed with the family member Admission and Anticipated Discharge Date Admission Date: July 08, 2023 Subjective 07/09/2023 The patient was seen and examined in telemetry unit in presence of the daughter He was admitted with increasing shortness of breath with minimal exertion and cough No fever and no chills, no abdominal pain nausea and or vomiting Slightly better as of this morning Review of Systems Review of Systems: All systems reviewed and are unremarkable except as noted Respiratory: Minimal respiratory distress at rest and cough Physical Exam Physical Exam: Lying in bed with minimal shortness of breath Constitutional: + ill appearing and average body habitus Eyes: PERRL, conjunctivae normal, anicteric sclerae ENMT: external ear and nose normal, oropharynx normal Neck: trachea midline, no thyromegaly Respiratory: + respiratory distress (Minimal distress at rest) Auscultation: + diminished lung sounds and + crackles (Bibasilar crackles) Has a port in the left upper anterior chest wall Cardiovascular: Rate/Rhythm: regular rate, regular rhythm and + tachycardic Heart Sounds: normal S1 and normal S2; no murmur Extremities: no edema Gastrointestinal (Abdomen): Inspection/Auscultation: normal bowel sounds; abdomen not distended Percussion/Palpation: abdomen soft; abdomen nontender Musculoskeletal: No acute arthritis involving any of the joint Neurologic: normal touch/pain/proprioception and moves all extremities; no focal motor deficits Lymphatic: no cervical or axillary lymphadenopathy Results & Data Results & Data Vital Signs (Past 12 Hours) Vital Signs Temp Pulse Pulse Pulse Resp BP BP 07/09/23 11:19 103 H 133/81 07/09/23 11:16 110 H 20 07/09/23 08:00 07/09/23 08:00 98 H 07/09/23 07:19 36.8 C 105 H 143/83 H 07/09/23 07:08 105 H 20 07/09/23 03:15 36.7 C 107 H 25 H 143/83 H 07/09/23 01:26 07/09/23 00:48 36.2 C L 115 H 24 134/87 07/09/23 00:48 07/09/23 00:40 36.2 C L 115 H 24 134/87 Pulse Ox Pulse Ox O2 Del Method O2 Del Method O2 Flow Rate O2 Flow Rate 07/09/23 11:19 96 Nasal Cannula 2 07/09/23 11:16 96 Nasal Cannula 2 07/09/23 08:00 Nasal Cannula 2 07/09/23 08:00 07/09/23 07:19 92 Nasal Cannula 2 07/09/23 07:08 96 Nasal Cannula 4 07/09/23 03:15 96 Nasal Cannula 3.5 07/09/23 01:26 Nasal Cannula 3 07/09/23 00:48 93 Nasal Cannula 3 07/09/23 00:48 92 Nasal Cannula 3 07/09/23 00:40 93 Nasal Cannula 2 Laboratory Results Short CBC 07/08/23 07/09/23 Range/Units 20:45 05:15 WBC 12.61 H 13.36 H (4.8-10.8) K/ul Hgb 9.5 L 9.1 L (14.0-18.0) g/dl Hct 28.7 L 27.3 L (42.0-52.0) % Plt Count 206 170 (130-400) K/uL BMP 07/08/23 07/09/23 07/09/23 20:45 05:15 08:53 Sodium 126 L 127 L 127 L Potassium 3.6 4.0 4.0 Chloride 97 L 98 98 Carbon Dioxide 25 24 26 BUN 15 14 15 Creatinine 0.80 0.79 0.77 Glucose 102 H 167 H 157 H Calcium 8.2 L 7.8 L 7.8 L Liver Function 07/08/23 Range/Units 20:45 Total Bilirubin 0.5 (0.2-1.0) mg/dl Direct Bilirubin 0.2 (0-0.2) mg/dl AST 51 H (13-39) U/L ALT 12 (7-52) U/L Alkaline Phosphatase 95 (34-104) U/L Albumin 2.5 L (3.4-5.0) gm/dl Urine 07/09/23 Range/Units 03:24 Urine Color Yellow Urine Appearance Clear (Clear) Urine pH 6.5 (4.5-7.5) Ur Specific [place] 1.015 (1.000-1.030) Urine Protein Negative (Negative) Urine Glucose (UA) Negative (Negative) Medications Administered Current Inpatient Medications Acetaminophen (Acetaminophen 325 Mg Tab) 650 mg PO Q4H PRN PRN Reason: Pain or Fever Stop: 08/08/23 00:47 Albuterol (Albuterol 0.083% Nebu Soln 3 Ml Vial) 2.5 mg INH Q4H PRN; Protocol PRN Reason: Shortness Of Breath Or Wheezin Stop: 08/08/23 00:47 Albuterol (Albuterol Hfa 8 Gm Inhaler) 2 puffs INH Q4H PRN PRN Reason: Shortness Of Breath Or Wheezin Stop: 08/08/23 00:47 Albuterol (Albut/Ipratrop 3mg/0.5mg Neb 3 Ml Vial) 3 ml NEB QIDR SHARON; Protocol Stop: 08/08/23 06:59 Last Admin: 07/09/23 11:15 Dose: 3 ml Apixaban (Apixaban 5 Mg Tablet) 5 mg PO BID [facility] Stop: 08/08/23 08:59 Last Admin: 07/09/23 08:02 Dose: 5 mg Azelastine HCl (Azelastine Hcl 0.1% Nasal 200 Sprays/27,400 Mcg Btl) 1 sprays NA BID PRN PRN Reason: Nasal Congestion Stop: 08/08/23 00:47 Cyanocobalamin (Cyanocobalamin (B-12) 500 Mcg Tablet) 500 mcg PO DAILY [facility] Stop: 08/08/23 08:59 Last Admin: 07/09/23 08:02 Dose: 500 mcg Docusate Sodium (Docusate Sodium 100 Mg Cap) 100 mg PO BID PRN PRN Reason: Constipation Stop: 08/08/23 00:47 Doxycycline Hyclate (Doxycycline Hyclate 100 Mg Cap) 100 mg PO BID [facility] Stop: 07/16/23 00:47 Last Admin: 07/09/23 08:02 Dose: 100 mg Fluticasone Propionate (Fluticasone Propionate Na Spr 16 Gm Btl) 2 sprays NA DAILY PRN PRN Reason: Nasal Congestion Stop: 08/08/23 01:05 Fluticasone/Vilanterol (Fluticasone/Vilanterol 200/25mcg 14 Puffs/Inhaler) 1 puffs INH DAILY [facility] Stop: 08/08/23 08:59 Last Admin: 07/09/23 08:02 Dose: 1 puffs Folic Acid (Folic Acid 1 Mg Tab) 1 mg PO QAM [facility] Stop: 08/08/23 08:59 Last Admin: 07/09/23 08:02 Dose: 1 mg Piperacillin Sod/Tazobactam (Sod 4.5 gm/ Dextrose) 100 mls @ 25 mls/hr IV Q8H [facility]; Protocol Stop: 07/16/23 03:59 Last Admin: 07/09/23 11:59 Dose: 25 mls/hr Vancomycin HCl 1,250 mg/ (Sodium Chloride) 275 mls @ 200 mls/hr IV Q12H [facility] Stop: 07/16/23 07:59 Last Infusion: 07/09/23 09:37 Dose: Infused Lactobacillus Acidophilus (Advanced Probiotic 1250 Mg Capsule) 2 cap PO DAILY [facility] Stop: 08/08/23 08:59 Last Admin: 07/09/23 08:02 Dose: 2 cap Magnesium Oxide (Magnesium Oxide 400 Mg Tab) 400 mg PO QAM [facility] Stop: 08/08/23 08:59 Last Admin: 07/09/23 08:02 Dose: 400 mg Miscellaneous (Remove Nicoderm Patch) 1 each N/A DAILY@0859 [facility] Stop: 08/09/23 08:58 Miscellaneous Information (Vancomycin Consult Active) 1 each N/A UD PRN PRN Reason: Consult Stop: 08/07/23 21:46 Montelukast Sodium (Montelukast Sodium 10 Mg Tablet) 10 mg PO QAM PRN PRN Reason: Allergy Symptoms Stop: 08/08/23 00:47 Last Admin: 07/09/23 08:02 Dose: 10 mg Multivitamins/Minerals (Cerovite Adv Formula Tab) 1 tab PO DAILY [facility] Stop: 08/08/23 08:59 Last Admin: 07/09/23 08:02 Dose: 1 tab Nicotine (Nicotine 14 Mg/24 Hr Patch) 14 mg TD QAM SHARON Stop: 08/08/23 11:14 Last Admin: 07/09/23 11:57 Dose: 14 mg Nitroglycerin (Nitroglycerin Sl 0.4 Mg/Tab Tab) 0.4 mg SL Q5M PRN PRN Reason: Chest Pain Stop: 08/08/23 00:47 Pantoprazole Sodium (Pantoprazole 40 Mg Tab) 40 mg PO DAILY PRN PRN Reason: gerd Stop: 08/08/23 01:02 Last Admin: 07/09/23 08:02 Dose: 40 mg Polyethylene Glycol (Polyethylene (Miralax) 17 Gm Pack) 17 gm PO DAILY PRN PRN Reason: Constipation Stop: 08/08/23 00:47 Umeclidinium [place] (Umeclidinium [place] 62.5mcg/Blister 7 Puffs/Inhaler) 1 puffs INH QAM [facility] Stop: 08/08/23 08:59 Last Admin: 07/09/23 08:02 Dose: 1 puffs Vitamin D (Cholecalciferol 25 Mcg (1000 Units) Tab) 50 mcg PO DAILY [facility] Stop: 08/08/23 08:59 Last Admin: 07/09/23 08:02 Dose: 50 mcg
[2023-07-09 13:18] LABS: BUN Creatinine Ratio 20.8 (10-20); Calcium 7.8 mg/dl (8.6-10.3); Creatinine Clr Calc Pharmacy 101.9 ml/min; Est GFR (African American) 110.4 ml/min; Est GFR (Non-African American) 95.2 ml/min; Potassium 3.9 mmol/L (3.5-5.1)
--- NOTE | 2023-07-09 13:28 | Nephrology Consultation ---
Date of Consultation July 09, 2023 Assessment & Plan (1) Hyponatremia: small cell lung CA can certainly cause SIADH, as can pneumonia in a patient who already has structural lung disease. With his low albumin and clinical history of weight loss and poor po intake, his nutritional status is compromised as well and likely contributes. euvolemic hyponatremia multifactorial from several etiologies as above. -started 1.5L fluid limit, toward which protein shakes don't count -improved slightly with supportive care for PNA -would plan on starting lasix in AM low dose -for today would give salt tab 1 gm bid, much lower dose than he was taking at home; believe this will be better tolerated than urea -daily bmp >goal sNa for AM is no more than 133, though likely an sNa in low 130s will be accceptable for this pt w/ his comorbidities Appreciate consult; will follow with you History of Present Illness Reason for Consultation: Hyponatremia Requesting Physician: Dr. Velasquez Attending Physician: Corby Hawley MD History of Present Illness 63-year-old male whom I am asked to evaluate for hyponatremia was admitted last evening with sepsis from multifocal pneumonia. Complex medical history includes chronic hyponatremia, peripheral vascular disease, history of pulmonary embolus with homocystinuria, chronic heart failure with preserved ejection fraction, COPD on home oxygen 2 L at bedtime, ongoing tobacco abuse. 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 Also found to have obstructive jaundice in May 2023 s/p ERCP showing severe single biliary stricture lower third of the main bile duct due to compression by large periportal lymph nodes s/p recent sphincterectomy and 1 metallic biliary stent with plan for stent exchange in 1 year or earlier if stent occlusion. He gets XRT here at [facility]. he has non [facility] pulmonology and oncology care, the later here at [facility]. He takes salt tablets 4 times a day 1 g prescribed by oncology for chronic hyponatremia. His sodium as an outpatient has tended to run in the mid to high 120s. Does not follow with nephrology as an outpatient, though this was recommended at May discharge. Patient has not returned calls to schedule this follow-up d/t concerns about doing in person visit while neutropenic. He did see PCP on 07/05 and noted at that visit to have 13 lb wt loss in 6 wks, ongoing poor appetite and minimal po. Significant challenges w/ dry heaves and vomiting if pushes PO intake. His baseline weight is about 245 pounds. In February he weighed 230 pounds. In mid May at clinic he weighed 194 pounds. In late June he weighed 80 pounds, all at clinic visits. Also developing lower body decubiti PCP thought from sitting. His presenting sodium was 126 last evening at 2100. Sodium this afternoon at 1300 is 127. Potassium maintained at about 4. Creatinine 0.8. He is overall 1.8 L positive so far during this stay. salt tablets were not continued at admission. Has not received any diuretics ( takes prn lasix 40 mg daily as OP). He was tachycardic and hypotensive in the ER and received 1 L of fluid; started on vancomycin, Zosyn, oral doxycycline. He has ongoing minimal po intake; no N, emesis. no fever or chills, no sob. no edema. no uncontrolled musculoskeletal pain. no new/worrisome voiding sx or rash. no chest pain or palpitations. his daughter is at bedside today for interview. Allergies Allergy/AdvReac Type Severity Reaction Status Date / Time levofloxacin Allergy Intermediate Nausea Verified 07/08/23 22:10 Home Medications Medication Instructions Recorded Confirmed Type azelastine 137 mcg (0.1 %) nasal 1 spray intranasal BID PRN Nasal 02/12/20 07/08/23 History spray aerosol Congestion fluticasone 500 mcg-salmeterol 50 1 inh inhalation BID 02/12/20 07/08/23 History mcg/dose blistr powdr for inhalation (Advair Diskus) montelukast 10 mg tablet 10 mg PO QAM PRN Allergy Symptoms 02/12/20 07/08/23 History (Singulair) tiotropium bromide 18 mcg capsule 1 cap inhalation QAM 02/12/20 07/08/23 History with inhalation device (Spiriva with HandiHaler) folic acid 1 mg tablet 1 mg PO QAM #30 tabs 02/13/20 07/08/23 Rx acetaminophen 325 mg capsule 650 mg PO Q4H PRN Pain 03/10/23 07/08/23 History (Tylenol) albuterol sulfate 2.5 mg/3 mL 2.5 mg inhalation Q4H PRN 03/10/23 07/08/23 History (0.083 %) solution for nebulization Shortness Of Breath Or Wheezing albuterol sulfate 90 mcg/actuation 2 puff inhalation Q4H PRN 03/10/23 07/08/23 History aerosol inhaler Shortness Of Breath Or Wheezing cholecalciferol (vitamin D3) 25 50 mcg PO DAILY 03/10/23 07/08/23 History mcg (1,000 unit) capsule furosemide 40 mg tablet (Lasix) 40 mg PO DAILY PRN swelling 03/10/23 07/08/23 History mecobalamin (vitamin B12) 500 mcg 500 mcg PO DAILY 03/10/23 07/08/23 History chewable tablet mometasone 50 mcg/actuation nasal 2 spray intranasal BID PRN Nasal 03/10/23 07/08/23 History spray (Nasonex 24hr Allergy) Congestion omeprazole 40 mg capsule,delayed 40 mg PO DAILY PRN gerd 03/10/23 07/08/23 History release vitamins A,C,I-sxfb-pmstng 4,296 1 cap PO DAILY 03/10/23 07/08/23 History mcg-226 mg-90 mg capsule (PreserVision AREDS) apixaban 5 mg tablet (Eliquis) 5 mg PO BID 03/15/23 07/09/23 History L.acidop,casei,lactis,rham-B.lact,marielle 2 cap PO DAILY #30 caps 05/11/23 07/08/23 Rx 625 mg (10 billion cell) capsule (Advanced Probiotic) docusate sodium 100 mg capsule 100 mg PO BID PRN Constipation 05/11/23 07/08/23 Rx #60 caps magnesium oxide 400 mg (241.3 mg 400 mg PO QAM #30 tabs 05/11/23 07/08/23 Rx magnesium) tablet ondansetron HCl 4 mg tablet 8 mg (2 x 4 mg) PO Q8H PRN Nausea 06/30/23 07/08/23 Rx 1 month #90 tabs prochlorperazine maleate 10 mg 10 mg PO Q8H PRN nausea and 06/30/23 07/08/23 Rx tablet (Compazine) vomiting 1 month #90 tabs omega-3s 350 lb-hqd-sng-other 1 cap PO DAILY 07/08/23 07/08/23 History [id number] oil 600 mg capsule (Fish Oil) sodium chloride 1,000 mg soluble 1,000 mg PO QID 07/08/23 07/08/23 History tablet Patient History Medical History Encounter for pre-operative examination Tobacco use disorder Chronic respiratory failure Hyponatremia Chronic diastolic heart failure History of pulmonary embolism Palliative care by specialist Macular degeneration Metastatic lung cancer (metastasis from lung to other site) Biopsy on 02/09/23 Deviated nasal septum Chronic rhinitis Depression Elevated serum homocysteine level Peripheral vascular disease Spinal stenosis of lumbar region without neurogenic claudication Hypertriglyceridemia hx Pulmonary embolism Right lung x3, currently on eliquis DVT (deep venous thrombosis) LLE x1 (entire length of leg), no known etiology COPD (chronic obstructive pulmonary disease) Surgical History Port-A-Cath in place (03/16/23) Left Subclavian Access Port Placement, Biopsy of Left Supraclavicular Node(Left) - Sanjay May MD, FACS Adverse reaction to anesthetic agent "Hard time to get air in or out" History of tonsillectomy and adenoidectomy Hx laparoscopic cholecystectomy Family History Mother , 74yo Stroke Heart disease "Had a bad heart" Father , 89yo Cancer "Bone cancer" COPD (chronic obstructive pulmonary disease) Stroke Hypertension Brother Brain tumor Pt uncertain if it was cancer; Diabetes Brother Cancer Son Medical history unknown Son Medical history unknown Daughter No problems noted. Daughter Medical history unknown Social History Smoking Status: Current every day smoker Tobacco Type: Cigarettes Cigarettes Per Day: 7; Second Hand Exposure: Yes (hx growing up); Do You Dip or Chew Tobacco: No; Tobacco Cessation Education Requested by Patient: No (wants nicotine patch) Hx Alcohol Use: No Hx Substance Use: No Preferred Language: Hebrew Communication Ability: Effective Visual Impairment: No Limitations Hearing Ability: Normal Creative Lead Required: No Beliefs That Will Affect Care: None marital status: Current Living Situation: Spouse Current Living Situation Comment: with Adeola current occupational status: retired 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 How many Children do You have: 4 Feels Safe at Home: Yes Safety Concerns: Feels Safe At This Time Diet: regular caffeine: No during the past year weight has: decreased > 10 lbs Assistive Devices: Denture - Upper, Denture - Lower and Glasses Review of Systems 2 Review of Systems: All systems reviewed & are unremarkable except as noted in HPI & below Physical Exam 2 Constitutional: well developed, + thin, + frail appearing and cooperative; no acute distress Eyes: EOM intact bilaterally ENMT: Ears: no external ear abnormality Nose: no external nose abnormality Mouth: + dry oral mucous membranes Neck: no nuchal rigidity Respiratory: normal respiratory effort Auscultation: + diminished lung sounds (markedly ) Cardiovascular: Rate/Rhythm: regular rate and regular rhythm Extremities: n o edema Gastrointestinal (Abdomen): Inspection/Auscultation: normal bowel sounds P ercussion/Palpation: abdomen soft; abdomen nontender Musculoskeletal: Extremities: strength 5/5 throughout Skin: no rashes, warm and dry Neurologic: boinlla, fluent speech, no tremor; generalized weakness/fatigue Psychiatric: Orientation: alert and oriented x 3 Results & Data Vital Signs (Past 12 Hours) Vital Signs Temp Pulse Pulse Pulse Resp BP BP 07/09/23 11:19 103 H 133/81 07/09/23 11:16 110 H 20 07/09/23 08:00 07/09/23 08:00 98 H 07/09/23 07:19 36.8 C 105 H 143/83 H 07/09/23 07:08 105 H 20 07/09/23 03:15 36.7 C 107 H 25 H 143/83 H 07/09/23 01:26 Pulse Ox O2 Del Method O2 Flow Rate 07/09/23 11:19 96 Nasal Cannula 2 07/09/23 11:16 96 Nasal Cannula 2 07/09/23 08:00 Nasal Cannula 2 07/09/23 08:00 07/09/23 07:19 92 Nasal Cannula 2 07/09/23 07:08 96 Nasal Cannula 4 07/09/23 03:15 96 Nasal Cannula 3.5 07/09/23 01:26 Nasal Cannula 3 Laboratory Results 07/09/23 05:15 07/09/23 12:51 Serum osmolality 277 Albumin 2.5 Urine osmolality 363; random urine sodium 60 Urinalysis 1015 with a pH of 6.5 and all other indices negative clear yellow urine Diagnostic Findings Chest x-ray 1. Small pleural effusions with bilateral airspace opacities, most pronounced within the lung bases and left upper lung suspicious for multifocal pneumonia. 2. Emphysema.
[2023-07-09 17:47] LABS: BUN Creatinine Ratio 19.3 (10-20); Calcium 7.6 mg/dl (8.6-10.3); Creatinine Clr Calc Pharmacy 94.5 ml/min; Est GFR (Non-African American) 92.3 ml/min; Potassium 3.6 mmol/L (3.5-5.1)
[2023-07-09] MEDS: SODIUM CHLORIDE 1 GM TABLET PO SCH (21:11)
[2023-07-09] MEDS: ACETAMINOPHEN 325 MG TAB PO PRN (21:14)
[2023-07-09 22:23] LABS: BUN Creatinine Ratio 17.4 (10-20); Calcium 7.6 mg/dl (8.6-10.3); Creatinine Clr Calc Pharmacy 91.2 ml/min; Est GFR (African American) 105.5 ml/min; Potassium 3.5 mmol/L (3.5-5.1)
[2023-07-09] MEDS: TROLAMINE SALICYLATE 10% CRM 255 APPLN/85 GM TUBE EXT PRN (23:47)
[2023-07-10 05:40] LABS: Basophils # (auto) 0.02 K/uL (0.00-0.20); Basophils % (auto) 0.2 %; Eosinophils # (auto) 0.02 K/uL (0.00-0.50); Eosinophils % (auto) 0.2 %; Hematocrit (blood only) 24.6 % (42.0-52.0); Hemoglobin 8.1 g/dl (14.0-18.0); Immature Granulocytes # (auto) 0.07 K/uL (0.01-0.20); Immature Granulocytes % (auto) 0.7 %; Lymphocytes # (auto) 0.44 K/uL (1.20-3.40); Lymphocytes % (auto) 4.2 %; Mean Corpuscular Hemoglobin 33.3 pg (25.0-34.0); Mean Corpuscular Hgb Conc 32.9 g/dL (32.0-36.0); Mean Corpuscular Volume 101.2 fL (80.0-100.0); Mean Platelet Volume 10.2 fL (9.4-12.4); Monocytes # (auto) 1.16 K/uL (0.11-0.59); Neutrophils # (auto) 8.86 K/uL (1.40-6.50); Neutrophils % (auto) 83.7 %; Platelet Count 165 K/uL (130-400); RDW Coefficient of Variation 19.7 % (11.5-14.5); RDW Standard Deviation 71.4 fL (36.4-46.3); Red Blood Count 2.43 M/uL (4.70-6.10); White Blood Count 10.57 K/ul (4.8-10.8)
[2023-07-10 05:53] LABS: Creatinine Clr Calc Pharmacy 85.3 ml/min; Est GFR (African American) 100.8 ml/min
[2023-07-10] MEDS: VANCOMYCIN HCL 1,000 MG in SODIUM CHLORIDE 0.9% 250 ML IV SCH (10:36)
--- NOTE | 2023-07-10 10:52 | Nephrology Progress Note ---
Date of Service July 10, 2023 Assessment & Plan Admission and Anticipated Discharge Date Admission Date: July 08, 2023 Subjective Assessment & Plan (1) Hyponatremia: with small cell lung CA Causing SIADH, Also tea and toast syndrome with Low Protein intake /rapid wt loss. Also pneumonia in a patient who already has structural lung disease can ccause low Na+. euvolemic hyponatremia multifactorial from several etiologies as above. started 1.5L fluid limit, toward which protein shakes don't count Continue salt tab 1 gm bid, much lower dose than he was taking at home. As long as Serum Na > 125 and holding , we are good. Not really possible to get the Na normal all the way up. Ideally would like to use some lasix also but with his rapid wt loss , ? po intake Hesitant to try that. daily bmp S---feels about same. No new issues. Vital signs stable. Physical Exam Constitutional: well developed, + thin, + frail appearing and cooperative; no acute distress HEENT : + dry oral mucous membranes Respiratory: normal respiratory effort Auscultation: + diminished lung sounds Cardiovascular: Rate/Rhythm: regular rate and regular rhythm Extremities: no edema Gastrointestinal (Abdomen): Inspection/Auscultation: normal bowel sounds Percussion/Palpation: abdomen soft; abdomen nontender Skin: no rashes, warm and dry Neurologic: fluent speech, no tremor; generalized weakness/fatigue Psychiatric: Orientation: alert and oriented x 3 Results & Data Vital Signs (Past 12 Hours) Vital Signs Temp Pulse Resp BP BP Pulse Ox O2 Del Method 07/10/23 09:43 Nasal Cannula 07/10/23 07:12 36.4 C L 100 H 18 128/80 97 Nasal Cannula 07/10/23 07:05 98 H 16 97 Nasal Cannula 07/10/23 03:01 96 Nasal Cannula 07/10/23 03:00 36.6 C 113 H 18 135/85 2 L Nasal Cannula 07/09/23 22:56 36.5 C 104 H 20 132/80 96 Nasal Cannula O2 Flow Rate 07/10/23 09:43 2 07/10/23 07:12 4.0 07/10/23 07:05 4 07/10/23 03:01 3 07/10/23 03:00 2 07/09/23 22:56 2
--- NOTE | 2023-07-10 11:49 | Pharmacy Report ---
Pharmacy PK ABX Note - Date of Service July 10, 2023 - Assessment and Plan Assessment 07/10: Reviewed vancomycin level, predicting supratherapeutic AUC/JOSE, will decrease dose slightly 07/09: * 63 year old M receiving Zosyn, doxycycline, and vancomycin for treatment of HAP. * PMH: COPD on home O2, SCC stage IIIb vs. IV currently receiving immunotherapy * Pertinent microbiologic data includes: negative MRSA Nasal Swab * Note - SCC increases risk of false negative MRSA nasal swab. Discussed with Dr. Hawley - patient doesn't look bad clinically. Plans to continue vancomycin for now, but likely to consider stopping at 48 hours if patient continues to look good * SCr stable Plan Vancomycin * Current dose: vancomycin 1250 mg IV every 12 hours * Decrease dose to vancomycin 1000mg Q12H * Regimen is predicted to achieve target AUC/JOSE of 400-600 mg/L.hr * Random level ordered for 2/6 w AM labs Pharmacy will continue to follow and will adjust dose/frequency as necessary. Thank you. Pharmacy has transitioned to AUC monitoring for vancomycin. AUC/JOSE is the preferred PK/PD target and is associated with decreased risk of nephrotoxicity compared to traditional trough targets.
[2023-07-10] MEDS: CEFDINIR 300 MG CAP PO SCH (20:13)
[2023-07-11 06:01] LABS: Creatinine Clr Calc Pharmacy 88.1 ml/min; Est GFR (Non-African American) 89.7 ml/min
[2023-07-11 08:58] LABS: BUN Creatinine Ratio 14.6 (10-20); Potassium 3.5 mmol/L (3.5-5.1)
--- NOTE | 2023-07-11 10:07 | Nephrology Progress Note ---
Date of Service July 11, 2023 Assessment & Plan Admission and Anticipated Discharge Date Admission Date: July 08, 2023 Subjective Subjective Assessment & Plan (1) Hyponatremia: with small cell lung CA Causing SIADH, Also tea and toast syndrome with Low Protein intake /rapid wt loss. Also pneumonia in a patient who already has structural lung disease can ccause low Na+. euvolemic hyponatremia multifactorial from several etiologies as above. started 1.5L fluid limit, toward which protein shakes don't count Continue salt tab 1 gm bid, much lower dose than he was taking at home. As long as Serum Na > 125 and holding , we are good. Not really possible to get the Na normal all the way up. na now 129 so we are good from renal Standpoint. Ideally would like to use some lasix for free water diuresis but with his rapid wt loss , ? po intake Hesitant to try that--may cause Dehydration/Low BP/TITI. Daily bmp S---feels about same. No new issues. Vital signs stable. Physical Exam Constitutional: well developed, + thin, + frail appearing and cooperative; no acute distress HEENT Mm moist Respiratory: normal respiratory effort Auscultation: + diminished lung sounds Cardiovascular: Rate/Rhythm: regular rate and regular rhythm Extremities: no edema Gastrointestinal (Abdomen): Inspection/Auscultation: normal bowel sounds Percussion/Palpation: abdomen soft; abdomen nontender Skin: no rashes, warm and dry Neurologic: fluent speech, no tremor; generalized weakness/fatigue Psychiatric: Orientation: alert and oriented x 3 Results & Data Vital Signs (Past 12 Hours) Vital Signs Temp Pulse Resp BP BP Pulse Ox O2 Del Method 07/11/23 07:44 36.6 C 100 H 18 123/80 95 Nasal Cannula 07/11/23 07:09 95 H 17 94 Nasal Cannula 07/11/23 03:52 36.7 C 101 H 20 137/87 95 Nasal Cannula 07/10/23 23:29 36.5 C 102 H 20 127/79 98 Nasal Cannula O2 Flow Rate 07/11/23 07:44 1 07/11/23 07:09 2 07/11/23 03:52 2 07/10/23 23:29 2
--- NOTE | 2023-07-11 11:33 | Hospitalist Progress Note ---
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 Patient has chronic cough no change in this. Still smoking 1 pack of cigarettes every 3 days. Denies any fevers. No headache. No neck pain. Vision is okay. No runny nose or sore throat. No earaches. No chest pain. Feeling nauseous. No vomiting. Poor oral intake. No abdominal pain. No diarrhea or constipation. Micturating okay. Ambulating okay. No rash. When he came to the ER he was tachycardic and hypotensive. After 1 L fluid bolus blood pressure and tachycardia improved. Currently resting comfortably. Multifocal pneumonia Presenting with shortness of breath on minimal exertion and cough Tachycardia and hypotension presentation improved with 1 L of fluids Likely sepsis POA secondary to pneumonia Lactic acid is okay Chest x-ray showed small pleural effusion with bibasilar airspace opacities most pronounced within the lung bases and left upper lung suspicious for multifocal pneumonia CT of the chest on 05/08/2023 showed bilateral lower lobe atelectasis with mild right lower lobe bronchiectasis ER gave IV Vanco and Zosyn which we will be continued. Will also add p.o. doxycycline. MRSA is negative but will continue IV vancomycin for 48 hours given immunocompromise moist condition Await blood cultures -negative Has had PT evaluation and recommended home Clinically much better and will change antibiotic orally and stop vancomycin History of COPD Chronic respiratory failure with 2 L oxygen in the nighttime No obvious wheezing We will continue home inhalers Will place on nebs Hyponatremia Seems chronic Possible SIADH Sodium 126 On salt tablets 1 g 4 times daily but sometimes he takes only 3 times. Follows with oncology. Will hold salt tablets for now and consult nephrology for further recommendations Close monitor of labs. 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 Can try to do while patient in the hospital when he is more stable. Continues to smoke Will get nicotine patch DVT prophylaxis Eliquis Disposition Telemetry. Full code if chance of recovery as per my discussion with the patient Discussed with the family member Admission and Anticipated Discharge Date Admission Date: July 08, 2023 Subjective 07/09/2023 The patient was seen and examined in telemetry unit in presence of the daughter He was admitted with increasing shortness of breath with minimal exertion and cough No fever and no chills, no abdominal pain nausea and or vomiting Slightly better as of this morning 07/10/2023 He has been feeling much better Shortness of breath is improved He has had physical therapy and recommended home His antibiotic will be changed to oral likely discharge tomorrow Review of Systems Review of Systems: All systems reviewed and are unremarkable except as noted below Physical Exam Physical Exam: Lying in bed with minimal shortness of breath Constitutional: + ill appearing and average body habitus Eyes: PERRL, conjunctivae normal, anicteric sclerae ENMT: external ear and nose normal, oropharynx normal Neck: trachea midline, no thyromegaly Respiratory: + respiratory distress (Minimal distress at rest) Auscultation: + diminished lung sounds and + crackles (Bibasilar crackles) Cardiovascular: Rate/Rhythm: regular rate, regular rhythm and + tachycardic Heart Sounds: normal S1 and normal S2; no murmur Extremities: no edema Gastrointestinal (Abdomen): Inspection/Auscultation: normal bowel sounds; abdomen not distended Percussion/Palpation: abdomen soft; abdomen nontender Musculoskeletal: No acute arthritis involving any of the joint Neurologic: normal touch/pain/proprioception and moves all extremities; no focal motor deficits Lymphatic: no cervical or axillary lymphadenopathy Results & Data Results & Data Vital Signs (Past 12 Hours) Vital Signs Temp Pulse Pulse Resp BP BP Pulse Ox 07/11/23 11:10 36.5 C 102 H 18 133/79 96 07/11/23 10:31 116 H 17 94 07/11/23 10:03 07/11/23 10:03 102 H 07/11/23 07:44 36.6 C 100 H 18 123/80 95 07/11/23 07:09 95 H 17 94 07/11/23 03:52 36.7 C 101 H 20 137/87 95 O2 Del Method O2 Flow Rate 07/11/23 11:10 Nasal Cannula 1 07/11/23 10:31 Nasal Cannula 2 07/11/23 10:03 2 07/11/23 10:03 07/11/23 07:44 Nasal Cannula 1 07/11/23 07:09 Nasal Cannula 2 07/11/23 03:52 Nasal Cannula 2
--- NOTE | 2023-07-11 11:35 | Hospitalist Progress Note ---
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 Patient has chronic cough no change in this. Still smoking 1 pack of cigarettes every 3 days. Denies any fevers. No headache. No neck pain. Vision is okay. No runny nose or sore throat. No earaches. No chest pain. Feeling nauseous. No vomiting. Poor oral intake. No abdominal pain. No diarrhea or constipation. Micturating okay. Ambulating okay. No rash. When he came to the ER he was tachycardic and hypotensive. After 1 L fluid bolus blood pressure and tachycardia improved. Currently resting comfortably. Multifocal pneumonia Presenting with shortness of breath on minimal exertion and cough Tachycardia and hypotension presentation improved with 1 L of fluids Likely sepsis POA secondary to pneumonia Lactic acid is okay Chest x-ray showed small pleural effusion with bibasilar airspace opacities most pronounced within the lung bases and left upper lung suspicious for multifocal pneumonia CT of the chest on 05/08/2023 showed bilateral lower lobe atelectasis with mild right lower lobe bronchiectasis ER gave IV Vanco and Zosyn which we will be continued. Will also add p.o. doxycycline. MRSA is negative but will continue IV vancomycin for 48 hours given immunocompromise moist condition Await blood cultures -negative Has had PT evaluation and recommended home Clinically much better and will change antibiotic orally and stop vancomycin Has been tolerating oral antibiotics which will be continued for a total of 10 days History of COPD Chronic respiratory failure with 2 L oxygen in the nighttime No obvious wheezing We will continue home inhalers Will place on nebs No acute exacerbation Hyponatremia Seems chronic Possible SIADH Sodium 126 On salt tablets 1 g 4 times daily but sometimes he takes only 3 times. Follows with oncology. Will hold salt tablets for now and consult nephrology for further recommenda tions Close monitor of labs. 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 Can try to do while patient in the hospital when he is more stable. Continues to smoke Will get nicotine patch Strongly advised to keep in touch with his oncologist as an outpatient DVT prophylaxis Eliquis Disposition Telemetry. Full code if chance of recovery as per my discussion with the patient Discussed with the family member Will be discharged home this afternoon Admission and Anticipated Discharge Date Admission Date: July 08, 2023 Subjective 07/09/2023 The patient was seen and examined in telemetry unit in presence of the daughter He was admitted with increasing shortness of breath with minimal exertion and cough No fever and no chills, no abdominal pain nausea and or vomiting Slightly better as of this morning 07/10/2023 He has been feeling much better Shortness of breath is improved He has had physical therapy and recommended home His antibiotic will be changed to oral likely discharge tomorrow 07/11/2023 The patient was seen and examined in telemetry unit He has been feeling much better does not have any symptoms at rest He has had physical therapy and recommended home He wants to go home today He has been tolerating oral antibiotics Review of Systems Review of Systems: All systems reviewed and are unremarkable except as noted below Respiratory: Minimal respiratory distress at rest and cough Physical Exam Physical Exam: Lying in bed with minimal shortness of breath Constitutional: + ill appearing and average body habitus Eyes: PERRL, conjunctivae normal, anicteric sclerae ENMT: external ear and nose normal, oropharynx normal Neck: trachea midline, no thyromegaly Respiratory: + respiratory distress (Minimal distress at rest) Auscultat ion: + diminished lung sounds and + crackles (Bibasilar crackles) Cardiovascular: Rate/Rhythm: regular rate, regular rhythm and + tachycardic Heart Sounds: normal S1 and normal S2; no murmur Extremities: no edema Gastrointestinal (Abdomen): Inspection/Auscultation: normal bowel sounds; abdomen not distended Percussion/Palpation: abdomen soft; abdomen nontender Neurologic: normal touch/pain/proprioception and moves all extremities; no focal motor deficits Lymphatic: no cervical or axillary lymphadenopathy Results & Data Results & Data Vital Signs (Past 12 Hours) Vital Signs Temp Pulse Pulse Resp BP BP Pulse Ox 07/11/23 11:10 36.5 C 102 H 18 133/79 96 07/11/23 10:31 116 H 17 94 07/11/23 10:03 07/11/23 10:03 102 H 07/11/23 07:44 36.6 C 100 H 18 123/80 95 07/11/23 07:09 95 H 17 94 07/11/23 03:52 36.7 C 101 H 20 137/87 95 O2 Del Method O2 Flow Rate 07/11/23 11:10 Nasal Cannula 1 07/11/23 10:31 Nasal Cannula 2 07/11/23 10:03 2 07/11/23 10:03 07/11/23 07:44 Nasal Cannula 1 07/11/23 07:09 Nasal Cannula 2 07/11/23 03:52 Nasal Cannula 2 Laboratory Results [facility] 07/11/23 05:24 Sodium 129 L Potassium 3.5 Chloride 99 Carbon Dioxide 26 BUN 13 Creatinine 0.89 Glucose 97 Calcium 8.0 L Medications Administered Current Inpatient Medications Acetaminophen (Acetaminophen 325 Mg Tab) 650 mg PO Q4H PRN PRN Reason: Pain or Fever Stop: 08/08/23 00:47 Last Admin: 07/11/23 01:32 Dose: 650 mg Albuterol (Albuterol 0.083% Nebu Soln 3 Ml Vial) 2.5 mg INH Q4H PRN; Protocol PRN Reason: Shortness Of Breath Or Wheezin Stop: 08/08/23 00:47 Albuterol (Albuterol Hfa 8 Gm Inhaler) 2 puffs INH Q4H PRN PRN Reason: Shortness Of Breath Or Wheezin Stop: 08/08/23 00:47 Albuterol (Albut/Ipratrop 3mg/0.5mg Neb 3 Ml Vial) 3 ml NEB QIDR [facility]; Protocol Stop: 08/08/23 06:59 Last Admin: 07/11/23 10:31 Dose: 3 ml Apixaban (Apixaban 5 Mg Tablet) 5 mg PO BID [facility] Stop: 08/08/23 08:59 Last Admin: 07/11/23 09:13 Dose: 5 mg Azelastine HCl (Azelastine Hcl 0.1% Nasal 200 Sprays/27,400 Mcg Btl) 1 sprays NA BID PRN PRN Reason: Nasal Congestion Stop: 08/08/23 00:47 Cefdinir (Cefdinir 300 Mg Cap) 300 mg PO BID [facility]; Protocol Stop: 07/17/23 20:59 Last Admin: 07/11/23 09:12 Dose: 300 mg Cyanocobalamin (Cyanocobalamin (B-12) 500 Mcg Tablet) 500 mcg PO DAILY [facility] Stop: 08/08/23 08:59 Last Admin: 07/11/23 09:12 Dose: 500 mcg Docusate Sodium (Docusate Sodium 100 Mg Cap) 100 mg PO BID PRN PRN Reason: Constipation Stop: 08/08/23 00:47 Doxycycline Hyclate (Doxycycline Hyclate 100 Mg Cap) 100 mg PO BID [facility] Stop: 07/16/23 00:47 Last Admin: 07/11/23 09:12 Dose: 100 mg Fluticasone Propionate (Fluticasone Propionate Na Spr 16 Gm Btl) 2 sprays NA DAILY PRN PRN Reason: Nasal Congestion Stop: 08/08/23 01:05 Fluticasone/Vilanterol (Fluticasone/Vilanterol 200/25mcg 14 Puffs/Inhaler) 1 puffs INH DAILY [facility] Stop: 08/08/23 08:59 Last Admin: 07/11/23 09:11 Dose: 1 puffs Folic Acid (Folic Acid 1 Mg Tab) 1 mg PO QAM [facility] Stop: 08/08/23 08:59 Last Admin: 07/11/23 08:14 Dose: 1 mg Lactobacillus Acidophilus (Advanced Probiotic 1250 Mg Capsule) 2 cap PO DAILY [facility] Stop: 08/08/23 08:59 Last Admin: 07/11/23 09:13 Dose: 2 cap Magnesium Oxide (Magnesium Oxide 400 Mg Tab) 400 mg PO QAM [facility] Stop: 08/08/23 08:59 Last Admin: 07/11/23 09:12 Dose: 400 mg Miscellaneous (Remove Nicoderm Patch) 1 each N/A DAILY@0859 [facility] Stop: 08/09/23 08:58 Last Admin: 07/11/23 10:54 Dose: 1 each Montelukast Sodium (Montelukast Sodium 10 Mg Tablet) 10 mg PO QAM PRN PRN Reason: Allergy Symptoms Stop: 08/08/23 00:47 Last Admin: 07/09/23 08:02 Dose: 10 mg Multivitamins/Minerals (Cerovite Adv Formula Tab) 1 tab PO DAILY [facility] Stop: 08/08/23 08:59 Last Admin: 07/11/23 08:14 Dose: 1 tab Nicotine (Nicotine 14 Mg/24 Hr Patch) 14 mg TD QAM [facility] Stop: 08/08/23 11:14 Last Admin: 07/11/23 09:13 Dose: 14 mg Nitroglycerin (Nitroglycerin Sl 0.4 Mg/Tab Tab) 0.4 mg SL Q5M PRN PRN Reason: Chest Pain Stop: 08/08/23 00:47 Pantoprazole Sodium (Pantoprazole 40 Mg Tab) 40 mg PO DAILY PRN PRN Reason: gerd Stop: 08/08/23 01:02 Last Admin: 07/09/23 08:02 Dose: 40 mg Polyethylene Glycol (Polyethylene (Miralax) 17 Gm Pack) 17 gm PO DAILY PRN PRN Reason: Constipation Stop: 08/08/23 00:47 Sodium Chloride (Sodium Chloride 1 Gm Tablet) 1 gm PO BID [facility] Stop: 08/08/23 20:59 Last Admin: 07/11/23 09:12 Dose: 1 gm Trolamine Salicylate (Trolamine Salicylate 10% Crm 255 Appln/85 Gm Tube) 1 appln EXT BID PRN PRN Reason: Pain Stop: 08/08/23 22:59 Last Admin: 07/09/23 23:47 Dose: 1 appln Umeclidinium [place] (Umeclidinium [place] 62.5mcg/Blister 7 Puffs/Inhaler) 1 puffs INH QAM [facility] Stop: 08/08/23 08:59 Last Admin: 07/11/23 08:14 Dose: 1 puffs Vitamin D (Cholecalciferol 25 Mcg (1000 Units) Tab) 50 mcg PO DAILY [facility] Stop: 08/08/23 08:59 Last Admin: 07/11/23 08:14 Dose: 50 mcg
--- NOTE | 2023-07-11 19:19 | Discharge Summary ---
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 Patient has chronic cough no change in this. Still smoking 1 pack of cigarettes every 3 days. Denies any fevers. No headache. No neck pain. Vision is okay. No runny nose or sore throat. No earaches. No chest pain. Feeling nauseous. No vomiting. Poor oral intake. No abdominal pain. No diarrhea or constipation. Micturating okay. Ambulating okay. No rash. When he came to the ER he was tachycardic and hypotensive. After 1 L fluid bolus blood pressure and tachycardia improved. Currently resting comfortably. Past medical history. As mentioned above Past surgical history. Status post ERCP. Laparoscopic cholecystectomy. Tonsillectomy adenoidectomy. Excision of cyst on left scalp. Social history. Smoked 1 pack a day for 36 years. Currently smoking 1 pack every 3 days. No alcohol use. No drug use. Family history. Father had allergies. Bone cancer. Gallstones. Stroke. Mother had a heart disorder. Stroke. Daughter has allergies. Admission Exam Per Admitting Provider Physical Exam: General-Not in distress Head- atraumatic Eyes- PERRL. ENT- oropharynx clear Neck- supple, no JVD. Lungs- clear to auscultation mild b/l crackles and rhonchi, no wheezing Heart- regular rhythm; no murmur, no gallop. Abdomen- normal bowel sounds, soft, nontender, no distension. Extremities- no pretibial edema, no erythema seen Neuro- alert, oriented x 3; PERRL, no facial palsy; no dysarthria; moves extremities. Skin- warm & dry Principal Diagnosis Multifocal pneumonia, COPD, chronic hyponatremia, history of small cell carcinoma of the left lung Discharge Exam Lying in bed with minimal shortness of breath Constitutional + ill appearing and average body habitus Eyes PERRL, conjunctivae normal, anicteric sclerae ENMT external ear and nose normal, oropharynx normal Neck trachea midline, no thyromegaly Respiratory + respiratory distress (Minimal distress at rest) Auscultation: + diminished lung sounds and + crackles (Bibasilar crackles) Cardiovascular Rate/Rhythm: regular rate, regular rhythm and + tachycardic Heart Sounds: normal S1 and normal S2; no murmur Extremities: no edema Gastrointestinal (Abdomen) Inspection/Auscultation: normal bowel sounds; abdomen not distended Percussion/Palpation: abdomen soft; abdomen nontender Neurologic normal touch/pain/proprioception and moves all extremities; no focal motor deficits Lymphatic no cervical or axillary lymphadenopathy Discharge Data Allergies Allergy/AdvReac Type Severity Reaction Status Date / Time levofloxacin Allergy Intermediate Nausea Verified 07/08/23 22:10 Consultations 07/08/23 22:07 ED Decision to Admit Stat 07/09/23 08:00 Consult Nephrology Routine Hospital Course (1) Multifocal pneumonia: 63-year-old male with past medical history significant for high triglycerides, homocystinuria, COPD, on home oxygen 2 L in the nighttime, peripheral vascular disease, history of pulmonary embolism, hepatic steatosis, ongoing tobacco abuse, chronic diastolic CHF, 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 Patient has chronic cough no change in this. Still smoking 1 pack of cigarettes every 3 days. Denies any fevers. No headache. No neck pain. Vision is okay. No runny nose or sore throat. No earaches. No chest pain. Feeling nauseous. No vomiting. Poor oral intake. No abdominal pain. No diarrhea or constipation. Micturating okay. Ambulating okay. No rash. When he came to the ER he was tachycardic and hypotensive. After 1 L fluid bolus blood pressure and tachycardia improved. Currently resting comfortably. Multifocal pneumonia Presenting with shortness of breath on minimal exertion and cough Tachycardia and hypotension presentation improved with 1 L of fluids Likely sepsis POA secondary to pneumonia Lactic acid is okay Chest x-ray showed small pleural effusion with bibasilar airspace opacities most pronounced within the lung bases and left upper lung suspicious for multifocal pneumonia CT of the chest on 05/08/2023 showed bilateral lower lobe atelectasis with mild right lower lobe bronchiectasis ER gave IV Vanco and Zosyn which we will be continued. Will also add p.o. doxycycline. MRSA is negative but will continue IV vancomycin for 48 hours given immunocompromise moist condition Await blood cultures -negative Has had PT evaluation and recommended home Clinically much better and will change antibiotic orally and stop vancomycin Has been tolerating oral antibiotics which will be continued for a total of 10 days History of COPD Chronic respiratory failure with 2 L oxygen in the nighttime No obvious wheezing We will continue home inhalers Will place on nebs No acute exacerbation Hyponatremia Seems chronic Possible SIADH Sodium 126 On salt tablets 1 g 4 times daily but sometimes he takes only 3 times. Follows with oncology. Will hold salt tablets for now and consult nephrology for further recommendations Close monitor of labs. 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 Can try to do while patient in the hospital when he is more stable. Continues to smoke Will get nicotine patch Strongly advised to keep in touch with his oncologist as an outpatient DVT prophylaxis Eliquis Disposition Telemetry. Full code if chance of recovery as per my discussion with the patient Discussed with the family member Will be discharged home this afternoon Total Time Total Time Spent Total Time Spent (In Minutes): 35 minutes Discharge Plan Discharge Items Patient Disposition: Home - Self-Care Reason For Visit: SOB, PNEUMONIA, SEPSIS Discharge Diagnosis: Multifocal pneumonia, COPD, chronic hyponatremia, history of small cell carcinoma of the left lung Condition on Discharge: Fair Activity: Resume your previous activity Non-emergency contact: Primary Care Provider Call non-emergency contact if: you have any medication questions and your symptoms worsen Follow-up/Referrals: Hali Apodaca DO [Primary Care Provider] - (Date & Time 07/17/2023 8:20 AM Provider Clayton Richardson MD Department Family Medicine [facility] ) Diet: Heart Healthy Fluids: 1200ml (5 cups) Addtl Attending Provider Instructions: Please take precautions to avoid falls Please finish the course of antibiotic Take your medications as advised Please keep appointment with the healthcare provider Pending Studies at Discharge: No Stand-Alone Forms: My [employer], Smoking Cessation Medications and DC Order Prescriptions: New doxycycline hyclate 100 mg Capsule 100 mg PO BID Qty: 14 0RF cefdinir 300 mg Capsule 300 mg PO BID Qty: 14 0RF nicotine 14 mg/24 hr patch 24 hour 1 patch transdermal DAILY Qty: 28 0RF Continued acetaminophen [Tylenol] 325 mg capsule 650 mg PO Q4H PRN (Reason: Pain) mecobalamin (vitamin B12) 500 mcg tablet,chewable 500 mcg PO DAILY furosemide [Lasix] 40 mg tablet 40 mg PO DAILY PRN (Reason: swelling) omeprazole 40 mg capsule,delayed release(DR/EC) 40 mg PO DAILY PRN (Reason: gerd) cholecalciferol (vitamin D3) 25 mcg (1,000 unit) capsule 50 mcg PO DAILY PreserVision AREDS 4,296 mcg-226 mg-90 mg capsule 1 cap PO DAILY prochlorperazine maleate [Compazine] 10 mg tablet 10 mg PO Q8H PRN (Reason: nausea and vomiting) 30 Days Qty: 90 3RF ondansetron HCl 4 mg tablet 8 mg PO Q8H PRN (Reason: Nausea) 30 Days Qty: 90 3RF fluticasone propion-salmeterol [Advair Diskus] 500-50 mcg/dose Blister With Device 1 inh INHALATION BID montelukast [Singulair] 10 mg Tablet 10 mg PO QAM PRN (Reason: Allergy Symptoms) azelastine 137 mcg (0.1 %) Aerosol,[place] 1 spray INTRANASAL BID PRN (Reason: Nasal Congestion) tiotropium bromide [Spiriva with HandiHaler] 18 mcg Capsule, W/Inhalation Device 1 cap INHALATION QAM folic acid 1 mg Tablet 1 mg PO QAM Qty: 30 1RF albuterol sulfate 2.5 mg /3 mL (0.083 %) solution for nebulization 2.5 mg INHALATION Q4H PRN (Reason: Shortness Of Breath Or Wheezing) albuterol sulfate 90 mcg/actuation HFA aerosol inhaler 2 puff INHALATION Q4H PRN (Reason: Shortness Of Breath Or Wheezing) mometasone [Nasonex 24hr Allergy] 50 mcg/actuation spray,non-aerosol 2 spray INTRANASAL BID PRN (Reason: Nasal Congestion) Eliquis 5 mg tablet 5 mg PO BID Hold Instructions: Resume on 03/18/23. docusate sodium 100 mg Capsule 100 mg PO BID PRN (Reason: Constipation ) Qty: 60 0RF Advanced Probiotic 625 mg (10 billion cell) Capsule 2 cap PO DAILY Qty: 30 0RF magnesium oxide 400 mg (241.3 mg magnesium) Tablet 400 mg PO QAM Qty: 30 0RF Fish Oil 350-600 mg Capsule 1 cap PO DAILY Changed sodium chloride 1,000 mg Tablet,Soluble 1,000 mg PO BID Qty: 1 0RF Rx Instructions: Pt has the med Discharge Orders: Discharge Order (Routine); Ordered 07/11/23 Ordered By: Corby Hawley Admission Data Admit Date/Time: 07/08/23 22:52 Attending Provider: Corby Hawley Admit Provider: Corby Velasquez Primary Care Provider: Hali Apodaca Other Providers: Corby Velasquez; Kisha Rizvi Other Interventions: Discharge Summary Assessment (RN) Last Done: 07/11/23 13:10
== END 2023-07-11 15:19 | disposition home or self-care (01) | DRG 871 ==
LOC: ED 20:02 → 2S 22:52

== ENCOUNTER 2023-07-23 11:08 | Inpatient (IN) ==
--- OUTSIDE RECORDS SUMMARY | 2023-07-23 11:13 | External Medical Summary | Summary of Care ---
Author Name Unknown Organization [facility] Address [address] [place] [address] Phone [phone] Care Team Providers Care Gas Stove Servicer Helper Name Role Phone Mayte Apodacaanda [place] ZHOU Primary Care Provider + [phone] Reason for Visit * Reason Onset Date Comments Order Request 07/17/2023 Oxygen Encounter Details Date Type Department Care Team (Late st Contact Info) Description 07/17/2023 Telephone Family Medicine [address] [phone] Clayton Richardson MD [address] [place] [address] [place] [id number] Order Request (Oxygen) Allergies Active Allergy Reactions Criticality Noted Date Comments Diclofenac 08/08/2002 upset stomach Levofloxacin 04/14/2017 Diarrhea, bleeding documented as of this encounter (statuses as of 07/19/2023) Medications Medication Sig Dispensed Refills Start Date End Date Status OMEGA-3 FISH OIL 1000 MG PO CAPS Take one capsule by mouth once a day 0 0 03/27/2009 Active Acetaminophen 325 MG Oral Tablet Take 2 Tablets by mouth every 4 hours as needed for Pain, Moderate. 0 Active Folic Acid 1 MG Oral TabletIndications:El evated homocysteine Take 1 Tab by mouth daily. 90 Tab 1 03/06/2020 Active B-12 500 MCG Oral Tablet Take by mouth . 0 12/08/2021 Active oxygen IN GASIndications:Noctu rnal hypoxemia due to emphysema (HCC),Abnormal CBC,Chronic obstructive pulmonary disease, unspecified COPD type (HCC),Palpitations,H istory of pulmonary embolism,Lung nodule Administer 2 L/min(Oxygen) into nostril at bedtime. 1 Each 0 09/08/2022 Active Fluticasone-Salmeter ol 500-50 MCG/ACT Inhalation Aerosol Powder Breath Activated (Advair Diskus)Indications:C OPD, severity to be determined ([facility]) INHALE ONE PUFF BY MOUTH TWICE A DAY 180 Each 3 07/09/2022 4 Active Apixaban 5 MG Oral Tablet (Eliquis)Indications :Pulmonary embolism and infarction ([facility]) TAKE ONE TABLET BY MOUTH TWICE A DAY 200 Tablet 3 07/09/2022 4 Active Albuterol Sulfate (2.5 MG/3ML) 0.083% Inhalation Nebulization Solution (Proventil)Indicatio ns:COPD, group C, by GOLD 2017 classification ([facility]) Use 1 vial every 4-6 hours as needed for shortness of breath or wheezing. 1080 mL 1 12/15/2022 Active Ondansetron HCl 4 MG Oral Tablet (Zofran)Indications: Nausea without vomiting Take 1 Tablet by mouth every 8 hours as needed for Nausea. 60 Tablet 0 01/12/2023 Active Montelukast Sodium 10 MG Oral Tablet (Singulair)Indicatio ns:COPD, moderate ([facility]),Chronic sinusitis, unspecified location,Chronic rhinitis TAKE ONE TABLET BY MOUTH EVERY MORNING 90 Tablet 2 03/12/2023 4 Active Additional Information Patient taking differently: Takes seasonally - usually in the Spring., Informant: Spouse, Reported on 07/12/2023 Albuterol Sulfate HFA 108 (90 Base) MCG/ACT Inhalation Aerosol Solution INHALE TWO PUFFS BY MOUTH EVERY 4 HOURS NEEDED FOR SHORTNESS OF BREATH FOR WHEEZING OR COUGH 54 g 3 03/16/2023 4 Active Docusate Sodium 100 MG Oral Capsule (Colace) Take 1 Capsule by mouth 2 times a day as needed for Constipation. 0 05/11/2023 Active Advanced Probiotic Oral Capsule Take 1 Capsule by mouth in the morning and 1 Capsule in the evening. 625 mg (10 billion cell). 0 05/11/2023 Active Magnesium Oxide 400 MG Oral Tablet Take 1 Tablet by mouth in the morning. 0 05/11/2023 Active Vitamin D (Cholecalciferol) 25 MCG (1000 [...] mouth in the morning and 1 Tablet before bedtime. 0 07/11/2023 Active Tiotropium [place] Monohydrate 18 MCG Inhalation Capsule (Spiriva HandiHaler)Indicatio ns:COPD, group C, by GOLD 2017 classification (HCC),SOB (shortness of breath),OSBORN (dyspnea on exertion) INHALE THE CONTENTS OF ONE CAPSULE VIA - HANDIHALER ONCE A DAY . DO NOT SWaLLOW CAPSULE 90 Capsule 1 06/08/2023 5 Active Omeprazole 40 MG Oral Capsule Delayed Release (PriLOSEC)Indication s:Gastroesophageal reflux disease without esophagitis Take 1 Capsule by mouth in the morning. 1 hour before the first meal of the day. 90 Capsule 1 07/05/2023 Active Nicotine 14 MG/24HR Transdermal Patch 24 Hour (Nicoderm CQ) Place 1 Patch topically on the skin daily. 0 Active Furosemide 40 MG Oral Tablet (Lasix) Take 1 Tablet by mouth daily as needed for Other (edema/swelling). 0 07/11/2023 Active Azelastine HCl 137 MCG/SPRAY Nasal Solution Administer 1 [place] into nostril 2 times a day as needed for Other (nasal congestion). Only uses seasonally, usually in the Spring. 0 07/11/2023 Active Mometasone Furoate 50 MCG/ACT Nasal Suspension Administer 2 Sprays into nostril 2 times a day as needed for Other (nasal congestion). Only uses seasonally, usually in the Spring. 0 07/11/2023 Active Doxycycline Hyclate 100 MG Oral Capsule Take 1 Capsule by mouth in the morning and 1 Capsule before bedtime. 0 07/11/2023 4 Cefdinir 300 MG Oral Capsule (Omnicef) Take 1 Capsule by mouth in the morning and 1 Capsule before bedtime. 0 07/11/2023 4 Hospital, Clinic, or Other Facility Administered Medication Ordered Dose Route Frequency Start Date End Date Status albuterol sulfate (PROVENTIL) (2.5 MG/3ML) 0.083% inhalation solution 2.5 mgIndications:COPD, group D, by GOLD 2017 classification (HCC),SOB (shortness of breath),OSBORN (dyspnea on exertion) 2.5 mg NEBULIZER Q4H PRN 05/20/2019 Act joel documented as of this encounter (statuses as of 07/19/2023) Active Problems Problem Noted Date Diagnosed Date [...] as of this encounter (statuses as of 07/19/2023) Resolved Problems Problem Noted Date Diagnosed Date [...] as of this encounter (statuses as of 07/19/2023) Immunizations Name Administration Dates Next Due Pneumococcal [...] on file documented as of this encounter Miscellaneous Notes * Telephone Encounter - Domitila Blanton LPN - 07/19/2023 4:37 PM EST Order Delivered Hi Domitila Blanton, Order [id number] for Benjie Powell (1960) has been delivered by [facility]. If you have any questions, please call . [facility] Team * Telephone Encounter - Domitila Blanton LPN - 07/18/2023 10:32 AM EST Your order is being processed [facility] Domitila Blanton, Order [id number] for Benjie Powell (1960) is being fulfilled by [facility].If you need assistance with this order, please call . We will send one more email notification once the order has been delivered. [facility] Team * Telephone Encounter - Domitila Blanton LPN - 07/17/2023 4:25 PM EST Oxygen order submitted through [facility]. The order is under review. documented in this encounter Plan of Treatment Upcoming Encounters Date Type Department Care Team (Late st Contact Info) Description 08/04/2023 1:00 PM EST Office Visit Nephrology [address] [place] [phone] Kisha Rizvi MD [address] [place], [place] [id number] 02/07/2024 9:30 AM EDT Office Visit Family Medicine [address] [place] [phone] [address] [place] [address] Scheduled Procedures Name Priority Associated Diagnoses Date/Ti me ENDOSCOPIC RETROGRADE CHOLANGIOPANCREATOGRAPHY (ERCP) W/STENT REMOVAL AND EXCHANGE; INC DILATION, GUIDE WIRE AND SPHINCTEROTOMY Recall Biliary stricture BRONCHOSCOPY, RIGID/FLEXIBLE , INCLUDE FLUORO GUIDANCE, WHEN PERFORMED; W/ EBUS GUIDED TRANSTRACH AND/OR TRANSBRONCH SAMPLING, 1 OR 2 MEDIASTINAL AND/OR HILAR LYMPH NODE STATIONS/STRUCTURES Lung nodule Health Maintenance Due Date Last Done Comments COVID-19 Vaccine (#1) 1963 Zoster Vaccines (1 of 2) 1977 Cologuard 2003 Colonoscopy 2003 Colorectal Cancer Screening 2003 Fecal Occult Blood Test 2003 Sigmoidoscopy 2003 Pneumococcal Vaccine: 65+ Years (2 - PCV) 03/27/2010 03/27/2009 DTaP,Tdap,and Td Vaccines (2 - Td or Tdap) 02/27/2018 02/28/2008 *ADVANCE DIRECTIVE NOT ON FILE 11/17/2018 DISCUSS TOBACCO CESSATION (REFER TO SMARTSET #3291) 10/02/2021 10/02/2020 Influenza Vaccine (FLU shot) (#1) 2023 03/06/2020, 03/19/2019, 04/24/2015, Additional history exists AAA Screening 2023 Depression Screening 05/15/2024 05/15/2023 O2 ASSESSMENT COMPLETED IN PAST YEAR FOR COPD 07/17/2024 07/17/2023 Diabetes Screening 07/17/2026 07/17/2023, 1 06/10/2022, 04/04/2023, Additional history exists Alpha-1 Antitrypsin Completed 03/19/2019 [...] Not on filedocumented as of this encounter Advance Directives Healthcare Agents on File Name Relationship Healthcare Agent Relationship Communication Adeolashun Mimsck Other - (no specific identity) Health Care Barrel Lathe Operator Outside (appointed verbally by patient or by statute hierarchy) Care Teams Gas Stove Servicer Helper Relationship Specialty Start Date End Date Hali Apodaca DO [address] [place] [address] [place] [address] PCP - General Internal Medicine 05/15/23 documented as of this encounter
--- NOTE | 2023-07-23 11:55 | XRay Report ---
XR chest 1V not portable CLINICAL HISTORY: Shortness of breath. Lung cancer. COMPARISON STUDY: Chest radiograph July 08, 2023. Chest CT July 12, 2023. FINDINGS: Left subclavian Rnzner-y-Reyv remains in place. Small bilateral pleural effusions are uncha nged. Bibasilar opacities persist. Asymmetric interstitial thickening within the left lung is unchang ed. Cardiomediastinal silhouette is stable. No pneumothorax. IMPRESSION: 1. No significant change in appearance of chest. Small bilateral pleural effusions with associated bi basilar opacities. 2. 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 3. No pneumothorax. ACT 112: Negative or not required by law. Electronically signed by: Acosta Tineo M.D. 07/23/2023 11:54 AM
--- NOTE | 2023-07-23 11:57 | Emergency Department Note ---
Impression & Plan Multifocal pneumonia, COPD (chronic obstructive pulmonary disease), Metastatic primary lung cancer, Hyponatremia, Hypomagnesemia ED Provider Note NAME: DILMA MALHOTRA AGE: 63 SEX: M ARRIVES VIA: Walk-In INFORMANT: Patient ED PROVIDER(S): Santosh Anderson MD CHIEF COMPLAINT: Shortness of breath. PLAN: Disposition: Admit MEDICAL DECISION MAKING: The patient is a pleasant 63-year-old gentleman with a past medical history of COPD, metastatic lung cance/small cell carcinoma of the left lung stage IIIb versus stage IV status post chemoradiation now on immunotherapy, pulmonary embolism on Eliquis who presents to the emergency department via walk-in, by his for worsening cough, congestion and shortness of breath which he reports has progressively worsened since his discharge from this facility following admission from 07/08-07/11 for multifocal pneumonia where he was treated with Zosyn and vancomycin transitioned to oral doxycycline with negative MRSA swab and subsequently completion of 10 days of total antibiotic therapy. The patient reports that prior to his admission for multifocal pneumonia he would use oxygen only at night but since then has needed 24 hours a day as his O2 saturation was declined to 85% on room air. He denies any fevers. He reports productive sputum. He reports generalized chest tightness but denies discrete chest pain. He denies nausea, vomiting, diarrhea or urinary symptoms. On my evaluation the patient is acute on chronic ill-appearing but no acute distress, afebrile with heart rate in the 120s and vital signs otherwise stable with O2 saturation 96% on his home 2 L nasal cannula. He appears clinically dry. He has diminished breath sounds of bilateral lower lung oliveira, left greater than right with underlying rhonchi and wheezes bilaterally. EKG demonstrates likely sinus tachycardia with significant baseline artifact present with nonspecific ST and T wave abnormalities without overt ST elevation or depression. Chest x-ray demonstrates small bilateral pleural effusions and associated bibasilar opacities. Note is made of asymmetric left lung interstitial thickening suggestive of lymphangitic carcinomatosis which is better depicted on the patient's prior CT from his last admission. WBC and platelets within normal limits. H/H 8.7/26.1, similar to prior range values. There is mild neutrophilia though no left shift. Chemistry without metabolic acidosis. Sodium 129, similar to prior. Potassium 3.3 and magnesium 1.5 with IV repletion initiated. AST mildly elevated 72, nonspecific and similar to prior. High-sensitivity troponin is 14.7, within normal limits. BNP is normal at 81. Lactate wnl. Procalcitonin is mildly elevated at 0.72 raising suspicion for recurrence of pneumonia. Respiratory bio fire was negative. Treatment was initiated emergency department with IV fluid hydration, Solu- Medrol, guaifenesin, DuoNeb. Blood cultures were also obtained and empiric treatment initiated with Zosyn and doxycycline with MRSA swab ordered and pending. The patient was treated with 2 L of normal saline. 30 cc/kg was deferred given presence of pleural effusion and patient was otherwise hemodynamically stable. Given the patient's worsening symptoms in the setting of suspected recurrence of bilateral pneumonia in the setting of his metastatic lung cancer patient does agree with plan for admission for further management. Case was discussed with Vic Salmon, with Dr. Laureano zepeda who will evaluate the patient for admission. Further management per admitting team. Triage Nursing notes reviewed and agree them. Prior/external medical records reviewed Vital Signs: reviewed Differential diagnosis: Reactive airway disease, pneumonia, pneumothorax, COPD, CHF, infections, cardiac ischemia, pulmonary embolism, musculoskeletal, gastrointestinal, as well as other pathologies. ER treatment provided: See below. Diagnostics interpreted by me: ECG: Likely sinus tachycardia, 123 bpm, nonspecific ST and T wave abnormality, no overt ST elevation or depression, QTc 14, QRS 88., Significant baseline artifact present. Cardiac Monitoring: An order for continuous cardiac monitoring was placed and demonstrated sinus tachycardia, 123 bpm, no ectopy. Laboratory studies: See below Imaging studies: See below Consultation(s): Case was discussed with Vic Salmon, with Dr. Laureano zepeda who will evaluate the patient for admission. HPI: The patient is a pleasant 63-year-old gentleman with a past medical history of COPD, metastatic lung cance/small cell carcinoma of the left lung stage IIIb versus stage IV status post chemoradiation now on immunotherapy, pulmonary embolism on Eliquis who presents to the emergency department via walk-in, by his for worsening cough, congestion and shortness of breath which he reports has progressively worsened since his discharge from this facility following admission from 07/08-07/11 for multifocal pneumonia where he was treated with Zosyn and vancomycin transitioned to oral doxycycline with negative MRSA swab and subsequently completion of 10 days of total antibiotic therapy. The patient reports that prior to his admission for multifocal pneumonia he would use oxygen only at night but since then has needed 24 hours a day as his O2 saturation was declined to 85% on room air. He denies any fevers. He reports productive sputum. He reports generalized chest tightness but denies discrete chest pain. He denies nausea, vomiting, diarrhea or urinary symptoms. ROS: See above HPI for pertinent positives & negatives. A total of 10 systems reviewed and were otherwise negative. VITALS:See Below PHYSICAL EXAMINATION: GENERAL: Awake, alert, acute on chronically ill-appearing, cachectic, in no distress HENT: Normocephalic, atraumatic. Oropharynx with dry mucous membranes and otherwise unremarkable. EYES: Normal conjunctiva. Sclera non-icteric. NECK: Supple. No nuchal rigidity. FROM. No JVD. RESPIRATORY: Diminished breath sounds of bilateral lower lung oliveira, left greater than right with underlying rhonchi and wheezes bilaterally. CARDIAC: Regular rate, normal rhythm. Extremities warm and well perfused. Pulses equal. ABDOMEN: Soft, non-distended. No tenderness to palpation. No rebound or guarding. No masses. RECTAL: Deferred. MUSCULOSKELETAL: Chest examination reveals no tenderness. The back is symmetrical on inspection without obvious abnormality. There is no CVA tenderness to palpation. No joint edema. LOWER EXTREMITIES: Calves are equal size bilaterally and non-tender. No edema. No discoloration. NEURO: Normal sensorium. No sensory or motor deficits noted. SKIN: No rash or jaundice noted. Santosh Anderson MD Past Med/Surg History Medical History Common bile duct (CBD) stricture Encounter for pre-operative examination Tobacco use disorder Chronic respiratory failure Hyponatremia Chronic diastolic heart failure History of pulmonary embolism Palliative care by specialist Macular degeneration Metastatic lung cancer (metastasis from lung to other site) Biopsy on 02/09/23 Deviated nasal septum Chronic rhinitis Depression Elevated serum homocysteine level Peripheral vascular disease Spinal stenosis of lumbar region without neurogenic claudication Hypertriglyceridemia hx Pulmonary embolism Right lung x3, currently on eliquis DVT (deep venous thrombosis) LLE x1 (entire length of leg), no known etiology COPD (chronic obstructive pulmonary disease) Surgical History Port-A-Cath in place (03/16/23) Left Subclavian Access Port Placement, Biopsy of Left Supraclavicular Node(Left) - Sanjay May MD, FACS Adverse reaction to anesthetic agent "Hard time to get air in or out" History of tonsillectomy and adenoidectomy Hx laparoscopic cholecystectomy Family History Mother , 74yo Stroke Heart disease "Had a bad heart" Father , 89yo Cancer "Bone cancer" COPD (chronic obstructive pulmonary disease) Stroke Hypertension Brother Brain tumor Pt uncertain if it was cancer; Diabetes Brother Cancer Son Medical history unknown Son Medical history unknown Daughter No problems noted. 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 How many Children do You have: 4 Feels Safe at Home: Yes Diet: regular caffeine: No during the past year weight has: decreased > 10 lbs Assistive Devices: Denture - Upper, Denture - Lower and Glasses Allergies Allergies Allergy/AdvReac Type Severity Reaction Status Date / Time levofloxacin Allergy Intermediate Nausea Verified 07/23/23 13:33 Home Meds Home Medications Medication Instructions Recorded Confirmed azelastine 137 mcg (0.1 %) nasal 1 spray intranasal BID PRN Nasal 02/12/20 07/23/23 spray aerosol Congestion fluticasone 500 mcg-salmeterol 50 1 inh inhalation BID 02/12/20 07/23/23 mcg/dose blistr powdr for inhalation (Advair Diskus) montelukast 10 mg tablet 10 mg PO QAM PRN Allergy Symptoms 02/12/20 07/23/23 (Singulair) tiotropium bromide 18 mcg capsule 1 cap inhalation QAM 02/12/20 07/23/23 with inhalation device (Spiriva with HandiHaler) acetaminophen 325 mg capsule 650 mg PO Q4H PRN Pain 03/10/23 07/23/23 (Tylenol) albuterol sulfate 2.5 mg/3 mL 2.5 mg inhalation Q4H PRN 03/10/23 07/23/23 (0.083 %) solution for nebulization Shortness Of Breath Or Wheezing albuterol sulfate 90 mcg/actuation 2 puff inhalation Q4H PRN 03/10/23 07/23/23 aerosol inhaler Shortness Of Breath Or Wheezing cholecalciferol (vitamin D3) 25 50 mcg PO DAILY 03/10/23 07/23/23 mcg (1,000 unit) capsule furosemide 40 mg tablet (Lasix) 40 mg PO DAILY PRN swelling 03/10/23 07/23/23 mecobalamin (vitamin B12) 500 mcg 500 mcg PO DAILY 03/10/23 07/23/23 chewable tablet mometasone 50 mcg/actuation nasal 2 spray intranasal BID PRN Nasal 03/10/23 07/23/23 spray (Nasonex 24hr Allergy) Congestion omeprazole 40 mg capsule,delayed 40 mg PO DAILY PRN gerd 03/10/23 07/23/23 release vitamins A,C,U-tcpz-pwzbqe 4,296 1 cap PO DAILY 03/10/23 07/23/23 mcg-226 mg-90 mg capsule (PreserVision AREDS) apixaban 5 mg tablet (Eliquis) 5 mg PO BID 03/15/23 07/23/23 omega-3s 350 ot-cmn-lqt-other 1 cap PO DAILY 07/08/23 07/23/23 [id number] oil 600 mg capsule (Fish Oil) L.acidop,casei,lactis,rham-B.lact,marielle 2 cap PO BID 07/23/23 07/23/23 625 mg (10 billion cell) capsule (Advanced Probiotic) dronabinol 5 mg capsule 5 mg PO BID17 07/23/23 07/23/23 nicotine 14 mg/24 hr daily 1 patch transdermal DAILY PRN Only 07/23/23 07/23/23 transdermal patch when admitted in hospital Previous Rx's Medication Instructions Recorded folic acid 1 mg tablet 1 mg PO QAM #30 tabs 02/13/20 docusate sodium 100 mg capsule 100 mg PO BID PRN Constipation 05/11/23 #60 caps magnesium oxide 400 mg (241.3 mg 400 mg PO QAM #30 tabs 05/11/23 magnesium) tablet ondansetron HCl 4 mg tablet 8 mg (2 x 4 mg) PO Q8H PRN Nausea 06/30/23 1 month #90 tabs prochlorperazine maleate 10 mg 10 mg PO Q8H PRN nausea and 06/30/23 tablet (Compazine) vomiting 1 month #90 tabs sodium chloride 1,000 mg soluble 1,000 mg PO BID #1 tab 07/11/23 tablet Results & Data (ED) Vital Signs Vital Signs - 24 hr 07/23/23 11:14 07/23/23 11:14 07/23/23 11:17 Temperature 36.3 C L Temperature Source Temporal Artery Scan Pulse Rate 122 H Pulse Rate [Apical] Pulse Rate from SpO2 Sensor Respiratory Rate 22 Respiratory Effort / Characteristics Non-Labored Spontaneous Respiratory Depth Normal Respiratory Pattern Regular Blood Pressure Blood Pressure [Right Arm] Blood Pressure Mean Blood Pressure Mean [Right Arm] Pulse Oximetry 96 96 98 Oxygen Delivery Method Nasal Cannula Nasal Cannula Room Air Oxygen Flow Rate 2 2 Sepsis Recent Fever Within 48 Hours No Sepsis New/Unexplained Change in Mental Status N/A Sepsis Action Taken by Nursing No Action Required 07/23/23 12:12 07/23/23 12:30 07/23/23 13:00 Temperature Temperature Source Pulse Rate 104 H 102 H 99 H Pulse Rate [Apical] Pulse Rate from SpO2 Sensor 101 H 92 H Respiratory Rate 32 H 24 Respiratory Effort / Characteristics Respiratory Depth Respiratory Pattern Blood Pressure 119/75 120/79 Blood Pressure [Right Arm] Blood Pressure Mean 89 92 Blood Pressure Mean [Right Arm] Pulse Oximetry 98 100 Oxygen Delivery Method Oxygen Flow Rate Sepsis Recent Fever Within 48 Hours Sepsis New/Unexplained Change in Mental Status Sepsis Action Taken by Nursing 07/23/23 13:30 07/23/23 14:00 07/23/23 14:30 Temperature Temperature Source Pulse Rate 101 H 98 H 99 H Pulse Rate [Apical] Pulse Rate from SpO2 Sensor 100 H 98 H 98 H Respiratory Rate 28 H 27 H 19 Respiratory Effort / Characteristics Respiratory Depth Respiratory Pattern Blood Pressure 123/71 119/81 114/77 Blood Pressure [Right Arm] Blood Pressure Mean 88 93 89 Blood Pressure Mean [Right Arm] Pulse Oximetry 93 96 92 Oxygen Delivery Method Oxygen Flow Rate Sepsis Recent Fever Within 48 Hours Sepsis New/Unexplained Change in Mental Status Sepsis Action Taken by Nursing 07/23/23 15:00 07/23/23 15:30 07/23/23 16:11 Temperature Temperature Source Pulse Rate 95 H 100 H 103 H Pulse Rate [Apical] Pulse Rate from SpO2 Sensor 94 H 101 H Respiratory Rate 28 H 28 H Respiratory Effort / Characteristics Respiratory Depth Respiratory Pattern Blood Pressure 119/78 121/83 Blood Pressure [Right Arm] Blood Pressure Mean 91 95 Blood Pressure Mean [Right Arm] Pulse Oximetry 93 95 Oxygen Delivery Method Nasal Cannula Nasal Cannula Oxygen Flow Rate 2 2 Sepsis Recent Fever Within 48 Hours Sepsis New/Unexplained Change in Mental Status Sepsis Action Taken by Nursing 07/23/23 17:00 Temperature Temperature Source Pulse Rate Pulse Rate [Apical] 103 H Pulse Rate from SpO2 Sensor Respiratory Rate Respiratory Effort / Characteristics Respiratory Depth Respiratory Pattern Blood Pressure Blood Pressure [Right Arm] 122/84 Blood Pressure Mean Blood Pressure Mean [Right Arm] 96 Pulse Oximetry 93 Oxygen Delivery Method Nasal Cannula Oxygen Flow Rate 2 Sepsis Recent Fever Within 48 Hours Sepsis New/Unexplained Change in Mental Status Sepsis Action Taken by Nursing Laboratory Data Attestation: I reviewed the patient's lab results. 07/23/23 11:30 07/23/23 11:32 Lab Results 07/23/23 07/23/23 07/23/23 Range/Units 11:27 11:30 11:32 WBC 10.22 (4.8-10.8) K/ul RBC 2.56 L (4.70-6.10) M/uL Hgb 8.7 L (14.0-18.0) g/dl Hct 26.1 L (42.0-52.0) % MCV 102.0 H (80.0-100.0) fL MCH 34.0 (25.0-34.0) pg MCHC 33.3 (32.0-36.0) g/dL RDW Std Deviation 69.8 H (36.4-46.3) fL RDW Coeff of Lizandro 18.5 H (11.5-14.5) % Plt Count 153 (130-400) K/uL MPV 10.4 (9.4-12.4) fL Immature Gran % (Auto) 0.5 % Neut % (Auto) 88.8 % Lymph % (Auto) 3.7 % [place] % (Auto) 6.5 % Eos % (Auto) 0.3 % Baso % (Auto) 0.2 % Neut # (Auto) 9.08 H (1.40-6.50) K/uL Lymph # (Auto) 0.38 L (1.20-3.40) K/uL [place] # (Auto) 0.66 H (0.11-0.59) K/uL Eos # (Auto) 0.03 (0.00-0.50) K/uL Baso # (Auto) 0.02 (0.00-0.20) K/uL Immature Gran # (Auto) 0.05 (0.01-0.20) K/uL PT 13.1 H (9.0-12.0) Seconds INR 1.2 H (0.9-1.1) APTT 36 H (21-31) Seconds PTT Ratio 1.3 Sodium 129 L (136-145) mmol/L Potassium 3.3 L (3.5-5.1) mmol/L Chloride 99 (98-107) mmol/L Carbon Dioxide 24 (21-32) mmol/L Anion Gap 6 (3-11) BUN 15 (6-23) mg/dl Creatinine 1.13 (0.6-1.4) mg/dl Est Cr Clr Drug Dosing Not Reportable Est GFR ( Amer) 78.6 ml/min Est GFR (Non-Af Amer) 67.8 ml/min BUN/Creatinine Ratio 13.3 (10-20) Glucose 98 (70-99(Fasting)) mg/dl Lactate (0.4-2.0) mmol/L Calcium 8.5 L (8.6-10.3) mg/dl Magnesium 1.5 L (1.7-2.4) mg/dl Total Bilirubin 0.4 (0.2-1.0) mg/dl AST 72 H (13-39) U/L ALT 17 (7-52) U/L Alkaline Phosphatase 110 H (34-104) U/L Troponin I High Sens 14.7 (0-20) pg/ml B-Natriuretic Peptide 81 (0-100) pg/ml Total Protein 6.0 (6.0-8.3) gm/dl Albumin 2.5 L (3.4-5.0) gm/dl Globulin 3.5 (2.5-4.0) gm/dl Albumin/Globulin Ratio 0.7 L (0.9-2) Procalcitonin 0.72 H (0-0.5) ng/ml Adenovirus (PCR) Not Detected (NotDetected) B. pertussis DNA (PCR) Not Detected (NotDetected) B.parapertussis DNA PCR Not Detected (NotDetected) C. pneumoniae DNA (PCR) Not Detected (NotDetected) Coronavirus OC43 (PCR) Not Detected (NotDetected) Coronavirus HKU1 (PCR) Not Detected (NotDetected) Coronavirus 229E (PCR) Not Detected (NotDetected) SARS-CoV-2 (PCR) Not Detected (NotDetected) Coronavirus NL63 (PCR) Not Detected (NotDetected) Human Metapneumovir PCR Not Detected (NotDetected) Influenza Type A (PCR) Not Detected (NotDetected) Influenza Type B (PCR) Not Detected (NotDetected) M. pneumoniae (PCR) Not Detected (NotDetected) Parainfluenza 1 (PCR) Not Detected (NotDetected) Parainfluenza 2 (PCR) Not Detected (NotDetected) Parainfluenza 3 (PCR) Not Detected (NotDetected) Parainfluenza 4 (PCR) Not Detected (NotDetected) RSV (PCR) Not Detected (NotDetected) Entero/Rhino (PCR) Not Detected (NotDetected) 07/23/23 Range/Units 15:21 WBC (4.8-10.8) K/ul RBC (4.70-6.10) M/uL Hgb (14.0-18.0) g/dl Hct (42.0-52.0) % MCV (80.0-100.0) fL MCH (25.0-34.0) pg MCHC (32.0-36.0) g/dL RDW Std Deviation (36.4-46.3) fL RDW Coeff of Lizandro (11.5-14.5) % Plt Count (130-400) K/uL MPV (9.4-12.4) fL Immature Gran % (Auto) % Neut % (Auto) % Lymph % (Auto) % [place] % (Auto) % Eos % (Auto) % Baso % (Auto) % Neut # (Auto) (1.40-6.50) K/uL Lymph # (Auto) (1.20-3.40) K/uL [place] # (Auto) (0.11-0.59) K/uL Eos # (Auto) (0.00-0.50) K/uL Baso # (Auto) (0.00-0.20) K/uL Immature Gran # (Auto) (0.01-0.20) K/uL PT (9.0-12.0) Seconds INR (0.9-1.1) APTT (21-31) Seconds PTT Ratio Sodium (136-145) mmol/L Potassium (3.5-5.1) mmol/L Chloride (98-107) mmol/L Carbon Dioxide (21-32) mmol/L Anion Gap (3-11) BUN (6-23) mg/dl Creatinine (0.6-1.4) mg/dl Est Cr Clr Drug Dosing Est GFR ( Amer) ml/min Est GFR (Non-Af Amer) ml/min BUN/Creatinine Ratio (10-20) Glucose (70-99(Fasting)) mg/dl Lactate 1.1 (0.4-2.0) mmol/L Calcium (8.6-10.3) mg/dl Magnesium (1.7-2.4) mg/dl Total Bilirubin (0.2-1.0) mg/dl AST (13-39) U/L ALT (7-52) U/L Alkaline Phosphatase (34-104) U/L Troponin I High Sens (0-20) pg/ml B-Natriuretic Peptide (0-100) pg/ml Total Protein (6.0-8.3) gm/dl Albumin (3.4-5.0) gm/dl Globulin (2.5-4.0) gm/dl Albumin/Globulin Ratio (0.9-2) Procalcitonin (0-0.5) ng/ml Adenovirus (PCR) (NotDetected) B. pertussis DNA (PCR) (NotDetected) B.parapertussis DNA PCR (NotDetected) C. pneumoniae DNA (PCR) (NotDetected) Coronavirus OC43 (PCR) (NotDetected) Coronavirus HKU1 (PCR) (NotDetected) Coronavirus 229E (PCR) (NotDetected) SARS-CoV-2 (PCR) (NotDetected) Coronavirus NL63 (PCR) (NotDetected) Human Metapneumovir PCR (NotDetected) Influenza Type A (PCR) (NotDetected) Influenza Type B (PCR) (NotDetected) M. pneumoniae (PCR) (NotDetected) Parainfluenza 1 (PCR) (NotDetected) Parainfluenza 2 (PCR) (NotDetected) Parainfluenza 3 (PCR) (NotDetected) Parainfluenza 4 (PCR) (NotDetected) RSV (PCR) (NotDetected) Entero/Rhino (PCR) (NotDetected) Administered Medications Discontinued Medications Albuterol (Albut/Ipratrop 3mg/0.5mg Neb 3 Ml Vial) 3 ml NEB NOW STA; Protocol Stop: 07/23/23 12:01 Last Admin: 07/23/23 12:38 Dose: 3 ml Documented By: GILMA Guaifenesin (Guaifenesin 600 Mg Tabcr) 1,200 mg PO NOW STA Stop: 07/23/23 11:58 Last Admin: 07/23/23 12:38 Dose: 1,200 mg Documented By: GILMA Sodium Chloride (Nss) 1,000 mls @ 999 mls/hr IV .Q1H1M ONE Stop: 07/23/23 12:57 Last Infusion: 07/23/23 15:12 Dose: Infused Documented By: Admin: 07/23/23 12:39 Dose: 999 mls/hr Documented By: GILMA Magnesium Sulfate/Dextrose (Magnesium Sulfate / D5w) 1 gm in 100 mls @ 100 mls/hr IV Q1H SHARON Stop: 07/23/23 14:26 Last Infusion: 07/23/23 15:11 Dose: Infused Documented By: Admin: 07/23/23 13:52 Dose: 100 mls/hr Documented By: Infusion: 07/23/23 13:38 Dose: Infused Documented By: Admin: 07/23/23 12:38 Dose: 100 mls/hr Documented By: GILMA Piperacillin Sod/Tazobactam Sod (Zosyn) 4.5 gm in 100 mls @ 200 mls/hr IV NOW ONE Stop: 07/23/23 15:06 Last Infusion: 07/23/23 16:04 Dose: Infused Documented By: Admin: 07/23/23 15:34 Dose: 200 mls/hr Documented By: NEENA Doxycycline Hyclate 100 mg/ (Dextrose) 100 mls @ 50 mls/hr IV NOW STA Stop: 07/23/23 16:36 Last Infusion: 07/23/23 18:21 Dose: Infused Documented By: Admin: 07/23/23 16:20 Dose: 50 mls/hr Documented By: OSWALDO Methylprednisolone (Methylprednisolone 125 Mg/2 Ml Vial) 125 mg IV NOW STA Stop: 07/23/23 11:58 Last Admin: 07/23/23 12:38 Dose: 125 mg Documented By: GILMA Imaging Data Radiologist's Impression: Chest X-Ray 07/23/23 11:34 XR chest 1V not portable CLINICAL HISTORY: Shortness of breath. Lung cancer. COMPARISON STUDY: Chest radiograph July 08, 2023. Chest CT July 12, 2023. FINDINGS: Left subclavian Gssnyw-h-Bpdx remains in place. Small bilateral pleural effusions are unchanged. Bibasilar opacities persist. Asymmetric interstitial thickening within the left lung is unchanged. Cardiomediastinal silhouette is stable. No pneumothorax. IMPRESSION: 1. No significant change in appearance of chest. Small bilateral pleural effusions with associated bibasilar opacities. 2. Asymmetric left lung interstitial thickening suggestive of lymphangitic carcinomatosis, better depicted on prior CT. 3. No pneumothorax. ACT 112: Negative or not required by law. Electronically signed by: Acosta Tineo M.D. 07/23/2023 11:54 AM Discharge Plan Visit Data Chief Complaint: Shortness of Breath/Dyspnea Stated Complaint: TROUBLE BREATHING ED Provider: Santosh Anderson Discharge Problem: Multifocal pneumonia, COPD (chronic obstructive pulmonary disease), Metastatic primary lung cancer, Hyponatremia, Hypomagnesemia Forms Stand Alone Forms: [employer] Prescriptions Prescriptions: No Action acetaminophen [Tylenol] 325 mg capsule 650 mg PO Q4H PRN (Reason: Pain) mecobalamin (vitamin B12) 500 mcg tablet,chewable 500 mcg PO DAILY furosemide [Lasix] 40 mg tablet 40 mg PO DAILY PRN (Reason: swelling) omeprazole 40 mg capsule,delayed release(DR/EC) 40 mg PO DAILY PRN (Reason: gerd) cholecalciferol (vitamin D3) 25 mcg (1,000 unit) capsule 50 mcg PO DAILY PreserVision AREDS 4,296 mcg-226 mg-90 mg capsule 1 cap PO DAILY prochlorperazine maleate [Compazine] 10 mg tablet 10 mg PO Q8H PRN (Reason: nausea and vomiting) 30 Days Qty: 90 3RF ondansetron HCl 4 mg tablet 8 mg PO Q8H PRN (Reason: Nausea) 30 Days Qty: 90 3RF fluticasone propion-salmeterol [Advair Diskus] 500-50 mcg/dose Blister With Device 1 inh INHALATION BID montelukast [Singulair] 10 mg Tablet 10 mg PO QAM PRN (Reason: Allergy Symptoms) azelastine 137 mcg (0.1 %) Aerosol,[place] 1 spray INTRANASAL BID PRN (Reason: Nasal Congestion) tiotropium bromide [Spiriva with HandiHaler] 18 mcg Capsule, W/Inhalation Device 1 cap INHALATION QAM folic acid 1 mg Tablet 1 mg PO QAM Qty: 30 1RF albuterol sulfate 2.5 mg /3 mL (0.083 %) solution for nebulization 2.5 mg INHALATION Q4H PRN (Reason: Shortness Of Breath Or Wheezing) albuterol sulfate 90 mcg/actuation HFA aerosol inhaler 2 puff INHALATION Q4H PRN (Reason: Shortness Of Breath Or Wheezing) mometasone [Nasonex 24hr Allergy] 50 mcg/actuation spray,non-aerosol 2 spray INTRANASAL BID PRN (Reason: Nasal Congestion) Eliquis 5 mg tablet 5 mg PO BID Hold Instructions: Resume on 05/13/23. docusate sodium 100 mg Capsule 100 mg PO BID PRN (Reason: Constipation ) Qty: 60 0RF magnesium oxide 400 mg (241.3 mg magnesium) Tablet 400 mg PO QAM Qty: 30 0RF Fish Oil 350-600 mg Capsule 1 cap PO DAILY sodium chloride 1,000 mg Tablet,Soluble 1,000 mg PO BID Qty: 1 0RF Rx Instructions: Pt has the med nicotine 14 mg/24 hr patch 24 hour 1 patch transdermal DAILY PRN (Reason: Only when admitted in hospital) Advanced Probiotic 625 mg (10 billion cell) capsule 2 cap PO BID dronabinol 5 mg capsule 5 mg PO BID17 Referrals Referrals: Hali Apodaca DO [Primary Care Provider] - Discharge Problem: COPD (chronic obstructive pulmonary disease) Qualifiers: COPD type: COPD with acute lower respiratory infection Qualified Code(s): J44.0 - Chronic obstructive pulmonary disease with (acute) lower respiratory infection Metastatic primary lung cancer Qualifiers: Laterality: unspecified laterality Qualified Code(s): C34.90 - Malignant neoplasm of unspecified part of unspecified bronchus or lung
[2023-07-23 12:10] LABS: Basophils # (auto) 0.02 K/uL (0.00-0.20); Basophils % (auto) 0.2 %; Eosinophils # (auto) 0.03 K/uL (0.00-0.50); Eosinophils % (auto) 0.3 %; Hematocrit (blood only) 26.1 % (42.0-52.0); Hemoglobin 8.7 g/dl (14.0-18.0); Immature Granulocytes # (auto) 0.05 K/uL (0.01-0.20); Immature Granulocytes % (auto) 0.5 %; Lymphocytes # (auto) 0.38 K/uL (1.20-3.40); Lymphocytes % (auto) 3.7 %; Mean Corpuscular Hgb Conc 33.3 g/dL (32.0-36.0); Mean Platelet Volume 10.4 fL (9.4-12.4); Monocytes # (auto) 0.66 K/uL (0.11-0.59); Monocytes % (auto) 6.5 %; Neutrophils # (auto) 9.08 K/uL (1.40-6.50); Neutrophils % (auto) 88.8 %; Platelet Count 153 K/uL (130-400); RDW Coefficient of Variation 18.5 % (11.5-14.5); RDW Standard Deviation 69.8 fL (36.4-46.3); Red Blood Count 2.56 M/uL (4.70-6.10); White Blood Count 10.22 K/ul (4.8-10.8)
[2023-07-23 12:19] LABS: Alanine Aminotransferase 17 U/L (7-52); Albumin Globulin Ratio 0.7 (0.9-2); Albumin Level 2.5 gm/dl (3.4-5.0); Alkaline Phosphatase 110 U/L (34-104); Anion Gap 6 (3-11); Aspartate Aminotransferase 72 U/L (13-39); BUN Creatinine Ratio 13.3 (10-20); Bilirubin,Total 0.4 mg/dl (0.2-1.0); Blood Urea Nitrogen 15 mg/dl (6-23); Calcium 8.5 mg/dl (8.6-10.3); Carbon Dioxide 24 mmol/L (21-32); Chloride 99 mmol/L (98-107); Est GFR (African American) 78.6 ml/min; Est GFR (Non-African American) 67.8 ml/min; Globulin 3.5 gm/dl (2.5-4.0); Glucose 98 mg/dl (70-99(Fasting)); Magnesium 1.5 mg/dl (1.7-2.4); Potassium 3.3 mmol/L (3.5-5.1); Sodium 129 mmol/L (136-145)
[2023-07-23 12:26] LABS: Troponin I High Sensitivity 14.7 pg/ml (0-20)
[2023-07-23 12:31] LABS: INR 1.2 (0.9-1.1); Partial Thromboplastin Ratio 1.3; Partial Thromboplastin Time 36 Seconds (21-31); Prothrombin Time 13.1 Seconds (9.0-12.0)
[2023-07-23] MEDS: MAGNESIUM SULFATE / D5W 1 GM/100 ML BAG IV SCH (12:38)
[2023-07-23] MEDS: guaiFENesin 600 MG TABCR PO STA (12:38)
[2023-07-23] MEDS: methylPREDNISolone 125 MG/2 ML VIAL IV STA (12:38)
[2023-07-23] MEDS: ALBUT/IPRATROP 3MG/0.5MG NEB 3 ML VIAL NEB STA (12:38)
[2023-07-23 12:39] LABS: Adenovirus PCR Not Detected (NotDetected); Bordetella parapertussis PCR Not Detected (NotDetected); Bordetella pertussis PCR Not Detected (NotDetected); Chlamydia pneumoniae PCR Not Detected (NotDetected); Coronavirus 229E PCR Not Detected (NotDetected); Coronavirus CoV-2 (COVID19)PCR Not Detected (NotDetected); Coronavirus HKU1 PCR Not Detected (NotDetected); Coronavirus NL63 PCR Not Detected (NotDetected); Coronavirus OC43PCR Not Detected (NotDetected); Human Metapneumovirus PCR Not Detected (NotDetected); Influenza A PCR Not Detected (NotDetected); Influenza B PCR Not Detected (NotDetected); Mycoplasma pneumoniae PCR Not Detected (NotDetected); Parainfluenza Virus 1 PCR Not Detected (NotDetected); Parainfluenza Virus 2 PCR Not Detected (NotDetected); Parainfluenza Virus 3 PCR Not Detected (NotDetected); Parainfluenza Virus 4 PCR Not Detected (NotDetected); Respiratory Syncytial VirusPCR Not Detected (NotDetected); Rhinovirus/Enterovirus PCR Not Detected (NotDetected)
[2023-07-23] MEDS: SODIUM CHLORIDE 0.9% 1,000 ML IV ONE (12:39)
[2023-07-23] MEDS: PIPERACILLIN/TAZOBACTAM 4.5 GM/100 ML BAG IV ONE (15:34)
[2023-07-23] MEDS: DOXYCYCLINE HYCLATE 100 MG in DEXTROSE 5% MINI-B 100 ML IV STA (16:20)
--- NOTE | 2023-07-23 16:22 | History & Physical Report ---
Date of Service July 23, 2023 Assessment & Plan (1) Multifocal pneumonia: Plan: Recently admitted and treated with full course of abx. No clear resolution of pnuemonia and he became more symptomatic once he completed abx, now requiring oxygen and symptomatic. Known metastatic lung cancer, h/o COPD and ongoing smoking. He feels aspiration is low risk but will consult speech to evaluate. Will consult pulm in case of post-obstructive pneumonia and to assist with care regimen. He does not clinically appears septic. Cont Zosyn/Doxy for now and supportive care for cough as needed. (2) Malnutrition: Plan: severe weight loss related to malignancy. Patient is on vitamin supplementation but admits to continued low appetite. He was started on MArinol yesterday by his oncologist, cont this now. Appreciate nutrition assessment. (3) Metastatic lung cancer (metastasis from lung to other site): Plan: Ongoing care by Dr. Kamara from [facility]-records unavailable. Cont immunotherapy and hold any chemotherapy plans for this week pending re-evaluation by oncology with present infection. Per record review, patient and did meet with palliative care provider and discussed goals of care on 07/19. (4) Hypomagnesemia: Plan: replaced in the ER, repeat in am. May be related to poor nutrition and poor PO intake. (5) Transaminitis: Plan: mildly elevated, may be related to h/o obstructive jaundice from biliary stricture that was treated in May 2023 with sphincterotomy and CBD metal stent placement. May be from immunotherapy or other drug side effect. Normal bilirubin and there is no abdominal pain. Trend liver enzymes in am. (6) Tobacco use disorder: Plan: ongoing smoking, contemplative phase. Nicoderm patch provided. 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 With his low albumin and clinical histroy of weight loss and poor PO intake, his nutritional status is compromised, also and contributes here. He was started on salt tabs BID with placed on a 1.5L fluid restriction , toward which protein shakes don't count. Lasix was also preferred, however, not started last admission given his poor PO intake and rapid weight loss out of concern for hypotension/TITI etc. Cont salt tabs and fluid restriction. (8) Anemia: Plan: low H/H and chronic, likely related to chronic disease. Trend CBC in am. DVT proph: apixaban (h/o recurrent PE) Full Code per my discussion with the patient and his on admission. 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 He denies fevers but reports cough is productive of yellow phlegm. He has no consistent blood with coughing but did notice scant blood at one time. This is not present now. He typically ambulates independently at baseline. He reports a poor appetite and a total weight loss of approximately 75 pounds since diagnosis with cancer (255lb-->180lb now). He recently started Marinol yesterday. He receives his cancer therapy through Dr. Kamara with [facility]. is at bedside and assists with history. He has completed radiation therapy and she reports he is about to start chemotherapy in the next couple of weeks as the plan for her cancer treatment. The patient was admitted for multifocal pneumonia on 07/08/2023 and discharged on 07/11/2023 with 7-day course of antibiotics. He completed these (cefdinir and doxycycline) and had a follow-up with his primary care doctor, Dr. Sanabria on 07/17/2023. He underwent a chest x-ray at that time revealing bilateral pleural effusions and bibasilar basilar atelectasis with left lung opacities with findings concerning for pneumonia. During that encounter he was already reporting having increased shortness of breath. He passed a exercise respi ratory test in the office but oxygen for home was ordered. Low threshold to return to ER was advised. Allergies Allergy/AdvReac Type Severity Reaction Status Date / Time levofloxacin Allergy Intermediate Nausea Verified 07/23/23 13:33 Home Medications Medication Instructions Recorded Confirmed Type azelastine 137 mcg (0.1 %) nasal 1 spray intranasal BID PRN Nasal 02/12/20 07/23/23 History spray aerosol Congestion fluticasone 500 mcg-salmeterol 50 1 inh inhalation BID 02/12/20 07/23/23 History mcg/dose blistr powdr for inhalation (Advair Diskus) montelukast 10 mg tablet 10 mg PO QAM PRN Allergy Symptoms 02/12/20 07/23/23 History (Singulair) tiotropium bromide 18 mcg capsule 1 cap inhalation QAM 02/12/20 07/23/23 History with inhalation device (Spiriva with HandiHaler) folic acid 1 mg tablet 1 mg PO QAM #30 tabs 02/13/20 07/23/23 Rx acetaminophen 325 mg capsule 650 mg PO Q4H PRN Pain 03/10/23 07/23/23 History (Tylenol) albuterol sulfate 2.5 mg/3 mL 2.5 mg inhalation Q4H PRN 03/10/23 07/23/23 History (0.083 %) solution for nebulization Shortness Of Breath Or Wheezing albuterol sulfate 90 mcg/actuation 2 puff inhalation Q4H PRN 03/10/23 07/23/23 History aerosol inhaler Shortness Of Breath Or Wheezing cholecalciferol (vitamin D3) 25 50 mcg PO DAILY 03/10/23 07/23/23 History mcg (1,000 unit) capsule furosemide 40 mg tablet (Lasix) 40 mg PO DAILY PRN swelling 03/10/23 07/23/23 H istory mecobalamin (vitamin B12) 500 mcg 500 mcg PO DAILY 03/10/23 07/23/23 History chewable tablet mometasone 50 mcg/actuation nasal 2 spray intranasal BID PRN Nasal 03/10/23 07/23/23 History spray (Nasonex 24hr Allergy) Congestion omeprazole 40 mg capsule,delayed 40 mg PO DAILY PRN gerd 03/10/23 07/23/23 History release vitamins A,C,I-nneh-lybdrv 4,296 1 cap PO DAILY 03/10/23 07/23/23 History mcg-226 mg-90 mg capsule (PreserVision AREDS) apixaban 5 mg tablet (Eliquis) 5 mg PO BID 03/15/23 07/23/23 History docusate sodium 100 mg capsule 100 mg PO BID PRN Constipation 05/11/23 07/23/23 Rx #60 caps magnesium oxide 400 mg (241.3 mg 400 mg PO QAM #30 tabs 05/11/23 07/23/23 Rx magnesium) tablet ondansetron HCl 4 mg tablet 8 mg (2 x 4 mg) PO Q8H PRN Nausea 06/30/23 07/23/23 Rx 1 month #90 tabs prochlorperazine maleate 10 mg 10 mg PO Q8H PRN nausea and 06/30/23 07/23/23 Rx tablet (Compazine) vomiting 1 month #90 tabs omega-3s 350 qh-avc-nao-other 1 cap PO DAILY 07/08/23 07/23/23 History fwrcb4v-wnoy oil 600 mg capsule (Fish Oil) sodium chloride 1,000 mg soluble 1,000 mg PO BID #1 tab 07/11/23 07/23/23 Rx tablet L.acidop,casei,lactis,rham-B.lact,marielle 2 cap PO BID 07/23/23 07/23/23 History 625 mg (10 billion cell) capsule (Advanced Probiotic) dronabinol 5 mg capsule 5 mg PO BID17 07/23/23 07/23/23 History nicotine 14 mg/24 hr daily 1 patch transdermal DAILY PRN Only 07/23/23 07/23/23 History transdermal patch when admitted in hospital Past Med/Surg History Medical History Common bile duct (CBD) stricture Encounter for pre-operative examination Tobacco use disorder Chronic respiratory failure Hyponatremia Chronic diastolic heart failure History of pulmonary embolism Palliative care by specialist Macular degeneration Metastatic lung cancer (metastasis from lung to other site) Biopsy on 02/09/23 Deviated nasal septum Chronic rhinitis Depression Elevated serum homocysteine level Peripheral vascular disease Spinal stenosis of lumbar region without neurogenic claudication Hypertriglyceridemia hx Pulmonary embolism Right lung x3, currently on eliquis DVT (deep venous thrombosis) LLE x1 (entire length of leg), no known etiology COPD (chronic obstructive pulmonary disease) Surgical History Port-A-Cath in place (03/16/23) Left Subclavian Access Port Placement, Biopsy of Left Supraclavicular Node(Left) - Sanjay May MD, FACS Adverse reaction to anesthetic agent "Hard time to get air in or out" History of tonsillectomy and adenoidectomy Hx laparoscopic cholecystectomy Family History Mother , 74yo Stroke Heart disease "Had a bad heart" Father , 89yo Cancer "Bone cancer" COPD (chronic obstructive pulmonary disease) Stroke Hypertension Brother Brain tumor Pt uncertain if it was cancer; Diabetes Brother Cancer Son Medical history unknown Son Medical history unknown Daughter No problems noted. 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 How many Children do You have: 4 Feels Safe at Home: Yes Diet: regular caffeine: No during the past year weight has: decreased > 10 lbs Assistive Devices: Denture - Upper, Denture - Lower and Glasses Physical Exam Physical Exam: CONSTITUTIONAL: thin cachectic, vitals as above, generally well-appearing, NAD EYES: normal conjunctivae, no scleral icterus ENT: external ear and nose normal,MMM NECK: trachea midline RESPIRATORY: clear to auscultation bilaterally, no crackles, rales or wheezes, normal respiratory effort CARDIOVASCULAR: regular rate and rhythm, S1 and 2 heard without murmurs, gallops or rubs, no JVD, no peripheral edema CHEST: inspection of chest was normal GASTROINTESTINAL: soft, nontender, no guarding MUSCULOSKELETAL: strength 5/5 throughout, head is normocephalic and atraumatic SKIN: warm and dry NEUROLOGIC: No facial palsy, no dysarthria. CN 2-12 grossly intact, no sensory deficit, normal cognition, normal speech, no tremor PSYCHIATRIC: alert cooperative and oriented to person, place and time. Euthymic mood, makes good eye contact, language grossly intact, recent and remote memory grossly intact. Results & Data Results & Data Vital Signs (Past 12 Hours) Vital Signs Temp Pulse Resp BP Pulse Ox O2 Del Method O2 Flow Rate 07/23/23 16:11 103 H 07/23/23 15:30 100 H 28 H 121/83 95 Nasal Cannula 2 07/23/23 15:00 95 H 28 H 119/78 93 Nasal Cannula 2 07/23/23 14:30 99 H 19 114/77 92 07/23/23 14:00 98 H 27 H 119/81 96 07/23/23 13:30 101 H 28 H 123/71 93 07/23/23 13:00 99 H 24 120/79 100 07/23/23 12:30 102 H 32 H 119/75 98 07/23/23 12:12 104 H 07/23/23 11:17 98 Room Air 07/23/23 11:14 96 Nasal Cannula 2 07/23/23 11:14 36.3 C L 122 H 22 96 Nasal Cannula 2 Laboratory Results Short CBC 07/23/23 Range/Units 11:30 WBC 10.22 (4.8-10.8) K/ul Hgb 8.7 L (14.0-18.0) g/dl Hct 26.1 L (42.0-52.0) % Plt Count 153 (130-400) K/uL BMP 07/23/23 11:32 Sodium 129 L Potassium 3.3 L Chloride 99 Carbon Dioxide 24 BUN 15 Creatinine 1.13 Glucose 98 Calcium 8.5 L Liver Function 07/23/23 Range/Units 11:32 Total Bilirubin 0.4 (0.2-1.0) mg/dl AST 72 H (13-39) U/L ALT 17 (7-52) U/L Alkaline Phosphatase 110 H (34-104) U/L Albumin 2.5 L (3.4-5.0) gm/dl Diagnostic Findings Chest X-Ray 07/23/23 11:34 XR chest 1V not portable CLINICAL HISTORY: Shortness of breath. Lung cancer. COMPARISON STUDY: Chest radiograph July 08, 2023. Chest CT July 12, 2023. FINDINGS: Left subclavian Zlgzqu-e-Mltx remains in place. Small bilateral pleural effusions are unchanged. Bibasilar opacities persist. Asymmetric interstitial thickening within the left lung is unchanged. Cardiomediastinal silhouette is stable. No pneumothorax. IMPRESSION: 1. No significant change in appearance of chest. Small bilateral pleural effusions with associated bibasilar opacities. 2. Asymmetric left lung interstitial thickening suggestive of lymphangitic carcinomatosis, better depicted on prior CT. 3. No pneumothorax. ACT 112: Negative or not required by law. Electronically signed by: Acosta Tineo M.D. 07/23/2023 11:54 AM (2) Malnutrition Malnutrition type: protein-calorie malnutrition Protein-calorie malnutrition severity: severe Qualified Code(s): E43 - Unspecified severe protein-calorie malnutrition (3) Metastatic lung cancer (metastasis from lung to other site) Laterality: unspecified laterality Qualified Code(s): C34.90 - Malignant neoplasm of unspecified part of unspecified bronchus or lung
--- NOTE | 2023-07-23 18:29 | Pulmonary Consultation ---
Date of Consultation July 23, 2023 Assessment & Plan (1) Metastatic primary lung cancer: Laterality: unspecified laterality Qualified Code(s): C34.90 - Malignant neoplasm of unspecified part of unspecified bronchus or lung (2) COPD (chronic obstructive pulmonary disease): COPD type: COPD with acute lower respiratory infection Qualified Code(s): J44.0 - Chronic obstructive pulmonary disease with (acute) lower respiratory infection (3) Multifocal pneumonia: (4) Pleural effusion: Plan CT chest 07/12/2023 personally reviewed: Centrilobular and paraseptal emphysema appreciated bilaterally Interlobular thickening on the left side Bilateral pleural effusion L>R Positive mediastinal lymphadenopathy --Acute hypoxic respiratory failure Multifactorial Bilateral pleural effusion Questionable pneumonia Respiratory bio fire negative for everything on 07/23/2023 Procalcitonin 0.72 --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 It may contain grammatical, syntax or spelling errors.Any formal questions or concerns about the content, text or information contained within the body of this dictation should be directly addressed to the provider for clarification. History of Present Illness History of Present Illness 63-year-old male present to the hospital with complaints of worsening shortness of breath Past medical history: Metastatic lung cancer on chemotherapy, COPD nocturnal hypoxia Pulmonary consulted for recurrent pneumonia At the time of examination patient was saturating 96-97% on 2 L nasal cannula. Not in any respiratory distress He is usually on oxygen only at night. He says that he has been having issues with breathing which has been going for a while. He was recently treated with antibiotics but he still bringing up phlegm which is mostly yellow to green in color. Denies any hemoptysis No chest pain. He has been urinating well. Denies any headache or blurry vision No dysuria, no diarrhea. No nausea or vomiting Social history:> [id number] smoking history, currently smoking 7 cigarettes a day. 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 No family history of lung cancer Allergies Allergy/AdvReac Type Severity Reaction Status Date / Time levofloxacin Allergy Intermediate Nausea Verified 07/23/23 13:33 Home Medications Medication Instructions Recorded Confirmed Type azelastine 137 mcg (0.1 %) nasal 1 spray intranasal BID PRN Nasal 02/12/20 07/23/23 History spray aerosol Congestion fluticasone 500 mcg-salmeterol 50 1 inh inhalation BID 02/12/20 07/23/23 History mcg/dose blistr powdr for inhalation (Advair Diskus) montelukast 10 mg tablet 10 mg PO QAM PRN Allergy Symptoms 02/12/20 07/23/23 History (Singulair) tiotropium bromide 18 mcg capsule 1 cap inhalation QAM 02/12/20 07/23/23 History with inhalation device (Spiriva with HandiHaler) folic acid 1 mg tablet 1 mg PO QAM #30 tabs 02/13/20 07/23/23 Rx acetaminophen 325 mg capsule 650 mg PO Q4H PRN Pain 03/10/23 07/23/23 History (Tylenol) albuterol sulfate 2.5 mg/3 mL 2.5 mg inhalation Q4H PRN 03/10/23 07/23/23 History (0.083 %) solution for nebulization Shortness Of Breath Or Wheezing albuterol sulfate 90 mcg/actuation 2 puff inhalation Q4H PRN 03/10/23 07/23/23 History aerosol inhaler Shortness Of Breath Or Wheezing cholecalciferol (vitamin D3) 25 50 mcg PO DAILY 03/10/23 07/23/23 History mcg (1,000 unit) capsule furosemide 40 mg tablet (Lasix) 40 mg PO DAILY PRN swelling 03/10/23 07/23/23 History mecobalamin (vitamin B12) 500 mcg 500 mcg PO DAILY 03/10/23 07/23/23 History chewable tablet mometasone 50 mcg/actuation nasal 2 spray intranasal BID PRN Nasal 03/10/23 07/23/23 History spray (Nasonex 24hr Allergy) Congestion omeprazole 40 mg capsule,delayed 40 mg PO DAILY PRN gerd 03/10/23 07/23/23 H istory release vitamins A,C,E-rkan-ebqtut 4,296 1 cap PO DAILY 03/10/23 07/23/23 History mcg-226 mg-90 mg capsule (PreserVision AREDS) apixaban 5 mg tablet (Eliquis) 5 mg PO BID 03/15/23 07/23/23 History docusate sodium 100 mg capsule 100 mg PO BID PRN Constipation 05/11/23 07/23/23 Rx #60 caps magnesium oxide 400 mg (241.3 mg 400 mg PO QAM #30 tabs 05/11/23 07/23/23 Rx magnesium) tablet ondansetron HCl 4 mg tablet 8 mg (2 x 4 mg) PO Q8H PRN Nausea 06/30/23 07/23/23 Rx 1 month #90 tabs prochlorperazine maleate 10 mg 10 mg PO Q8H PRN nausea and 06/30/23 07/23/23 Rx tablet (Compazine) vomiting 1 month #90 tabs omega-3s 350 em-otc-vij-other 1 cap PO DAILY 07/08/23 07/23/23 History jbifm9v-qkyz oil 600 mg capsule (Fish Oil) sodium chloride 1,000 mg soluble 1,000 mg PO BID #1 tab 07/11/23 07/23/23 Rx tablet L.acidop,casei,lactis,rham-B.lact,marielle 2 cap PO BID 07/23/23 07/23/23 History 625 mg (10 billion cell) capsule (Advanced Probiotic) dronabinol 5 mg capsule 5 mg PO BID17 07/23/23 07/23/23 History nicotine 14 mg/24 hr daily 1 patch transdermal DAILY PRN Only 07/23/23 07/23/23 History transdermal patch when admitted in hospital Patient History Medical History Common bile duct (CBD) stricture Encounter for pre-operative examination Tobacco use disorder Chronic respiratory failure Hyponatremia Chronic diastolic heart failure History of pulmonary embolism Palliative care by specialist Macular degeneration Metastatic lung cancer (metastasis from lung to other site) Biopsy on 02/09/23 Deviated nasal septum Chronic rhinitis Depression Elevated serum homocysteine level Peripheral vascular disease Spinal stenosis of lumbar region without neurogenic claudication Hypertriglyceridemia hx Pulmonary embolism Right lung x3, currently on eliquis DVT (deep venous thrombosis) LLE x1 (entire length of leg), no known etiology COPD (chronic obstructive pulmonary disease) Surgical History Port-A-Cath in place (03/16/23) Left Subclavian Access Port Placement, Biopsy of Left Supraclavicular Node(Left) - Sanjay May MD, FACS Adverse reaction to anesthetic agent "Hard time to get air in or out" History of tonsillectomy and adenoidectomy Hx laparoscopic cholecystectomy Family History Mother , 74yo Stroke Heart disease "Had a bad heart" Father , 89yo Cancer "Bone cancer" COPD (chronic obstructive pulmonary disease) Stroke Hypertension Brother Brain tumor Pt uncertain if it was cancer; Diabetes Brother Cancer Son Medical history unknown Son Medical history unknown Daughter No problems noted. Daughter Medical history unknown Social History Smoking Status: Current every day smoker Tobacco Type: Cigarettes Cigarettes Per Day: 7; Second Hand Exposure: No; Do You Dip or Chew Tobacco: No; Tobacco Cessation Education Requested by Patient: No Hx Alcohol Use: No Hx Substance Use: No Preferred Language: Wolof Communication Ability: Effective Visual Impairment: No Limitations Hearing Ability: Normal Nurse Administrator Required: No Beliefs That Will Affect Care: None marital status: Current Living Situation: Spouse Current Living Situation Comment: with , Adeola current occupational status: retired current occupation: [employer] How many Children do You have: 4 Other Information That Helps Us Care for You: No Feels Safe at Home: Yes Safety Concerns: Feels Safe At This Time Diet: regular caffeine: No during the past year weight has: decreased > 10 lbs Assistive Devices: Oxygen - at Night Review of Systems Review of Systems: All systems reviewed & are unremarkable except as noted in HPI & below Physical Exam Physical Exam: Constitutional: No acute distress HEENT: EOMI, PERRLA Respiratory system: Decreased air entry bilaterally, no wheeze, no rhonchi, positive crackles bilaterally CVS: S1-S2 positive, no murmurs or gallops Abdomen: Soft, nontender, nondistended, positive bowel sounds x4 Extremities: +2 pulses bilaterally radialis/ dorsalis pedis, no cyanosis, +2 pitting edema bilateral lower extremity Neuro: Awake alert oriented x3 Psych: Normal mood and affect G/U: No Bautista Skin: no rashes, warm and dry Lymphatic: no cervical or axillary lymphadenopathy Results & Data Results & Data Vital Signs (Past 12 Hours) Vital Signs Temp Pulse Pulse Resp BP BP Pulse Ox 07/23/23 17:00 103 H 122/84 93 07/23/23 16:11 103 H 07/23/23 15:30 100 H 28 H 121/83 95 07/23/23 15:00 95 H 28 H 119/78 93 07/23/23 14:30 99 H 19 114/77 92 07/23/23 14:00 98 H 27 H 119/81 96 07/23/23 13:30 101 H 28 H 123/71 93 07/23/23 13:00 99 H 24 120/79 100 07/23/23 12:30 102 H 32 H 119/75 98 07/23/23 12:12 104 H 07/23/23 11:17 98 07/23/23 11:14 96 07/23/23 11:14 36.3 C L 122 H 22 96 O2 Del Method O2 Flow Rate 07/23/23 17:00 Nasal Cannula 2 07/23/23 16:11 07/23/23 15:30 Nasal Cannula 2 07/23/23 15:00 Nasal Cannula 2 07/23/23 14:30 07/23/23 14:00 07/23/23 13:30 07/23/23 13:00 07/23/23 12:30 07/23/23 12:12 07/23/23 11:17 Room Air 07/23/23 11:14 Nasal Cannula 2 07/23/23 11:14 Nasal Cannula 2 PG Care Time/CCT Total # of Minutes Spent Total Time Spent with Patient: Total time spent is greater than 50% in coordination of care (as documented) at patient's floor/unit and/or counseling patient: Coding Level of Care Code 53671 INT INP/OBS CARE 375MIN Diagnoses Metastatic primary lung cancer C34.90 Laterality: unspecified laterality COPD (chronic obstructive pulmonary disease) J44.0 COPD type: COPD with acute lower respiratory infection Multifocal pneumonia J18.9 Pleural effusion J90
[2023-07-23] MEDS: POTASSIUM CHLORIDE CRTAB 20 MEQ TABCR PO STA (19:32)
[2023-07-23] MEDS ORDERED: POLYETHYLENE (MIRALAX) 17 GM PACK PO PRN (21:46)
[2023-07-23] MEDS ORDERED: ALUMINUM/MAGNESIUM SUSP 30 ML UDC PO PRN (21:46)
[2023-07-23] MEDS ORDERED: DOCUSATE SODIUM 100 MG CAP PO PRN (21:46)
[2023-07-23] MEDS ORDERED: NICOTINE 14 MG/24 HR PATCH TD PRN (21:46)
[2023-07-23] MEDS: ADVANCED PROBIOTIC 1250 MG CAPSULE PO SCH (22:25)
[2023-07-23] MEDS: NICOTINE 14 MG/24 HR PATCH TD PRN (22:25)
[2023-07-23] MEDS: APIXABAN 5 MG TABLET PO SCH (22:26)
[2023-07-23] MEDS: SODIUM CHLORIDE 1 GM TABLET PO SCH (22:26)
[2023-07-23] MEDS: PIPERACILLIN/TAZOBACTAM 4.5 GM in DEXTROSE 5% MINI-B 100 ML IV SCH (22:27)
[2023-07-23] MEDS: droNABinol 2.5 MG CAP PO SCH (22:42)
[2023-07-23] MEDS: BUDESONIDE 0.25 MG/2 ML VIAL (PULMICORT) NEB SCH (22:49)
[2023-07-23] MEDS: FORMOTEROL 20 MCG/2 ML VIAL INH SCH (22:49)
[2023-07-24] MEDS: ZOLPIDEM TARTRATE 5 MG TAB PO STA (03:46)
--- NOTE | 2023-07-24 06:58 | Electrocardiogram Report ---
Test Reason : Blood Pressure : / mmHG Vent. Rate : 123 BPM Atrial Rate : 122 BPM P-R Int : 170 ms QRS Dur : 088 ms QT Int : 292 ms P-R-T Axes : 114 067 100 degrees QTc Int : 418 ms Poor data quality, interpretation may be adversely affected Undetermined rhythm , likely sinus tachycardia Low voltage QRS Nonspecific ST and T wave abnormality Abnormal ECG When compared with ECG of 08-JUL-2023 20:20, No significant change Confirmed by Lamont Nieves ([id number]) on 07/24/2023 6:58:19 AM Referred By: Confirmed By:Lamont Nieves
[2023-07-24 07:25] LABS: Hematocrit (blood only) 24.4 % (42.0-52.0); Mean Corpuscular Hemoglobin 33.2 pg (25.0-34.0); Mean Corpuscular Hgb Conc 32.8 g/dL (32.0-36.0); Mean Corpuscular Volume 101.2 fL (80.0-100.0); Mean Platelet Volume 10.3 fL (9.4-12.4); Platelet Count 134 K/uL (130-400); RDW Coefficient of Variation 18.4 % (11.5-14.5); RDW Standard Deviation 68.7 fL (36.4-46.3); Red Blood Count 2.41 M/uL (4.70-6.10); White Blood Count 7.67 K/ul (4.8-10.8)
[2023-07-24] MEDS: FUROSEMIDE INJ 20 MG/2 ML VIAL IV ONE ×3 (07:35→19:57)
[2023-07-24 07:39] LABS: BUN Creatinine Ratio 13.4 (10-20); Calcium 8.2 mg/dl (8.6-10.3); Creatinine Clr Calc Pharmacy 61.8 ml/min; Est GFR (African American) 68.3 ml/min; Est GFR (Non-African American) 58.9 ml/min; Magnesium 1.9 mg/dl (1.7-2.4); Phosphorus 3.8 mg/dl (2.5-4.9); Potassium 3.8 mmol/L (3.5-5.1)
[2023-07-24] MEDS: SODIUM CHLOR 7% 4 ML NEB NEB SCH (08:10)
[2023-07-24] MEDS: ALBUT/IPRATROP 3MG/0.5MG NEB 3 ML VIAL NEB SCH (08:11)
--- NOTE | 2023-07-24 08:27 | Pulmonology Progress Note ---
Date of Service July 24, 2023 Assessment & Plan (1) Metastatic primary lung cancer: Laterality: unspecified laterality Qualified Code(s): C34.90 - Malignant neoplasm of unspecified part of unspecified bronchus or lung (2) COPD (chronic obstructive pulmonary disease): COPD type: COPD with acute lower respiratory infection Qualified Code(s): J44.0 - Chronic obstructive pulmonary disease with (acute) lower respiratory infection (3) Multifocal pneumonia: (4) Pleural effusion: Plan CT chest 07/12/2023 personally reviewed: Centrilobular and paraseptal emphysema appreciated bilaterally Interlobular thickening on the left side Bilateral pleural effusion L>R Positive mediastinal lymphadenopathy --Acute hypoxic respiratory failure Multifactorial Bilateral pleural effusion Questionable pneumonia Respiratory bio fire negative for everything on 07/23/2023 Procalcitonin 0.72 BNP 81 --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 Keep the patient negative balance, aim for at least -1 L a day Continue with Perforomist and budesonide nebulized while in the hospital 20 mg of Lasix to be given today. Continue with incentive spirometry. Follow sputum culture BiPAP nightly and as needed shortness of breath Please note the above document was generated using voice recognition software. It may contain grammatical, syntax or spelling errors.Any formal questions or concerns about the content, text or information contained within the body of this dictation should be directly addressed to the provider for clarification. Admission and Anticipated Discharge Date Admission Date: July 23, 2023 Subjective Patient seen and examined at bedside. No acute distress, notable since overnight He was saturating 97% on 2 L nasal cannula, I went down to 1 L Denied any headache, no nausea, no vomiting He said he is feeling better compared to before He was supposed to be on Lasix at home to be used as needed but he had not used it for a while. Review of Systems 2 Review of Systems: All systems reviewed & are unremarkable except as noted in Subjective Physical Exam 2 Physical Exam: Constitutional: No acute distress HEENT: EOMI, PERRLA Respiratory system: Decreased air entry bilaterally, no wheeze, no rhonchi, positive crackles bilaterally CVS: S1-S2 positive, no murmurs or gallops Abdomen: Soft, nontender, nondistended, positive bowel sounds x4 Extremities: +2 pulses bilaterally radialis/ dorsalis pedis, no cyanosis, +2 pitting edema bilateral lower extremity Neuro: Awake alert oriented x3 Psych: Normal mood and affect G/U: No Bautista Skin: no rashes, warm and dry Lymphatic: no cervical or axillary lymphadenopathy Results & Data Results & Data Vital Signs (Past 12 Hours) Vital Signs Temp Pulse Pulse Resp BP Pulse Ox O2 Del Method 07/24/23 08:15 102 H 22 95 Aerosol Mask 07/24/23 03:16 36.4 C L 101 H 20 133/78 95 Nasal Cannula 07/24/23 00:58 96 H 07/23/23 22:39 99 H 18 95 Nasal Cannula 07/23/23 21:23 100 H 07/23/23 21:19 Nasal Cannula 07/23/23 21:19 36.4 C L 111 H 20 109/76 95 Nasal Cannula O2 Flow Rate 07/24/23 08:15 2 07/24/23 03:16 2 07/24/23 00:58 07/23/23 22:39 2 07/23/23 21:23 07/23/23 21:19 2 07/23/23 21:19 2 Laboratory Results 07/24/23 06:59 07/24/23 06:59 PG Care Time/CCT Total # of Minutes Spent Total Time Spent with Patient: Total time spent is greater than 50% in coordination of care (as documented) at patient's floor/unit and/or counseling patient: Coding Level of Care Code 72229 SUB INP/OBS CARE 3/50MIN Diagnoses Metastatic primary lung cancer C34.90 Laterality: unspecified laterality COPD (chronic obstructive pulmonary disease) J44.0 COPD type: COPD with acute lower respiratory infection Multifocal pneumonia J18.9 Pleural effusion J90
[2023-07-24] MEDS ORDERED: UMECLIDINIUM BROMIDE 62.5MCG/BLISTER 7 PUFFS/INHALER INH SCH (09:00)
[2023-07-24] MEDS: FLUTICASONE/VILANTEROL 200/25MCG 14 PUFFS/INHALER INH SCH (09:23)
[2023-07-24] MEDS: FOLIC ACID 1 MG TAB PO SCH (09:24)
[2023-07-24] MEDS: MAGNESIUM OXIDE 400 MG TAB PO SCH (09:25)
[2023-07-24] MEDS: CYANOCOBALAMIN (B-12) 500 MCG TABLET PO SCH (09:25)
[2023-07-24] MEDS: CHOLECALCIFEROL 25 MCG (1000 UNITS) TAB PO SCH (09:25)
[2023-07-24] MEDS: CEROVITE ADV FORMULA TAB PO SCH (09:25)
--- NOTE | 2023-07-24 12:22 | Hospitalist Progress Note ---
Date of Service July 24, 2023 Assessment & Plan (1) Multifocal pneumonia: (2) Metastatic lung cancer (metastasis from lung to other site): Plan: History of lung cancer; follows up with oncology as outpatient Recent admission earlier in the month with pneumonia. History of COPD as well Chest x-ray personally reviewed; bilateral pleural effusion with bibasilar opacities. Pro-Samy elevated No leukocytosis BioFire negative Echocardiogram; EF of 55%; normal left ventricular wall thickness. Continue on Zosyn and doxycycline; plan to treat for 7 days Airway clearance therapy with hypertonic saline and DuoNebs Budesonide and formoterol nebs AN/SQQ 89(V)15 [employer] evaluation done; plan for VFSS tomorrow. N.p.o. for midnight Pulmonology on consult; appreciate recommendation (3) Malnutrition: Plan: severe weight loss related to malignancy. Patient is on vitamin supplementation but admits to continued low appetite. He was started on MArinol yesterday by his oncologist, cont this now. Appreciate nutrition assessment. (4) Hypomagnesemia: Plan: Repleted (5) Transaminitis: Plan: mildly elevated, may be related to h/o obstructive jaundice from biliary stricture that was treated in May 2023 with sphincterotomy and CBD metal stent placement. May be from immunotherapy or other drug side effect. Normal bilirubin and there is no abdominal pain. (6) Tobacco use disorder: Plan: ongoing smoking, contemplative phase. Nicoderm patch provided. 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 on salt tabs BID with placed on a 1.5L fluid restriction Cont salt tabs and fluid restriction. (8) Anemia: Plan: low H/H and chronic, likely related to chronic disease. Trend CBC in am. DVT proph: apixaban (h/o recurrent PE) Full Code per my discussion with the patient and his on admission. Dispo- to PCU Time spent evaluating patient, direct bedside care, chart review, placing orders, interpretation of diagnostic studies, discussion with consultants, patient, and family members, as well as other required patient management activities is 55 minutes Please note the above document was generated using voice recognition software. It may contain grammatical, syntax or spelling errors. Any formal questions or concerns about the content, text or information contained within the body of this dictation should be directly addressed to the provider for clarification Admission and Anticipated Discharge Date Admission Date: July 23, 2023 Subjective Patient seen and examined at bedside. He is sitting up on the chair; not in distress. He reports getting short of breath on minimal exertion. He is currently on 2 L of oxygen by nasal cannula Review of Systems Review of Systems: All systems reviewed & are unremarkable except as noted in Subjective Physical Exam Physical Exam: Constitutional: WD/WN, vitals as above, NAD, sitting up in bed, pleasant, conversing easily Respiratory: Decreased breath sound at bases. Occasional crackles. Cardiovascular: RRR, no murmur, no edema Vessels: no JVD or carotid bruit Chest: normal inspection of chest Abdomen: normal bowel sounds, soft, nontender, no hepatosplenomegaly Musculoskeletal: no cyanosis or clubbing, extremities motor strength 5/5 Skin: no rashes, warm and dry normal turgor Neurologic: PERRL, EOMI, accommodation nl, no face palsy, no dysarthria CN's II- XI intact bilaterally and moves all extremities Results & Data Results & Data Vital Signs (Past 12 Hours) Vital Signs Temp Pulse Pulse Resp BP Pulse Ox O2 Del Method 07/24/23 11:21 36.3 C L 97 H 19 121/78 97 Nasal Cannula 07/24/23 08:26 96 H 07/24/23 08:26 Nasal Cannula 07/24/23 08:15 102 H 22 95 Aerosol Mask 07/24/23 08:00 36.9 C 113 H 20 104/66 95 Nasal Cannula 07/24/23 03:16 36.4 C L 101 H 20 133/78 95 Nasal Cannula 07/24/23 00:58 96 H O2 Flow Rate 07/24/23 11:21 2.0 07/24/23 08:26 07/24/23 08:26 2 07/24/23 08:15 2 07/24/23 08:00 2.0 07/24/23 03:16 2 07/24/23 00:58 (2) Metastatic lung cancer (metastasis from lung to other site) Laterality: unspecified laterality Qualified Code(s): C34.90 - Malignant neoplasm of unspecified part of unspecified bronchus or lung (3) Malnutrition Malnutrition type: protein-calorie malnutrition Protein-calorie malnutrition severity: severe Qualified Code(s): E43 - Unspecified severe protein-calorie malnutrition
[2023-07-24] MEDS: traZODone HCL 50 MG TAB PO ONE (22:59)
--- NOTE | 2023-07-25 07:19 | XRay Report ---
XR chest 1V portable HISTORY: 63 years-old Male f/u acute shortness of breath COMPARISON: Chest radiograph 07/23/2023, chest CT 07/12/2023 TECHNIQUE: AP view of the chest FINDINGS: Cardiac silhouette is mildly enlarged. Layering pleural effusions are redemonstrated. Pulmonary emphy sema. Right basilar opacities favor atelectasis. Asymmetric reticulonodular opacities throughout the left lung with mildly progressed left midlung and left basilar consolidation. Bones appear grossly in tact. Unchanged left subclavian Srdsih-g-Fgeg catheter. IMPRESSION: 1. Cardiomegaly with unchanged layering pleural effusions and right basilar consolidation suggestive of atelectasis. 2. 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 3. Mildly progressed left midlung and left basilar consolidation. ACT 112: Negative or not required by law. The above report was generated using voice recognition software. It may contain grammatical, syntax o r spelling errors. Electronically signed by: Napoleon Garcia M.D. 07/25/2023 7:18 AM
[2023-07-25 08:22] LABS: Basophils # (auto) 0.01 K/uL (0.00-0.20); Basophils % (auto) 0.1 %; Eosinophils # (auto) 0.03 K/uL (0.00-0.50); Eosinophils % (auto) 0.4 %; Hematocrit (blood only) 25.7 % (42.0-52.0); Hemoglobin 8.3 g/dl (14.0-18.0); Immature Granulocytes # (auto) 0.05 K/uL (0.01-0.20); Immature Granulocytes % (auto) 0.6 %; Lymphocytes # (auto) 0.41 K/uL (1.20-3.40); Lymphocytes % (auto) 5.1 %; Mean Corpuscular Hemoglobin 33.6 pg (25.0-34.0); Mean Corpuscular Hgb Conc 32.3 g/dL (32.0-36.0); Mean Platelet Volume 10.2 fL (9.4-12.4); Monocytes # (auto) 0.49 K/uL (0.11-0.59); Monocytes % (auto) 6.1 %; Neutrophils # (auto) 7.02 K/uL (1.40-6.50); Neutrophils % (auto) 87.7 %; Platelet Count 119 K/uL (130-400); RDW Coefficient of Variation 18.6 % (11.5-14.5); RDW Standard Deviation 71.5 fL (36.4-46.3); Red Blood Count 2.47 M/uL (4.70-6.10); White Blood Count 8.01 K/ul (4.8-10.8)
--- NOTE | 2023-07-25 08:33 | Pulmonology Progress Note ---
Date of Service July 25, 2023 Assessment & Plan (1) Metastatic primary lung cancer: Laterality: unspecified laterality Qualified Code(s): C34.90 - Malignant neoplasm of unspecified part of unspecified bronchus or lung (2) COPD (chronic obstructive pulmonary disease): COPD type: COPD with acute lower respiratory infection Qualified Code(s): J44.0 - Chronic obstructive pulmonary disease with (acute) lower respiratory infection (3) Multifocal pneumonia: (4) Pleural effusion: Plan CT chest 07/12/2023 personally reviewed: Centrilobular and paraseptal emphysema appreciated bilaterally Interlobular thickening on the left side Bilateral pleural effusion L>R Positive mediastinal lymphadenopathy --Acute hypoxic respiratory failure Multifactorial Bilateral pleural effusion Swallow eval 07/25/2023 does show signs of aspiration Respiratory bio fire negative for everything on 07/23/2023 Procalcitonin 0.72 BNP 81 --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 Will hold the dose of Lasix today. Continue with Perforomist and budesonide nebulized while in the hospital Continue with incentive spirometry. Follow sputum culture BiPAP nightly and as needed shortness of breath Case discussed with Dr Perez Please note the above document was generated using voice recognition software. It may contain grammatical, syntax or spelling errors.Any formal questions or concerns about the content, text or information contained within the body of this dictation should be directly addressed to the provider for clarification. Admission and Anticipated Discharge Date Admission Date: July 23, 2023 Subjective Patient seen and examined at bedside. No acute distress, no adverse events overnight He was saturating 100% on 3 L nasal cannula. I went down to 1 and half liters Patient was also in the room. Denies any chest pain, has been coughing up and bringing up clear phlegm. Denies any hemoptysis. Urinating well Review of Systems 2 Review of Systems: All systems reviewed & are unremarkable except as noted in Subjective Physical Exam 2 Physical Exam: Constitutional: No acute distress HEENT: EOMI, PERRLA Respiratory system: Decreased air entry bilaterally, no wheeze, no rhonchi, positive crackles bilaterally CVS: S1-S2 positive, no murmurs or gallops Abdomen: Soft, nontender, nondistended, positive bowel sounds x4 Extremities: +2 pulses bilaterally radialis/ dorsalis pedis, no cyanosis, +2 pitting edema bilateral lower extremity Neuro: Awake alert oriented x3 Psych: Normal mood and affect G/U: No Bautista Skin: no rashes, warm and dry Lymphatic: no cervical or axillary lymphadenopathy Results & Data Results & Data Vital Signs (Past 12 Hours) Vital Signs Temp Pulse Pulse Resp BP Pulse Ox O2 Del Method 07/25/23 07:57 36.3 C L 104 H 18 110/74 95 Nasal Cannula 07/25/23 07:11 102 H 18 96 Nasal Cannula 07/25/23 03:04 36.5 C 103 H 18 117/75 96 Nasal Cannula 07/24/23 23:20 36.6 C 90 18 121/81 95 Nasal Cannula 07/24/23 22:05 97 H O2 Flow Rate 07/25/23 07:57 2 07/25/23 07:11 3 07/25/23 03:04 07/24/23 23:20 07/24/23 22:05 Laboratory Results 07/25/23 07:46 07/25/23 07:46 PG Care Time/CCT Total # of Minutes Spent Total Time Spent with Patient: Total time spent is greater than 50% in coordination of care (as documented) at patient's floor/unit and/or counseling patient: Coding Level of Care Code 40034 SUB INP/OBS CARE 3/50MIN Diagnoses Metastatic primary lung cancer C34.90 Laterality: unspecified laterality COPD (chronic obstructive pulmonary disease) J44.0 COPD type: COPD with acute lower respiratory infection Multifocal pneumonia J18.9 Pleural effusion J90
[2023-07-25 08:42] LABS: Calcium 8.5 mg/dl (8.6-10.3); Creatinine Clr Calc Pharmacy 47.3 ml/min; Est GFR (African American) 49.4 ml/min; Est GFR (Non-African American) 42.6 ml/min; Potassium 3.7 mmol/L (3.5-5.1)
[2023-07-25] MEDS: GADOBUTROL 65ML VIAL IV ONE (12:43)
--- NOTE | 2023-07-25 13:12 | Magnetic Resonance Report ---
Brain MRI WITH AND WITHOUT CONTRAST HISTORY: Lung cancer. Rule out brain metastatis TECHNIQUE: Multiplanar multisequence MRI of the brain was performed both before and after the intrave nous administration of contrast. COMPARISON STUDY: Outside hospital brain MRI 07/01/2010. FINDINGS: There is no mass, hematoma, midline shift, or acute infarct. The ventricles and sulci demon strate mild age-related involutional changes. Scattered foci of T2 hyperintensity seen within the per iventricular and subcortical white matter are nonspecific but suggestive of mild microvascular ischem ic changes. The major vascular flow voids at the skull base are well-maintained. A few partially opac ified left mastoid air cells and a small retention cyst within the right maxillary sinus. Postcontras t sequences show no areas of abnormal enhancement. IMPRESSION: 1. No acute infarct or intracranial hemorrhage. 2. No evidence for intracranial metastatic disease. ACT 112: Negative or not required by law. Electronically signed by: Conrad Schofield M.D. 07/25/2023 1:09 PM
--- NOTE | 2023-07-25 13:50 | Fluoroscopy Report ---
FL barium swallow CLINICAL HISTORY: Dysphagia with solids. Pneumonia. COMPARISON STUDY: None. FLUOROSCOPY TIME: 1 minute and 16 seconds. FLUOROSCOPY IMAGES: 93 Ka,r: 29.5. mGy FINDINGS: The patient swallowed barium without difficulty. There is deep penetration to the level of the vocal cords without definite aspiration during the examination. There appears to be tiny Zenker's diverticulum. There is also a tiny anterior proximal esophageal web seen on image 83. The esophagus is normal in course and caliber. There is moderate gastroesophageal reflux demonstrated during the ex amination. A left subclavian Port-A-Cath is noted. The barium tablet passed without difficulty. No hi atus hernia. IMPRESSION: 1. Moderate gastroesophageal reflux. 2. Deep penetration to the level of the vocal cords without definite aspiration during the examinatio n. 3. Suggestion of a tiny Zenker's diverticulum. ACT 112: Negative or not required by law. Electronically signed by: Conrad Schofield M.D. 07/25/2023 1:48 PM
--- NOTE | 2023-07-25 13:52 | Fluoroscopy Report ---
FL video swallow HISTORY: r/o aspiration TECHNIQUE: Video fluoroscopic evaluation of swallowing was performed in the AP and lateral projection s by the speech pathology staff. The patient is fed nectar-thick and thin liquid barium, a barium coa jessica wafer, and barium pudding. FLUOROSCOPY TIME: 1 minute and 36 seconds. Ka,r: 7.25 mGy COMPARISON STUDY: Barium swallow 07/25/2023. FINDINGS: A few episodes of incomplete epiglottic deflection. This results in trace aspiration with t he thin liquid barium. Mild vallecular residue seen within the thicker barium consistencies. There ar e few additional episodes of trace aspiration throughout the examination due to the small amount of r esidue within the hypopharynx. IMPRESSION: 1. A few episodes of trace aspiration identified during the examination. 2. Please see the speech pathologist report for detailed findings and recommendations. ACT 112: Negative or not required by law. Electronically signed by: Conrad Schofield M.D. 07/25/2023 1:51 PM
--- NOTE | 2023-07-25 14:42 | Hospitalist Progress Note ---
Date of Service July 25, 2023 Assessment & Plan (1) Multifocal pneumonia: (2) Metastatic lung cancer (metastasis from lung to other site): (3) Aspiration pneumonia: Plan: History of lung cancer; follows up with oncology as outpatient Recent admission earlier in the month with pneumonia. History of COPD as well Chest x-ray personally reviewed; bilateral pleural effusion with bibasilar opacities. Pro-Samy elevated No leukocytosis BioFire negative Echocardiogram; EF of 55%; normal left ventricular wall thickness. Barium swallow and VFSS was done; consistent with silent aspiration. Continue on Zosyn and doxycycline; plan to treat for 7 days Airway clearance therapy with hypertonic saline and DuoNebs Budesonide and formoterol nebs Wean down oxygen as tolerated MRI brain with and without contrast on as per recommendation by oncology; no acute finding or intracranial metastasis. (4) Malnutrition: Plan: severe weight loss related to malignancy. Patient is on vitamin supplementation but admits to continued low appetite. He was started on MArinol yesterday by his oncologist, cont this now. Appreciate nutrition assessment. 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 May be from immunotherapy or other drug side effect. Normal bilirubin and there is no abdominal pain. (7) Tobacco use disorder: Plan: ongoing smoking, contemplative phase. Nicoderm patch provided. 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 on salt tabs BID with placed on a 1.5L fluid restriction Cont salt tabs and fluid restriction. (9) Anemia: Plan: low H/H and chronic, likely related to chronic disease. Trend CBC in am. DVT proph: apixaban (h/o recurrent PE) Full Code per my discussion with the patient and his on admission. Dispo- to PCU Time spent evaluating patient, direct bedside care, chart review, placing orders, interpretation of diagnostic studies, discussion with consultants, patient, and family members, as well as other required patient management activities is 55 minutes Please note the above document was generated using voice recognition software. It may contain grammatical, syntax or spelling errors. Any formal questions or concerns about the content, text or information contained within the body of this dictation should be directly addressed to the provider for clarification Admission and Anticipated Discharge Date Admission Date: July 23, 2023 Subjective Patient seen and examined at bedside. He is lying on the recliner comfortably; not in any distress. He reports that he is feeling slightly better compared to admission. Continues to require 2 to 3 L of oxygen Review of Systems Review of Systems: All systems reviewed & are unremarkable except as noted in Subjective Physical Exam Physical Exam: Constitutional: WD/WN, vitals as above, NAD, sitting up in bed, pleasant, conversing easily Respiratory: Decreased breath sound at bases. Occasional crackles. Cardiovascular: RRR, no murmur, no edema Vessels: no JVD or carotid bruit Chest: normal inspection of chest Abdomen: normal bowel sounds, soft, nontender, no hepatosplenomegaly Musculoskeletal: no cyanosis or clubbing, extremities motor strength 5/5 Skin: no rashes, warm and dry normal turgor Neurologic: PERRL, EOMI, accommodation nl, no face palsy, no dysarthria CN's II- XI intact bilaterally and moves all extremities Results & Data Results & Data Vital Signs (Past 12 Hours) Vital Signs Temp Pulse Pulse Resp BP Pulse Ox O2 Del Method 07/25/23 08:45 95 H 07/25/23 08:45 Nasal Cannula 07/25/23 07:57 36.3 C L 104 H 18 110/74 95 Nasal Cannula 07/25/23 07:11 102 H 18 96 Nasal Cannula 07/25/23 03:04 36.5 C 103 H 18 117/75 96 Nasal Cannula O2 Flow Rate 07/25/23 08:45 07/25/23 08:45 2 07/25/23 07:57 2 07/25/23 07:11 3 07/25/23 03:04 (2) Metastatic lung cancer (metastasis from lung to other site) Laterality: unspecified laterality Qualified Code(s): C34.90 - Malignant neoplasm of unspecified part of unspecified bronchus or lung (4) Malnutrition Malnutrition type: protein-calorie malnutrition Protein-calorie malnutrition severity: severe Qualified Code(s): E43 - Unspecified severe protein-calorie malnutrition
[2023-07-25] MEDS: PANTOprazole 40 MG TAB PO SCH (20:14)
[2023-07-26 06:38] LABS: Basophils # (auto) 0.01 K/uL (0.00-0.20); Basophils % (auto) 0.2 %; Eosinophils # (auto) 0.03 K/uL (0.00-0.50); Eosinophils % (auto) 0.5 %; Hematocrit (blood only) 22.8 % (42.0-52.0); Hemoglobin 7.6 g/dl (14.0-18.0); Immature Granulocytes # (auto) 0.04 K/uL (0.01-0.20); Immature Granulocytes % (auto) 0.6 %; Lymphocytes # (auto) 0.31 K/uL (1.20-3.40); Lymphocytes % (auto) 4.7 %; Mean Corpuscular Hemoglobin 33.9 pg (25.0-34.0); Mean Corpuscular Hgb Conc 33.3 g/dL (32.0-36.0); Mean Corpuscular Volume 101.8 fL (80.0-100.0); Mean Platelet Volume 10.7 fL (9.4-12.4); Monocytes # (auto) 0.54 K/uL (0.11-0.59); Monocytes % (auto) 8.2 %; Neutrophils # (auto) 5.65 K/uL (1.40-6.50); Neutrophils % (auto) 85.8 %; Platelet Count 94 K/uL (130-400); RDW Coefficient of Variation 18.3 % (11.5-14.5); RDW Standard Deviation 67.8 fL (36.4-46.3); Red Blood Count 2.24 M/uL (4.70-6.10); White Blood Count 6.58 K/ul (4.8-10.8)
[2023-07-26 06:56] LABS: RBC Morphology Unremarkable
[2023-07-26 07:03] LABS: BUN Creatinine Ratio 13.7 (10-20); Calcium 8.4 mg/dl (8.6-10.3); Creatinine Clr Calc Pharmacy 53.7 ml/min; Est GFR (African American) 57.7 ml/min; Est GFR (Non-African American) 49.8 ml/min; Potassium 3.5 mmol/L (3.5-5.1)
[2023-07-26] MEDS: NICOTINE 14 MG/24 HR PATCH TD SCH (10:24)
--- NOTE | 2023-07-26 11:43 | Hospitalist Progress Note ---
Date of Service July 26, 2023 Assessment & Plan (1) Multifocal pneumonia: (2) Metastatic lung cancer (metastasis from lung to other site): (3) Aspiration pneumonia: Plan: History of lung cancer; follows up with oncology as outpatient Recent admission earlier in the month with pneumonia. History of COPD as well Chest x-ray personally reviewed; bilateral pleural effusion with bibasilar opacities. Pro-Samy elevated No leukocytosis BioFire negative Echocardiogram; EF of 55%; normal left ventricular wall thickness. Barium swallow and VFSS was done; consistent with silent aspiration. Continue on Zosyn and doxycycline; plan to treat for 7 days Airway clearance therapy with hypertonic saline and DuoNebs Budesonide and formoterol nebs Wean down oxygen as tolerated MRI brain with and without contrast on as per recommendation by oncology; no acute finding or intracranial metastasis. (4) Malnutrition: Plan: severe weight loss related to malignancy. Patient is on vitamin supplementation but admits to continued low appetite. He was started on MArinol yesterday by his oncologist, cont this now. Appreciate nutrition assessment. 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 May be from immunotherapy or other drug side effect. Normal bilirubin and there is no abdominal pain. (7) Tobacco use disorder: Plan: ongoing smoking, contemplative phase. Nicoderm patch provided. 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 on salt tabs BID with placed on a 1.5L fluid restriction Cont salt tabs and fluid restriction. (9) Anemia: Plan: low H/H and chronic, likely related to chronic disease. Trend CBC in am. DVT proph: apixaban (h/o recurrent PE) Full Code Dispo-admitted for aspiration pneumonia; currently receiving IV antibiotics. Possible DC tomorrow a.m. if clinically remained stable Time spent evaluating patient, direct bedside care, chart review, placing orders, interpretation of diagnostic studies, discussion with consultants, patient, and family members, as well as other required patient management activities is 55 minutes Please note the above document was generated using voice recognition software. It may contain grammatical, syntax or spelling errors. Any formal questions or concerns about the content, text or information contained within the body of this dictation should be directly addressed to the provider for clarification Admission and Anticipated Discharge Date Admission Date: July 23, 2023 Subjective Patient seen and examined at bedside. He is lying in the recliner; not in distress. He reports that his shortness of breath has improved compared to admission. Oxygen requirement is 1.5 L/min per nasal cannula Review of Systems Review of Systems: All systems reviewed & are unremarkable except as noted in Subjective Physical Exam Physical Exam: Constitutional: WD/WN, vitals as above, NAD, sitting up in bed, pleasant, conversing easily Respiratory: Decreased breath sound at bases. Occasional crackles. Cardiovascular: RRR, no murmur, no edema Vessels: no JVD or carotid bruit Chest: normal inspection of chest Abdomen: normal bowel sounds, soft, nontender, no hepatosplenomegaly Musculoskeletal: no cyanosis or clubbing, extremities motor strength 5/5 Skin: no rashes, warm and dry normal turgor Neurologic: PERRL, EOMI, accommodation nl, no face palsy, no dysarthria CN's II- XI intact bilaterally and moves all extremities Results & Data Results & Data Vital Signs (Past 12 Hours) Vital Signs Temp Pulse Pulse Resp BP BP Pulse Ox 07/26/23 08:00 100 H 07/26/23 08:00 07/26/23 07:58 36.6 C 102 H 23 109/69 95 07/26/23 07:25 113 H 18 93 07/26/23 03:00 36.3 C L 98 H 18 115/77 96 O2 Del Method O2 Flow Rate 07/26/23 08:00 07/26/23 08:00 Nasal Cannula 1.5 07/26/23 07:58 Nasal Cannula 1.5 07/26/23 07:25 Nasal Cannula 2 07/26/23 03:00 Nasal Cannula 2 (2) Metastatic lung cancer (metastasis from lung to other site) Laterality: unspecified laterality Qualified Code(s): C34.90 - Malignant neoplasm of unspecified part of unspecified bronchus or lung (4) Malnutrition Malnutrition type: protein-calorie malnutrition Protein-calorie malnutrition severity: severe Qualified Code(s): E43 - Unspecified severe protein-calorie malnutrition
--- NOTE | 2023-07-26 12:52 | Pulmonology Progress Note ---
Date of Service July 26, 2023 Assessment & Plan (1) Metastatic primary lung cancer: Laterality: unspecified laterality Qualified Code(s): C34.90 - Malignant neoplasm of unspecified part of unspecified bronchus or lung (2) COPD (chronic obstructive pulmonary disease): COPD type: COPD with acute lower respiratory infection Qualified Code(s): J44.0 - Chronic obstructive pulmonary disease with (acute) lower respiratory infection (3) Multifocal pneumonia: (4) Pleural effusion: Plan CT chest 07/12/2023 personally reviewed: Centrilobular and paraseptal emphysema appreciated bilaterally Interlobular thickening on the left side Bilateral pleural effusion L>R Positive mediastinal lymphadenopathy --Acute hypoxic respiratory failure Multifactorial Bilateral pleural effusion Actively aspirating Swallow eval 07/25/2023 does show signs of aspiration Respiratory bio fire negative for everything on 07/23/2023 Procalcitonin 0.72 BNP 81 --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 Keep the patient negative balance, aim for at least -1 L a day Patient's creatinine is trending down. Continue to hold Lasix today as he is diuresing. Avoid giving any IV fluids If the creatinine still is trending down tomorrow, would recommend to give 25% albumin followed by 20 mg of Lasix Continue with Perforomist and budesonide nebulized while in the hospital Continue with incentive spirometry. Follow sputum culture BiPAP nightly and as needed shortness of breath Case discussed with Dr Perez Please note the above document was generated using voice recognition software. It may contain grammatical, syntax or spelling errors.Any formal questions or concerns about the content, text or information contained within the body of this dictation should be directly addressed to the provider for clarification. Admission and Anticipated Discharge Date Admission Date: July 23, 2023 Subjective Patient seen and examined at bedside. No acute distress, notable symptoms overnight He was saturating 98-99% on 3 L nasal cannula. I went down to 1 L. He stated overall he is feeling the same. Bringing up phlegm which is mostly clear. Denies any hemoptysis Urinating well. No nausea or vomiting Review of Systems 2 Review of Systems: All systems reviewed & are unremarkable except as noted in Subjective Physical Exam 2 Physical Exam: Constitutional: No acute distress HEENT: EOMI, PERRLA Respiratory system: Decreased air entry bilaterally, no wheeze, no rhonchi, positive crackles bilaterally CVS: S1-S2 positive, no murmurs or gallops Abdomen: Soft, nontender, nondistended, positive bowel sounds x4 Extremities: +2 pulses bilaterally radialis/ dorsalis pedis, no cyanosis, +2 pitting edema bilateral lower extremity Neuro: Awake alert oriented x3 Psych: Normal mood and affect G/U: No Bautista Skin: no rashes, warm and dry Lymphatic: no cervical or axillary lymphadenopathy Results & Data Results & Data Vital Signs (Past 12 Hours) Vital Signs Temp Pulse Pulse Resp BP BP Pulse Ox 07/26/23 11:14 36.6 C 85 22 123/75 95 07/26/23 08:00 100 H 07/26/23 08:00 07/26/23 07:58 36.6 C 102 H 23 109/69 95 07/26/23 07:25 113 H 18 93 07/26/23 03:00 36.3 C L 98 H 18 115/77 96 O2 Del Method O2 Flow Rate 07/26/23 11:14 Nasal Cannula 1.5 07/26/23 08:00 07/26/23 08:00 Nasal Cannula 1.5 07/26/23 07:58 Nasal Cannula 1.5 07/26/23 07:25 Nasal Cannula 2 07/26/23 03:00 Nasal Cannula 2 Laboratory Results 07/26/23 06:15 07/26/23 06:15 PG Care Time/CCT Total # of Minutes Spent Total Time Spent with Patient: Total time spent is greater than 50% in coordination of care (as documented) at patient's floor/unit and/or counseling patient: Coding Level of Care Code 61969 SUB INP/OBS CARE 235MIN Diagnoses Metastatic primary lung cancer C34.90 Laterality: unspecified laterality COPD (chronic obstructive pulmonary disease) J44.0 COPD type: COPD with acute lower respiratory infection Multifocal pneumonia J18.9 Pleural effusion J90
[2023-07-27] MEDS: ACETAMINOPHEN 325 MG TAB PO PRN (03:25)
[2023-07-27 07:25] LABS: Basophils # (auto) 0.01 K/uL (0.00-0.20); Basophils % (auto) 0.1 %; Eosinophils # (auto) 0.07 K/uL (0.00-0.50); Hematocrit (blood only) 23.5 % (42.0-52.0); Hemoglobin 7.8 g/dl (14.0-18.0); Immature Granulocytes # (auto) 0.02 K/uL (0.01-0.20); Immature Granulocytes % (auto) 0.3 %; Lymphocytes # (auto) 0.28 K/uL (1.20-3.40); Lymphocytes % (auto) 4.2 %; Mean Corpuscular Hemoglobin 34.1 pg (25.0-34.0); Mean Corpuscular Hgb Conc 33.2 g/dL (32.0-36.0); Mean Corpuscular Volume 102.6 fL (80.0-100.0); Mean Platelet Volume 10.5 fL (9.4-12.4); Monocytes # (auto) 0.52 K/uL (0.11-0.59); Monocytes % (auto) 7.8 %; Neutrophils % (auto) 86.6 %; Platelet Count 91 K/uL (130-400); RDW Coefficient of Variation 18.2 % (11.5-14.5); RDW Standard Deviation 68.8 fL (36.4-46.3); Red Blood Count 2.29 M/uL (4.70-6.10)
[2023-07-27 07:43] LABS: BUN Creatinine Ratio 14.4 (10-20); Calcium 8.2 mg/dl (8.6-10.3); Creatinine Clr Calc Pharmacy 56.4 ml/min; Est GFR (African American) 61.2 ml/min; Est GFR (Non-African American) 52.8 ml/min; Potassium 3.4 mmol/L (3.5-5.1)
[2023-07-27 07:48] LABS: Hypersegmented Neutrophils 1+; Hypochromasia Present; Macrocytosis Present
[2023-07-27] MEDS: POTASSIUM CHLORIDE CRTAB 20 MEQ TABCR PO STA ×2 (08:26→20:52)
--- NOTE | 2023-07-27 10:05 | Pulmonology Progress Note ---
Date of Service July 27, 2023 Assessment & Plan (1) Metastatic primary lung cancer: Laterality: unspecified laterality Qualified Code(s): C34.90 - Malignant neoplasm of unspecified part of unspecified bronchus or lung (2) COPD (chronic obstructive pulmonary disease): COPD type: COPD with acute lower respiratory infection Qualified Code(s): J44.0 - Chronic obstructive pulmonary disease with (acute) lower respiratory infection (3) Multifocal pneumonia: (4) Pleural effusion: Plan CT chest 07/12/2023 personally reviewed: Centrilobular and paraseptal emphysema appreciated bilaterally Interlobular thickening on the left side Bilateral pleural effusion L>R Positive mediastinal lymphadenopathy --Acute hypoxic respiratory failure Multifactorial Bilateral pleural effusion Actively aspirating Swallow eval 07/25/2023 does show signs of aspiration Respiratory bio fire negative for everything on 07/23/2023 Procalcitonin 0.72 BNP 81 --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 Keep the patient negative balance, aim for at least -1 L a day Patient's creatinine is trending down. I will give 50 g of 25% albumin followed by 10 mg of Lasix Continue with Perforomist and budesonide nebulized while in the hospital Continue with incentive spirometry. Follow sputum culture BiPAP nightly and as needed shortness of breath Case discussed with Dr Perez Please note the above document was generated using voice recognition software. It may contain grammatical, syntax or spelling errors.Any formal questions or concerns about the content, text or information contained within the body of this dictation should be directly addressed to the provider for clarification. Admission and Anticipated Discharge Date Admission Date: July 23, 2023 Subjective Seen and examined at bedside. No acute distress, no evidence overnight He was saturating 95-96% on 2 L nasal cannula, I went down to 1 L. He has been urinating well. Denies any chest pain Has been coughing up and bringing up clear phlegm. No hemoptysis Has been using incentive spirometry as well Review of Systems 2 Review of Systems: All systems reviewed & are unremarkable except as noted in Subjective Physical Exam 2 Physical Exam: Constitutional: No acute distress HEENT: EOMI, PERRLA Respiratory system: Decreased air entry bilaterally, no wheeze, no rhonchi, positive crackles bilaterally CVS: S1-S2 positive, no murmurs or gallops Abdomen: Soft, nontender, nondistended, positive bowel sounds x4 Extremities: +2 pulses bilaterally radialis/ dorsalis pedis, no cyanosis, +2 pitting edema bilateral lower extremity Neuro: Awake alert oriented x3 Psych: Normal mood and affect G/U: No Bautista Skin: no rashes, warm and dry Lymphatic: no cervical or axillary lymphadenopathy Results & Data Results & Data Vital Signs (Past 12 Hours) Vital Signs Temp Pulse Pulse Resp BP BP Pulse Ox 07/27/23 07:32 36.5 C 99 H 18 105/72 95 07/27/23 07:16 108 H 15 95 07/27/23 03:44 36.5 C 99 H 18 135/82 92 07/27/23 00:40 100 H 25 H 94 07/26/23 23:12 36.4 C L 101 H 20 123/81 97 07/26/23 22:39 90 O2 Del Method O2 Flow Rate 07/27/23 07:32 Nasal Cannula 2 07/27/23 07:16 Nasal Cannula 2 07/27/23 03:44 Nasal Cannula 2 07/27/23 00:40 3 07/26/23 23:12 Nasal Cannula 2 07/26/23 22:39 Laboratory Results 07/27/23 07:00 07/27/23 07:00 PG Care Time/CCT Total # of Minutes Spent Total Time Spent with Patient: Total time spent is greater than 50% in coordination of care (as documented) at patient's floor/unit and/or counseling patient: Coding Level of Care Code 42264 SUB INP/OBS CARE 3/50MIN Diagnoses Metastatic primary lung cancer C34.90 Laterality: unspecified laterality COPD (chronic obstructive pulmonary disease) J44.0 COPD type: COPD with acute lower respiratory infection Multifocal pneumonia J18.9 Pleural effusion J90
[2023-07-27] MEDS: ALBUMIN 25% 25 GM/100 ML VIAL IV SCH (10:36)
--- NOTE | 2023-07-27 12:57 | Hospitalist Progress Note ---
Date of Service July 27, 2023 Assessment & Plan (1) Multifocal pneumonia: (2) Metastatic lung cancer (metastasis from lung to other site): (3) Aspiration pneumonia: Plan: History of lung cancer; follows up with oncology as outpatient Recent admission earlier in the month with pneumonia. History of COPD as well Chest x-ray personally reviewed; bilateral pleural effusion with bibasilar opacities. Pro-Samy elevated No leukocytosis BioFire negative Echocardiogram; EF of 55%; normal left ventricular wall thickness. Barium swallow and VFSS was done; consistent with silent aspiration. Continue on Zosyn ; plan to treat for 7 days Airway clearance therapy with hypertonic saline and DuoNebs. Patient would likely benefit from continuing hypertonic saline nebs and DuoNebs for airway clearance at discharge. Budesonide and formoterol nebs Wean down oxygen as tolerated As needed Lasix along with albumin. MRI brain with and without contrast on as per recommendation by oncology; no acute finding or intracranial metastasis. (4) Malnutrition: Plan: severe weight loss related to malignancy. Patient is on vitamin supplementation but admits to continued low appetite. He was started on MArinol yesterday by his oncologist, cont this now. Appreciate nutrition assessment. (5) Hypomagnesemia: Plan: Repleted (6) Tobacco use disorder: Plan: ongoing smoking, contemplative phase. Nicoderm patch provided. 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 on salt tabs BID with placed on a 1.5L fluid restriction Cont salt tabs and fluid restriction. (8) Anemia: Plan: low H/H and chronic, likely related to chronic disease. Trend CBC in am. DVT proph: apixaban (h/o recurrent PE) Full Code Dispo-admitted for aspiration pneumonia; currently receiving IV antibiotics. P ossible DC in next few days days. Time spent evaluating patient, direct bedside care, chart review, placing orders, interpretation of diagnostic studies, discussion with consultants, pat larry, and family members, as well as other required patient management activities is 55 minutes Please note the above document was generated using voice recognition software. It may contain grammatical, syntax or spelling errors. Any formal questions or concerns about the content, text or information contained within the body of this dictation should be directly addressed to the provider for clarification Admission and Anticipated Discharge Date Admission Date: July 23, 2023 Subjective Patient seen and examined at bedside. He reports that he is feeling better. Oxygen requirement continues to be 2 to 3 L by nasal cannula Review of Systems Review of Systems: All systems reviewed & are unremarkable except as noted in Subjective Physical Exam Physical Exam: Constitutional: WD/WN, vitals as above, NAD, sitting up in bed, pleasant, conversing easily Respiratory: Decreased breath sound at bases. Occasional crackles. Cardiovascular: RRR, no murmur, no edema Vessels: no JVD or carotid bruit Chest: normal inspection of chest Abdomen: normal bowel sounds, soft, nontender, no hepatosplenomegaly Musculoskeletal: no cyanosis or clubbing, extremities motor strength 5/5 Skin: no rashes, warm and dry normal turgor Neurologic: PERRL, EOMI, accommodation nl, no face palsy, no dysarthria CN's II- XI intact bilaterally and moves all extremities Results & Data Results & Data Vital Signs (Past 12 Hours) Vital Signs Temp Pulse Resp BP BP Pulse Ox O2 Del Method 07/27/23 11:17 36.5 C 98 H 18 123/80 95 Nasal Cannula 07/27/23 07:32 36.5 C 99 H 18 105/72 95 Nasal Cannula 07/27/23 07:16 108 H 15 95 Nasal Cannula 07/27/23 03:44 36.5 C 99 H 18 135/82 92 Nasal Cannula O2 Flow Rate 07/27/23 11:17 2 07/27/23 07:32 2 07/27/23 07:16 2 07/27/23 03:44 2 (2) Metastatic lung cancer (metastasis from lung to other site) Laterality: unspecified laterality Qualified Code(s): C34.90 - Malignant neoplasm of unspecified part of unspecified bronchus or lung (4) Malnutrition Malnutrition type: protein-calorie malnutrition Protein-calorie malnutrition severity: severe Qualified Code(s): E43 - Unspecified severe protein-calorie malnutrition
[2023-07-27] MEDS: FUROSEMIDE INJ 20 MG/2 ML VIAL IV ONE (13:38)
--- NOTE | 2023-07-27 19:59 | Communication Note ---
Date of Service: July 27, 2023 Patient with increased shortness of breath and abdominal distention as per RN. Moist productive cough, yellow sputum with expiratory wheezing and coarse breath sounds as per RN. Patient denies actual abdominal pain. O2 sats 93 on 2 L Chest x-ray as per interpretation atelectasis, bilateral infiltrates CT abdomen pelvis 1. No hemoperitoneum. 2. Dependent airspace consolidations, concerning for multilobar pneumonia. Bilateral parapneumonic effusions. 3. Small pericardial effusion. 4. Mild abdominal ascites. 5. Dense contrast throughout the colon, which is contributing to streak artifact which limits evaluation of the abdominal viscera. 6. Extensive metastatic disease in the upper abdomen, similar in appearance when compared to July 12, 2023. Common bile duct stent. Pneumobilia. Post surgical changes in the RIGHT hepatic lobe. 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
[2023-07-27 20:22] LABS: Magnesium 1.6 mg/dl (1.7-2.4)
[2023-07-27] MEDS: OPTIRAY 320 500ml IV ONE (20:40)
[2023-07-27] MEDS: methylPREDNISolone 40 MG in SYRINGE 0 ML IV STA (20:52)
[2023-07-27] MEDS: MAGNESIUM SULFATE / D5W 1 GM/100 ML BAG IV ONE ×2 (20:52→22:28)
[2023-07-27] MEDS: LEVALBUTEROL 1.25 MG/3 ML NEB NEB STA (20:57)
[2023-07-27] MEDS: IPRATROPIUM BROMIDE NEB SOLN 0.02% 0.5MG/2.5ML VIAL INH STA (20:57)
--- NOTE | 2023-07-27 22:03 | CT Scan Report ---
Exam(s): CT ABDOMEN + PELVIS With Contrast IV Amt: 89 ml opti 320 EXAM: CT Abdomen and Pelvis With Intravenous Contrast CLINICAL HISTORY: Reason for exam: abd distension, eliquis. TECHNIQUE: Axial computed tomography images of the abdomen and pelvis with intravenous contrast. CTDI is 22.78 mGy and DLP is 1145.86 mGy-cm. Automated exposure control was utilized for the study. A dose lowering technique was utilized adhering to the principles of ALARA. CONTRAST: Patient received 89 ml opti 320 of IV contrast COMPARISON: CT abdomen and pelvis July 12, 2023. FINDINGS: Lung bases: Dependent airspace consolidations, concerning for multilobar pneumonia. Bilateral parapneumonic effusions. Heart: Small pericardial effusion. ABDOMEN: Liver: Unremarkable. No mass. Gallbladder and bile ducts: Extensive metastatic disease in the upper abdomen, similar in appearance when compared to July 12, 2023. Common bile duct stent. Pneumobilia. Post surgical changes in the RIGHT hepatic lobe. Correlate with surgical medical history. No calcified stones. Pancreas: Unremarkable. No mass. No ductal dilation. Spleen: Unremarkable. No splenomegaly. Adrenals: Unremarkable. No mass. Kidneys and ureters: Unremarkable. No hydronephrosis or nephrolithiasis. Stomach and bowel: Dense contrast throughout the colon, which is contributing to streak artifact which limits evaluation of the abdominal viscera. No obstruction. No mucosal thickening. PELVIS: Appendix: No findings to suggest acute appendicitis. Bladder: Unremarkable. No mass. Reproductive: Unremarkable as visualized. ABDOMEN and PELVIS: Intraperitoneal space: Mild abdominal ascites. No free air. No hemoperitoneum. Bones/joints: Degenerative changes of the spine. No acute fracture. No dislocation. Soft tissues: Anasarca. Vasculature: Atherosclerotic changes of the aorta. No abdominal aortic aneurysm. Lymph nodes: Unremarkable. No enlarged lymph nodes. IMPRESSION: 1. No hemoperitoneum. 2. Dependent airspace consolidations, concerning for multilobar pneumonia. Bilateral parapneumonic effusions. 3. Small pericardial effusion. 4. Mild abdominal ascites. 5. Dense contrast throughout the colon, which is contributing to streak artifact which limits evaluation of the abdominal viscera. 6. Extensive metastatic disease in the upper abdomen, similar in appearance when compared to July 12, 2023. Common bile duct stent. Pneumobilia. Post surgical changes in the RIGHT hepatic lobe. Correlate with surgical medical history. Electronically signed by: Yuri Lawrence MD 07/27/23 22:02 PM
[2023-07-27] MEDS: ALBUMIN 25% 25 GM/100 ML VIAL IV ONE (23:39)
[2023-07-28] MEDS: LEVALBUTEROL 1.25 MG/3 ML NEB NEB SCH (00:18)
[2023-07-28] MEDS: IPRATROPIUM BROMIDE NEB SOLN 0.02% 0.5MG/2.5ML VIAL INH SCH (00:18)
[2023-07-28] MEDS ORDERED: XOPENEX/ATROVENT 1.25mg/0.5MG NEB COMBO NEB SCH (01:00)
--- NOTE | 2023-07-28 07:33 | XRay Report ---
XR chest 1V portable CLINICAL HISTORY: f/u COMPARISON STUDY: Chest CT July 12, 2023. Chest radiograph July 27, 2023. FINDINGS: Left subclavian [id number] is in place. Small bilateral pleural effusions are again note d. There are suspected bibasilar opacities. Asymmetric left lung interstitial thickening is unchanged . Cardiomediastinal silhouette is stable. No pneumothorax. IMPRESSION: 1. No significant change in small bilateral pleural effusions with associated bibasilar opacities. 2. No change in asymmetric left lung interstitial thickening, better depicted on prior chest CT. 3. No pneumothorax. ACT 112: Negative or not required by law. Electronically signed by: Acosta Tineo M.D. 07/28/2023 7:32 AM
--- NOTE | 2023-07-28 07:39 | XRay Report ---
XR chest 1V portable HISTORY: Shortness of breath. COMPARISON: Chest 07/25/2023. FINDINGS: No pneumothorax. A left subclavian Port-A-Cath terminates in the distal SVC. Degenerative c hanges within the shoulders. Bilateral pleural effusions, left perihilar airspace opacities, and a ri ght basilar density persists. This favors a pneumonia. The heart remains mildly enlarged. There is or al contrast within the visualized loops of bowel. IMPRESSION: 1. No significant change compared to the prior study. 2. Cardiomegaly and bilateral pleural effusions persist. 3. Left greater than right airspace opacities consistent with a pneumonia. ACT 112: Negative or not required by law. Electronically signed by: Conrad Schofield M.D. 07/28/2023 7:38 AM
[2023-07-28 08:06] LABS: Hematocrit (blood only) 22.1 % (42.0-52.0); Hemoglobin 7.5 g/dl (14.0-18.0); Mean Corpuscular Hemoglobin 34.4 pg (25.0-34.0); Mean Corpuscular Hgb Conc 33.9 g/dL (32.0-36.0); Mean Corpuscular Volume 101.4 fL (80.0-100.0); Mean Platelet Volume 11.2 fL (9.4-12.4); Platelet Count 85 K/uL (130-400); RDW Coefficient of Variation 18.4 % (11.5-14.5); Red Blood Count 2.18 M/uL (4.70-6.10); White Blood Count 6.95 K/ul (4.8-10.8)
[2023-07-28 08:38] LABS: BUN Creatinine Ratio 13.3 (10-20); Calcium 8.7 mg/dl (8.6-10.3); Creatinine Clr Calc Pharmacy 58.1 ml/min; Est GFR (African American) 63.4 ml/min; Est GFR (Non-African American) 54.7 ml/min; Potassium 4.3 mmol/L (3.5-5.1)
[2023-07-28 09:02] LABS: Immature Granulocytes # (auto) 0.04 K/uL (0.01-0.20); Immature Granulocytes % (auto) 0.6 %; Lymphocytes # (auto) 0.18 K/uL (1.20-3.40); Lymphocytes % (auto) 2.6 %; Monocytes # (auto) 0.36 K/uL (0.11-0.59); Monocytes % (auto) 5.2 %; Neutrophils # (auto) 6.37 K/uL (1.40-6.50); Neutrophils % (auto) 91.6 %; Polychromasia 1+
[2023-07-28] MEDS: predniSONE 20 MG TAB PO SCH (09:56)
--- NOTE | 2023-07-28 13:13 | Pulmonology Progress Note ---
Date of Service July 28, 2023 Assessment & Plan (1) Metastatic primary lung cancer: Laterality: unspecified laterality Qualified Code(s): C34.90 - Malignant neoplasm of unspecified part of unspecified bronchus or lung (2) COPD (chronic obstructive pulmonary disease): COPD type: COPD with acute lower respiratory infection Qualified Code(s): J44.0 - Chronic obstructive pulmonary disease with (acute) lower respiratory infection (3) Multifocal pneumonia: (4) Pleural effusion: Plan CT chest 07/12/2023 personally reviewed: Centrilobular and paraseptal emphysema appreciated bilaterally Interlobular thickening on the left side Bilateral pleural effusion L>R Positive mediastinal lymphadenopathy --Acute hypoxic respiratory failure Multifactorial Bilateral pleural effusion Actively aspirating Swallow eval 07/25/2023 does show signs of aspiration Respiratory bio fire negative for everything on 07/23/2023 Procalcitonin 0.72 BNP 81 --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 Follow sputum culture BiPAP nightly and as needed shortness of breath Overall prognosis of the patient is guarded, palliative consult would be helpful Case discussed with Dr Leonardo Please note the above document was generated using voice recognition software. It may contain grammatical, syntax or spelling errors.Any formal questions or concerns about the content, text or information contained within the body of this dictation should be directly addressed to the provider for clarification. Admission and Anticipated Discharge Date Admission Date: July 23, 2023 Subjective Patient seen and examined at bedside. No acute distress. Patient's was in the room He was getting treatment at the time of examination with saturation of 99% He has been using the incentive spirometry and bringing up clear phlegm. Denies any chest pain He stated that his breathing is a little bit worse compared to yesterday. Review of Systems 2 Review of Systems: All systems reviewed & are unremarkable except as noted in Subjective Physical Exam 2 Physical Exam: Constitutional: No acute distress HEENT: EOMI, PERRLA Respiratory system: Decreased air entry bilaterally, no rhonchi, positive crackles bilaterally, positive expiratory wheeze bilaterally CVS: S1-S2 positive, no murmurs or gallops Abdomen: Soft, nontender, nondistended, positive bowel sounds x4 Extremities: +2 pulses bilaterally radialis/ dorsalis pedis, no cyanosis, +2 pitting edema bilateral lower extremity Neuro: Awake alert oriented x3 Psych: Normal mood and affect G/U: No Bautista Skin: no rashes, warm and dry Lymphatic: no cervical or axillary lymphadenopathy Results & Data Results & Data Vital Signs (Past 12 Hours) Vital Signs Temp Pulse Pulse Resp BP BP Pulse Ox 07/28/23 11:24 36.6 C 99 H 21 110/70 93 07/28/23 10:12 100 H 07/28/23 07:45 36.5 C 96 H 23 105/64 93 07/28/23 06:09 106 H 18 92 07/28/23 03:25 36.3 C L 104 H 22 124/74 93 O2 Del Method O2 Flow Rate 07/28/23 11:24 Nasal Cannula 07/28/23 10:12 07/28/23 07:45 Nasal Cannula 07/28/23 06:09 Nasal Cannula 2 07/28/23 03:25 Nasal Cannula 2 Laboratory Results 07/28/23 06:39 07/28/23 06:39 PG Care Time/CCT Total # of Minutes Spent Total Time Spent with Patient: Total time spent is greater than 50% in coordination of care (as documented) at patient's floor/unit and/or counseling patient: Coding Level of Care Code 60631 SUB INP/OBS CARE 2/35MIN Diagnoses Metastatic primary lung cancer C34.90 Laterality: unspecified laterality COPD (chronic obstructive pulmonary disease) J44.0 COPD type: COPD with acute lower respiratory infection Multifocal pneumonia J18.9 Pleural effusion J90
[2023-07-28] MEDS: ALBUMIN 25% 25 GM/100 ML VIAL IV SCH (15:32)
--- NOTE | 2023-07-28 16:59 | Hospitalist Progress Note ---
Date of Service July 28, 2023 Assessment & Plan (1) Multifocal pneumonia: (2) Metastatic lung cancer (metastasis from lung to other site): (3) Aspiration pneumonia: Plan: Acute respiratory failure with hypoxia Multifocal pneumonia Bilateral pleural effusion Recurrent Aspiration contributing Metastatic lung cancer COPD exacerbation --Chest CT 07/12/23: Overall, progression of metastatic disease as described above including lymphangitic spread of tumor within the left lung. The previously identified paratracheal, hilar, and subcarinal lymph nodes have slightly decreased in size and are partially calcified consistent with positive treatment response. Small bilateral pleural effusions. These could represent malignant pleural effusions. Patchy bibasilar densities have progressed most pronounced on the left with progressive left lower lobe bronchial opacification. This could be due to an aspiration pneumonitis. Interval progression of metastatic disease within the upper abdomen. This will be discussed on the same day abdomen and pelvis CT. --CXR:No significant change in appearance of chest. 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 No pneumothorax. --Video Swallow:Moderate gastroesophageal reflux. Deep penetration to the level of the vocal cords without definite aspiration during the examination. Suggestion of a tiny Zenker's diverticulum. -- Procalcitonin elevated -- BioFire negative --Blood cultures negative to date --Sputum culture moderate normal terri --Echocardiogram; EF of 55%; normal left ventricular wall thickness. --Continue Zosyn, nebs, prednisone --Supplemental oxygen as needed Appreciate pulmonology input Strict aspiration precautions IV Lasix with albumin as needed Pulmonary hygiene Poor prognosis, palliative care consulted to address goals of care Continue BiPAP nightly Metastatic lung cancer --MRI brain with and without contrast on as per recommendation by oncology; no acute finding or intracranial metastasis. --CT chest as above --CT ABD:No hemoperitoneum. Dependent airspace consolidations, concerning for multilobar pneumonia. Bilateral parapneumonic effusions. Small pericardial effusion. Mild abdominal ascites. Dense contrast throughout the colon, which is contributing to streak artifact which limits evaluation of the abdominal viscera. Extensive metastatic disease in the upper abdomen, similar in appearance when compared to July 12, 2023. Common bile duct stent. Pneumobilia. Post surgical changes in the RIGHT hepatic lobe. Correlate with surgical medical history. --Needs follow-up with oncology on discharge (4) Malnutrition: Plan: Severe weight loss related to malignancy. Poor appetite Continue supplements Started on Marinol (5) Hypomagnesemia: Plan: Replace electrolytes as needed (6) Tobacco use disorder: Plan: ongoing smoking, contemplative phase. Nicoderm patch provided. (7) Hyponatremia: Plan: As per prior provider Per recent inpatient nephrology evaluation: small cell lung cancer may cause SIADH as can pneumonia in patient who already has structural lung disease. on salt tabs BID with placed on a 1.5L fluid restriction --Continue salt tabs and fluid restriction -- Monitor sodium levels (8) Anemia: Plan: Anemia Thrombocytopenia Likely anemia of chronic disease Monitor CBC No acute bleeding issues Check B12, folate levels H/O recurrent PE Continue apixaban DVT Px: Apixaban Code Status Full Code Admission and Anticipated Discharge Date Admission Date: July 23, 2023 Subjective Patient is seen and examined at bedside States having worsening dyspnea overnight Also reports cough with minimal expectoration Discussed with pulmonology today Denies any significant chest pain, nausea, vomiting, abdominal pain Discussed with patient's family at bedside No other complaints Review of Systems Review of Systems: All systems reviewed & are unremarkable except as noted in Subjective Physical Exam Physical Exam: Physical Exam: Vitals signs as noted above General Appearance:Moderately built and nourished, chronic ill-appearing, elderly, no apparent distress Head: normocephalic, Atraumatic Eyes: normal inspection, EOMI Neck: supple, Trachea midline Respiratory/Chest: Decreased breath sounds, bilateral crackles, wheezes, no accessory muscle use Cardiovascular: S1, S2, No murmur Abdomen/GI:Soft, Non tender, Bowel sounds present + umbilical hernia Extremities/Musculoskeletal:normal inspection, 2+ Pedal edema Neurologic/Psych:AAOX3, grossly no focal neurological deficits Skin: normal color, warm Results & Data Results & Data Vital Signs (Past 12 Hours) Vital Signs Temp Pulse Pulse Resp BP BP Pulse Ox 07/28/23 15:14 36.5 C 102 H 22 124/78 90 07/28/23 13:38 101 H 20 94 07/28/23 11:24 36.6 C 99 H 21 110/70 93 07/28/23 10:12 100 H 07/28/23 07:45 36.5 C 96 H 23 105/64 93 07/28/23 06:09 106 H 18 92 O2 Del Method O2 Flow Rate 07/28/23 15:14 Nasal Cannula 07/28/23 13:38 Nasal Cannula 2 07/28/23 11:24 Nasal Cannula 07/28/23 10:12 07/28/23 07:45 Nasal Cannula 07/28/23 06:09 Nasal Cannula 2 Laboratory Results Short CBC 07/27/23 07/28/23 Range/Units 07:00 06:39 WBC 6.70 6.95 (4.8-10.8) K/ul Hgb 7.8 L 7.5 L (14.0-18.0) g/dl Hct 23.5 L 22.1 L (42.0-52.0) % Plt Count 91 L 85 L (130-400) K/uL BMP 07/27/23 07/28/23 07:00 06:39 Sodium 133 L 132 L Potassium 3.4 L 4.3 D Chloride 101 101 Carbon Dioxide 26 25 BUN 20 18 Creatinine 1.39 1.35 Glucose 138 H 123 H Calcium 8.2 L 8.7 (2) Metastatic lung cancer (metastasis from lung to other site) Laterality: unspecified laterality Qualified Code(s): C34.90 - Malignant neoplasm of unspecified part of unspecified bronchus or lung (4) Malnutrition Malnutrition type: protein-calorie malnutrition Protein-calorie malnutrition severity: severe Qualified Code(s): E43 - Unspecified severe protein-calorie malnutrition
[2023-07-28] MEDS: FUROSEMIDE INJ 20 MG/2 ML VIAL IV ONE (18:38)
[2023-07-29 07:44] LABS: Hematocrit (blood only) 22.4 % (42.0-52.0); Hemoglobin 7.4 g/dl (14.0-18.0); Mean Corpuscular Hemoglobin 34.1 pg (25.0-34.0); Mean Corpuscular Volume 103.2 fL (80.0-100.0); Platelet Count 91 K/uL (130-400); RDW Coefficient of Variation 18.6 % (11.5-14.5); RDW Standard Deviation 70.4 fL (36.4-46.3); Red Blood Count 2.17 M/uL (4.70-6.10); White Blood Count 7.29 K/ul (4.8-10.8)
[2023-07-29 07:59] LABS: Albumin Level 3.5 gm/dl (3.4-5.0); Calcium 9.2 mg/dl (8.6-10.3); Creatinine Clr Calc Pharmacy 59.9 ml/min; Est GFR (African American) 65.8 ml/min; Est GFR (Non-African American) 56.7 ml/min; Magnesium 1.8 mg/dl (1.7-2.4); Potassium 3.7 mmol/L (3.5-5.1)
[2023-07-29 08:26] LABS: Folate (Folic Acid),Ser orPlas 20.69 ng/ml (>5.38)
[2023-07-29 09:01] LABS: Allen Test Pos (Pos); Base Excess ABG 1.7 mEq/L (-9-1.8); HCO3 ABG 26 mmol/L (19-24); Oxygen Saturation ABG 95.2 % (90-95); PCO2 ABG 36 mmHg (35-46); PO2 ABG 72 mmHg (80-95); pH ABG 7.46 (7.35-7.45)
[2023-07-29] MEDS: ALBUT/IPRATROP 3MG/0.5MG NEB 3 ML VIAL NEB PRN (09:04)
--- NOTE | 2023-07-29 09:45 | XRay Report ---
SINGLE VIEW CHEST CLINICAL HISTORY: Dyspnea FINDINGS: An AP, portable, upright chest radiograph is compared to study dated 07/28/2023 and correlat ed with chest CT dated 07/12/2023. A left subclavian central venous infusion port is unchanged in posit ion. The heart is enlarged but noting atherosclerotic calcification of the thoracic aorta. The pulmon elena vasculature is noncongested. Emphysema and chronic interstitial thickening is similar to previous . Airspace opacities throughout the left lung are unchanged and consistent with lymphangitic spread o f tumor when compared to the prior examination. There are left larger than right pleural effusions wi th dependent consolidation. No pneumothorax is seen. The skeletal structures are osteopenic. The bony thorax is grossly intact. Arthritic change is noted in the shoulders and spine. Residual enteric con trast is noted in the stomach. IMPRESSION: 1. Cardiomegaly and emphysema. 2. 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 This was better assessed on the recent chest CT. 3. Left larger than right pleural effusions with dependent consolidation. ACT 112: Negative or not required by law. Electronically signed by: Reinaldo Kebede M.D. 07/29/2023 9:43 AM
--- NOTE | 2023-07-29 09:56 | Pulmonology Progress Note ---
Date of Service July 29, 2023 Assessment & Plan (1) Metastatic primary lung cancer: Laterality: unspecified laterality Qualified Code(s): C34.90 - Malignant neoplasm of unspecified part of unspecified bronchus or lung (2) COPD (chronic obstructive pulmonary disease): COPD type: COPD with acute lower respiratory infection Qualified Code(s): J44.0 - Chronic obstructive pulmonary disease with (acute) lower respiratory infection (3) Multifocal pneumonia: (4) Pleural effusion: Plan CT chest 07/12/2023 personally reviewed: Centrilobular and paraseptal emphysema appreciated bilaterally Interlobular thickening on the left side Bilateral pleural effusion L>R Positive mediastinal lymphadenopathy --Acute hypoxic respiratory failure Multifactorial Bilateral pleural effusion Actively aspirating Swallow eval 07/25/2023 does show signs of aspiration Respiratory bio fire negative for everything on 07/23/2023 Procalcitonin 0.72 BNP 81 --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 Sputum cultures negative to date BiPAP nightly and as needed shortness of breath Overall prognosis of the patient is guarded, palliative consult would be helpful Case discussed with Dr Leonardo No further recommendation from pulmonary perspective, will sign off Please call directly with any questions Please note the above document was generated using voice recognition software. It may contain grammatical, syntax or spelling errors.Any formal questions or concerns about the content, text or information contained within the body of this dictation should be directly addressed to the provider for clarification. Admission and Anticipated Discharge Date Admission Date: July 23, 2023 Subjective Patient seen and examined at bedside. No acute distress, no adverse events overnight Patient stated that he is feeling better today. Patient daughter was also in the room Denies any chest pain. Has been using incentive spirometry as well as flutter valve. Bringing up clear phlegm. Denies any hemoptysis Urinating well. No nausea vomiting Review of Systems 2 Review of Systems: All systems reviewed & are unremarkable except as noted in Subjective Physical Exam 2 Physical Exam: Constitutional: No acute distress HEENT: EOMI, PERRLA Respiratory system: Decreased air entry bilaterally, no rhonchi, positive crackles bilaterally, no wheezing CVS: S1-S2 positive, no murmurs or gallops Abdomen: Soft, nontender, nondistended, positive bowel sounds x4 Extremities: +2 pulses bilaterally radialis/ dorsalis pedis, no cyanosis, +2 pitting edema bilateral lower extremity Neuro: Awake alert oriented x3 Psych: Normal mood and affect G/U: No Bautista Skin: no rashes, warm and dry Lymphatic: no cervical or axillary lymphadenopathy Results & Data Results & Data Vital Signs (Past 12 Hours) Vital Signs Temp Pulse Pulse Resp BP Pulse Ox O2 Del Method 07/29/23 09:04 101 H 32 H 94 Nasal Cannula 07/29/23 08:22 107 H 07/29/23 08:22 Nasal Cannula 07/29/23 07:30 36.4 C L 107 H 20 140/81 99 Nasal Cannula 07/29/23 07:26 36 H Nasal Cannula 07/29/23 07:02 103 H 18 95 Nasal Cannula 07/29/23 02:41 36.9 C 104 H 16 121/78 94 Nasal Cannula 07/29/23 00:29 89 07/29/23 00:08 97 H 18 93 Nasal Cannula 07/28/23 23:03 36.6 C 99 H 16 123/79 97 Nasal Cannula O2 Flow Rate 07/29/23 09:04 2.5 07/29/23 08:22 07/29/23 08:22 2 07/29/23 07:30 3 07/29/23 07:26 2 07/29/23 07:02 3 07/29/23 02:41 2 07/29/23 00:29 07/29/23 00:08 2 07/28/23 23:03 2 Laboratory Results 07/29/23 06:22 07/29/23 06:22 PG Care Time/CCT Total # of Minutes Spent Total Time Spent with Patient: Total time spent is greater than 50% in coordination of care (as documented) at patient's floor/unit and/or counseling patient: Coding Level of Care Code 55968 SUB INP/OBS CARE 2/35MIN Diagnoses Metastatic primary lung cancer C34.90 Laterality: unspecified laterality COPD (chronic obstructive pulmonary disease) J44.0 COPD type: COPD with acute lower respiratory infection Multifocal pneumonia J18.9 Pleural effusion J90
[2023-07-29] MEDS ORDERED: methylPREDNISolone 40 MG in SYRINGE 0 ML IV SCH (10:00)
[2023-07-29] MEDS: FUROSEMIDE INJ 20 MG/2 ML VIAL IV ONE ×2 (10:26→12:37)
[2023-07-29] MEDS: methylPREDNISolone 40 MG in SYRINGE 0 ML IV SCH (10:30)
[2023-07-29] MEDS: guaiFENesin 600 MG TABCR PO SCH (10:30)
[2023-07-29] MEDS: ALBUMIN 25% 25 GM/100 ML VIAL IV SCH (10:31)
--- NOTE | 2023-07-29 14:36 | Communication Note ---
Date of Service: July 29, 2023 Discussed with patient and patient's daughter at bedside regarding CODE STATUS today. Patient prefers to be DNI/DNR given poor prognosis.
--- NOTE | 2023-07-29 15:32 | Hospitalist Progress Note ---
Date of Service July 29, 2023 Assessment & Plan (1) Multifocal pneumonia: (2) Metastatic lung cancer (metastasis from lung to other site): (3) Aspiration pneumonia: Plan: Acute respiratory failure with hypoxia Multifocal pneumonia Bilateral pleural effusion Recurrent Aspiration contributing Metastatic lung cancer COPD exacerbation --Chest CT 07/12/23: Overall, progression of metastatic disease as described above including lymphangitic spread of tumor within the left lung. The previously identified paratracheal, hilar, and subcarinal lymph nodes have slightly decreased in size and are partially calcified consistent with positive treatment response. Small bilateral pleural effusions. These could represent malignant pleural effusions. Patchy bibasilar densities have progressed most pronounced on the left with progressive left lower lobe bronchial opacification. This could be due to an aspiration pneumonitis. Interval progression of metastatic disease within the upper abdomen. This will be discussed on the same day abdomen and pelvis CT. --CXR:No significant change in appearance of chest. 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 No pneumothorax. --Video Swallow:Moderate gastroesophageal reflux. Deep penetration to the level of the vocal cords without definite aspiration during the examination. Suggestion of a tiny Zenker's diverticulum. -- Procalcitonin elevated -- BioFire negative --Blood cultures negative to date --Sputum culture moderate normal terri --Echocardiogram; EF of 55%; normal left ventricular wall thickness. --Continue Zosyn, nebs --Supplemental oxygen as needed Appreciate pulmonology input Strict aspiration precautions Pulmonary hygiene Poor prognosis, palliative care consulted to address goals of care Continue BiPAP nightly Continue IV Lasix as needed Taper off of IV Solu-Medrol as able Will complete antibiotic treatment for 7 days Metastatic lung cancer --MRI brain with and without contrast on as per recommendation by oncology; no acute finding or intracranial metastasis. --CT chest as above --CT ABD:No hemoperitoneum. Dependent airspace consolidations, concerning for multilobar pneumonia. Bilateral parapneumonic effusions. Small pericardial effusion. Mild abdominal ascites. Dense contrast throughout the colon, which is contributing to streak artifact which limits evaluation of the abdominal viscera. Extensive metastatic disease in the upper abdomen, similar in appearance when compared to July 12, 2023. Common bile duct stent. Pneumobilia. Post surgical changes in the RIGHT hepatic lobe. Correlate with surgical medical history. --Needs follow-up with oncology on discharge (4) Malnutrition: Plan: Severe weight loss related to malignancy. Poor appetite Continue supplements Started on Marinol (5) Hypomagnesemia: Plan: Replace electrolytes as needed (6) Tobacco use disorder: Plan: ongoing smoking, contemplative phase. Nicoderm patch provided. (7) Hyponatremia: Plan: As per prior provider Per recent inpatient nephrology evaluation: small cell lung cancer may cause SIADH as can pneumonia in patient who already has structural lung disease. on salt tabs BID with placed on a 1.5L fluid restriction --Continue salt tabs and fluid restriction -- Monitor sodium levels (8) Anemia: Plan: Anemia Thrombocytopenia Likely anemia of chronic disease Monitor CBC No acute bleeding issues H/O recurrent PE Continue apixaban DVT Px: Apixaban Code Status DNI/DNR as per my discussion with patient and patient's family Poor prognosis Admission and Anticipated Discharge Date Admission Date: July 23, 2023 Subjective Patient is seen and examined at bedside Patient had transient shortness of breath associated with cough this morning Discussed with pulmonology today CXR today showed bilateral pleural effusion with dependent consolidation, lymphatic spread of tumor throughout left lung Patient felt better after Lasix, DuoNeb Denies any significant chest pain, nausea, vomiting, abdominal pain Discussed with patient's family at bedside Review of Systems Review of Systems: All systems reviewed & are unremarkable except as noted in Subjective Physical Exam Physical Exam: Physical Exam: Vitals signs as noted above General Appearance:Moderately built and nourished, chronic ill-appearing, elderly, no apparent distress Head: normocephalic, Atraumatic Eyes: normal inspection, EOMI Neck: supple, Trachea midline Respiratory/Chest: Decreased breath sounds, bilateral crackles, wheezes, no accessory muscle use Cardiovascular: S1, S2, No murmur Abdomen/GI:Soft, Non tender, Bowel sounds present + umbilical hernia Extremities/Musculoskeletal:normal inspection, 2+ Pedal edema Neurologic/Psych:AAOX3, grossly no focal neurological deficits Skin: normal color, warm Results & Data Results & Data Vital Signs (Past 12 Hours) Vital Signs Temp Pulse Pulse Resp BP Pulse Ox O2 Del Method 07/29/23 12:56 103 H 20 94 Nasal Cannula 07/29/23 11:45 36.6 C 107 H 16 126/76 94 Nasal Cannula 07/29/23 09:04 101 H 32 H 94 Nasal Cannula 07/29/23 08:22 107 H 07/29/23 08:22 Nasal Cannula 07/29/23 07:30 36.4 C L 107 H 20 140/81 99 Nasal Cannula 07/29/23 07:26 36 H Nasal Cannula 07/29/23 07:02 103 H 18 95 Nasal Cannula O2 Flow Rate 07/29/23 12:56 2.5 07/29/23 11:45 1 07/29/23 09:04 2.5 07/29/23 08:22 07/29/23 08:22 2 07/29/23 07:30 3 07/29/23 07:26 2 07/29/23 07:02 3 Laboratory Results Short CBC 07/29/23 Range/Units 06:22 WBC 7.29 (4.8-10.8) K/ul Hgb 7.4 L (14.0-18.0) g/dl Hct 22.4 L (42.0-52.0) % Plt Count 91 L (130-400) K/uL BMP 07/29/23 06:22 Sodium 133 L Potassium 3.7 Chloride 100 Carbon Dioxide 26 BUN 17 Creatinine 1.31 Glucose 95 Calcium 9.2 Liver Function 07/29/23 Range/Units 06:22 Albumin 3.5 (3.4-5.0) gm/dl (2) Metastatic lung cancer (metastasis from lung to other site) Laterality: unspecified laterality Qualified Code(s): C34.90 - Malignant neoplasm of unspecified part of unspecified bronchus or lung (4) Malnutrition Malnutrition type: protein-calorie malnutrition Protein-calorie malnutrition severity: severe Qualified Code(s): E43 - Unspecified severe protein-calorie malnutrition
[2023-07-30 07:01] LABS: Hematocrit (blood only) 23.7 % (42.0-52.0); Hemoglobin 7.7 g/dl (14.0-18.0); Mean Corpuscular Hemoglobin 33.9 pg (25.0-34.0); Mean Corpuscular Hgb Conc 32.5 g/dL (32.0-36.0); Mean Corpuscular Volume 104.4 fL (80.0-100.0); Platelet Count 92 K/uL (130-400); RDW Coefficient of Variation 18.6 % (11.5-14.5); RDW Standard Deviation 71.6 fL (36.4-46.3); Red Blood Count 2.27 M/uL (4.70-6.10); White Blood Count 8.09 K/ul (4.8-10.8)
[2023-07-30 07:24] LABS: BUN Creatinine Ratio 13.6 (10-20); Calcium 9.2 mg/dl (8.6-10.3); Creatinine Clr Calc Pharmacy 62.8 ml/min; Est GFR (African American) 69.6 ml/min; Magnesium 1.7 mg/dl (1.7-2.4); Potassium 3.8 mmol/L (3.5-5.1)
--- NOTE | 2023-07-30 10:12 | Pulmonology Progress Note ---
Date of Service July 30, 2023 Assessment & Plan (1) Metastatic primary lung cancer: Laterality: unspecified laterality Qualified Code(s): C34.90 - Malignant neoplasm of unspecified part of unspecified bronchus or lung (2) COPD (chronic obstructive pulmonary disease): COPD type: COPD with acute lower respiratory infection Qualified Code(s): J44.0 - Chronic obstructive pulmonary disease with (acute) lower respiratory infection (3) Multifocal pneumonia: (4) Pleural effusion: Plan CT chest 07/12/2023 personally reviewed: Centrilobular and paraseptal emphysema appreciated bilaterally Interlobular thickening on the left side Bilateral pleural effusion L>R Positive mediastinal lymphadenopathy --Acute hypoxic respiratory failure Multifactorial Bilateral pleural effusion Actively aspirating Swallow eval 07/25/2023 does show signs of aspiration Respiratory bio fire negative for everything on 07/23/2023 Procalcitonin 0.72 BNP 81 --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 Sputum cultures negative to date BiPAP nightly and as needed shortness of breath Overall prognosis of the patient is guarded, palliative consult would be helpful Case discussed with Dr Leonardo No further recommendation from pulmonary perspective, will sign off Please call directly with any questions Please note the above document was generated using voice recognition software. It may contain grammatical, syntax or spelling errors.Any formal questions or concerns about the content, text or information contained within the body of this dictation should be directly addressed to the provider for clarification. Admission and Anticipated Discharge Date Admission Date: July 23, 2023 Subjective Patient seen and examined at bedside. No acute distress, no adverse events overnight. Patient's was in the room He was saturating 98% on 3 L nasal cannula, I went down to 1 L. Overall he says he is feeling better. Denies any chest pain. Has been bringing up phlegm which is mostly clear. Denies any mopped assist Appetite is poor. Was asking if and when he could go home Review of Systems 2 Review of Systems: All systems reviewed & are unremarkable except as noted in Subjective Physical Exam 2 Physical Exam: Constitutional: No acute distress HEENT: EOMI, PERRLA Respiratory system: Decreased air entry bilaterally, no rhonchi, positive crackles bilaterally, no wheezing CVS: S1-S2 positive, no murmurs or gallops Abdomen: Soft, nontender, nondistended, positive bowel sounds x4 Extremities: +2 pulses bilaterally radialis/ dorsalis pedis, no cyanosis, +2 pitting edema bilateral lower extremity Neuro: Awake alert oriented x3 Psych: Normal mood and affect G/U: No Bautista Skin: no rashes, warm and dry Lymphatic: no cervical or axillary lymphadenopathy Results & Data Results & Data Vital Signs (Past 12 Hours) Vital Signs Temp Pulse Pulse Resp BP Pulse Ox O2 Del Method 07/30/23 08:09 36.3 C L 107 H 19 120/76 99 Nasal Cannula 07/30/23 08:00 117 H 07/30/23 08:00 Nasal Cannula 07/30/23 07:00 103 H 20 96 Nasal Cannula 07/30/23 03:18 36.3 C L 109 H 22 131/79 94 Nasal Cannula 07/30/23 01:24 102 H 07/30/23 01:22 103 H 18 90 Nasal Cannula 07/30/23 00:24 36.5 C 104 H 20 123/77 94 Nasal Cannula 07/29/23 22:11 36.8 C 101 H 18 123/77 96 Nasal Cannula O2 Flow Rate 07/30/23 08:09 4 07/30/23 08:00 07/30/23 08:00 2 07/30/23 07:00 4 07/30/23 03:18 2 07/30/23 01:24 07/30/23 01:22 2 07/30/23 00:24 3 07/29/23 22:11 2 Laboratory Results 07/30/23 06:30 07/30/23 06:30 PG Care Time/CCT Total # of Minutes Spent Total Time Spent with Patient: Total time spent is greater than 50% in coordination of care (as documented) at patient's floor/unit and/or counseling patient: Coding Level of Care Code 53410 SUB INP/OBS CARE 2/35MIN Diagnoses Metastatic primary lung cancer C34.90 Laterality: unspecified laterality COPD (chronic obstructive pulmonary disease) J44.0 COPD type: COPD with acute lower respiratory infection Multifocal pneumonia J18.9 Pleural effusion J90
--- NOTE | 2023-07-30 14:47 | Hospitalist Progress Note ---
Date of Service July 30, 2023 Assessment & Plan (1) Multifocal pneumonia: (2) Metastatic lung cancer (metastasis from lung to other site): (3) Aspiration pneumonia: Plan: Acute respiratory failure with hypoxia Multifocal pneumonia Bilateral pleural effusion Recurrent Aspiration contributing Metastatic lung cancer COPD exacerbation --Chest CT 07/12/23: Overall, progression of metastatic disease as described above including lymphangitic spread of tumor within the left lung. The previously identified paratracheal, hilar, and subcarinal lymph nodes have slightly decreased in size and are partially calcified consistent with positive treatment response. Small bilateral pleural effusions. These could represent malignant pleural effusions. Patchy bibasilar densities have progressed most pronounced on the left with progressive left lower lobe bronchial opacification. This could be due to an aspiration pneumonitis. Interval progression of metastatic disease within the upper abdomen. This will be discussed on the same day abdomen and pelvis CT. --CXR:No significant change in appearance of chest. 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 No pneumothorax. --Video Swallow:Moderate gastroesophageal reflux. Deep penetration to the level of the vocal cords without definite aspiration during the examination. Suggestion of a tiny Zenker's diverticulum. -- Procalcitonin elevated -- BioFire negative --Blood cultures negative to date --Sputum culture moderate normal terri --Echocardiogram; EF of 55%; normal left ventricular wall thickness. --Continue Zosyn, nebs --Supplemental oxygen as needed Appreciate pulmonology input Strict aspiration precautions Pulmonary hygiene Poor prognosis, palliative care consulted to address goals of care Continue BiPAP nightly Received IV Lasix Will complete antibiotic treatment for 7 days Will decrease Solu-Medrol to 30 mg daily Resume home oral Lasix Needs 2 step prior to discharge Metastatic lung cancer --MRI brain with and without contrast on as per recommendation by oncology; no acute finding or intracranial metastasis. --CT chest as above --CT ABD:No hemoperitoneum. Dependent airspace consolidations, concerning for multilobar pneumonia. Bilateral parapneumonic effusions. Small pericardial ef fusion. Mild abdominal ascites. Dense contrast throughout the colon, which is contributing to streak artifact which limits evaluation of the abdominal viscera. Extensive metastatic disease in the upper abdomen, similar in appearance when compared to July 12, 2023. Common bile duct stent. Pneumobilia. Post surgical changes in the RIGHT hepatic lobe. Correlate with surgical medical history. --Needs follow-up with oncology on discharge (4) Malnutrition: Plan: Severe weight loss related to malignancy. Poor appetite Continue supplements Started on Marinol (5) Hypomagnesemia: Plan: Replace electrolytes as needed (6) Tobacco use disorder: Plan: ongoing smoking, contemplative phase. Nicoderm patch provided. (7) Hyponatremia: Plan: As per prior provider Per recent inpatient nephrology evaluation: small cell lung cancer may cause SIADH as can pneumonia in patient who already has structural lung disease. on salt tabs BID with placed on 1.5L fluid restriction --Continue salt tabs and fluid restriction -- Monitor sodium levels Sodium 133 today (8) Anemia: Plan: Anemia Thrombocytopenia Likely anemia of chronic disease Monitor CBC No acute bleeding issues H/O recurrent PE Continue apixaban DVT Px: Apixaban Code Status DNI/DNR as per my discussion with patient and patient's family Poor prognosis Admission and Anticipated Discharge Date Admission Date: July 23, 2023 Subjective Patient is seen and examined at bedside Subjectively feels better today Less dyspnea, cough today Eager to get discharged home Appetite remains poor Discussed with patient's daughter at bedside Denies any significant chest pain, nausea, vomiting, abdominal pain Review of Systems Review of Systems: All systems reviewed & are unremarkable except as noted in Subjective Physical Exam Physical Exam: Physical Exam: Vitals signs as noted above General Appearance:Moderately built and nourished, chronic ill-appearing, elderly, no apparent distress Head: normocephalic, Atraumatic Eyes: normal inspection, EOMI Neck: supple, Trachea midline Respiratory/Chest: Decreased breath sounds, bilateral wheezes, no accessory muscle use Cardiovascular: S1, S2, No murmur Abdomen/GI:Soft, Non tender, Bowel sounds present + umbilical hernia Extremities/Musculoskeletal:normal inspection, 2+ Pedal edema Neurologic/Psych:AAOX3, grossly no focal neurological deficits Skin: normal color, warm Results & Data Results & Data Vital Signs (Past 12 Hours) Vital Signs Temp Pulse Pulse Resp BP Pulse Ox O2 Del Method 07/30/23 12:28 112 H 22 91 Nasal Cannula 07/30/23 11:34 36.8 C 109 H 18 121/77 90 Nasal Cannula 07/30/23 08:09 36.3 C L 107 H 19 120/76 99 Nasal Cannula 07/30/23 08:00 117 H 07/30/23 08:00 Nasal Cannula 07/30/23 07:00 103 H 20 96 Nasal Cannula 07/30/23 03:18 36.3 C L 109 H 22 131/79 94 Nasal Cannula O2 Flow Rate 07/30/23 12:28 1.5 07/30/23 11:34 2 07/30/23 08:09 4 07/30/23 08:00 07/30/23 08:00 2 07/30/23 07:00 4 07/30/23 03:18 2 Laboratory Results Short CBC 07/30/23 Range/Units 06:30 WBC 8.09 (4.8-10.8) K/ul Hgb 7.7 L (14.0-18.0) g/dl Hct 23.7 L (42.0-52.0) % Plt Count 92 L (130-400) K/uL BMP 07/30/23 06:30 Sodium 133 L Potassium 3.8 Chloride 100 Carbon Dioxide 27 BUN 17 Creatinine 1.25 Glucose 98 Calcium 9.2 (2) Metastatic lung cancer (metastasis from lung to other site) Laterality: unspecified laterality Qualified Code(s): C34.90 - Malignant neoplasm of unspecified part of unspecified bronchus or lung (4) Malnutrition Malnutrition type: protein-calorie malnutrition Protein-calorie malnutrition severity: severe Qualified Code(s): E43 - Unspecified severe protein-calorie malnutrition
[2023-07-30] MEDS: FUROSEMIDE 40 MG TAB PO SCH (15:56)
[2023-07-30] MEDS: MAGNESIUM SULFATE / D5W 1 GM/100 ML BAG IV ONE (17:53)
[2023-07-30] MEDS: POTASSIUM CHLORIDE CRTAB 20 MEQ TABCR PO STA (17:54)
[2023-07-31] MEDS: methylPREDNISolone 30 MG in SYRINGE 0 ML IV SCH (08:10)
[2023-07-31 08:36] LABS: BUN Creatinine Ratio 13.3 (10-20); Calcium 9.4 mg/dl (8.6-10.3); Creatinine Clr Calc Pharmacy 58.1 ml/min; Est GFR (African American) 63.4 ml/min; Est GFR (Non-African American) 54.7 ml/min; Magnesium 1.8 mg/dl (1.7-2.4)
--- NOTE | 2023-07-31 13:05 | Hospitalist Progress Note ---
Date of Service July 31, 2023 Assessment & Plan (1) Multifocal pneumonia: (2) Metastatic lung cancer (metastasis from lung to other site): (3) Aspiration pneumonia: Plan: Acute respiratory failure with hypoxia Multifocal pneumonia Bilateral pleural effusion Recurrent Aspiration contributing Metastatic lung cancer COPD exacerbation --Chest CT 07/12/23: Overall, progression of metastatic disease as described above including lymphangitic spread of tumor within the left lung. The previously identified paratracheal, hilar, and subcarinal lymph nodes have slightly decreased in size and are partially calcified consistent with positive treatment response. Small bilateral pleural effusions. These could represent malignant pleural effusions. Patchy bibasilar densities have progressed most pronounced on the left with progressive left lower lobe bronchial opacification. This could be due to an aspiration pneumonitis. Interval progression of metastatic disease within the upper abdomen. This will be discussed on the same day abdomen and pelvis CT. --CXR:No significant change in appearance of chest. 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 No pneumothorax. --Video Swallow:Moderate gastroesophageal reflux. Deep penetration to the level of the vocal cords without definite aspiration during the examination. Suggestion of a tiny Zenker's diverticulum. -- Procalcitonin elevated -- BioFire negative --Blood cultures negative to date --Sputum culture moderate normal terri --Echocardiogram; EF of 55%; normal left ventricular wall thickness. --Continue Zosyn, nebs --Supplemental oxygen as needed Appreciate pulmonology input Strict aspiration precautions Pulmonary hygiene Poor prognosis, palliative care consulted to address goals of care Continue BiPAP nightly Received IV Lasix Completed 7-day course of Zosyn. Resume home oral Lasix Needs 2: Needs 2 L of oxygen at rest and with activity Advised to follow-up with PCP and pulmonology on discharge Metastatic lung cancer --MRI brain with and without contrast on as per recommendation by oncology; no acute finding or intracranial metastasis. --CT chest as above --CT ABD:No hemoperitoneum. Dependent airspace consolidations, concerning for multilobar pneumonia. Bilateral parapneumonic effusions. Small pericardial effusion. Mild abdominal ascites. Dense contrast throughout the colon, which is contributing to streak artifact which limits evaluation of the abdominal viscera. Extensive metastatic disease in the upper abdomen, similar in appearance when compared to July 12, 2023. Common bile duct stent. Pneumobilia. Post surgical changes in the RIGHT hepatic lobe. Correlate with surgical medical history. --Needs follow-up with oncology on discharge Will need to follow-up with palliative care as outpatient NSVT Asymptomatic Started on metoprolol 12.5 mg twice a day Monitor replace electrolytes as needed (4) Malnutrition: Plan: Severe weight loss related to malignancy. Poor appetite Continue supplements Started on Marinol (5) Hypomagnesemia: Plan: Replace electrolytes as needed (6) Tobacco use disorder: Plan: ongoing smoking, contemplative phase. Nicoderm patch provided. (7) Hyponatremia: Plan: As per prior provider Per recent inpatient nephrology evaluation: small cell lung cancer may cause SIADH as can pneumonia in patient who already has structural lung disease. on salt tabs BID with placed on 1.5L fluid restriction --Continue salt tabs and fluid restriction -- Monitor sodium levels Sodium 133 today (8) Anemia: Plan: Anemia Thrombocytopenia Likely anemia of chronic disease Monitor CBC No acute bleeding issues H/O recurrent PE Continue apixaban DVT Px: Apixaban Code Status DNI/DNR as per my discussion with patient and patient's family Poor prognosis Disposition Home with home health Admission and Anticipated Discharge Date Admission Date: July 23, 2023 Subjective Patient is seen and examined at bedside Doing well No complaints Prefers to be discharged home today Discussed with patient's family at bedside Had 2 step earlier today Still has some cough with yellowish expectoration Denies any significant chest pain, nausea, vomiting, abdominal pain Review of Systems Review of Systems: All systems reviewed & are unremarkable except as noted in Subjective Physical Exam Physical Exam: Physical Exam: Vitals signs as noted above General Appearance:Moderately built and nourished, chronic ill-appearing, elderly, no apparent distress Head: normocephalic, Atraumatic Eyes: normal inspection, EOMI Neck: supple, Trachea midline Respiratory/Chest: Decreased breath sounds, bilateral crackles, no accessory muscle use Cardiovascular: S1, S2, No murmur Abdomen/GI:Soft, Non tender, Bowel sounds present + umbilical hernia Extremities/Musculoskeletal:normal inspection, 2+ Pedal edema Neurologic/Psych:AAOX3, grossly no focal neurological deficits Skin: normal color, warm Results & Data Results & Data Vital Signs (Past 12 Hours) Vital Signs Temp Pulse Pulse Pulse Pulse Pulse Resp 02/26/24 11:37 126 H 118 H 122 H 111 H 07/31/23 11:11 36.6 C 109 H 19 07/31/23 10:57 07/31/23 07:56 36.5 C 107 H 19 07/31/23 06:26 101 H 18 07/31/23 03:46 36.5 C 109 H 16 Resp Resp Resp Resp BP Pulse Ox Pulse Ox 07/31/23 11:37 26 H 20 22 20 91 07/31/23 11:11 108/71 92 07/31/23 10:57 07/31/23 07:56 112/72 94 07/31/23 06:26 94 07/31/23 03:46 121/77 94 Pulse Ox Pulse Ox Pulse Ox O2 Del Method O2 Flow Rate O2 Flow Rate O2 Flow Rate 07/31/23 11:37 92 93 88 L 2 2 07/31/23 11:11 Nasal Cannula 2 07/31/23 10:57 Nasal Cannula 2 07/31/23 07:56 Room Air, Nasal Cannula 2 07/31/23 06:26 Nasal Cannula 2 07/31/23 03:46 Nasal Cannula 2 O2 Flow Rate 07/31/23 11:37 2 07/31/23 11:11 07/31/23 10:57 07/31/23 07:56 07/31/23 06:26 07/31/23 03:46 (2) Metastatic lung cancer (metastasis from lung to other site) Laterality: unspecified laterality Qualified Code(s): C34.90 - Malignant neoplasm of unspecified part of unspecified bronchus or lung (4) Malnutrition Malnutrition type: protein-calorie malnutrition Protein-calorie malnutrition severity: severe Qualified Code(s): E43 - Unspecified severe protein-calorie malnutrition
--- NOTE | 2023-07-31 13:13 | Discharge Summary ---
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 He denies fevers but reports cough is productive of yellow phlegm. He has no consistent blood with coughing but did notice scant blood at one time. This is not present now. He typically ambulates independently at baseline. He reports a poor appetite and a total weight loss of approximately 75 pounds since diagnosis with cancer (255lb-->180lb now). He recently started Marinol yesterday. He receives his cancer therapy through Dr. Kamara with [facility]. is at bedside and assists with history. He has completed radiation therapy and she reports he is about to start chemotherapy in the next couple of weeks as the plan for her cancer treatment. The patient was admitted for multifocal pneumonia on 07/08/2023 and discharged on 07/11/2023 with 7-day course of antibiotics. He completed these (cefdinir and doxycycline) and had a follow-up with his primary care doctor, Dr. Sanabria on 07/17/2023. He underwent a chest x-ray at that time revealing bilateral pleural effusions and bibasilar basilar atelectasis with left lung opacities with findings concerning for pneumonia. During that encounter he was already reporting having increased shortness of breath. He passed a exercise respiratory test in the office but oxygen for home was ordered. Low threshold to return to ER was advised. Admission Exam Per Admitting Provider CONSTITUTIONAL: thin cachectic, vitals as above, generally well-appearing, NAD EYES: normal conjunctivae, no scleral icterus ENT: external ear and nose normal,MMM NECK: trachea midline RESPIRATORY: clear to auscultation bilaterally, no crackles, rales or wheezes, normal respiratory effort CARDIOVASCULAR: regular rate and rhythm, S1 and 2 heard without murmurs, gallops or rubs, no JVD, no peripheral edema CHEST: inspection of chest was normal GASTROINTESTINAL: soft, nontender, no guarding MUSCULOSKELETAL: strength 5/5 throughout, head is normocephalic and atraumatic SKIN: warm and dry NEUROLOGIC: No facial palsy, no dysarthria. CN 2-12 grossly intact, no sensory deficit, normal cognition, normal speech, no tremor PSYCHIATRIC: alert cooperative and oriented to person, place and time. Euthymic mood, makes good eye contact, language grossly intact, recent and remote memory grossly intact. Principal Diagnosis Acute respiratory failure with hypoxia Multifocal pneumonia Bilateral pleural effusion Recurrent Aspiration Metastatic lung cancer COPD exacerbation NSVT Discharge Data Allergies Allergy/AdvReac Type Severity Reaction Status Date / Time levofloxacin Allergy Intermediate Nausea Verified 07/23/23 13:33 Consultations 07/23/23 14:37 ED Decision to Admit Stat 07/23/23 18:11 Consult Pulmonology Routine 07/28/23 15:39 Consult Palliative Care Routine Procedures Performed Laboratory Results WBC 8.09 K/ul (4.8-10.8) 07/30/23 06:30 RBC 2.27 M/uL (4.70-6.10) L 07/30/23 06:30 Hgb 7.7 g/dl (14.0-18.0) L 07/30/23 06:30 Hct 23.7 % (42.0-52.0) L 07/30/23 06:30 MCV 104.4 fL (80.0-100.0) H 07/30/23 06:30 MCH 33.9 pg (25.0-34.0) 07/30/23 06:30 MCHC 32.5 g/dL (32.0-36.0) 07/30/23 06:30 RDW Std Deviation 71.6 fL (36.4-46.3) H 07/30/23 06:30 RDW Coeff of Lizandro 18.6 % (11.5-14.5) H 07/30/23 06:30 Plt Count 92 K/uL (130-400) L 07/30/23 06:30 MPV 11.0 fL (9.4-12.4) 07/30/23 06:30 Immature Gran % (Auto) 0.6 % 07/28/23 06:39 Neut % (Auto) 91.6 % 07/28/23 06:39 Lymph % (Auto) 2.6 % 07/28/23 06:39 Gooding % (Auto) 5.2 % 07/28/23 06:39 Eos % (Auto) 0.0 % 07/28/23 06:39 Baso % (Auto) 0.0 % 07/28/23 06:39 Neut # (Auto) 6.37 K/uL (1.40-6.50) 07/28/23 06:39 Lymph # (Auto) 0.18 K/uL (1.20-3.40) L 07/28/23 06:39 Gooding # (Auto) 0.36 K/uL (0.11-0.59) 07/28/23 06:39 Eos # (Auto) 0.00 K/uL (0.00-0.50) 07/28/23 06:39 Baso # (Auto) 0.00 K/uL (0.00-0.20) 07/28/23 06:39 Immature Gran # (Auto) 0.04 K/uL (0.01-0.20) 07/28/23 06:39 Hypersegmented Neuts 1+ 07/27/23 07:00 RBC Morphology Unremarkable 07/26/23 06:15 Polychromasia 1+ 07/28/23 06:39 Hypochromasia Present 07/27/23 07:00 Macrocytosis Present 07/27/23 07:00 PT 13.1 Seconds (9.0-12.0) H 07/23/23 11:32 INR 1.2 (0.9-1.1) H 07/23/23 11:32 APTT 36 Seconds (21-31) H 07/23/23 11:32 PTT Ratio 1.3 07/23/23 11:32 ABG pH 7.46 (7.35-7.45) H 07/29/23 08:53 ABG pCO2 36 mmHg (35-46) 07/29/23 08:53 ABG pO2 72 mmHg (80-95) L 07/29/23 08:53 ABG HCO3 26 mmol/L (19-24) H 07/29/23 08:53 ABG O2 Saturation 95.2 % (90-95) H 07/29/23 08:53 ABG Base Excess 1.7 mEq/L (-9-1.8) 07/29/23 08:53 Jacinto Test Pos (Pos) 07/29/23 08:53 Oxygen Given 2L 07/29/23 08:53 Sodium 133 mmol/L (136-145) L 07/31/23 08:00 Potassium 4.0 mmol/L (3.5-5.1) 07/31/23 08:00 Chloride 100 mmol/L (98-107) 07/31/23 08:00 Carbon Dioxide 27 mmol/L (21-32) 07/31/23 08:00 Anion Gap 6 (3-11) 07/31/23 08:00 BUN 18 mg/dl (6-23) 07/31/23 08:00 Creatinine 1.35 mg/dl (0.6-1.4) 07/31/23 08:00 Est Cr Clr Drug Dosing 58.1 ml/min 07/31/23 08:00 Est GFR ( Amer) 63.4 ml/min 07/31/23 08:00 Est GFR (Non-Af Amer) 54.7 ml/min 07/31/23 08:00 BUN/Creatinine Ratio 13.3 (10-20) 07/31/23 08:00 Glucose 99 mg/dl (70-99(Fasting)) 07/31/23 08:00 Lactate 1.1 mmol/L (0.4-2.0) 07/23/23 15:21 Calcium 9.4 mg/dl (8.6-10.3) 07/31/23 08:00 Phosphorus 3.8 mg/dl (2.5-4.9) 07/24/23 06:59 Magnesium 1.8 mg/dl (1.7-2.4) 07/31/23 08:00 Total Bilirubin 0.4 mg/dl (0.2-1.0) 07/23/23 11:32 AST 72 U/L (13-39) H 07/23/23 11:32 ALT 17 U/L (7-52) 07/23/23 11:32 Alkaline Phosphatase 110 U/L (34-104) H 07/23/23 11:32 Troponin I High Sens 14.7 pg/ml (0-20) 07/23/23 11:32 B-Natriuretic Peptide 81 pg/ml (0-100) 07/23/23 11:32 Total Protein 6.0 gm/dl (6.0-8.3) 07/23/23 11:32 Albumin 3.5 gm/dl (3.4-5.0) 07/29/23 06:22 Globulin 3.5 gm/dl (2.5-4.0) 07/23/23 11:32 Albumin/Globulin Ratio 0.7 (0.9-2) L 07/23/23 11:32 Vitamin B12 1099 pg/ml (180-914) H 07/29/23 06:22 Folate 20.69 ng/ml (>5.38) 07/29/23 06:22 Procalcitonin 0.72 ng/ml (0-0.5) H 07/23/23 11:32 Nasal Screen MRSA (PCR) Negative (Negative) 07/23/23 18:20 Adenovirus (PCR) Not Detected (NotDetected) 07/23/23 11:27 B. pertussis DNA (PCR) Not Detected (NotDetected) 07/23/23 11:27 B.parapertussis DNA PCR Not Detected (NotDetected) 07/23/23 11:27 C. pneumoniae DNA (PCR) Not Detected (NotDetected) 07/23/23 11:27 Coronavirus OC43 (PCR) Not Detected (NotDetected) 07/23/23 11:27 Coronavirus HKU1 (PCR) Not Detected (NotDetected) 07/23/23 11:27 Coronavirus 229E (PCR) Not Detected (NotDetected) 07/23/23 11:27 SARS-CoV-2 (PCR) Not Detected (NotDetected) 07/23/23 11:27 Coronavirus NL63 (PCR) Not Detected (NotDetected) 07/23/23 11:27 Human Metapneumovir PCR Not Detected (NotDetected) 07/23/23 11:27 Influenza Type A (PCR) Not Detected (NotDetected) 07/23/23 11:27 Influenza Type B (PCR) Not Detected (NotDetected) 07/23/23 11:27 M. pneumoniae (PCR) Not Detected (NotDetected) 07/23/23 11:27 Parainfluenza 1 (PCR) Not Detected (NotDetected) 07/23/23 11:27 Parainfluenza 2 (PCR) Not Detected (NotDetected) 07/23/23 11:27 Parainfluenza 3 (PCR) Not Detected (NotDetected) 07/23/23 11:27 Parainfluenza 4 (PCR) Not Detected (NotDetected) 07/23/23 11:27 RSV (PCR) Not Detected (NotDetected) 07/23/23 11:27 Entero/Rhino (PCR) Not Detected (NotDetected) 07/23/23 11:27 Impressions Brain MRI 07/25/23 08:43 Brain MRI WITH AND WITHOUT CONTRAST HISTORY: Lung cancer. Rule out brain metastatis TECHNIQUE: Multiplanar multisequence MRI of the brain was performed both before and after the intravenous administration of contrast. COMPARISON STUDY: Outside hospital brain MRI 07/01/2010. FINDINGS: There is no mass, hematoma, midline shift, or acute infarct. The ventricles and sulci demonstrate mild age-related involutional changes. Scattered foci of T2 hyperintensity seen within the periventricular and subcortical white matter are nonspecific but suggestive of mild microvascular ischemic changes. The major vascular flow voids at the skull base are well- maintained. A few partially opacified left mastoid air cells and a small retention cyst within the right maxillary sinus. Postcontrast sequences show no areas of abnormal enhancement. IMPRESSION: 1. No acute infarct or intracranial hemorrhage. 2. No evidence for intracranial metastatic disease. ACT 112: Negative or not required by law. Electronically signed by: Conrad Schofield M.D. 07/25/2023 1:09 PM Barium Swallow X-Ray 07/25/23 12:08 FL barium swallow CLINICAL HISTORY: Dysphagia with solids. Pneumonia. COMPARISON STUDY: None. FLUOROSCOPY TIME: 1 minute and 16 seconds. FLUOROSCOPY IMAGES: 93 Ka,r: 29.5. mGy FINDINGS: The patient swallowed barium without difficulty. There is deep penetration to the level of the vocal cords without definite aspiration during the examination. There appears to be tiny Zenker's diverticulum. There is also a tiny anterior proximal esophageal web seen on image 83. The esophagus is normal in course and caliber. There is moderate gastroesophageal reflux demonstrated during the examination. A left subclavian Port-A-Cath is noted. The barium tablet passed without difficulty. No hiatus hernia. IMPRESSION: 1. Moderate gastroesophageal reflux. 2. Deep penetration to the level of the vocal cords without definite aspiration during the examination. 3. Suggestion of a tiny Zenker's diverticulum. ACT 112: Negative or not required by law. Electronically signed by: Conrad Schofield M.D. 07/25/2023 1:48 PM Videofluoroscopic Swallow 07/25/23 12:09 FL video swallow HISTORY: r/o aspiration TECHNIQUE: Video fluoroscopic evaluation of swallowing was performed in the AP and lateral projections by the speech pathology staff. The patient is fed nectar-thick and thin liquid barium, a barium coated wafer, and barium pudding. FLUOROSCOPY TIME: 1 minute and 36 seconds. Ka,r: 7.25 mGy COMPARISON STUDY: Barium swallow 07/25/2023. FINDINGS: A few episodes of incomplete epiglottic deflection. This results in trace aspiration with the thin liquid barium. Mild vallecular residue seen within the thicker barium consistencies. There are few additional episodes of trace aspiration throughout the examination due to the small amount of residue within the hypopharynx. IMPRESSION: 1. A few episodes of trace aspiration identified during the examination. 2. Please see the speech pathologist report for detailed findings and recommendations. ACT 112: Negative or not required by law. Electronically signed by: Conrad Schofield M.D. 07/25/2023 1:51 PM Abdomen/Pelvis CT 07/27/23 19:53 Exam(s): CT ABDOMEN + PELVIS With Contrast IV Amt: 89 ml opti 320 EXAM: CT Abdomen and Pelvis With Intravenous Contrast CLINICAL HISTORY: Reason for exam: abd distension, eliquis. TECHNIQUE: Axial computed tomography images of the abdomen and pelvis with intravenous contrast. CTDI is 22.78 mGy and DLP is 1145.86 mGy-cm. Automated exposure control was utilized for the study. A dose lowering technique was utilized adhering to the principles of ALARA. CONTRAST: Patient received 89 ml opti 320 of IV contrast COMPARISON: CT abdomen and pelvis July 12, 2023. FINDINGS: Lung bases: Dependent airspace consolidations, concerning for multilobar pneumonia. Bilateral parapneumonic effusions. Heart: Small pericardial effusion. ABDOMEN: Liver: Unremarkable. No mass. Gallbladder and bile ducts: Extensive metastatic disease in the upper abdomen, similar in appearance when compared to July 12, 2023. Common bile duct stent. Pneumobilia. Post surgical changes in the RIGHT hepatic lobe. Correlate with surgical medical history. No calcified stones. Pancreas: Unremarkable. No mass. No ductal dilation. Spleen: Unremarkable. No splenomegaly. Adrenals: Unremarkable. No mass. Kidneys and ureters: Unremarkable. No hydronephrosis or nephrolithiasis. Stomach and bowel: Dense contrast throughout the colon, which is contributing to streak artifact which limits evaluation of the abdominal viscera. No obstruction. No mucosal thickening. PELVIS: Appendix: No findings to suggest acute appendicitis. Bladder: Unremarkable. No mass. Reproductive: Unremarkable as visualized. ABDOMEN and PELVIS: Intraperitoneal space: Mild abdominal ascites. No free air. No hemoperitoneum. Bones/joints: Degenerative changes of the spine. No acute fracture. No dislocation. Soft tissues: Anasarca. Vasculature: Atherosclerotic changes of the aorta. No abdominal aortic aneurysm. Lymph nodes: Unremarkable. No enlarged lymph nodes. IMPRESSION: 1. No hemoperitoneum. 2. Dependent airspace consolidations, concerning for multilobar pneumonia. Bilateral parapneumonic effusions. 3. Small pericardial effusion. 4. Mild abdominal ascites. 5. Dense contrast throughout the colon, which is contributing to streak artifact which limits evaluation of the abdominal viscera. 6. Extensive metastatic disease in the upper abdomen, similar in appearance when compared to July 12, 2023. Common bile duct stent. Pneumobilia. Post surgical changes in the RIGHT hepatic lobe. Correlate with surgical medical history. Electronically signed by: Yuri Lawrence MD 07/27/23 22:02 PM Chest X-Ray 07/29/23 08:19 SINGLE VIEW CHEST CLINICAL HISTORY: Dyspnea FINDINGS: An AP, portable, upright chest radiograph is compared to study dated 07/28/2023 and correlated with chest CT dated 07/12/2023. A left subclavian central venous infusion port is unchanged in position. The heart is enlarged but noting atherosclerotic calcification of the thoracic aorta. The pulmonary vasculature is noncongested. Emphysema and chronic interstitial thickening is similar to previous. Airspace opacities throughout the left lung are unchanged and consistent with lymphangitic spread of tumor when compared to the prior examination. There are left larger than right pleural effusions with dependent consolidation. No pneumothorax is seen. The skeletal structures are osteopenic. The bony thorax is grossly intact. Arthritic change is noted in the shoulders a nd spine. Residual enteric contrast is noted in the stomach. IMPRESSION: 1. Cardiomegaly and emphysema. 2. 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 This was better assessed on the recent chest CT. 3. Left larger than right pleural effusions with dependent consolidation. ACT 112: Negative or not required by law. Electronically signed by: Reinaldo Kebede M.D. 07/29/2023 9:43 AM Ordered Studies 07/25/23 08:43 MR brain wo/w con Routine 07/25/23 12:08 FL barium swallow Routine 07/25/23 12:09 FL video swallow Routine 07/27/23 19:53 CT Abd and Pelvis [CT abd pelvis IV con only] Stat Hospital Course (1) Multifocal pneumonia: (2) Metastatic lung cancer (metastasis from lung to other site): (3) Aspiration pneumonia: Acute respiratory failure with hypoxia Multifocal pneumonia Bilateral pleural effusion Recurrent Aspiration contributing Metastatic lung cancer COPD exacerbation --Chest CT 07/12/23: Overall, progression of metastatic disease as described above including lymphangitic spread of tumor within the left lung. The previously identified paratracheal, hilar, and subcarinal lymph nodes have slightly decreased in size and are partially calcified consistent with positive treatment response. Small bilateral pleural effusions. These could represent malignant pleural effusions. Patchy bibasilar densities have progressed most pronounced on the left with progressive left lower lobe bronchial opacification. This could be due to an aspiration pneumonitis. Interval progression of metastatic disease within the upper abdomen. This will be discussed on the same day abdomen and pelvis CT. --CXR:No significant change in appearance of chest. 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 No pneumothorax. --Video Swallow:Moderate gastroesophageal reflux. Deep penetration to the level of the vocal cords without definite aspiration during the examination. Suggestion of a tiny Zenker's diverticulum. -- Procalcitonin elevated -- BioFire negative --Blood cultures negative to date --Sputum culture moderate normal terri --Echocardiogram; EF of 55%; normal left ventricular wall thickness. --Continue Zosyn, nebs --Supplemental oxygen as needed Appreciate pulmonology input Strict aspiration precautions Pulmonary hygiene Poor prognosis, palliative care consulted to address goals of care Continue BiPAP nightly Received IV Lasix Completed 7-day course of Zosyn. Resume home oral Lasix Needs 2: Needs 2 L of oxygen at rest and with activity Advised to follow-up with PCP and pulmonology on discharge Metastatic lung cancer --MRI brain with and without contrast on as per recommendation by oncology; no acute finding or intracranial metastasis. --CT chest as above --CT ABD:No hemoperitoneum. Dependent airspace consolidations, concerning for multilobar pneumonia. Bilateral parapneumonic effusions. Small pericardial effusion. Mild abdominal ascites. Dense contrast throughout the colon, which is contributing to streak artifact which limits evaluation of the abdominal viscera. Extensive metastatic disease in the upper abdomen, similar in appearance when compared to July 12, 2023. Common bile duct stent. Pneumobilia. Post surgical changes in the RIGHT hepatic lobe. Correlate with surgical medical history. --Needs follow-up with oncology on discharge Will need to follow-up with palliative care as outpatient NSVT Asymptomatic Started on metoprolol 12.5 mg twice a day Monitor replace electrolytes as needed (4) Malnutrition: Severe weight loss related to malignancy. Poor appetite Continue supplements Started on Marinol (5) Hypomagnesemia: Replace electrolytes as needed (6) Tobacco use disorder: ongoing smoking, contemplative phase. Nicoderm patch provided. (7) Hyponatremia: As per prior provider Per recent inpatient nephrology evaluation: small cell lung cancer may cause SIADH as can pneumonia in patient who already has structural lung disease. on salt tabs BID with placed on 1.5L fluid restriction --Continue salt tabs and fluid restriction -- Monitor sodium levels Sodium 133 today (8) Anemia: Anemia Thrombocytopenia Likely anemia of chronic disease Monitor CBC No acute bleeding issues H/O recurrent PE Continue apixaban DVT Px: Apixaban Code Status DNI/DNR as per my discussion with patient and patient's family Poor prognosis Disposition Home with home health Total Time Total Time Spent Total Time Spent (In Minutes): 58 minutes Discharge Plan Discharge Items Patient Disposition: Home - Home Health Services Reason For Visit: PNEUMONIA Discharge Diagnosis: Acute respiratory failure with hypoxia Multifocal pneumonia Bilateral pleural effusion Recurrent Aspiration Metastatic lung cancer COPD exacerbation NSVT Activity: Per Instructions section Exercise/Sports: Wait until after follow-up appointment Non-emergency contact: Primary Care Provider, Oncologist and Research Editor Call non-emergency contact if: you have any medication questions, your symptoms worsen, your pain is concerning for you and you have a fever Follow-up/Referrals: Kisha Rizvi MD, PhD [Physician] - (Date & Time 08/04/2023 1:00 PM Provider Kisha Rizvi MD Department Nephrology [facility] ) Hali Apodaca DO [Primary Care Provider] - (Date & Time 08/02/2023 11:50 AM Provider Hali Apodaca DO Department Family Medicine [facility] ) Diet: Regular Fluids: 1800ml (7 cups) Diet Texture: Easy to Chew Addtl Attending Provider Instructions: Follow-up with your primary care physician Dr. Apodaca on 08/02/2023 11:50 AM as scheduled Follow-up with your supervisor furnace room Dr. Suero on 08/04/2023 1:00 PM Follow-up with your oncologist as advised Follow-up with your cad intern in 3-4 weeks --- Complete the prednisone taper course and doxycycline as prescribed. Prednisone taper course Start taking prednisone 30 mg daily for 2 days, then take 20 mg daily for 2 days, then take 10 mg daily for 2 days and stop -- Use supplemental oxygen 2 L at rest and with activity as advised. Seek immediate medical attention if your symptoms reoccur or worsen Please take all medications as instructed on discharge list below. Please call if you have any questions or problems. You can reach a [facility] hospitalist on duty at [facility] 24 hours a day by calling [phone] Pending Studies at Discharge: No Stand-Alone Forms: My [facility] [employer], Smoking Cessation Medications and DC Order Prescriptions: New metoprolol tartrate 25 mg Tablet 12.5 mg PO BID Qty: 30 0RF guaifenesin [Mucinex] 600 mg Tablet Extended Release 12hr 600 mg PO Q12 Qty: 10 0RF doxycycline hyclate 100 mg capsule 100 mg PO BID 3 Days Qty: 6 0RF prednisone 10 mg tablet 10 mg PO DIRECTED Qty: 12 0RF Rx Instructions: Start taking prednisone 30 mg daily for 2 days, then take 20 mg daily for 2 days, then take 10 mg daily for 2 days and stop Continued acetaminophen [Tylenol] 325 mg capsule 650 mg PO Q4H PRN (Reason: Pain) furosemide [Lasix] 40 mg tablet 40 mg PO DAILY PRN (Reason: swelling) omeprazole 40 mg capsule,delayed release(DR/EC) 40 mg PO DAILY PRN (Reason: gerd) cholecalciferol (vitamin D3) 25 mcg (1,000 unit) capsule 50 mcg PO DAILY PreserVision AREDS 4,296 mcg-226 mg-90 mg capsule 1 cap PO DAILY prochlorperazine maleate [Compazine] 10 mg tablet 10 mg PO Q8H PRN (Reason: nausea and vomiting) 30 Days Qty: 90 3RF ondansetron HCl 4 mg tablet 8 mg PO Q8H PRN (Reason: Nausea) 30 Days Qty: 90 3RF fluticasone propion-salmeterol [Advair Diskus] 500-50 mcg/dose Blister With Device 1 inh INHALATION BID montelukast [Singulair] 10 mg Tablet 10 mg PO QAM PRN (Reason: Allergy Symptoms) azelastine 137 mcg (0.1 %) Aerosol,[place] 1 spray INTRANASAL BID PRN (Reason: Nasal Congestion) tiotropium bromide [Spiriva with HandiHaler] 18 mcg Capsule, W/Inhalation Device 1 cap INHALATION QAM folic acid 1 mg Tablet 1 mg PO QAM Qty: 30 1RF albuterol sulfate 2.5 mg /3 mL (0.083 %) solution for nebulization 2.5 mg INHALATION Q4H PRN (Reason: Shortness Of Breath Or Wheezing) albuterol sulfate 90 mcg/actuation HFA aerosol inhaler 2 puff INHALATION Q4H PRN (Reason: Shortness Of Breath Or Wheezing) mometasone [Nasonex 24hr Allergy] 50 mcg/actuation spray,non-aerosol 2 spray INTRANASAL BID PRN (Reason: Nasal Congestion) Eliquis 5 mg tablet 5 mg PO BID Hold Instructions: Resume on 05/13/23. docusate sodium 100 mg Capsule 100 mg PO BID PRN (Reason: Constipation ) Qty: 60 0RF magnesium oxide 400 mg (241.3 mg magnesium) Tablet 400 mg PO QAM Qty: 30 0RF Fish Oil 350-600 mg Capsule 1 cap PO DAILY sodium chloride 1,000 mg Tablet,Soluble 1,000 mg PO BID Qty: 1 0RF Rx Instructions: Pt has the med nicotine 14 mg/24 hr patch 24 hour 1 patch transdermal DAILY PRN (Reason: Only when admitted in hospital) Advanced Probiotic 625 mg (10 billion cell) capsule 2 cap PO BID dronabinol 5 mg capsule 5 mg PO BID17 Held mecobalamin (vitamin B12) 500 mcg tablet,chewable 500 mcg PO DAILY Hold Instructions: Until further recommendations by your primary care physician Discharge Orders: Discharge Order (Routine); Ordered 07/31/23 Ordered By: James Leonardo Admission Data Admit Date/Time: 07/23/23 18:35 Attending Provider: James Leonardo Admit Provider: Patsy Tinsley Primary Care Provider: Hali Apodaca Other Providers: Alfonso Fernando; Patsy Tinsley; Eliza Mckeon
[2023-07-31] MEDS: METOPROLOL TARTRATE 25 MG TAB PO SCH (14:01)
--- NOTE | 2023-07-31 15:40 | Palliative Care Consultation ---
Date of Consultation July 31, 2023 Assessment & Plan (1) Dyspnea and respiratory abnormalities: (2) Weakness generalized: (3) Cancer related pain: (4) Cough with sputum: (5) Nausea: (6) Counseling regarding advanced directives and goals of care: Met face to face with pt, and dtr at bedside for 30min With their consent and voluntary participation we discussed clinical events to date and the concerns I had reviewed with htme at our 07/19/clinic appt Pt remains fixed in opinion of "I'm not giving up, I'm going to fight his thing, I have a lot to do yet. I'm gong to watch my grandson grow up and get , I have things to do around the house yet. there is a lot I want to do." pt states most important goal for him is family connection. We reviewed the resp decline he is having with rapid interval progression of disease. it is unclear if he would be felt to be safe for more cancer directed therapy at this time with declining PS, declining appetite and now the newest complication of aspiration which will add to his declining and worsening resp failure. His family shared that they have been discussing these issues through the weekend. They were told to consider hospice. We discussed the goals of hospice as a patient service and the goals of care; we discussed EOL trajectories and transitions toma the emotional impact of realizing mortality as a concrete reality from prior abstract considerations. Pt was reassured that no matter where they are along this trajectory, they are not alone - their medical team will remain by their side through their journey. Discussed the pros/cons of accepting help when especially weakened and distressed by pain-which would also help provide relief/decrease caregiver burden/strain. I provided education about the hospice benefit: an interdisciplinary program offered by nurses, nurses aides, social workers, chaplains and a biomedical engineering aide for patients with a terminal condition and a life expectancy of less than 6 months. This is covered by Medicare at 100%/no out of pocket expense to patient and all meds/supplies needed by patient for the reason they are on hospice are paid for/covered by hospice. The goal is assure quality of life of the patient in their home setting (home, senior living, inpatient hospice setting) by providing symptoms management, psychosocial and spiritual support. However, they cannot offer 24 hours care and if the family is unable to provide that care, they will have to consider personal care with out of pocket cost vs. senior living placement. We discussed the goals of hospice as a patient service and the goals of care; we discussed EOL trajectories and transitions toma the emotional impact of realizing mortality as a concrete reality from prior abstract considerations. Pt was reassured that no matter where they are along this trajectory, they are not alone - their medical team will remain by their side through their journey. Discussed the pros/cons of accepting help when especially weakened and distressed by pain-which would also help provide relief/decrease caregiver burden/strain. Jesus Albetro is pretty clear he feels hospice is only for the ones who are giving up or being given up on, he does not believe hospice can be to help someone live better for as long as they can. Family reiterate their discussions from weekend, and how they have advised hospice is not a "giving up" plan but rather a "getting more focus on QOL" plan. Daughter asked about going home with trial of VNS + home PT and I advised that would be reasonable, if he declines/does not tolerate then can be moved to home hospice. I spoke with pt and family about legacy projects and provided him with the handprint frame legacy project from [facility] Palliative Med. I encouraged him to work on some legacy projects as part of a hope for the best but prepare for the worst approach, as there will be a time for all of us when we we will not be able to do these things but may heavily regret the lost opportunity. Reviewed additional legacy options including writing out milestone cards for grandson as well as notecards such as Compendium notes (available through [employer]) for leaving life advice across a broad range of topics. (7) Palliative care by specialist: Met with pt/family. Provided overview of Palliative Medicine, a subspecialty that provides specialized medical care for people living with a serious illness by offering a focus on quality of life. Palliative Medicine is often conflated with hospice: I advised patient/family that Palliative and hospice can be partners but we are not the same. It is important to understand the difference so that we may be informed, and not afraid. Palliative Medicine works to improve QOL through reduction of symptom burden/more control over their illness, for both the patient and family. Palliative medicine clinicians are board certified, specially-trained and another member of the patient's medical care team. We often provide an extra layer of support because our care is based on the needs of the patient, not the prognosis; as such, it's appropriate at any age/advancing stage of a serious illness and can be provided along with curative treatment. Palliative Medicine clinicians are also trained in advanced commun ication methodologies, to facilitate complex discussions about advanced illness planning, which are needed to help assure that the treatment choices match the patient's goals, aka delivering Goal Concordant care. Finally, we discussed that hospice is a visiting nurse service that focuses on care delivered at the very end of life for patients with terminal illness, with life expectancy less than 6 month. (8) Metastatic lung cancer (metastasis from lung to other site): Laterality: unspecified laterality Qualified Code(s): C34.90 - Malignant neoplasm of unspecified part of unspecified bronchus or lung (9) Small cell lung carcinoma: Plan * Family appreciative of legacy project review and initial handprint project to start * pt is slowly coming to terms with the implications of his illness but remains fixated on hoping to hear there is more chemo that will cure him or give him decades more of life. he plans to see oncology in follow up for more conversation and review of options * He reaffirms DNR/DNI * Awaiting dc home today, will plan for clinic follow with me in 1 week Thank you for allowing us to participate in the ongoing care of this patient. Please don't hesitate to call or page with any additional concerns. Dr. Eliza Mckeon DNP Director, Palliative Care History of Present Illness Reason for Consultation: [facility] Attending Physician: James Leonardo MD History of Present Illness Benjie Powell is a 63y male well known to me from outpatient [facility] who was admitted 07/23/23 from home with worsening SOB and cough, found to have bilat PNA and Swallow eval 07/25/2023 revealed +aspiration. He has met Stage IV SCLC. He is known to me from outpatient [facility], last seen by telemed 07/19/23: "I am worried about seeing PS decline and he appears weaker, I believe he is exhibiting worsening cancer related illness and it is not likely chemo will help him get better in the way he defines better. I expressed my worry to pt and that the decline we are seeing may be signs that cancer is getting worse and treatment may be harder to tolerate for him. Patient is very clear that his goals for now are to do whatever he can to try and live as long as he can, even if that comes with more disability or toxicity related side effects We discussed ACP. He does not feel he would want to live on machines but also feels for now he would want a trial of CPR incase he would recover from his arrest related issues. We discussed the survival data about CPR in advancing age and cancer as well as likelihood that if his heart or lungs stop working it would be from a cancer related event.I encouraged them to think about and discuss this further as a family. I encouraged them to think about these decisions from the perspective of how he envisions himself at the end of his life." He is here now with multifactorial resp failure with bilat pleural effusions and aspiration [employer] net PCT 0.72 BNP 81 He has small cell lung carcinoma ([id number]/1, stage IIIB vs stage IV) with lower cervical lymph node involvement dx 02/09/23 Former smoker with hx COPD he is seen bedside with and dtr He tells me he is being dc home today Oncology Treatment: 01/06/2023. CT chest. Low-dose screening Impression: Lung RADS category 4B. Suspicious for cancer. Significant interval increase in left upper lobe nodule. Significant interval increase in size of left hilar adenopathy. New mediastinal adenopathy. Hepatic morphology suggestive of cirrhosis. 01/23/2023. PET/CT scan. Impression: Metabolically active left upper lobe pulmonary nodule with hypermetabolic left hilar, mediastinal and cervical lymphadenopathy, concerning for malignancy with metastatic disease. Recommend tissue sampling for further characterization. Indeterminate metabolically active. Portal lymph node measuring 2.4 cm, stable in size dating back to 2019 and unlikely related to the above malignancy. 02/09/2023. Lymph node, left supraclavicular. - Poorly differentiated metastatic carcinoma is seen. - Please note that this poorly differentiated metastatic carcinoma has features of metastatic small cell carcinoma. - Please note that this entire case will be sent to the [facility] for an outside expert opinion and that opinion will serve as an addendum to this case. - Please see microscopic description. 03/03/2023. Medical oncology consultation. Dr. Arzate. Consideration for aggressive therapy including concurrent chemotherapy and radiation therapy. Completion of staging work-up including MRI brain. 03/10/2023. Radiation oncology consultation. Patient presents with left cervical lymphadenopathy. Patient continues to have some productive cough. Denies any hemoptysis or shortness of breath. Admits some anxiety. Decreased appetite. 03/21/2023. Cycle 1 day 1 etoposide and cisplatin. 03/30/2023. Brain MRI. No evidence of metastatic disease. 04/05/2023. Radiation oncology follow-up. CT simulation. 04/11/2023. Cycle 2-day 1 etoposide and cisplatin. 05/08/2023. Radiation stopped at the patient's request. He received 19 of planned 30 fractions of therapy. He did develop progression and had multiple medical issues. Allergies Allergy/AdvReac Type Severity Reaction Status Date / Time levofloxacin Allergy Intermediate Nausea Verified 07/23/23 13:33 Home Medications Medication Instructions Recorded Confirmed Type azelastine 137 mcg (0.1 %) nasal 1 spray intranasal BID PRN Nasal 02/12/20 07/23/23 History spray aerosol Congestion fluticasone 500 mcg-salmeterol 50 1 inh inhalation BID 02/12/20 07/23/23 History mcg/dose blistr powdr for inhalation (Advair Diskus) montelukast 10 mg tablet 10 mg PO QAM PRN Allergy Symptoms 02/12/20 07/23/23 History (Singulair) tiotropium bromide 18 mcg capsule 1 cap inhalation QAM 02/12/20 07/23/23 History with inhalation device (Spiriva with HandiHaler) folic acid 1 mg tablet 1 mg PO QAM #30 tabs 02/13/20 07/23/23 Rx acetaminophen 325 mg capsule 650 mg PO Q4H PRN Pain 03/10/23 07/23/23 History (Tylenol) albuterol sulfate 2.5 mg/3 mL 2.5 mg inhalation Q4H PRN 03/10/23 07/23/23 History (0.083 %) solution for nebulization Shortness Of Breath Or Wheezing albuterol sulfate 90 mcg/actuation 2 puff inhalation Q4H PRN 03/10/23 07/23/23 History aerosol inhaler Shortness Of Breath Or Wheezing cholecalciferol (vitamin D3) 25 50 mcg PO DAILY 03/10/23 07/23/23 History mcg (1,000 unit) capsule furosemide 40 mg tablet (Lasix) 40 mg PO DAILY PRN swelling 03/10/23 07/23/23 History mecobalamin (vitamin B12) 500 mcg 500 mcg PO DAILY 03/10/23 07/23/23 History chewable tablet mometasone 50 mcg/actuation nasal 2 spray intranasal BID PRN Nasal 03/10/23 07/23/23 History spray (Nasonex 24hr Allergy) Congestion omeprazole 40 mg capsule,delayed 40 mg PO DAILY PRN gerd 03/10/23 07/23/23 History release vitamins A,C,H-bsaz-xnsluo 4,296 1 cap PO DAILY 03/10/23 07/23/23 History mcg-226 mg-90 mg capsule (PreserVision AREDS) apixaban 5 mg tablet (Eliquis) 5 mg PO BID 03/15/23 07/23/23 History docusate sodium 100 mg capsule 100 mg PO BID PRN Constipation 05/11/23 07/23/23 Rx #60 caps magnesium oxide 400 mg (241.3 mg 400 mg PO QAM #30 tabs 05/11/23 07/23/23 Rx magnesium) tablet ondansetron HCl 4 mg tablet 8 mg (2 x 4 mg) PO Q8H PRN Nausea 06/30/23 07/23/23 Rx 1 month #90 tabs prochlorperazine maleate 10 mg 10 mg PO Q8H PRN nausea and 06/30/23 07/23/23 Rx tablet (Compazine) vomiting 1 month #90 tabs omega-3s 350 zb-zdf-sfi-other 1 cap PO DAILY 07/08/23 07/23/23 History hzdqe8z-xhhq oil 600 mg capsule (Fish Oil) sodium chloride 1,000 mg soluble 1,000 mg PO BID #1 tab 07/11/23 07/23/23 Rx tablet L.acidop,casei,lactis,rham-B.lact,marielle 2 cap PO BID 07/23/23 07/23/23 History 625 mg (10 billion cell) capsule (Advanced Probiotic) dronabinol 5 mg capsule 5 mg PO BID17 07/23/23 07/23/23 History nicotine 14 mg/24 hr daily 1 patch transdermal DAILY PRN Only 07/23/23 07/23/23 History transdermal patch when admitted in hospital doxycycline hyclate 100 mg capsule 100 mg PO BID 3 days #6 caps 07/31/23 Rx guaifenesin 600 mg tablet, 600 mg PO Q12 #10 tabs 07/31/23 Rx extended release 12 hr (Mucinex) metoprolol tartrate 25 mg tablet 12.5 mg (1/2 x 25 mg) PO BID #30 07/31/23 Rx tabs prednisone 10 mg tablet 10 mg PO DIRECTED #12 tabs 07/31/23 Rx Patient History Medical History (Updated 07/31/23 @ 15:50 by Eliza Mckeon DNP) Small cell lung carcinoma Counseling regarding advanced directives and goals of care Weakness generalized Dyspnea and respiratory abnormalities Common bile duct (CBD) stricture Encounter for pre-operative examination Tobacco use disorder Chronic respiratory failure Hyponatremia Chronic diastolic heart failure History of pulmonary embolism Palliative care by specialist Macular degeneration Metastatic lung cancer (metastasis from lung to other site) SCLC dx 02/09/23, Stage IV Deviated nasal septum Chronic rhinitis Depression Elevated serum homocysteine level Peripheral vascular disease Spinal stenosis of lumbar region without neurogenic claudication Hypertriglyceridemia hx Pulmonary embolism Right lung x3, currently on eliquis DVT (deep venous thrombosis) LLE x1 (entire length of leg), no known etiology COPD (chronic obstructive pulmonary disease) Surgical History Port-A-Cath in place (03/16/23) Left Subclavian Access Port Placement, Biopsy of Left Supraclavicular Node(Left) - Sanjay May MD, FACS Adverse reaction to anesthetic agent "Hard time to get air in or out" History of tonsillectomy and adenoidectomy Hx laparoscopic cholecystectomy Family History Mother , 74yo Stroke Heart disease "Had a bad heart" Father , 89yo Cancer "Bone cancer" COPD (chronic obstructive pulmonary disease) Stroke Hypertension Brother Brain tumor Pt uncertain if it was cancer; Diabetes Brother Cancer Son Medical history unknown Son Medical history unknown Daughter No problems noted. 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 [employer] How many Children do You have: 4 Other Information That Helps Us Care for You: No Feels Safe at Home: Yes Safety Concerns: Feels Safe At This Time Diet: regular caffeine: No during the past year weight has: decreased > 10 lbs Assistive Devices: Oxygen - at Night Review of Systems Review of Systems: All systems reviewed & are unremarkable except as noted in Subjective Physical Exam Physical Exam: Resting in recliner, SOB at rest with intermittent bronchitic cough and daughter at bedside Bitemp wasting PERRLA EOMIs tired appearing MM sl dry Dentition fair Neck supple and without stridor no audible wheeze Inc effort with use of accessory muscles Abd distended, non tender to palpation, +tympanic to percussion, no fluid wave, non tender liver palpated Extremities warm Gen weakness AAOx3 Results & Data Vital Signs (Past 12 Hours) Vital Signs Temp Pulse Pulse Pulse Pulse Pulse Resp 07/31/23 14:09 36.6 C 116 H 20 07/31/23 14:02 116 H 07/31/23 13:33 104 H 20 07/31/23 11:37 126 H 118 H 122 H 111 H 07/31/23 11:11 36.6 C 109 H 19 07/31/23 10:57 07/31/23 07:56 36.5 C 107 H 19 07/31/23 06:26 101 H 18 07/31/23 03:46 36.5 C 109 H 16 Resp Resp Resp Resp BP BP Pulse Ox 07/31/23 14:09 116/76 113/72 96 07/31/23 14:02 116/76 07/31/23 13:33 96 07/31/23 11:37 26 H 20 22 20 07/31/23 11:11 108/71 92 07/31/23 10:57 07/31/23 07:56 112/72 94 07/31/23 06:26 94 07/31/23 03:46 121/77 94 Pulse Ox Pulse Ox Pulse Ox Pulse Ox O2 Del Method O2 Flow Rate O2 Flow Rate 07/31/23 14:09 07/31/23 14:02 07/31/23 13:33 Nasal Cannula 2 07/31/23 11:37 91 92 93 88 L 2 07/31/23 11:11 Nasal Cannula 2 07/31/23 10:57 Nasal Cannula 2 07/31/23 07:56 Room Air, Nasal Cannula 2 07/31/23 06:26 Nasal Cannula 2 07/31/23 03:46 Nasal Cannula 2 O2 Flow Rate O2 Flow Rate 07/31/23 14:09 07/31/23 14:02 07/31/23 13:33 07/31/23 11:37 2 2 07/31/23 11:11 07/31/23 10:57 07/31/23 07:56 07/31/23 06:26 07/31/23 03:46 Laboratory Results data reveiwed see HPI Diagnostic Findings CT chest 07/12/2023: Centrilobular and paraseptal emphysema bilaterally, interlobular thickening on the left side. +Bilateral pleural effusion L>R. +Positive mediastinal lymphadenopathy. PG Care Time/CCT Total # of Minutes Spent Total Time Spent with Patient: Total time spent is greater than 50% in coordination of care (as documented) at patient's floor/unit and/or counseling patient: I spent 85 minutes overall addressing this case: 15 min in medical data review/discussion with referring provider(s) and/or preparation for the visit 15 min in direct interaction with the patient/exam 30 min in Advance Care Planning/Goals of Care discussions as detailed above in note (must be >16min) 10 min in subsequent review and synthesis of assessment and plan 15 min communicating with other providers regarding the patient's case: Advanced Care Planning 49146 Advanced Care Planning 30 [place] [address] IN/OBS CONSULT LVL 4,60M Patient Type New History Comprehensive Exam Comprehensive Medical Decision Making High Complexity Diagnoses Dyspnea and respiratory abnormalities R06.00; R06.89 Weakness generalized R53.1 Cancer related pain G89.3 Cough with sputum R05.8 Nausea R11.0 Counseling regarding advanced directives and goals of care Z71.89 Palliative care by specialist Z51.5 Metastatic lung cancer (metastasis from lung to other site) C34.90 Laterality: unspecified laterality Small cell lung carcinoma C34.90 Additional Codes Advanced Care Planning - 24622 Advanced Care Planning 30 Min: 96309 Advanced Care Planning 30 Min ([id number])
--- NOTE | 2023-07-31 16:06 | Palliative Family Discussion ---
Date of Service July 31, 2023 Patient Directed Conference Time of [id number]-[id number] Participants: Eliza Mckeon DNP Patient participation: yes Patient Support System: and dtr Other Healthcare Provider Participation: None Meeting Location: pt bedside A family meeting was held for DILMA MALHOTRA. This meeting was necessary for determining the appropriate course of treatment. Topics of Discussion Counseling regarding advanced directives and goals of care: Met face to face with pt, and dtr at bedside for 30min With their consent and voluntary participation we discussed clinical events to date and the concerns I had reviewed with htme at our 07/19/clinic appt Pt remains fixed in opinion of "I'm not giving up, I'm going to fight his thing, I have a lot to do yet. I'm gong to watch my grandson grow up and get , I have things to do around the house yet. there is a lot I want to do." pt states most important goal for him is family connection. We reviewed the resp decline he is having with rapid interval progression of disease. it is unclear if he would be felt to be safe for more cancer directed therapy at this time with declining PS, declining appetite and now the newest complication of aspiration which will add to his declining and worsening resp failure. His family shared that they have been discussing these issues through the weekend. They were told to consider hospice. We discussed the goals of hospice as a patient service and the goals of care; we discussed EOL trajectories and transitions toma the emotional impact of realizing mortality as a concrete reality from prior abstract considerations. Pt was reassured that no matter where they are along this trajectory, they are not alone - their medical team will remain by their side through their journey. Discussed the pros/cons of accepting help when especially weakened and distressed by pain-which would also help provide relief/decrease caregiver burden/strain. I provided education about the hospice benefit: an interdisci plinary program offered by nurses, nurses aides, social workers, chaplains and a medical director/head team physician for patients with a terminal condition and a life expectancy of less than 6 months. This is covered by Medicare at 100%/no out of pocket expense to patient and all meds/supplies needed by patient for the reason they are on hospice are paid for/covered by hospice. The goal is assure quality of life of the patient in their home setting (home, longterm, inpatient hospice setting) by providing symptoms management, psychosocial and spiritual support. However, they cannot offer 24 hours care and if the family is unable to provide that care, they will have to consider personal care with out of pocket cost vs. longterm placement. We discussed the goals of hospice as a patient service and the goals of care; we discussed EOL trajectories and transitions toma the emotional impact of realizing mortality as a concrete reality from prior abstract considerations. Pt was reassured that no matter where they are along this trajectory, they are not alone - their medical team will remain by their side through their journey. Discussed the pros/cons of accepting help when toma ecially weakened and distressed by pain-which would also help provide relief/decrease caregiver burden/strain. Jesus Alberto is pretty clear he feels hospice is only for the ones who are giving up or being given up on, he does not believe hospice can be to help someone live better for as long as they can. Family reiterate their discussions from weekend, and how they have advised hospice is not a "giving up" plan but rather a "getting more focus on QOL" plan. Daughter asked about going home with trial of VNS + home PT and I advised that would be reasonable, if he declines/does not tolerate then can be moved to home hospice. I spoke with pt and family about legacy projects and provided him with the handprint frame legacy project from [facility]. I encouraged him to work on some legacy projects as part of a hope for the best but prepare for the worst approach, as there will be a time for all of us when we we will not be able to do these things but may heavily regret the lost opportunity. Reviewed additional legacy options including writing out milestone cards for grandson as well as notecards such as [employer] notes (available through [employer]) for leaving life advice across a broad range of topics. Thank you for allowing us to participate in the ongoing care of this patient. Please don't hesitate to call or page with any additional concerns. Dr. Eliza Mckeon DNP Director, Palliative Care
== END 2023-07-31 15:40 | disposition home health service (06) | DRG 177 ==
LOC: ED 11:08 → SUATTDRO 18:35 → 2S 18:35
DX: E87.1 Hypo-osmolality and hyponatremia; Z66 Do not resuscitate; Z99.81 Dependence on supplemental oxygen; E43 Unspecified severe protein-calorie malnutrition; J44.1 Chronic obstructive pulmonary disease with (acute) exacerbation; J96.10 Chronic respiratory failure, unspecified whether with hypoxia or hypercapnia; J69.0 Pneumonitis due to inhalation of food and vomit; D63.8 Anemia in other chronic diseases classified elsewhere; J96.01 Acute respiratory failure with hypoxia; Z86.718 Personal history of other venous thrombosis and embolism; I47.10 Supraventricular tachycardia, unspecified; J98.11 Atelectasis; I50.32 Chronic diastolic (congestive) heart failure; J91.0 Malignant pleural effusion; R74.01 Elevation of levels of liver transaminase levels; Z88.1 Allergy status to other antibiotic agents; Z92.3 Personal history of irradiation; Z86.711 Personal history of pulmonary embolism; Z79.60 Long term (current) use of unspecified immunomodulators and immunosuppressants; E83.42 Hypomagnesemia; F17.210 Nicotine dependence, cigarettes, uncomplicated; Z22.322 Carrier or suspected carrier of Methicillin resistant Staphylococcus aureus